=== PATIENT | male | born 1945 | race Caucasian/White ===

== ENCOUNTER → 2016-11-17 | Outpatient (CLI) | payer OTHER ==
[~2016-11-17] MED LIST: ADVIN25/60 INH; ALBU1AER9 INH; ALPH600C2 PO; CHOL20009 PO; CRFUDL PO; CYAN1TAB PO; IPRASOL4 INH; LORA-741 PO; MULT-513 PO; MULTTAB45 PO; NAPR500T3 PO; NRV/5 PO; ONDA4TAB65 PO; OXYC-57 PO; PRT40 PO; PYRI25TA3 PO; TIOTCAP INH; [UNRECOGNIZED DRUG - CODE] SL
[2016-11-17 16:35] LABS: CALCIUM 9.5 mg/dl (8.5-10.1)
[2016-11-17 16:50] LABS: THYROID STIMULATING HORMONE 0.38 uIu/ml (0.300-4.500)
== END | disposition home or self-care (01) ==
LOC: C.LABBFT 13:22
PROVIDERS: ATTEND Internal Medicine Endocrinology, Diabetes & Metabolism
DX: E34.9 Endocrine disorder, unspecified (principal); R94.6 Abnormal results of thyroid function studies

== ENCOUNTER → 2017-03-06 | Outpatient (CLI) | payer OTHER ==
--- NOTE | 2017-03-06 11:41 | DIAGNOSTIC IMAGING REPORT ---
CHEST 2 VIEWS ROUTINE CLINICAL HISTORY: CHRONIC COUGH; NEW ONSET OF HOARSENESS dyspnea COMPARISON STUDY: 06/29/2015 FINDINGS: Moderate stable cardia megaly. Unchanging interstitial and parenchymal prominence considered chronic. No acute or superimposed infiltrate. IMPRESSION: Chronic change. Mild stable cardia megaly. No acute or interval process. The above report was generated using voice recognition software. It may contain grammatical, syntax or spelling errors. Electronically signed by: Shad Magallon M.D. 03/06/2017 11:40 AM Dictated Date/Time: 03/06/2017 11:39 AM
== END | disposition home or self-care (01) ==
LOC: C.RAD 11:09
PROVIDERS: ATTEND Nurse Practitioner Family
DX: C34.11 Malignant neoplasm of upper lobe, right bronchus or lung (principal); R05 Cough; R49.0 Dysphonia

== ENCOUNTER → 2018-03-21 | Outpatient (CLI) | payer OTHER ==
[~2018-03-21] MED LIST changes: +IPRA-64 INH; -IPRASOL4 INH; +NAPR-1231 PO; -NAPR500T3 PO; +PANT1TAB4 PO; -PRT40 PO
[2018-03-21 13:59] LABS: ALBUMIN 3.9 gm/dl (3.4-5.0); CALCIUM 9.3 mg/dl (8.5-10.1)
[2018-03-21 14:04] LABS: T3 FREE 3.48 pg/ml (2.30-4.20)
== END | disposition home or self-care (01) ==
LOC: C.LAB1850 12:20
PROVIDERS: ATTEND Internal Medicine Endocrinology, Diabetes & Metabolism
DX: R53.83 Other fatigue (principal); R94.6 Abnormal results of thyroid function studies

== ENCOUNTER 2019-02-18 21:24 | Inpatient (IN) ==
--- OUTSIDE RECORDS SUMMARY | 2019-02-18 21:27 | External Medical Summary | Continuity of Care Document ---
:1945 Author Name Monie Zuniga, Provider Address Unavailable Unavailable , Care Team Providers Name Role Phone Fabricio Moon M.D. 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.90) Status: Resolved Anxiety (300.00) (F41.9) Depressive disorder (311) (F32.9) Chronic hoarseness (784.42) (R49.0) Arthritis (716.90) (M19.90) Mediastinal lymphadenopathy (785.6) (R59.0) Acid reflux disease (530.81) (K21.9) Dyslipidemia (272.4) (E78.5) Diastolic dysfunction (429.9) (I51.89) Diverticulosis (562.10) (K57.90) Idiopathic neuropathy (355.9) (G60.9) Increased frequency of urination (788.41) (R35.0) Port catheter in place (V45.89) (Z95.828) Allergies and Adverse Reactions citalopram (Allergy) Reaction: Nausea, D iarrhea Morphine Derivatives (Allergy) Status: D enied Statins (Allergy) Medications Multiple Vitamin TABS; TAKE 1 TABLET DAILY. Refills: 0 Spiriva HandiHaler 18 MCG Inhalation Cap narayan; INHALE CONTENTS OF 1 CAPSULE ONCE DAILY. Quantity: 30 Refills: 0 Pyridoxine HCl - 25 MG Oral Tablet; TAKE 1 TABLET DAILY D IRECTED. Refills: 0 Lovastatin 20 MG Oral Tablet; TAKE 1 TABLET DAILY. 60 Tablet Bottle Refills: 0 Omeprazole 40 MG Oral Capsule Delayed Release; TAKE 1 CAPSUL E DAILY. Refills: 3 Ipratropium-Albuterol 0.5-2.5 (3) MG/3ML Inhalation Solution; USE 1 UNIT DOSE IN NEBULIZER EVERY 4 HOURS NEEDED. FERDINAND Puri 3 ML Plas Cont Quantity: 180 Refills: 3 Calcitriol 0.5 MCG Oral Capsule; TAKE 1 CAPSULE Daily Efrain Salazar Start: 15-Feb-2016 Quantity: 90 Refills: 0 Lisinopril 5 MG Oral Tablet; TAKE 1 TABLET DAILY. Start: 23-Nov-2016 Quantity: 30 Refills: 5 Ferrous Sulfate 325 (65 Fe) MG Oral Tablet; TAKE 1 TABLET TW ICE DAILY. Start: 29-Jan-2019 Quantity: 60 Refills: 0 Symbicort 160-4.5 MCG/ACT Inhalation Aer osol; INHALE 2 PUFFS TWICE DAILY. RINSE MOUTH AFTER USE. 10.2 GM Inhaler Quantity: 1 Refills: 5 Vitamin B-6 50 MG Oral Tablet; TAKE 1 TABLET DAILY. Refills: 0 Alpha-Lipoic Acid 600 MG Oral Capsule; TAKE 1 CAPSULE Daily Refills: 0 Vitamin C 500 MG Oral Tablet; TAKE 1 TABLET DAILY. Start: 23-Jan-2019 Refills: 0 Iron 325 (65 Fe) MG Oral Tablet; Take 1 time daily Start: 23-Jan-2019 Refills: 0 Naproxen 500 MG Oral Tablet; TAKE 1 TABLET EVERY 12 HOURS NEEDED. Start: 23-Jan-2019 Refills: 0 Gabapentin 100 MG Oral Capsule; TAKE 2 CAPSULES DAILY Start: 23-Jan-2019 Refills: 0 ProAir HFA 108 (90 Base) MCG/ACT Inhalat ion Aerosol Solution; INHALE 2 PUFFS EVERY 4 HOURS NEEDED Start: 28-Nov-2017 Quantity: 1 8.5 GM Inhaler Refills: 5 Procedures Calcium Date: 23-Jan-2019 PTH, Intact Date: 23-Jan-2019 Free T4 Date: 23-Jan-2019 Ultra TSH Date: 23-Jan-2019 History of Back Surgery Status: Complete d History of Hernia Repair Status: Complet ed History of Shoulder Surgery Status: Comp leted History of Knee Arthroscopy (Therapeutic) Status: Completed History of Lung Lobectomy Status: Comple brayan Immunizations Td On: 08-Jan-1998 Tdap On: 01-Jul-2008 Pneumovax 23 25 MCG/0.5ML Injection Injectable On: 17-May-20 09 Fluzone INJ On: 25-Jun-2012 Influenza On: 20-May-2013 Zoster (Zostavax) On: 19-Mar-2014 Influenza On: 01-Jun-2014 Prevnar 13 Intramuscular Suspension On: 26-Oct-2014 Influenza On: 06-May-2015 Fluzone High-Dose Intramuscular Suspension On: 03-Jun-2018 1 6:16 Lot #: [id number], [employer]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 3) Status: Active Unknown Family Member Family history of diabetes mellitus (V18.0) Status: Active Comments: Family History (Z83.3) Family history of myocardial infarction Status: Active Comments: Family History (V17.3) (Z82.49) Family history of cataracts (V19.19) Status: Active Com ments: Family History (Z83.518) Social History - Smoking Status Former smoker Plan of Treatment Planned Encounters Appointment; Fabricio Moon M.D. Start: 28-Jan-2020 13:40 Re quest Planned Observations Planned Goals not documented Results No Known Results Results not documented Vital Signs 29-Jan-2019 14:16 Systolic 124 mm[Hg] Comments: Location: LUE; Position: Sitting Diastolic 86 mm[Hg] Comments: Location: LUE; Position: Sitting O2 Saturation 96 % Comments: Source: RA Weight 248.3125 lb Height 69.5 in BMI Calculated 36.14 kg/m2 Respiration 16 /min BSA Calculated 2.28 m2 Heart Rate 99 /min Temperature 98.1 f 23-Jan-2019 13:22 Systolic 118 mm[Hg] Diastolic 70 mm[Hg] Weight 250.7 lb Height 69.5 in BMI Calculated 36.49 kg/m2 BSA Calculated 2.29 m2 Heart Rate 108 /min Encounters Appointment; Natalie Puri PA-C 29-Jan-2019 14:30 Encounter Diagnosis: Problem not documented Appointment; Fabricio Moon M.D. 23-Jan-2019 13:20 Encounter Diagnosis: Problem not documented Appointment; Natalie Puri PA-C 07-Oct-2018 14:30 Encounter Diagnosis: Problem not documented Appointment; Natalie Puri PA-C 03-Jun-2018 14:30 Encounter Diagnosis: Problem not documented Appointment; Pulmonary, Funct Testing 03-Jun-2018 13:30 Encounter Diagnosis: Problem not documented Appointment; Fabricio Moon M.D. 21-Mar-2018 11:20 Encounter Diagnosis: Problem not documented Appointment; Vanessa Ervin PA-C 24-Dec-2017 10:15 Encounter Diagnosis: Problem not documented Appointment; Stress, Echocardiogram 1 24-Dec-2017 9:30 Encounter Diagnosis: Problem not documented Appointment; Hal Kennedy M.D. 07-Dec-2017 11:30 Encounter Diagnosis: Problem not documented Appointment; Natalie Puri PA-C 28-Nov-2017 13:30 Encounter Diagnosis: Problem not documented Appointment; Sumeet Trejo M.D. 15-Mar-2017 8:40 Encounter Diagnosis: Problem not documented Appointment; Fabricio Moon M.D. 28-Jan-2020 13:40 Encounter Diagnosis: Problem not documented
[2019-02-18 22:38] LABS: Basophils # (auto) 0.04 K/uL (0-0.2); Basophils % (auto) 0.3 %; Eosinophils # (auto) 0.51 K/uL (0-0.5); Eosinophils % (auto) 4.2 %; Hematocrit (blood only) 40.2 % (42-52); Hemoglobin 12.5 g/dL (14.0-18.0); Immature Granulocytes # (auto) 0.13 K/uL (0.00-0.02); Immature Granulocytes % (auto) 1.1 %; Lymphocytes # (auto) 2.07 K/uL (1.2-3.4); Lymphocytes % (auto) 17.1 %; Mean Corpuscular Hgb Conc 31.1 g/dL (32-36); Mean Corpuscular Volume 85.5 fL (80-100); Mean Platelet Volume 10.1 fL (7.4-10.4); Monocytes # (auto) 1.17 K/uL (0.11-0.59); Monocytes % (auto) 9.7 %; Neutrophils # (auto) 8.17 K/uL (1.4-6.5); Neutrophils % (auto) 67.6 %; Platelet Count 201 K/uL (130-400); RDW Coefficient of Variation 18.4 % (11.5-14.5); RDW Standard Deviation 58.2 fL (36.4-46.3); White Blood Count 12.09 K/uL (4.8-10.8)
[2019-02-18] MEDS ORDERED: ALBUT/IPRATROP 3MG/0.5MG NEB 3 ML VIAL INH STA (22:38)
--- NOTE | 2019-02-18 22:46 | XRay Report ---
XR chest 1V portable CLINICAL HISTORY: SOB/Chest pain dyspnea COMPARISON STUDY: 06/29/2015 FINDINGS: Moderate cardiomegaly. Lungs are clear. Mild chronic elevation right hemidiaphragm. Central catheter is in spur vena cava. IMPRESSION: Cardiomegaly. Otherwise negative study. The above report was generated using voice recognition software. It may contain grammatical, syntax or spelling errors. Electronically signed by: Shad Magallon M.D. 02/18/2019 10:44 PM
[2019-02-18 22:50] LABS: INR 1.2 (0.9-1.1); Partial Thromboplastin Ratio 1.1; Partial Thromboplastin Time 29.4 Seconds (21.0-31.0); Prothrombin Time 11.8 Seconds (9.0-12.0)
[2019-02-18 22:56] LABS: Albumin Level 3.3 gm/dl (3.4-5.0); BUN Creatinine Ratio 16.5 (10-20); Calcium 9.4 mg/dl (8.5-10.1); Creatinine Clr Calc Pharmacy 47.4 ml/min; Est GFR (African American) 44.7; Est GFR (Non-African American) 38.6; Potassium 4.1 mmol/L (3.5-5.1)
[2019-02-18 23:03] LABS: Albumin Globulin Ratio 0.9 (0.9-2); Bilirubin,Total 0.3 mg/dl (0.2-1); Globulin 3.7 gm/dl (2.5-4.0); Troponin I 0.136 ng/ml (0-0.045)
--- NOTE | 2019-02-19 01:07 | Emergency Department Note ---
Entered by Simin Wren acting as a scribe for Mirza Valencia MD History of Present Illness General Chief complaint: Shortness of Breath/Dyspnea Stated complaint: SOB, CHEST PAIN- HX COPD Source: patient History of Present Illness Onset (ago): hour(s) (today) Location: chest Severity: similar to prior episodes Pain Consistency: + other (worsening ) Maximum Pain Intensity: 7 Quality: + other (shortness of breath ) Exacerbated By: + other (exertion) Associated symptoms: + chest pain (left-sided tightness and ache with radiation to left shoulder), + cough and + diaphoresis; no fever/chills The patient is a 74 year old male who presents to the Emergency Room with complaints of worsening shortness of breath that began today. He states that this shortness of breath is exacerbated with exertion. The patient states that he had left-sided chest pain during this time that he describes as a tightness a nd ache. He states that this pain radiated to his left shoulder. The patient states that he was walking when he felt increasingly short of breath and checked his pulse ox and heart rate. The patient states that at this time his pulse ox was 70% and his heart rate was 159. He states that he was sweating at this time. The patient denies fever. The patient states that his shortness of breath has been persistent over the past 7 months with his history of COPD and lung cancer, but worsened over the past several days and worse today. He states that he has been coughing during this time. It is a nonproductive cough. The patient states that he is not on oxygen at home. He denies a history of clots or CAD. The patient states that he had a stress test last year. Home Medications Home Medications Medication Instructions Recorded Confirmed Type Albuterol (Proair Hfa) 2 puff INHALATION PRN #0 02/03/13 History CHOLECALCIFEROL (VITAMIN D) 600 mg PO DAILY #0 02/03/13 History LORAZEPAM (ATIVAN) 0.5 mg PO #0 tab 03/17/13 History OXYCODONE/ACETAMINOPHEN 5MG/325MG 0.5 - 1 tab PO DAILY PRN 30 Days 03/17/13 History (PERCOCET 5MG/325MG) #0 tab Tiotropium [place] (Spiriva 1 cap INHALATION DAILY #0 inhaler 04/01/13 History Handihaler) Amlodipine Besylate 5 mg PO HS #0 10/30/13 History MELATONIN-VITAMIN B12 (MELATONIN) 2,500 mcg SUBLINGUAL PRN #0 10/29/14 History ALPHA-LIPOIC ACID (THIOCTIC AC 600 mg PO DAILY #0 06/29/15 History (ALPHA LIPOIC ACID) CYANOCOBALAMIN (B-12 TR) 1,000 mcg PO DAILY #0 06/29/15 History FLUTICASONE PROP/SALMETEROL 1 puff INHALATION BID #0 inhaler 06/29/15 History (Advair Diskus 250/50 60 Dose) FLUTICASONE PROP/SALMETEROL 1 puff INHALATION TID PRN #0 06/29/15 History (Advair Diskus 250/50 60 Dose) inhaler IPRATROPIUM-ALBUTEROL (DUONEB) 1 treatment INHALATION Q6 PRN #0 06/29/15 History inh MULTIPLE VITAMIN 1 tab PO DAILY #0 06/29/15 History Multivitamins/Minerals (Mvi With 1 tab PO DAILY #0 tab 06/29/15 History Minerals) NAPROXEN 1 tab PO BID PRN 30 Days #60 tab 06/29/15 History ONDANSETRON HCL (ZOFRAN) 4 mg PO Q8 PRN #0 tab 06/29/15 History PYRIDOXINE HCL 25 mg PO DAILY #0 06/29/15 History Pantoprazole (Pantoprazole Sodium) 40 mg PO BID 30 Days #0 tab 07/01/15 Rx Sucralfate 1 g PO ACHS 14 Days #0 07/01/15 Rx Allergies Allergy/AdvReac Type Severity Reaction Status Date / Time citalopram AdvReac Mild GI SYMPTOMS Verified 10/29/14 14:22 pravastatin AdvReac Mild leg Verified 10/29/14 14:22 soreness rosuvastatin AdvReac Mild leg Verified 10/29/14 14:22 soreness Past Med/Surg History Medical History Renal insufficiency (Chronic) Anxiety and depression (Chronic) Lung cancer (Chronic ~12/2012) Hypertension (Chronic) GERD (gastroesophageal reflux disease) (Chronic) COPD (chronic obstructive pulmonary disease) (Chronic) Surgical History S/P partial lobectomy of lung (Acute) Social History Feels Safe at Home: Yes Smoking Status: Former smoker Review of Systems See HPI for pertinent positives & negatives. and A total of 10 systems reviewed and were otherwise negative Physical Exam Vital Signs Vital Signs - 24 hr 02/18/19 21:30 02/18/19 21:57 02/18/19 22:23 Temperature 37.0 C Temperature Source Oral Sepsis Recent Fever Within 48 Hours No Sepsis New/Unexplained Change in Mental Status No Sepsis Action Taken by Nursing No Action Required Pulse Rate 108 H Pulse Rate [Apical] 101 H Pulse Rhythm Regular Pulse Rhythm [Apical] Regular Pulse Strength Normal Pulse Strength [Apical] Normal Respiratory Rate 30 H 22 Respiratory Effort / Characteristics Grunting Short of Breath Non-Labored Spontaneous Accessory Muscle Use Non-Labored Spontaneous Respiratory Depth Normal Normal Normal Respiratory Pattern Regular Regular Blood Pressure 141/83 H Blood Pressure [Right Arm] 144/90 H Blood Pressure Mean 102 Blood Pressure Mean [Right Arm] 108 Blood Pressure Position Sitting Blood Pressure Position [Right Arm] Sitting Pulse Oximetry 91 95 Oxygen Delivery Method Room Air Nasal Cannula Oxygen Flow Rate 4 02/18/19 22:34 02/18/19 23:05 02/18/19 23:14 Temperature Temperature Source Sepsis Recent Fever Within 48 Hours Sepsis New/Unexplained Change in Mental Status Sepsis Action Taken by Nursing Pulse Rate Pulse Rate [Apical] 98 H Pulse Rhythm Pulse Rhythm [Apical] Pulse Strength Pulse Strength [Apical] Respiratory Rate 20 Respiratory Effort / Characteristics Non-Labored Spontaneous Accessory Muscle Use Non-Labored Spontaneous Respiratory Depth Normal Respiratory Pattern Regular Blood Pressure Blood Pressure [Right Arm] Blood Pressure Mean Blood Pressure Mean [Right Arm] Blood Pressure Position Blood Pressure Position [Right Arm] Pulse Oximetry 95 94 Oxygen Delivery Method Room Air Nasal Cannula Nasal Cannula Oxygen Flow Rate 4 4 02/18/19 23:54 Temperature Temperature Source Sepsis Recent Fever Within 48 Hours Sepsis New/Unexplained Change in Mental Status Sepsis Action Taken by Nursing Pulse Rate Pulse Rate [Apical] 105 H Pulse Rhythm Pulse Rhythm [Apical] Regular Pulse Strength Pulse Strength [Apical] Normal Respiratory Rate 24 Respiratory Effort / Characteristics Non-Labored Spontaneous Respiratory Depth Normal Respiratory Pattern Regular Blood Pressure Blood Pressure [Right Arm] 118/76 Blood Pressure Mean Blood Pressure Mean [Right Arm] 90 Blood Pressure Position Blood Pressure Position [Right Arm] Sitting Pulse Oximetry 93 Oxygen Delivery Method Nasal Cannula Oxygen Flow Rate 4 Constitutional: Vital signs reviewed. Eyes: Pupils are equal round reactive to light. Conjunctiva are noninjected. ENT: Pharynx is clear without erythema or exudate. Mucous membranes are moist. Neck supple without meningeal signs. Respiratory: Expiratory wheezing bilaterally. Breath sounds are equal bilaterally. Cardiovascular: Regular rate and rhythm. No rubs or gallops. GI: Soft, nondistended and nontender. Bowel sounds are present. Musculoskeletal: Left leg swelling with some tenderness anteriorly over the mao, no erythema. Integumentary: No cyanosis. Neurological: The patient is awake and alert. No focal deficits. Psychiatric: Normal affect. Course 2230: Past medical records reviewed. The patient was evaluated in room B10. A complete history and physical exam was performed. 2307: I talked to the patient about a CT with elevated creatinine. The patient states that he would like to hold off on the CT. The patient states that his swelling in his left leg has been there for several months and states that he is usually sedentary. I offered to do an ultrasound and he is agreeable to this. The patient refuses a nebulizer treatment because he states that he just had one at home. I discussed the case with Dr. Vivar[facility] Hospitalist who accepts the patient for further evaluation. Consultations Consultation #1: Dr. Vivar Time: 01:00 Administered Medications Discontinued Medications Albuterol (Duoneb) 3 ml INH NOW STA Stop: 02/18/19 22:39 Last Admin: 02/18/19 23:12 Dose: 3 ml Documented by: [id number] Medical Decision Making Differential Diagnosis Differential diagnoses include unstable angina, GA, COPD exacerbation, PE, DVT, anemia, and others were considerded. Medical Records Attestation: I reviewed the patient's medical records. (The patient has no recent pertinent visits. ) Home Medications Current Medication List: was personally reviewed by me Laboratory Data Attestation: I reviewed the patient's lab results. Result diagrams: 02/18/19 22:26 02/18/19 22:26 Lab Results 02/18/19 02/18/19 02/18/19 Range/Units 22:26 22:26 22:26 WBC 12.09 H (4.8-10.8) K/uL RBC 4.70 (4.7-6.1) M/uL Hgb 12.5 L (14.0-18.0) g/dL Hct 40.2 L (42-52) % MCV 85.5 (80-100) fL MCH 26.6 (25-34) pg MCHC 31.1 L (32-36) g/dL RDW Std Deviation 58.2 H (36.4-46.3) fL RDW Coeff of Effie 18.4 H (11.5-14.5) % Plt Count 201 (130-400) K/uL MPV 10.1 (7.4-10.4) fL Immature Gran % (Auto) 1.1 % Neut % (Auto) 67.6 % Lymph % (Auto) 17.1 % [place] % (Auto) 9.7 % Eos % (Auto) 4.2 % Baso % (Auto) 0.3 % Immature Gran # (Auto) 0.13 H (0.00-0.02) K/uL Neut # (Auto) 8.17 H (1.4-6.5) K/uL Lymph # (Auto) 2.07 (1.2-3.4) K/uL [place] # (Auto) 1.17 H (0.11-0.59) K/uL Eos # (Auto) 0.51 H (0-0.5) K/uL Baso # (Auto) 0.04 (0-0.2) K/uL PT 11.8 (9.0-12.0) Seconds INR 1.2 H (0.9-1.1) APTT 29.4 (21.0-31.0) Seconds PTT Ratio 1.1 Sodium 141 (136-145) mmol/L Potassium 4.1 (3.5-5.1) mmol/L Chloride 110 H (98-107) mmol/L Carbon Dioxide 23 (21-32) mmol/L Anion Gap 8.0 (3-11) BUN 28 H (7-18) mg/dl Creatinine 1.71 H (0.6-1.4) mg/dl Est Cr Clr Drug Dosing 47.4 ml/min Est GFR ( Amer) 44.7 Est GFR (Non-Af Amer) 38.6 BUN/Creatinine Ratio 16.5 (10-20) Glucose 88 (70-99) mg/dl Calcium 9.4 (8.5-10.1) mg/dl Total Bilirubin 0.3 (0.2-1) mg/dl AST 24 (15-37) U/L ALT 32 (12-78) U/L Alkaline Phosphatase 53 (45-117) U/L POC Troponin I (0-0.045) ng/ml Troponin I 0.136 H* (0-0.045) ng/ml Total Protein 7.0 (6.4-8.2) gm/dl Albumin 3.3 L (3.4-5.0) gm/dl Globulin 3.7 (2.5-4.0) gm/dl Albumin/Globulin Ratio 0.9 (0.9-2) 02/18/19 Range/Units 23:07 WBC (4.8-10.8) K/uL RBC (4.7-6.1) M/uL Hgb (14.0-18.0) g/dL Hct (42-52) % MCV (80-100) fL MCH (25-34) pg MCHC (32-36) g/dL RDW Std Deviation (36.4-46.3) fL RDW Coeff of Effie (11.5-14.5) % Plt Count (130-400) K/uL MPV (7.4-10.4) fL Immature Gran % (Auto) % Neut % (Auto) % Lymph % (Auto) % [place] % (Auto) % Eos % (Auto) % Baso % (Auto) % Immature Gran # (Auto) (0.00-0.02) K/uL Neut # (Auto) (1.4-6.5) K/uL Lymph # (Auto) (1.2-3.4) K/uL [place] # (Auto) (0.11-0.59) K/uL Eos # (Auto) (0-0.5) K/uL Baso # (Auto) (0-0.2) K/uL PT (9.0-12.0) Seconds INR (0.9-1.1) APTT (21.0-31.0) Seconds PTT Ratio Sodium (136-145) mmol/L Potassium (3.5-5.1) mmol/L Chloride (98-107) mmol/L Carbon Dioxide (21-32) mmol/L Anion Gap (3-11) BUN (7-18) mg/dl Creatinine (0.6-1.4) mg/dl Est Cr Clr Drug Dosing ml/min Est GFR ( Amer) Est GFR (Non-Af Amer) BUN/Creatinine Ratio (10-20) Glucose (70-99) mg/dl Calcium (8.5-10.1) mg/dl Total Bilirubin (0.2-1) mg/dl AST (15-37) U/L ALT (12-78) U/L Alkaline Phosphatase (45-117) U/L POC Troponin I 0.08 H (0-0.045) ng/ml Troponin I (0-0.045) ng/ml Total Protein (6.4-8.2) gm/dl Albumin (3.4-5.0) gm/dl Globulin (2.5-4.0) gm/dl Albumin/Globulin Ratio (0.9-2) Imaging Data Radiologist's Impression: Radiology results as stated below per my review and the radiologist's interpretation: XR chest 1V portable CLINICAL HISTORY: SOB/Chest pain dyspnea COMPARISON STUDY: 06/29/2015 FINDINGS: Moderate cardiomegaly. Lungs are clear. Mild chronic elevation right hemidiaphragm. Central catheter is in spur vena cava. IMPRESSION: Cardiomegaly. Otherwise negative study. Preliminary Findings Only See Final Report For Complete Findings US VENOUS BILATERAL LOWER EXTREMITIES: No evidence of deep venous thrombosis. Radiologist: Aidan Recio MD Study ready at 00:39 and initial results transmitted at 01:16 The above report was generated using voice recognition software. It may contain grammatical, syntax or spelling errors. Electronically signed by: Shad Magallon M.D. 02/18/2019 10:44 PM ECG Data Attestation: I personally reviewed and interpreted this ECG as follows: Indication: chest pain Rate (beats per minute): 106 Rhythm: sinus tachycardia Findings: + Q waves (inferiorly); no PVC and no ST elevation Comparison ECG Date: from (07/01/2015) Change: the following changes noted (Q waves new) Blood Pressure Blood Pressure Findings: Normal blood pressure MDM Narrative I did evaluate the patient as noted above. The patient is presenting with exertional chest pain with shortness of breath and hypoxemia. He does have a prior history of lung cancer. I was concerned about CAD or pulmonary embolism. He states he has a history of neither. IV access was established. 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 He declined a nebulizer as the patient states that he just had one at home. He does have some expiratory wheezing on exam. I did order and personally review the patient's 12-lead EKG as described above. He does have some Q waves inferiorly. No ST elevations. I did order and personally reviewed the images of the patient's chest x-ray as described above. He has cardiomegaly without acute process. I did order and review the patient's blood work as noted in the electronic medical record. Creatinine is elevated at 1.7. His white count is slightly elevated. Troponin is 0.08. I did recommend CT scanning of the chest to rule out pulmonary embolism. He was concerned about the repeated CAT scans he was having and also was concerned about the IV dye and how it if it would affect his kidneys. He did not wish to have a CT scan at this time. He and his understand the risk of pulmonary embolism going undiagnosed and potential consequences. I did order Doppler ultrasound of the bilateral lower extremities. I did review the images myself as well as the radiology report as described above. This did not show any evidence of DVT. I did discuss the test results with the patient and his . I did recommend hospitalization for further evaluation. He will revisit the issue of CT scanning with the inpatient service as well as anticoagulation. I did discuss the case with the hospitalist and case reviewer. Impression & Plan Exertional chest pain, COPD exacerbation, Hypoxemia, Elevated serum creatinine, Elevated troponin Discharge Plan Visit Data Chief Complaint: Shortness of Breath/Dyspnea Stated Complaint: SOB, CHEST PAIN- HX COPD Other Complaint: Chest Pain ED Provider: Mirza Valencia Discharge Problem: Exertional chest pain, COPD exacerbation, Hypoxemia, Elevated serum creatinine, Elevated troponin Patient Disposition: Being Evaluated by Hospitalist Forms Stand Alone Forms: Call Back Authorization, My [facility] Prescriptions Prescriptions: No Action Albuterol (Proair Hfa) AEROSOL,SOLN 2 puff Inhalation PRNQty: 0 RF: 0 CHOLECALCIFEROL (VITAMIN D) 2,000 UNIT tablet 600 mg PO DAILY Qty: 0 RF: 0 LORAZEPAM (ATIVAN) 0.5 MG tablet 0.5 mg PO Qty: 0 RF: 0 OXYCODONE/ACETAMINOPHEN 5MG/325MG (PERCOCET 5MG/325MG) tablet 0.5 - 1 tab PO DAILY PRN (Reason: Pain) 30 Days Qty: 0 RF: 0 Tiotropium [place] (Spiriva Handihaler) 18 MCG/ AEROSOL,POWDR 1 cap Inhalation DAILY Qty: 0 RF: 0 Amlodipine Besylate 5 MG tablet 5 mg PO HS Qty: 0 RF: 0 MELATONIN-VITAMIN B12 (MELATONIN) 1 SUB SUB 2,500 mcg Sublingual PRN (Reason: supplement) Qty: 0 RF: 0 CYANOCOBALAMIN (B-12 TR) 1,000 MCG tablet 1,000 mcg PO DAILY Qty: 0 RF: 0 FLUTICASONE PROP/SALMETEROL (Advair Diskus 250/50 60 Dose) 1 EA AEROSOL,POWDR 1 puff Inhalation TID PRN (Reason: unk) Qty: 0 RF: 0 IPRATROPIUM-ALBUTEROL (DUONEB) 3 ML NEBULIZR-SOLN 1 treatment Inhalation Q6 PRN (Reason: SOB/Wheezing) Qty: 0 RF: 0 Multivitamins/Minerals (Mvi With Minerals) tablet 1 tab PO DAILY Qty: 0 RF: 0 NAPROXEN 500 MG tablet 1 tab PO BID PRN (Reason: Pain) 30 Days Qty: 60 RF: 0 ONDANSETRON HCL (ZOFRAN) 4 MG tablet 4 mg PO Q8 PRN (Reason: Nausea or Vomiting) Qty: 0 RF: 0 PYRIDOXINE HCL 25 MG tablet 25 mg PO DAILY Qty: 0 RF: 0 ALPHA-LIPOIC ACID (THIOCTIC AC (ALPHA LIPOIC ACID) 600 MG capsule 600 mg PO DAILY Qty: 0 RF: 0 FLUTICASONE PROP/SALMETEROL (Advair Diskus 250/50 60 Dose) 1 EA AEROSOL,POWDR 1 puff Inhalation BID Qty: 0 RF: 0 MULTIPLE VITAMIN 1 TAB tablet 1 tab PO DAILY Qty: 0 RF: 0 Pantoprazole (Pantoprazole Sodium) 40 MG tablet 40 mg PO BID 30 Days Qty: 0 RF: 0 Sucralfate 1 GM/10 ML suspension 1 g PO ACHS 14 Days Qty: 0 RF: 0 Referrals Referrals: Maureen Mcdaniels [Primary Care Provider] - The scribe's documentation has been prepared under my direction and personally reviewed by me in its entirety. I confirm that the note above accurately reflects all work, treatment, procedures, and medical decision making performed by me.
--- NOTE | 2019-02-19 02:28 | History & Physical Report ---
Date of Service February 19, 2019 Assessment & Plan (1) Shortness of breath: Patient presents with progressive shortness of breath x year, acute worsening over the last 3-4 days. He had an episode today with severe HERNANDEZ, CP, palpitations and lightheadedness, saturations reported to be 70% at that time. Exam is most consistent with acute exacerbation of COPD. Patient with history of NSCL cancer s/p RLL lobectomy. Pulmonary emphysema - PFT from 03 June 2018 wit pattern of restriction - PFT 06/03/2018: FVC: 2.7/61, FEV1: 2.17/65, FEV1/FVC: 80/105, FEF 25-75%: 2.22/75, RV: 1.8/72, T.37/82, RV/T/111, DLCO: 35, dL/VA: 90 -Admit to PCU -DuoNeb q 4 hours -Albuterol q 2 hours PRN -Continue Symbicort 2 puffs BID -Solumedrol 40mg IV TID -Patient would most likely benefit greatly from Pulmonary rehab Present on Admission?: Yes (2) COPD (chronic obstructive pulmonary disease): As above. -DuoNeb, Albuterol, Solumedrol, supplemental O2 as needed Present on Admission?: Yes (3) Elevated troponin: Troponin elevated at 0.136. Patient with episode of chest pain earlier today in setting of hypoxia, sats reported to be 70%. Presently CP free. Patient with no known CAD, however, EKG suggests presence of inferior infarct. He had a dobutamine stress test performed 24 Dec 2017 which was negative for inducible ischemia/WMA. LV normal size and function. RV mildly dilated. Suspect supply-demand mismatch in setting of acute hypoxic respiratory failure as underlying cause for mildly elevated troponin -Admit to PCU as above -Cardiac monitoring -Trend troponin q 8 hours x 3 sets -Check 2D echocardiogram -Continue Lisinopril 5mg po daily -Continue Lovastatin 20mg po qPM -Will initiate ASA 81mg po daily Present on Admission?: Yes (4) Dyslipidemia: Chronic -Continue Lovastatin 20mg po daily Present on Admission?: Yes (5) GERD (gastroesophageal reflux disease): Patient reports symptoms have resolved. He no longer takes PPI -Continue to monitor Present on Admission?: Yes (6) Hypertension: Blood pressure presently stable -Continue Lisinopril daily -Continue to monitor Present on Admission?: Yes (7) Renal insufficiency: BUN=28, Cr=1.7, similar to prior -Avoid nephrotoxic agents -Renal dosing where appropriate -Monitor BUN, Cr, electrolytes and UOP Present on Admission?: Yes (8) Lung cancer: Remote history of squamous cell s/p RLL lobectomy and adjuvant chemotherapy, presently in remission. -Continue outpatient followup with Pulmonary F/E/N - Heplock. Monitor electrolytes and replete as needed, heart healthy diet as tolerated Ppx - Lovenox 40 Code - Full per discussion with patient Dispo - Admit to PCU History of Present Illness Chief Complaint: SOB Primary Care Provider: Maureen Mcdaniels Mr. Lynch is a 74yo C male with history of HTN, HLP, COPD, CKD, non-small cell lung cancer s/p RLL lobectomy and юлия biopsy, s/p chemotherapy, presently in remission. Patient presents with progressive HERNANDEZ and SOB. He states that his symptoms have been slowly progressing for years with more rapid progression since August 2018 and acute worsening over the last 3-4 days. Patient reports severe dyspnea with minimal exertion such as ambulating 50 feet in his home. This afternoon he was mowing the lawn using his riding mower. He finished mowing and walked into his home and up a flight of stairs after which he became acutely short of breath. He used his home pulse oximeter and had a saturation of 70%, heart rate of 159 bpm at that time. He also had dull left sided chest pressure and palpitations with lightheadedness. He rested for about an hour and repeated his pulse ox which was 81%. Patient has a cough productive for light/clear sputum. No purulence. No fevers/chills/sweats. No recent illness or allergy symptoms. He does report recent bilateral LE edema over the last 5 days. Denies weight gain, orthopnea. He is compliant with his medications and uses his inhalers faithfully. SOB briefly improves after a neb treatment. Presently with no CP. Still with SOB although improved from prior. ER Course: Albuterol Allergies Allergy/AdvReac Type Severity Reaction Status Date / Time citalopram AdvReac Mild GI SYMPTOMS Verified 02/19/19 01:50 pravastatin AdvReac Mild leg Verified 02/19/19 01:50 soreness rosuvastatin AdvReac Mild leg Verified 02/19/19 01:50 soreness Home Medications Home Medications Medication Instructions Recorded Confirmed Type budesonide-formoterol [Symbicort] 2 puff INHALATION AMPM 02/19/19 02/19/19 History calcitriol 0.5 mcg PO QAM 02/19/19 02/19/19 History gabapentin 200 mg PO HS 02/19/19 02/19/19 History ipratropium-albuterol 3 ml INHALATION AMPM 02/19/19 02/19/19 History lisinopril 5 mg PO QAM 02/19/19 02/19/19 History lovastatin 20 mg PO PM 02/19/19 02/19/19 History naproxen 500 mg PO BID PRN 02/19/19 02/19/19 History tiotropium bromide [Spiriva with 1 cap INHALATION QPM 02/19/19 02/19/19 History HandiHaler] Past Med/Surg History Medical History Renal insufficiency (Chronic) Anxiety and depression (Chronic) Lung cancer (Chronic ~12/2012) Hypertension (Chronic) GERD (gastroesophageal reflux disease) (Chronic) COPD (chronic obstructive pulmonary disease) (Chronic) Dyslipidemia Surgical History S/P partial lobectomy of lung (Acute) History of back surgery History of hernia repair History of knee joint replacement History of shoulder surgery Family History Other Breast cancer Diabetes Social History Feels Safe at Home: Yes Smoking Status: Former smoker Hx Alcohol Use: No Hx Substance Use: No Review of Systems Review of Systems: All systems reviewed & are unremarkable except as noted in HPI & below Physical Exam Physical Exam: General: patient resting comfortably, NAD, non-toxic in appearance, AA&O x 4, mild conversational dyspnea Skin: warm, dry, intact, no rashes or lesions HEENT: NC/AT, PERRL, EOMI, anicteric sclera, conjunctiva without injection, external ear normal to inspection and nontender, nares patent, moist mucus membranes, dentures in place, no oropharyngeal lesions, neck supple, trachea midline, no LAD, no thyromegaly, no JVD Heart: +S1/S2, regular, no m/r/g, port in place, nontender to palpation Lungs: diminished breath sounds, +diffuse wheezing in bilateral lung edmonds, no rales/rhonchi Abd: +BS, soft, NT/ND, no masses/organomegaly/ascites Ext: warm, 2+ pulses in UE/LE bilaterally, no clubbing/cyanosis, trace pitting edema of bilateral LEs Neuro: nonfocal, patient AA&O x 4, speech intact, no facial droop, moving all extremities on command with equal strength 5/5 Results & Data Vital Signs (Past 12 Hours) Vital Signs Temp Pulse Pulse Resp BP BP Pulse Ox 02/18/19 23:54 105 H 24 118/76 93 02/18/19 23:14 98 H 20 94 02/18/19 23:05 95 02/18/19 22:23 101 H 22 144/90 H 95 02/18/19 21:30 37.0 C 108 H 30 H 141/83 H 91 Laboratory Results Lab Results 02/18/19 02/18/19 02/18/19 Range/Units 22:26 22:26 22:26 WBC 12.09 H (4.8-10.8) K/uL RBC 4.70 (4.7-6.1) M/uL Hgb 12.5 L (14.0-18.0) g/dL Hct 40.2 L (42-52) % MCV 85.5 (80-100) fL MCH 26.6 (25-34) pg MCHC 31.1 L (32-36) g/dL RDW Std Deviation 58.2 H (36.4-46.3) fL RDW Coeff of Effie 18.4 H (11.5-14.5) % Plt Count 201 (130-400) K/uL MPV 10.1 (7.4-10.4) fL Immature Gran % (Auto) 1.1 % Neut % (Auto) 67.6 % Lymph % (Auto) 17.1 % [place] % (Auto) 9.7 % Eos % (Auto) 4.2 % Baso % (Auto) 0.3 % Immature Gran # (Auto) 0.13 H (0.00-0.02) K/uL Neut # (Auto) 8.17 H (1.4-6.5) K/uL Lymph # (Auto) 2.07 (1.2-3.4) K/uL [place] # (Auto) 1.17 H (0.11-0.59) K/uL Eos # (Auto) 0.51 H (0-0.5) K/uL Baso # (Auto) 0.04 (0-0.2) K/uL PT 11.8 (9.0-12.0) Seconds INR 1.2 H (0.9-1.1) APTT 29.4 (21.0-31.0) Seconds PTT Ratio 1.1 Sodium 141 (136-145) mmol/L Potassium 4.1 (3.5-5.1) mmol/L Chloride 110 H (98-107) mmol/L Carbon Dioxide 23 (21-32) mmol/L Anion Gap 8.0 (3-11) BUN 28 H (7-18) mg/dl Creatinine 1.71 H (0.6-1.4) mg/dl Est Cr Clr Drug Dosing 47.4 ml/min Est GFR ( Amer) 44.7 Est GFR (Non-Af Amer) 38.6 BUN/Creatinine Ratio 16.5 (10-20) Glucose 88 (70-99) mg/dl Calcium 9.4 (8.5-10.1) mg/dl Total Bilirubin 0.3 (0.2-1) mg/dl AST 24 (15-37) U/L ALT 32 (12-78) U/L Alkaline Phosphatase 53 (45-117) U/L POC Troponin I (0-0.045) ng/ml Troponin I 0.136 H* (0-0.045) ng/ml Total Protein 7.0 (6.4-8.2) gm/dl Albumin 3.3 L (3.4-5.0) gm/dl Globulin 3.7 (2.5-4.0) gm/dl Albumin/Globulin Ratio 0.9 (0.9-2) 02/18/19 Range/Units 23:07 WBC (4.8-10.8) K/uL RBC (4.7-6.1) M/uL Hgb (14.0-18.0) g/dL Hct (42-52) % MCV (80-100) fL MCH (25-34) pg MCHC (32-36) g/dL RDW Std Deviation (36.4-46.3) fL RDW Coeff of Effie (11.5-14.5) % Plt Count (130-400) K/uL MPV (7.4-10.4) fL Immature Gran % (Auto) % Neut % (Auto) % Lymph % (Auto) % [place] % (Auto) % Eos % (Auto) % Baso % (Auto) % Immature Gran # (Auto) (0.00-0.02) K/uL Neut # (Auto) (1.4-6.5) K/uL Lymph # (Auto) (1.2-3.4) K/uL [place] # (Auto) (0.11-0.59) K/uL Eos # (Auto) (0-0.5) K/uL Baso # (Auto) (0-0.2) K/uL PT (9.0-12.0) Seconds INR (0.9-1.1) APTT (21.0-31.0) Seconds PTT Ratio Sodium (136-145) mmol/L Potassium (3.5-5.1) mmol/L Chloride (98-107) mmol/L Carbon Dioxide (21-32) mmol/L Anion Gap (3-11) BUN (7-18) mg/dl Creatinine (0.6-1.4) mg/dl Est Cr Clr Drug Dosing ml/min Est GFR ( Amer) Est GFR (Non-Af Amer) BUN/Creatinine Ratio (10-20) Glucose (70-99) mg/dl Calcium (8.5-10.1) mg/dl Total Bilirubin (0.2-1) mg/dl AST (15-37) U/L ALT (12-78) U/L Alkaline Phosphatase (45-117) U/L POC Troponin I 0.08 H (0-0.045) ng/ml Troponin I (0-0.045) ng/ml Total Protein (6.4-8.2) gm/dl Albumin (3.4-5.0) gm/dl Globulin (2.5-4.0) gm/dl Albumin/Globulin Ratio (0.9-2) Diagnostic Findings XR chest 1V portable CLINICAL HISTORY: SOB/Chest pain dyspnea COMPARISON STUDY: 06/29/2015 FINDINGS: Moderate cardiomegaly. Lungs are clear. Mild chronic elevation right hemidiaphragm. Central catheter is in spur vena cava. IMPRESSION: Cardiomegaly. Otherwise negative study. The above report was generated using voice recognition software. It may contain grammatical, syntax or spelling errors. Electronically signed by: Shad Magallon M.D. 02/18/2019 10:44 PM Dictated: 02/18/192243 Transcribed: 02/18/192243 Bilateral LE doppler - negative for DVT ECG Additional Comments: The study shows sinus tachycardia at 106bpm, UF=777, QRS=72, KCg=428, suggestive of new inferior infarct when compared to prior study from June 2015 Code Status & VTE Plan Code Status Full VTE Prophylaxis Plan VTE Prophylaxis will be ordered: Yes PG Care Time/CCT Total # of Minutes Spent Total Time Spent with Patient: Total time spent is greater than 50% in coordination of care (as documented) at patient's floor/unit and/or counseling patient: (1) COPD (chronic obstructive pulmonary disease) COPD type: emphysema Emphysema type: unspecified Qualified Code(s): J43.9 - Emphysema, unspecified (2) GERD (gastroesophageal reflux disease) Esophagitis presence: esophagitis presence not specified Qualified Code(s): K21.9 - Gastro-esophageal reflux disease without esophagitis (3) Hypertension Hypertension type: essential hypertension Qualified Code(s): I10 - Essential (primary) hypertension
[2019-02-19] MEDS ORDERED: ACETAMINOPHEN 325 MG TAB PO PRN (03:02)
[2019-02-19] MEDS ORDERED: ALBUTEROL 0.5% NEB SOLN 2.5 MG/0.5 ML VIAL NEB PRN (03:02)
[2019-02-19] MEDS ORDERED: HEPARIN 100 UNIT/ML 5ML FLUSH FLUSH PRN (04:08)
[2019-02-19] MEDS: ALBUT/IPRATROP 3MG/0.5MG NEB 3 ML VIAL NEB SCH ×6 (04:43→23:14)
[2019-02-19] MEDS ORDERED: methylPREDNISolone 40 MG in SYRINGE 0 ML IV SCH (06:00)
--- NOTE | 2019-02-19 06:32 | Ultrasound Report ---
BILATERAL LOWER EXTREMITY VENOUS DOPPLER HISTORY: Acute bilateral lower extremity pain and swelling eval for dvt COMPARISON STUDY: None. FINDINGS: There is normal compressibility, flow, and augmentation within the bilateral lower extremit y deep venous systems. IMPRESSION: No DVT within the right or left lower extremity. Electronically signed by: Bernabe Dias M.D. 02/19/2019 6:30 AM
[2019-02-19 07:25] LABS: Basophils # (auto) 0.05 K/uL (0-0.2); Basophils % (auto) 0.5 %; Eosinophils # (auto) 0.58 K/uL (0-0.5); Eosinophils % (auto) 5.5 %; Hematocrit (blood only) 39.8 % (42-52); Hemoglobin 12.3 g/dL (14.0-18.0); Immature Granulocytes # (auto) 0.15 K/uL (0.00-0.02); Immature Granulocytes % (auto) 1.4 %; Lymphocytes % (auto) 15.1 %; Mean Corpuscular Hgb Conc 30.9 g/dL (32-36); Mean Corpuscular Volume 86.1 fL (80-100); Monocytes # (auto) 0.67 K/uL (0.11-0.59); Monocytes % (auto) 6.3 %; Neutrophils # (auto) 7.57 K/uL (1.4-6.5); Neutrophils % (auto) 71.2 %; Platelet Count 194 K/uL (130-400); RDW Coefficient of Variation 18.8 % (11.5-14.5); RDW Standard Deviation 59.1 fL (36.4-46.3); Red Blood Count 4.62 M/uL (4.7-6.1); White Blood Count 10.62 K/uL (4.8-10.8)
[2019-02-19 07:47] LABS: BUN Creatinine Ratio 16.1 (10-20); Calcium 8.9 mg/dl (8.5-10.1); Creatinine Clr Calc Pharmacy 48.1 ml/min; Est GFR (African American) 46.7; Est GFR (Non-African American) 40.3; Magnesium 1.9 mg/dl (1.8-2.4); Potassium 4.3 mmol/L (3.5-5.1)
[2019-02-19 07:54] LABS: Phosphorus 3.1 mg/dl (2.5-4.9); Troponin I 0.109 ng/ml (0-0.045)
[2019-02-19] MEDS: ASPIRIN 81 MG ECTAB PO SCH (08:29)
[2019-02-19] MEDS: LISINOPRIL 5 MG TAB PO SCH (08:29)
[2019-02-19] MEDS: CALCITRIOL 0.25 MCG CAPSULE PO SCH (08:29)
[2019-02-19] MEDS: BUDESONIDE/FORMOTEROL FUMARATE 160/4.5 60 PUFFS/INHALER INH SCH ×2 (08:30→20:05)
[2019-02-19] MEDS: ENOXAPARIN INJ 40 MG/0.4 ML SYR SQ SCH (08:30)
--- NOTE | 2019-02-19 10:55 | Hospitalist Progress Note ---
Date of Service February 19, 2019 Assessment & Plan (1) Acute respiratory failure with hypoxia: 2nd to mod-severe COPD exacerbation. No clinical evidence of pneumonia or decompensated CHF. See "COPD" below. Present on Admission?: Yes (2) COPD exacerbation: mod-severe. Increase steroids to q6h dosing. Just finished course of antibiotics and his cough is largely nonproductive; defer on additional abx for now. Add incentive chapis. Add flutter valve. Add mucinex 1200mg BID. Add kary 60mg BID. Cont symbivort and spiriva at home doses. Cont duonebs q4h. If any worsening or lack of improvement then CT chest. Present on Admission?: Yes (3) History of lung cancer: NSCLC, 2013, s/p RLL lobectomy. No fevers/chills/weight loss/etc to suggest recurrence. Low threshold for advanced imaging if any worsening or lack of improvement. Present on Admission?: No (4) Elevated troponin: Most likely myocardial demand ischemia in setting of acute hypoxic resp failure. With that said he did have chest pain with exertion and he has akinesis of RV wall. Negative stress test 2018. No prior h/o IA / ACS. Consider cardiology consult but poor candidate for additional testing since his lungs are so ill right now. Continue aspirin. Continue statin. (5) Neuropathy: severe, b/l Legs, due to prior chemo for lung ca? neuropathy present 8-9+ years. cannot tolerate higher doses of gabapentin. thus, add cymbalta 20mg once daily. to be complete check records to see if TSH and B12 have been checked recently. Present on Admission?: Yes (6) AOM (acute otitis media): b/l - resolved on exam today Present on Admission?: No (7) Hypertension: cont home meds Present on Admission?: Yes (8) Wall motion abnormality of right ventricle: could he have had a silent RV infarct in the past ? will discuss this with cardiology. continue asa/statin in meantime. Present on Admission?: No (9) Elevated serum creatinine: Uncertain what his baseline Cr is. Will check old records. May have CKD. BMP am. Present on Admission?: Yes (10) DVT prophylaxis: lovenox 40mg daily will ultimately need PT/OT - hold off today given the extreme dyspnea he has w/ minimal exertion Subjective Patient with numerous complaints including - 1. long-standing leg/foot neuropathy for 8-9 years or longer. Has seen pain management for it. Has been on/off gabapentin for years. Cannot take higher doses due to sedation. 2. progressive dyspnea for the last year, worse for the last 3-4 days. Cough present; no sputum; no hemoptysis. 3. chest pain- occurred in setting of severe dyspnea yesterday; pain was substernal radiating to left shoulder. Went away with rest. 4. b/l ear issues - [facility]. Dx with what sounds like AOM and otitis externa. Took abx x 10 days along with ear drops to both canals for same length. Finished abx 2 days ago. He is not on O2 at home. Smoked 1.5 ppd x 30 years; quit 20+ years ago. Review of Systems Constitutional: no fever, no chills, no anorexia and no weight loss Ear, Nose, Mouth, Throat: as per Subjective / HPI Respiratory: + cough, + chest congestion, + dyspnea, + dyspnea on exertion and + wheezing; no hemoptysis and no pain on inspiration Cardiovascular: as per Subjective / HPI and + chest pain; no orthopnea, no paroxysmal nocturnal dyspnea and no edema Gastrointestinal: no abdominal pain, no nausea and no vomiting Physical Exam Constitutional: + acute distress (dyspneic but able to talk in full sentences) and + obese; no altered mental status ENMT: Ears: + TM abnormality (serous fluid left ear and retracted; right TM with white pus/serous fluid); no external ear abnormality and no EAC abnormality Respiratory: + respiratory distress Auscultation: + diminished lung sounds and + wheezes (extensive); no crackles Cardiovascular: Rate/Rhythm: regular rhythm and + tachycardic Heart Sounds: normal S1 and normal S2; no murmur Vessels: posterior tibial pulses present and dorsalis pedis pulses present; no JVD Extremities: no edema Gastrointestinal (Abdomen): normal bowel sounds, soft, nontender, no hep atosplenomegaly Inspection/Auscultation: + abdomen distended Skin: no rashes, warm and dry Psychiatric: A+Ox3, euthymic affect Results & Data Vital Signs (Past 12 Hours) Vital Signs Temp Pulse Pulse Pulse Resp BP BP 02/19/19 07:15 36.3 C L 89 24 136/80 02/19/19 06:57 80 20 07/03/19 04:34 108/77 02/19/19 03:02 36 C L 87 24 02/19/19 02:09 71 20 100/81 02/19/19 01:00 69 20 02/18/19 23:54 105 H 24 02/18/19 23:14 98 H 20 02/18/19 23:05 BP Pulse Ox 02/19/19 07:15 96 02/19/19 06:57 96 02/19/19 04:34 02/19/19 03:02 151/103 H 96 02/19/19 02:09 97 02/19/19 01:00 102/83 97 02/18/19 23:54 118/76 93 02/18/19 23:14 94 02/18/19 23:05 95 Laboratory Results Laboratory Results - last 24 hr 02/18/19 02/18/19 02/18/19 22:26 22:26 22:26 WBC 12.09 H RBC 4.70 Hgb 12.5 L Hct 40.2 L MCV 85.5 MCH 26.6 MCHC 31.1 L RDW Std Deviation 58.2 H RDW Coeff of Effie 18.4 H Plt Count 201 MPV 10.1 Immature Gran % (Auto) 1.1 Neut % (Auto) 67.6 Lymph % (Auto) 17.1 [place] % (Auto) 9.7 Eos % (Auto) 4.2 Baso % (Auto) 0.3 Immature Gran # (Auto) 0.13 H Neut # (Auto) 8.17 H Lymph # (Auto) 2.07 [place] # (Auto) 1.17 H Eos # (Auto) 0.51 H Baso # (Auto) 0.04 PT 11.8 INR 1.2 H APTT 29.4 PTT Ratio 1.1 Sodium 141 Potassium 4.1 Chloride 110 H Carbon Dioxide 23 Anion Gap 8.0 BUN 28 H Creatinine 1.71 H Est Cr Clr Drug Dosing 47.4 Est GFR ( Amer) 44.7 Est GFR (Non-Af Amer) 38.6 BUN/Creatinine Ratio 16.5 Glucose 88 Calcium 9.4 Phosphorus Magnesium Total Bilirubin 0.3 AST 24 ALT 32 Alkaline Phosphatase 53 POC Troponin I Troponin I 0.136 H* NT-Pro-B Natriuret Pep Total Protein 7.0 Albumin 3.3 L Globulin 3.7 Albumin/Globulin Ratio 0.9 02/18/19 02/19/19 02/19/19 23:07 06:47 06:47 WBC 10.62 RBC 4.62 L Hgb 12.3 L Hct 39.8 L MCV 86.1 MCH 26.6 MCHC 30.9 L RDW Std Deviation 59.1 H RDW Coeff of Effie 18.8 H Plt Count 194 MPV 10.0 Immature Gran % (Auto) 1.4 Neut % (Auto) 71.2 Lymph % (Auto) 15.1 [place] % (Auto) 6.3 Eos % (Auto) 5.5 Baso % (Auto) 0.5 Immature Gran # (Auto) 0.15 H Neut # (Auto) 7.57 H Lymph # (Auto) 1.60 [place] # (Auto) 0.67 H Eos # (Auto) 0.58 H Baso # (Auto) 0.05 PT INR APTT PTT Ratio Sodium 143 Potassium 4.3 Chloride 112 H Carbon Dioxide 23 Anion Gap 8.0 BUN 27 H Creatinine 1.65 H Est Cr Clr Drug Dosing 48.1 Est GFR ( Amer) 46.7 Est GFR (Non-Af Amer) 40.3 BUN/Creatinine Ratio 16.1 Glucose 90 Calcium 8.9 Phosphorus 3.1 Magnesium 1.9 Total Bilirubin AST ALT Alkaline Phosphatase POC Troponin I 0.08 H Troponin I 0.109 H* NT-Pro-B Natriuret Pep 958 H Total Protein Albumin Globulin Albumin/Globulin Ratio PG Care Time/CCT Total # of Minutes Spent Total Time Spent with Patient: Total time spent is greater than 50% in coordination of care (as documented) at patient's floor/unit and/or counseling patient: (1) AOM (acute otitis media) Otitis media type: unspecified Qualified Code(s): H66.90 - Otitis media, unspecified, unspecified ear (2) Hypertension Hypertension type: essential hypertension Qualified Code(s): I10 - Essential (primary) hypertension
[2019-02-19] MEDS: DULOXETINE HCL 20 MG CAP PO SCH (12:00)
[2019-02-19] MEDS: TIOTROPIUM BROMIDE 5 PUFF/90 MCG INH INH SCH (12:00)
[2019-02-19] MEDS: guaiFENesin 600 MG TABCR PO SCH ×2 (12:00→20:06)
[2019-02-19] MEDS: methylPREDNISolone 40 MG in SYRINGE 0 ML IV SCH ×3 (12:00→23:34)
[2019-02-19] MEDS: LOVASTATIN 20 MG TAB PO SCH (20:06)
[2019-02-19] MEDS: FEXOFENADINE 60 MG TAB PO SCH (20:06)
[2019-02-19] MEDS: GABAPENTIN 100 MG CAP PO SCH (20:06)
[2019-02-20] MEDS: ALBUT/IPRATROP 3MG/0.5MG NEB 3 ML VIAL NEB SCH ×6 (03:40→22:34)
[2019-02-20] MEDS: methylPREDNISolone 40 MG in SYRINGE 0 ML IV SCH ×4 (05:36→20:41)
[2019-02-20 06:47] LABS: BUN Creatinine Ratio 18.8 (10-20); Calcium 8.9 mg/dl (8.5-10.1); Creatinine Clr Calc Pharmacy 45.8 ml/min; Est GFR (African American) 43.8; Est GFR (Non-African American) 37.8; Potassium 4.4 mmol/L (3.5-5.1)
[2019-02-20] MEDS: FEXOFENADINE 60 MG TAB PO SCH ×2 (08:35→20:39)
[2019-02-20] MEDS: DULOXETINE HCL 20 MG CAP PO SCH (08:35)
[2019-02-20] MEDS: ASPIRIN 81 MG ECTAB PO SCH (08:35)
[2019-02-20] MEDS: guaiFENesin 600 MG TABCR PO SCH ×2 (08:35→20:38)
[2019-02-20] MEDS: CALCITRIOL 0.25 MCG CAPSULE PO SCH (08:35)
[2019-02-20] MEDS: TIOTROPIUM BROMIDE 5 PUFF/90 MCG INH INH SCH ×2 (08:35→22:23)
[2019-02-20] MEDS: ENOXAPARIN INJ 40 MG/0.4 ML SYR SQ SCH (08:35)
[2019-02-20] MEDS: LISINOPRIL 5 MG TAB PO SCH (08:35)
[2019-02-20] MEDS: BUDESONIDE/FORMOTEROL FUMARATE 160/4.5 60 PUFFS/INHALER INH SCH ×2 (08:40→20:40)
--- NOTE | 2019-02-20 11:53 | Hospitalist Progress Note ---
Date of Service February 20, 2019 Assessment & Plan (1) Acute respiratory failure with hypoxia: 2nd to mod-severe COPD exacerbation. IMPROVING. No clinical evidence of pneumonia or decompensated CHF on exam or imaging. VTE should be ruled out given his chest discomfort he had prehospital. Cr high; CrCl is borderline; will obtain VQ scan in [place] of CTA chest. (2) COPD exacerbation: mod-severe. IMPROVING. Decrease steroids to q8h dosing. Just finished course of antibiotics and his cough is largely nonproductive; defer on additional abx for now. Cont incentive chapis, flutter valve, mucinex, kary, symbicort, spiriva and duonebs q4h. If any worsening or lack of improvement then CT chest. (3) History of lung cancer: NSCLC, 2013, s/p RLL lobectomy. No fevers/chills/weight loss/etc to suggest recurrence. Low threshold for advanced imaging if any worsening or lack of improvement. CT chest w/o contrast would suffice. (4) Elevated troponin: Most likely myocardial demand ischemia in setting of acute hypoxic resp failure. Continue aspirin. Continue statin. (5) Neuropathy: severe, b/l Legs, due to prior chemo for lung ca? neuropathy present 8-9+ years. cannot tolerate higher doses of gabapentin. added cymbalta 20mg once daily on 02/19. recent TSH a few months ago wnl. check vitamin B12 level in am. (6) AOM (acute otitis media): b/l - resolved on exam yesterday (7) Hypertension: cont home meds controlled (8) Wall motion abnormality of right ventricle: could he have had a silent RV infarct in the past ? he does have mild RV systolic function - this could be due to severe COPD. case d/w cardiology - outpatient follow-up recommended. of note - stress test was negative in 2018. continue asa/statin. (9) Chronic kidney disease, stage 3a: Cr appears to be at baseline. Patient states that Cr of 1.6/1.7 "is normal for me." Thus CKD stage 3. BMP in am. (10) DVT prophylaxis: lovenox 40mg daily needs PT/OT progressing Subjective patient feels better less cough, less dyspnea tele - NSR or sinus tach - latter is quite high (130s) with walking in room good appetite asks multiple questions about his heart and echo results feels that cymbalta made him tired but it helped his neuropathy pain already (?) Review of Systems Constitutional: no fever and no chills Respiratory: + cough, + dyspnea on exertion and + wheezing; no hemoptysis and no sputum production Cardiovascular: no chest pain, no orthopnea, no paroxysmal nocturnal dyspnea and no edema Gastrointestinal: no abdominal pain, no nausea and no vomiting Physical Exam Constitutional: + obese; no acute distress and no altered mental status ENMT: Ears: no external ear abnormality Respiratory: Auscultation: + diminished lung sounds (but airation improved today) and + wheezes (marked improvement today); no crackles Cardiovascular: Rate/Rhythm: regular rhythm and + tachycardic Heart Sounds: normal S1 and normal S2; no murmur Vessels: posterior tibial pulses present and dorsalis pedis pulses present; no JVD Extremities: no edema Gastrointestinal (Abdomen): normal bowel sounds, soft, nontender, no hepatosplenomegaly Skin: no rashes, warm and dry Psychiatric: A+Ox3, euthymic affect Results & Data Vital Signs (Past 12 Hours) Vital Signs Temp Pulse Pulse Resp BP Pulse Ox 02/20/19 11:24 109 H 20 96 02/20/19 11:18 36.4 C L 111 H 22 139/80 97 02/20/19 08:00 86 02/20/19 07:28 84 18 93 02/20/19 06:54 36.5 C 100 H 20 130/76 92 02/20/19 02:56 36.5 C 114 H 22 147/85 H 90 Laboratory Results Laboratory Results - last 24 hr 02/19/19 02/20/19 12:45 05:52 Sodium 139 Potassium 4.4 Chloride 108 H Carbon Dioxide 20 L Anion Gap 11.0 BUN 33 H Creatinine 1.74 H Est Cr Clr Drug Dosing 45.8 Est GFR ( Amer) 43.8 Est GFR (Non-Af Amer) 37.8 BUN/Creatinine Ratio 18.8 Glucose 164 H Calcium 8.9 Troponin I 0.044 PG Care Time/CCT Total # of Minutes Spent Total Time Spent with Patient: Total time spent is greater than 50% in coordination of care (as documented) at patient's floor/unit and/or counseling patient: (1) AOM (acute otitis media) Otitis media type: unspecified Qualified Code(s): H66.90 - Otitis media, unspecified, unspecified ear (2) Hypertension Hypertension type: essential hypertension Qualified Code(s): I10 - Essential (primary) hypertension
[2019-02-20] MEDS: LOVASTATIN 20 MG TAB PO SCH (20:39)
[2019-02-20] MEDS: GABAPENTIN 100 MG CAP PO SCH (20:39)
[2019-02-21] MEDS: ALBUT/IPRATROP 3MG/0.5MG NEB 3 ML VIAL NEB SCH ×6 (04:00→23:41)
[2019-02-21] MEDS: methylPREDNISolone 40 MG in SYRINGE 0 ML IV SCH ×2 (06:20→17:24)
[2019-02-21 07:05] LABS: BUN Creatinine Ratio 21.9 (10-20); Calcium 8.8 mg/dl (8.5-10.1); Creatinine Clr Calc Pharmacy 46.1 ml/min; Est GFR (African American) 44.1; Potassium 4.6 mmol/L (3.5-5.1)
[2019-02-21] MEDS: guaiFENesin 600 MG TABCR PO SCH ×2 (08:27→19:17)
[2019-02-21] MEDS: POLYETHYLENE (MIRALAX) 17 GM PACK PO SCH ×3 (08:27→15:29)
[2019-02-21] MEDS: BUDESONIDE/FORMOTEROL FUMARATE 160/4.5 60 PUFFS/INHALER INH SCH ×2 (08:27→19:17)
[2019-02-21] MEDS: ENOXAPARIN INJ 40 MG/0.4 ML SYR SQ SCH (08:28)
[2019-02-21] MEDS: CALCITRIOL 0.25 MCG CAPSULE PO SCH (08:28)
[2019-02-21] MEDS: DULOXETINE HCL 20 MG CAP PO SCH (08:28)
[2019-02-21] MEDS: FEXOFENADINE 60 MG TAB PO SCH ×2 (08:28→19:16)
[2019-02-21] MEDS: LISINOPRIL 5 MG TAB PO SCH (08:28)
[2019-02-21] MEDS: ASPIRIN 81 MG ECTAB PO SCH (08:28)
--- NOTE | 2019-02-21 10:56 | Nuclear Medicine Report ---
NUCLEAR MEDICINE VENTILATION/PERFUSION SCAN CLINICAL HISTORY: Chest pain. Dyspnea. COMPARISON: Chest radiograph February 18, 2019. Chest CT February 22, 2018. TECHNIQUE: For the ventilation portion of this exam, 32.9 mCi of DTPA was inhaled at 10:10 AM on Feb. Immediately following inhalation, imaging of the chest was carried out in the anterior, p osterior, left lateral, right lateral, LPO, RPO, THAI and STOLL projections. For the perfusion portion of exam, 6. mCi of technetium 99m MAA was injected IV at 10:30 AM on February 21, 2019. Immediately follow ing injection, imaging of the chest was carried out in the same projections. FINDINGS: Significant central radiotracer deposition is noted on the ventilation portion of this exa m. Ventilation to both lungs is heterogeneous. Multiple foci of diminished perfusion are noted within both lungs. The majority of these are matched. A few small to moderate foci appear to be mismatched, particularly within the right lung. This exam is technically contrast was given central radiotracer deposition but is considered intermediate probability for pulmonary embolus. IMPRESSION: Technically compromised exam. Intermediate probability for pulmonary embolus. Electronically signed by: Bryce Bentley M.D. 02/21/2019 10:54 AM
[2019-02-21] MEDS ORDERED: SODIUM CHLORIDE 0.9% 1000ML 1,000 ML IV SCH (12:30)
[2019-02-21] MEDS ORDERED: OPTIRAY 320 125ml IV PRN (13:58)
--- NOTE | 2019-02-21 14:21 | CT Scan Report ---
CT ANGIOGRAM OF THE CHEST CLINICAL HISTORY: Acute respiratory failure. Indeterminate VQ scan. COMPARISON STUDY: Chest CT dated 02/22/2018, VQ scan dated 02/21/2019 TECHNIQUE: Following the IV administration of 118 mL of Optiray-320, CT angiogram of the thorax was p erformed from the thoracic inlet to the lung bases utilizing the pulmonary embolus protocol. Images a re reviewed in the axial, sagittal, and coronal planes. IV contrast was administered without complica tion. MIP imaging was performed. A dose lowering technique was utilized adhering to the principles o f ALARA. CT DOSE: 818.66 mGy.cm FINDINGS: There are mildly enlarged mediastinal lymph nodes. The largest is a right paratracheal node measuring 14 mm. The nodes appear stable to slightly smaller than on the prior 2018 study There was no evidence of thoracic aortic dilatation. There are bilateral pulmonary artery filling defects consistent with acute/subacute pulmonary embolis m. No pleural effusions are visualized. There is mild subpleural reticulation with an upper lung zone predominance. There are subpleural bleb s present. There is no acute parenchymal consolidation. There are postsurgical changes of a right low er lobectomy There are coronary artery calcifications present. IMPRESSION: 1. Bilateral pulmonary emboli 2. Postsurgical changes of a right lower lobectomy Electronically signed by: Clayton Khanna M.D. 02/21/2019 2:18 PM
[2019-02-21] MEDS ORDERED: HEPARIN IV BOLUS 7,000 UNITS in SYRINGE 0 ML IV ONE (15:15)
[2019-02-21 15:54] LABS: Basophils # (auto) 0.01 K/uL (0-0.2); Basophils % (auto) 0.1 %; Hematocrit (blood only) 37.7 % (42-52); Hemoglobin 11.5 g/dL (14.0-18.0); Immature Granulocytes # (auto) 0.11 K/uL (0.00-0.02); Immature Granulocytes % (auto) 0.6 %; Lymphocytes # (auto) 1.03 K/uL (1.2-3.4); Lymphocytes % (auto) 5.6 %; Mean Corpuscular Volume 85.5 fL (80-100); Monocytes % (auto) 7.6 %; Neutrophils # (auto) 15.82 K/uL (1.4-6.5); Neutrophils % (auto) 86.1 %; Platelet Count 185 K/uL (130-400); RDW Coefficient of Variation 18.8 % (11.5-14.5); RDW Standard Deviation 57.9 fL (36.4-46.3); Red Blood Count 4.41 M/uL (4.7-6.1); White Blood Count 18.37 K/uL (4.8-10.8)
[2019-02-21 16:08] LABS: Partial Thromboplastin Ratio 0.9; Partial Thromboplastin Time 25.2 Seconds (21.0-31.0)
[2019-02-21] MEDS: Heparin Adult STANDARD Wt-Based Dextrose 5% 25,000 units/500 mL IV SCH (16:14)
[2019-02-21 16:20] LABS: Mean Corpuscular Hgb Conc 30.5 g/dL (32-36)
--- NOTE | 2019-02-21 19:12 | Hospitalist Progress Note ---
Date of Service February 21, 2019 Assessment & Plan (1) Pulmonary emboli: VQ scan was indeterminate today and thus CTA chest obtained. CTA confirmed presence of acute/subacute PEs. Dopplers negative for DVT. The chest pain he had prior to admission may have been PE-related. Retrospectively the right heart findings on echo may be due in part to his acute/subacute PEs. Start heparin drip with bolus now. No recent surgery, travel. No prior h/o VTE event. He admits to significant sedentary lifestyle in the last few months - mainly because of dyspnea. This is main risk factor. Cannot rule out occult cancerous process. May be able to use novel agent. For now - heparin infusion. Present on Admission?: Yes (2) Acute respiratory failure with hypoxia: 2nd to mod-severe COPD exacerbation and PEs. These PEs were likely present prior to admission. No clinical evidence of pneumonia or decompensated CHF on exam or imaging. Cont steroids. Heparin drip for PEs. Supportive care. wean o2 as tolerated. (3) COPD exacerbation: mod-severe. IMPROVING. Decrease steroids to q12h dosing. Just finished course of antibiotics and thus defer on additional antibiotics. Cont incentive chapis, flutter valve, mucinex, kary, symbicort, spiriva and duonebs q4h. (4) History of lung cancer: NSCLC, 2012, s/p RLL lobectomy. CT chest w/o obvious signs of recurrence. (5) Elevated troponin: Most likely myocardial demand ischemia in setting of acute hypoxic resp failure. Acute/subacute PEs may have contributed to elevated troponin. Continue aspirin. Continue statin. (6) Neuropathy: severe, b/l Legs, due to prior chemo for lung ca? neuropathy present 8-9+ years. cannot tolerate higher doses of gabapentin. added cymbalta 20mg once daily on 02/19. recent TSH a few months ago wnl. b12 level wnl. In 1-2 weeks titrate cymbalta to 40mg/day. (7) AOM (acute otitis media): b/l - resolved (8) Hypertension: cont home meds controlled (9) Wall motion abnormality of right ventricle: retrospectively this may have been due to acute/subacute PEs. alternatively could be 2nd to silent infarction, COPD, etc. consider formal cardiology consultation. (10) Chronic kidney disease, stage 3a: Cr still at baseline. Patient states that Cr of 1.6/1.7 "is normal for me." BMP in am. Hydrate with NS in light of CT contrast today. (11) DVT prophylaxis: stop lovenox 40mg daily start heparin drip for PEs needs PT/OT Subjective patient continues to have significant HERNANDEZ with any activity. no dyspnea at rest. wheezing improved. cough present but improved. tele -- sinus tach with minimal activity. no fevers. Review of Systems Constitutional: no anorexia Respiratory: no sputum production Cardiovascular: no chest pain Gastrointestinal: + constipation; no abdominal pain Physical Exam Constitutional: + obese; no acute distress and no altered mental status ENMT: external ear and nose normal, oropharynx normal Respiratory: Auscultation: + diminished lung sounds (bases) and + wheezes (mainly lower lobes; overall improved); no crackles Cardiovascular: Rate/Rhythm: regular rhythm and + tachycardic Heart Sounds: normal S1 and normal S2; no murmur Vessels: posterior tibial pulses present and dorsalis pedis pulses present; no JVD Extremities: no edema Gastrointestinal (Abdomen): normal bowel sounds, soft, nontender, no hepatosplenomegaly Inspection/Auscultation: + abdomen distended (mild) Skin: no rashes, warm and dry Psychiatric: A+Ox3, euthymic affect Results & Data Vital Signs (Past 12 Hours) Vital Signs Temp Pulse Pulse Pulse Resp BP Pulse Ox 02/21/19 15:22 36.5 C 97 H 18 143/70 H 97 02/21/19 14:52 80 109 H 24 94 02/21/19 14:46 95 H 02/21/19 11:45 36.9 C 112 H 24 162/84 H 94 02/21/19 08:00 36.5 C 93 H 118 H 22 120/84 95 Laboratory Results Laboratory Results - last 24 hr 02/21/19 02/21/19 02/21/19 06:19 06:19 15:44 WBC RBC Hgb Hct MCV MCH MCHC RDW Std Deviation RDW Coeff of Effie Plt Count MPV Immature Gran % (Auto) Neut % (Auto) Lymph % (Auto) [place] % (Auto) Eos % (Auto) Baso % (Auto) Immature Gran # (Auto) Neut # (Auto) Lymph # (Auto) [place] # (Auto) Eos # (Auto) Baso # (Auto) APTT 25.2 PTT Ratio 0.9 Sodium 138 Potassium 4.6 Chloride 108 H Carbon Dioxide 23 Anion Gap 7.0 BUN 38 H Creatinine 1.73 H Est Cr Clr Drug Dosing 46.1 Est GFR ( Amer) 44.1 Est GFR (Non-Af Amer) 38.0 BUN/Creatinine Ratio 21.9 H Glucose 124 H Calcium 8.8 Vitamin B12 681 02/21/19 15:44 WBC 18.37 H RBC 4.41 L Hgb 11.5 L Hct 37.7 L MCV 85.5 MCH 26.1 MCHC 30.5 L RDW Std Deviation 57.9 H RDW Coeff of Effie 18.8 H Plt Count 185 MPV 10.0 Immature Gran % (Auto) 0.6 Neut % (Auto) 86.1 Lymph % (Auto) 5.6 [place] % (Auto) 7.6 Eos % (Auto) 0.0 Baso % (Auto) 0.1 Immature Gran # (Auto) 0.11 H Neut # (Auto) 15.82 H Lymph # (Auto) 1.03 L [place] # (Auto) 1.40 H Eos # (Auto) 0.00 Baso # (Auto) 0.01 APTT PTT Ratio Sodium Potassium Chloride Carbon Dioxide Anion Gap BUN Creatinine Est Cr Clr Drug Dosing Est GFR ( Amer) Est GFR (Non-Af Amer) BUN/Creatinine Ratio Glucose Calcium Vitamin B12 Diagnostic Findings VQ scan - indeterminate for PE CTA chest -- positive for b/l PEs; no tumors/nodules; no pneumonia PG Care Time/CCT Total # of Minutes Spent Total Time Spent with Patient: Total time spent is greater than 50% in coordination of care (as documented) at patient's floor/unit and/or counseling patient: (1) AOM (acute otitis media) Otitis media type: unspecified Qualified Code(s): H66.90 - Otitis media, unspecified, unspecified ear (2) Hypertension Hypertension type: essential hypertension Qualified Code(s): I10 - Essential (primary) hypertension (3) Pulmonary emboli Pulmonary embolism type: other Chronicity: acute Acute cor pulmonale presence: with acute cor pulmonale Qualified Code(s): I26.09 - Other pulmonary embolism with acute cor pulmonale
[2019-02-21] MEDS: GABAPENTIN 100 MG CAP PO SCH (19:16)
[2019-02-21] MEDS: LOVASTATIN 20 MG TAB PO SCH (19:17)
[2019-02-21] MEDS: TIOTROPIUM BROMIDE 5 PUFF/90 MCG INH INH SCH (19:17)
[2019-02-21 23:03] LABS: Partial Thromboplastin Ratio > 5.1
[2019-02-21 23:14] LABS: Partial Thromboplastin Time > 139.0 Seconds (21.0-31.0)
[2019-02-21 23:41] LABS: Partial Thromboplastin Ratio 3.3
[2019-02-21 23:45] LABS: Partial Thromboplastin Time 88.5 Seconds (21.0-31.0)
[2019-02-22] MEDS: ALBUT/IPRATROP 3MG/0.5MG NEB 3 ML VIAL NEB SCH ×6 (03:18→23:09)
[2019-02-22] MEDS: methylPREDNISolone 40 MG in SYRINGE 0 ML IV SCH (06:01)
[2019-02-22 06:05] LABS: Hematocrit (blood only) 36.9 % (42-52); Hemoglobin 11.4 g/dL (14.0-18.0); Mean Corpuscular Hgb Conc 30.9 g/dL (32-36); Mean Corpuscular Volume 86.6 fL (80-100); Mean Platelet Volume 9.9 fL (7.4-10.4); Platelet Count 170 K/uL (130-400); RDW Coefficient of Variation 18.5 % (11.5-14.5); RDW Standard Deviation 58.9 fL (36.4-46.3); Red Blood Count 4.26 M/uL (4.7-6.1)
[2019-02-22 06:28] LABS: Partial Thromboplastin Ratio 3.1
[2019-02-22 06:34] LABS: Calcium 8.4 mg/dl (8.5-10.1); Creatinine Clr Calc Pharmacy 52.8 ml/min; Est GFR (Non-African American) 44.9; Potassium 5.1 mmol/L (3.5-5.1)
[2019-02-22] MEDS: BUDESONIDE/FORMOTEROL FUMARATE 160/4.5 60 PUFFS/INHALER INH SCH ×2 (08:24→20:03)
[2019-02-22] MEDS: LISINOPRIL 5 MG TAB PO SCH (08:26)
[2019-02-22] MEDS: guaiFENesin 600 MG TABCR PO SCH ×2 (08:26→20:05)
[2019-02-22] MEDS: ASPIRIN 81 MG ECTAB PO SCH (08:26)
[2019-02-22] MEDS: CALCITRIOL 0.25 MCG CAPSULE PO SCH (08:26)
[2019-02-22] MEDS: FEXOFENADINE 60 MG TAB PO SCH ×2 (08:26→20:05)
[2019-02-22] MEDS: DULOXETINE HCL 20 MG CAP PO SCH (08:26)
[2019-02-22] MEDS: Heparin Adult STANDARD Wt-Based Dextrose 5% 25,000 units/500 mL IV SCH (08:28)
[2019-02-22 13:26] LABS: Partial Thromboplastin Ratio 1.8
[2019-02-22 13:58] LABS: Partial Thromboplastin Time 47.6 Seconds (21.0-31.0)
--- NOTE | 2019-02-22 16:20 | Hospitalist Progress Note ---
Date of Service February 22, 2019 Assessment & Plan (1) Pulmonary emboli: CTA with b/l PEs. Dopplers negative for DVT. Echo with RV akinesis likely due to acute/subacute PEs. The chest pain he had prior to admission may have been PE-related. I believe he is a candidate for novel agent (xarelto, etc). [facility] and [facility] believed that more than likely a novel agent would be covered. No recent surgery, travel. No prior h/o VTE event. He admits to significant sedentary lifestyle in the last few months - mainly because of dyspnea. This is main risk factor for VTE. Cannot rule out occult cancerous process. Continue heparin drip until novel agent is selected. (2) Acute respiratory failure with hypoxia: 2nd to mod-severe COPD exacerbation and PEs. These PEs were likely present prior to admission. No clinical evidence of pneumonia or decompensated CHF on exam or imaging. Cont steroids but wean to 30mg BID. Heparin drip for PEs. Supportive care. wean o2 as tolerated. (3) COPD exacerbation: mod-severe. Again improved. Decrease steroids to 30mg q12h. Just finished course of antibiotics and thus defer on additional antibiotics. Cont incentive chapis, flutter valve, mucinex, kary, symbicort, spiriva and duonebs q4h. (4) History of lung cancer: NSCLC, 2012, s/p RLL lobectomy. CT chest w/o obvious signs of recurrence. (5) Elevated troponin: Most likely myocardial demand ischemia in setting of acute hypoxic resp failure. Acute/subacute PEs may have contributed to elevated troponin. Continue aspirin. Continue statin. (6) Neuropathy: severe, b/l Legs, due to prior chemo for lung ca? neuropathy present 8-9+ years. cannot tolerate higher doses of gabapentin. added cymbalta 20mg once daily on 02/19. recent TSH a few months ago wnl. b12 level wnl. In 1-2 weeks titrate cymbalta to 40mg/day. (7) AOM (acute otitis media): b/l - resolved (8) Hypertension: cont home meds controlled (9) Wall motion abnormality of right ventricle: retrospectively this was likely due to acute/subacute PEs. alternatively could be 2nd to silent infarction, COPD, etc. but suspect it was the PEs. (10) Chronic kidney disease, stage 3a: Cr now 1.5 s/p fluids yesterday for IV contrast clearance BMP in am (11) DVT prophylaxis: heparin drip needs PT/OT slowly progressing Subjective pt continues to improve. less dyspnea each day. still coughing but no sputum. no chest pain. tele overnight - NSR or sinus tach. Review of Systems Constitutional: no fever and no chills Respiratory: + wheezing; no hemoptysis Cardiovascular: no chest pain, no orthopnea, no paroxysmal nocturnal dyspnea and no edema Gastrointestinal: no abdominal pain, no nausea, no vomiting and no constipation Physical Exam Constitutional: + obese; no acute distress and no altered mental status ENMT: external ear and nose normal, oropharynx normal Respiratory: Auscultation: + diminished lung sounds (bases) and + wheezes (minimal wheezes today b/l); no crackles Cardiovascular: Rate/Rhythm: regular rate and regular rhythm Heart Sounds: normal S1 and normal S2; no murmur Vessels: posterior tibial pulses present and dorsalis pedis pulses present; no JVD Extremities: no edema Gastrointestinal (Abdomen): normal bowel sounds, soft, nontender, no hepatosplenomegaly Skin: no rashes, warm and dry Psychiatric: A+Ox3, euthymic affect Results & Data Vital Signs (Past 12 Hours) Vital Signs Temp Pulse Resp BP Pulse Ox 02/22/19 15:38 36.5 C 97 H 23 115/79 98 02/22/19 15:13 91 H 16 98 02/22/19 12:39 36.5 C 101 H 18 145/80 H 98 02/22/19 11:10 88 18 97 02/22/19 07:25 36.9 C 104 H 18 113/62 95 02/22/19 07:10 91 H 18 97 Laboratory Results Laboratory Results - last 24 hr 02/21/19 02/21/19 02/21/19 15:44 22:16 23:12 WBC RBC Hgb Hct MCV MCH MCHC 30.5 L RDW Std Deviation RDW Coeff of Effie Plt Count MPV APTT > 139.0 H* 88.5 H* PTT Ratio > 5.1 3.3 Sodium Potassium Chloride Carbon Dioxide Anion Gap BUN Creatinine Est Cr Clr Drug Dosing Est GFR ( Amer) Est GFR (Non-Af Amer) BUN/Creatinine Ratio Glucose Calcium 02/22/19 02/22/19 02/22/19 05:53 05:53 05:53 WBC 16.20 H RBC 4.26 L Hgb 11.4 L Hct 36.9 L MCV 86.6 MCH 26.8 MCHC 30.9 L RDW Std Deviation 58.9 H RDW Coeff of Effie 18.5 H Plt Count 170 MPV 9.9 APTT 85.0 H* PTT Ratio 3.1 Sodium 136 Potassium 5.1 Chloride 107 Carbon Dioxide 22 Anion Gap 7.0 BUN 38 H Creatinine 1.51 H Est Cr Clr Drug Dosing 52.8 Est GFR ( Amer) 52.0 Est GFR (Non-Af Amer) 44.9 BUN/Creatinine Ratio 25.0 H Glucose 109 H Calcium 8.4 L 02/22/19 12:47 WBC RBC Hgb Hct MCV MCH MCHC RDW Std Deviation RDW Coeff of Effie Plt Count MPV APTT 47.6 H* PTT Ratio 1.8 Sodium Potassium Chloride Carbon Dioxide Anion Gap BUN Creatinine Est Cr Clr Drug Dosing Est GFR ( Amer) Est GFR (Non-Af Amer) BUN/Creatinine Ratio Glucose Calcium PG Care Time/CCT Total # of Minutes Spent Total Time Spent with Patient: Total time spent is greater than 50% in coordination of care (as documented) at patient's floor/unit and/or counseling patient: (1) Pulmonary emboli Pulmonary embolism type: other Chronicity: acute Acute cor pulmonale presence: with acute cor pulmonale Qualified Code(s): I26.09 - Other pulmonary embolism with acute cor pulmonale (2) AOM (acute otitis media) Otitis media type: unspecified Qualified Code(s): H66.90 - Otitis media, unspecified, unspecified ear (3) Hypertension Hypertension type: essential hypertension Qualified Code(s): I10 - Essential (primary) hypertension
[2019-02-22] MEDS: methylPREDNISolone 30 MG in SYRINGE 0 ML IV SCH (18:29)
[2019-02-22] MEDS: TIOTROPIUM BROMIDE 5 PUFF/90 MCG INH INH SCH (20:04)
[2019-02-22] MEDS: LOVASTATIN 20 MG TAB PO SCH (20:05)
[2019-02-22] MEDS: GABAPENTIN 100 MG CAP PO SCH (20:06)
[2019-02-23] MEDS: ALBUT/IPRATROP 3MG/0.5MG NEB 3 ML VIAL NEB SCH ×5 (03:43→19:07)
[2019-02-23 06:08] LABS: Hematocrit (blood only) 37.3 % (42-52); Hemoglobin 11.5 g/dL (14.0-18.0); Mean Corpuscular Hgb Conc 30.8 g/dL (32-36); Mean Corpuscular Volume 86.7 fL (80-100); Platelet Count 169 K/uL (130-400); RDW Coefficient of Variation 18.3 % (11.5-14.5)
[2019-02-23 06:36] LABS: BUN Creatinine Ratio 23.8 (10-20); Calcium 8.9 mg/dl (8.5-10.1); Creatinine Clr Calc Pharmacy 58.4 ml/min; Est GFR (African American) 58.5; Est GFR (Non-African American) 50.4; Potassium 4.7 mmol/L (3.5-5.1)
[2019-02-23 06:40] LABS: Partial Thromboplastin Ratio 2.5
[2019-02-23 06:43] LABS: Partial Thromboplastin Time 67.6 Seconds (21.0-31.0)
[2019-02-23] MEDS: Heparin Adult STANDARD Wt-Based Dextrose 5% 25,000 units/500 mL IV SCH (06:59)
[2019-02-23] MEDS ORDERED: [UNRECOGNIZED DRUG - REMARK] ONE (08:00)
[2019-02-23] MEDS: LISINOPRIL 10 MG TAB PO SCH (08:39)
[2019-02-23] MEDS: BUDESONIDE/FORMOTEROL FUMARATE 160/4.5 60 PUFFS/INHALER INH SCH ×2 (08:39→20:36)
[2019-02-23] MEDS: methylPREDNISolone 30 MG in SYRINGE 0 ML IV SCH ×2 (08:39→17:11)
[2019-02-23] MEDS: RIVAROXABAN 15 MG TAB PO SCH ×2 (08:39→17:12)
[2019-02-23] MEDS: CALCITRIOL 0.25 MCG CAPSULE PO SCH (08:40)
[2019-02-23] MEDS: guaiFENesin 600 MG TABCR PO SCH ×2 (08:40→20:35)
[2019-02-23] MEDS: DULOXETINE HCL 20 MG CAP PO SCH (08:41)
[2019-02-23] MEDS: ASPIRIN 81 MG ECTAB PO SCH (08:41)
[2019-02-23] MEDS: FEXOFENADINE 60 MG TAB PO SCH ×2 (08:41→20:33)
--- NOTE | 2019-02-23 16:48 | Hospitalist Progress Note ---
Date of Service February 23, 2019 Assessment & Plan (1) Pulmonary emboli: CTA with b/l PEs. Dopplers negative for DVT. Echo with RV akinesis likely due to acute/subacute PEs. The chest pain he had prior to admission may have been PE-related. I believe he is a candidate for novel agent (xarelto, etc). [facility] and [facility] believe that more than likely a novel agent would be covered. We will not know definitively until after discharge. No recent surgery; no recent travel. No prior h/o VTE event. He admits to significant sedentary lifestyle in the last few months - mainly because of dyspnea. confirmed he sits in chair for hours at a time. This is main risk factor for VTE. Cannot rule out occult cancerous process. CTA chest did not show signs of recurrent lung cancer. Stop heparin drip today. Start xarelto 15mg BID x 3 weeks then 20mg once daily thereafter. Give free 30-day card to him at discharge. In light of right heart findings I did speak with cardiology several times this admission. Nothing acute to do. Will need cardiology f/u after discharge -- patient would like to see Dr White. (2) Acute respiratory failure with hypoxia: 2nd to mod-severe COPD exacerbation and PEs. These PEs were likely present prior to admission. No clinical evidence of pneumonia or decompensated CHF on exam or imaging. Cont solumedrol 30mg BID. STOP after tonight's dose. Then change to prednisone 40mg daily starting in AM and wean slowly over 10-14 days. Xarelto for PEs. Supportive care. O2 has been weaned off. May need formal 2-step O2 test to r/o need for ambulatory O2. (3) COPD exacerbation: mod-severe. Again improved. Just finished course of antibiotics and thus defer on additional antibiotics. Cont incentive chapis, flutter valve, mucinex, kary, symbicort, spiriva and duonebs q4h. STOP IV steroids after tonight's dose. Then start prednisone 40mg once daily starting tomorrow am and wean slowly over 10-14 days. Follows with Natalie Puri in pulmonary clinic. f/u with her in 5-7 days if possible post-discharge. (4) History of lung cancer: NSCLC, 2012, s/p RLL lobectomy. CT chest w/o obvious signs of recurrence. (5) Elevated troponin: Most likely myocardial demand ischemia in setting of acute hypoxic resp failure. Acute/subacute PEs may have contributed to elevated troponin as well. Troponin elevation was minimal. Continue aspirin. Continue statin. (6) Neuropathy: severe, b/l Legs, due to prior chemo for lung ca? neuropathy present 8-9+ years. cannot tolerate higher doses of gabapentin. added cymbalta 20mg once daily on 02/19. tolerating this well w/o side effects. recent TSH a few months ago wnl. b12 level wnl. In 1-2 weeks titrate cymbalta to 40mg/day. will need prescription for cymbalta at discharge. (7) AOM (acute otitis media): b/l - resolved recently treated by ENT thru [facility] (8) Hypertension: cont home meds uncontrolled - perhaps 2nd to IV steroids increase lisinopril to 10mg daily (9) Wall motion abnormality of right ventricle: retrospectively this was likely due to acute/subacute PEs. alternatively could be 2nd to silent infarction, COPD, etc. but suspect it was the PEs. will need cardiology follow-up after discharge - patient prefers to see Dr White from [facility] post-discharge. (10) Chronic kidney disease, stage 3a: Cr now 1.3 stable BMP today repeat BMP in am (11) DVT prophylaxis: xarelto cleared by PT/OT for home consider pulmonary rehab - I discussed this with him he is not motivated to ambulate encouraged him to mobilize today in preparation for d/c home tomorrow on Sunday updated extensively on 02/23/19 Subjective tele - NSR at rest; sinus tach with activity dyspnea, cough, wheezing all improved little to no sputum eating very well large BM yesterday no new complaints Review of Systems Constitutional: no fever, no chills, no fatigue and no anorexia Respiratory: no hemoptysis Cardiovascular: no chest pain, no orthopnea, no paroxysmal nocturnal dyspnea and no edema Gastrointestinal: no abdominal pain Physical Exam Constitutional: + obese; no acute distress and no altered mental status ENMT: external ear and nose normal, oropharynx normal Respiratory: Auscultation: + diminished lung sounds (bases) and + wheezes (minimal, scattered ); no crackles Cardiovascular: Rate/Rhythm: regular rate and regular rhythm Heart Sounds: normal S1 and normal S2; no murmur Vessels: posterior tibial pulses present and dorsalis pedis pulses present; no JVD Extremities: no edema Gastrointestinal (Abdomen): normal bowel sounds, soft, nontender, no hepatosplenomegaly Inspection/Auscultation: + abdomen distended (mild) Skin: no rashes, warm and dry Psychiatric: A+Ox3, euthymic affect Results & Data Vital Signs (Past 12 Hours) Vital Signs Temp Pulse Pulse Resp BP Pulse Ox 02/23/19 15:08 37.0 C 101 H 21 142/77 H 97 02/23/19 14:54 94 H 16 96 02/23/19 11:41 36.9 C 108 H 18 162/91 H 93 02/23/19 10:59 95 H 16 98 02/23/19 08:19 36.6 C 111 H 18 153/80 H 95 02/23/19 08:00 88 02/23/19 06:54 93 H 18 96 Laboratory Results Laboratory Results - last 24 hr 02/23/19 02/23/19 02/23/19 05:56 05:56 05:56 WBC 15.00 H RBC 4.30 L Hgb 11.5 L Hct 37.3 L MCV 86.7 MCH 26.7 MCHC 30.8 L RDW Std Deviation 58.0 H RDW Coeff of Effie 18.3 H Plt Count 169 MPV 10.0 APTT 67.6 H* PTT Ratio 2.5 Sodium 139 Potassium 4.7 Chloride 106 Carbon Dioxide 25 Anion Gap 7.0 BUN 33 H Creatinine 1.37 Est Cr Clr Drug Dosing 58.4 Est GFR ( Amer) 58.5 Est GFR (Non-Af Amer) 50.4 BUN/Creatinine Ratio 23.8 H Glucose 140 H Calcium 8.9 PG Care Time/CCT Total # of Minutes Spent Total Time Spent with Patient: Total time spent is greater than 50% in coordination of care (as documented) at patient's floor/unit and/or counseling patient: (1) Pulmonary emboli Pulmonary embolism type: other Chronicity: acute Acute cor pulmonale presen ce: with acute cor pulmonale Qualified Code(s): I26.09 - Other pulmonary embolism with acute cor pulmonale (2) AOM (acute otitis media) Otitis media type: unspecified Qualified Code(s): H66.90 - Otitis media, unspecified, unspecified ear (3) Hypertension Hypertension type: essential hypertension Qualified Code(s): I10 - Essential (primary) hypertension
[2019-02-23] MEDS: LOVASTATIN 20 MG TAB PO SCH (20:34)
[2019-02-23] MEDS: GABAPENTIN 100 MG CAP PO SCH (20:36)
[2019-02-23] MEDS: TIOTROPIUM BROMIDE 5 PUFF/90 MCG INH INH SCH (21:41)
[2019-02-24] MEDS: ALBUT/IPRATROP 3MG/0.5MG NEB 3 ML VIAL NEB SCH ×3 (01:05→14:14)
[2019-02-24] MEDS: methylPREDNISolone 30 MG in SYRINGE 0 ML IV SCH (06:01)
[2019-02-24 06:38] LABS: BUN Creatinine Ratio 20.9 (10-20); Calcium 9.5 mg/dl (8.5-10.1); Creatinine Clr Calc Pharmacy 55.7 ml/min; Est GFR (African American) 55.1; Est GFR (Non-African American) 47.5; Potassium 4.9 mmol/L (3.5-5.1)
[2019-02-24] MEDS: BUDESONIDE/FORMOTEROL FUMARATE 160/4.5 60 PUFFS/INHALER INH SCH (09:19)
[2019-02-24] MEDS: guaiFENesin 600 MG TABCR PO SCH (09:19)
[2019-02-24] MEDS: DULOXETINE HCL 20 MG CAP PO SCH (09:19)
[2019-02-24] MEDS: CALCITRIOL 0.25 MCG CAPSULE PO SCH (09:20)
[2019-02-24] MEDS: FEXOFENADINE 60 MG TAB PO SCH (09:20)
[2019-02-24] MEDS: LISINOPRIL 10 MG TAB PO SCH (09:20)
[2019-02-24] MEDS: ASPIRIN 81 MG ECTAB PO SCH (09:20)
[2019-02-24] MEDS: RIVAROXABAN 15 MG TAB PO SCH (09:20)
--- NOTE | 2019-02-24 17:44 | Discharge Summary ---
Date of Service February 24, 2019 Admission HPI Per Admitting Provider Mr. Lynch is a 74yo C male with history of HTN, HLP, COPD, CKD, non-small cell lung cancer s/p RLL lobectomy and юлия biopsy, s/p chemotherapy, presently in remission. Patient presents with progressive HERNANDEZ and SOB. He states that his symptoms have been slowly progressing for years with more rapid progression since August 2018 and acute worsening over the last 3-4 days. Patient reports severe dyspnea with minimal exertion such as ambulating 50 feet in his home. This afternoon he was mowing the lawn using his riding mower. He finished mowing and walked into his home and up a flight of stairs after which he became acutely short of breath. He used his home pulse oximeter and had a saturation of 70%, heart rate of 159 bpm at that time. He also had dull left sided chest pressure and palpitations with lightheadedness. He rested for about an hour and repeated his pulse ox which was 81%. Patient has a cough productive for light/clear sputum. No purulence. No fevers/chills/sweats. No recent illness or allergy symptoms. He does report recent bilateral LE edema over the last 5 days. Denies weight gain, orthopnea. He is compliant with his medications and uses his inhalers faithfully. SOB briefly improves after a neb treatment. Presently with no CP. Still with SOB although improved from prior. ER Course: Albuterol Principal Diagnosis Pulmonary embolisms, COPD exacerbation Discharge Exam Constitutional + obese; no acute distress and no altered mental status ENMT external ear and nose normal, oropharynx normal Ears: no external ear abnormality Respiratory + respiratory distress Auscultation: + diminished lung sounds (bases) and + wheezes (minimal, scattered ); no crackles Cardiovascular Rate/Rhythm: regular rate and regular rhythm Heart Sounds: normal S1 and normal S2; no murmur Vessels: posterior tibial pulses present and dorsalis pedis pulses present; no JVD Extremities: no edema Gastrointestinal (Abdomen) normal bowel sounds, soft, nontender, no hepatosplenomegaly Inspection/Auscultation: + abdomen distended (mild) Skin no rashes, warm and dry Psychiatric A+Ox3, euthymic affect Discharge Data Allergies Allergy/AdvReac Type Severity Reaction Status Date / Time citalopram AdvReac Mild GI SYMPTOMS Verified 07/03/19 01:50 pravastatin AdvReac Mild leg Verified 02/19/19 01:50 soreness rosuvastatin AdvReac Mild leg Verified 02/19/19 01:50 soreness Ordered Studies 02/18/19 22:38 CT angio chest PE protocol Stat 02/18/19 23:08 US venous doppler LE BI Urgent 02/21/19 17:00 CT angio chest PE protocol Routine Hospital Course (1) Pulmonary emboli: CTA with b/l PEs. Dopplers negative for DVT. Echo with RV akinesis likely due to acute/subacute PEs. He admits to significant sedentary lifestyle in the last few months - mainly because of dyspnea. confirmed he sits in chair for hours at a time. This is main risk factor for VTE. - Discharged on Xarelto - Cannot rule out occult cancerous process. CTA chest did not show signs of recurrent lung cancer. (2) Acute respiratory failure with hypoxia: 2nd to mod-severe COPD exacerbation and PEs. These PEs were likely present prior to admission. - No clinical evidence of pneumonia or decompensated CHF on exam or imaging. - Prednisone 40mg daily starting in AM and wean slowly over 10-14 days. (3) COPD exacerbation: Mod-severe. Again improved. Just finished course of antibiotics and thus defer on additional antibiotics. - Cont incentive chapis, flutter valve, mucinex, kary, symbicort, spiriva and duonebs q4h. - Pred taper as above (4) History of lung cancer: NSCLC, 2013, s/p RLL lobectomy. CT chest w/o obvious signs of recurrence. (5) Elevated troponin: Most likely myocardial demand ischemia in setting of acute hypoxic resp failure. Acute/subacute PEs may have contributed to elevated troponin as well. Troponin elevation was minimal. Continue aspirin. Continue statin. (6) Neuropathy: severe, b/l Legs, due to prior chemo for lung ca? Neuropathy present 8-9+ years. - Cannot tolerate higher doses of gabapentin. - Added cymbalta 20mg once daily on 02/19; tolerating this well w/o side effects. (7) AOM (acute otitis media): b/l - resolved [facility] (8) Hypertension: Cont home meds. - Uncontrolled - perhaps 2nd to IV steroids - Consider increase lisinopril to 10mg daily (9) Wall motion abnormality of right ventricle: Retrospectively this was likely due to acute/subacute PEs. Alternatively could be 2nd to silent infarction, COPD, etc. but suspect it was the PEs. - Will need cardiology follow-up after discharge - patient prefers to see Dr White from [facility] post-discharge. (10) Chronic kidney disease, stage 3a: Cr now 1.3 stable BMP today repeat BMP in am (11) DVT prophylaxis: xarelto cleared by PT/OT for home consider pulmonary rehab - I discussed this with him he is not motivated to ambulate encouraged him to mobilize today in preparation for d/c home tomorrow on Sunday updated extensively on 02/23/19 Total Time Total Time Spent Total Time Spent (In Minutes): 45 Discharge Plan Discharge Items Patient Disposition: Home - Self-Care Reason For Visit: HERNANDEZ, SOB Discharge Diagnosis: Pulmonary embolisms; mild COPD exacerbation Discharge Goals: Decrease discomfort and Diagnostic testing Activity: Resume your previous activity Non-emergency contact: Primary Care Provider Call non-emergency contact if: you have any medication questions and your symptoms worsen Follow-up/Referrals: Natalie Puri PA-C [Physician Tester Operator Helper] - 02/26/19 7:45 am (Please, follow up at [facility] Office with Natalie Puri PA-C on SundayFebruary 26 at 7:45 am. *This office is located in [address] of The [facility]. THIS IS THE BIG BUILDING NEXT TO THIS [facility]. If you need to change this appointment, call the office at [phone].) Brooks Kennedy MD [Physician] - 03/26/19 12:00 pm (follow up appointment with the heart doctor) Maureen Mcdaniels [Primary Care Provider] - 03/03/19 1:15 pm (Please, follow up at SEE Mcdaniels's office on SundayMarch 03 at 1:15 pm. *If you need to change this appointment, call the office [phone].) Diet: Heart Healthy Addtl Provider Instructions: Please follow up with your [place] primary doctor in 1 week. If you have medication issues with the transfer to the [place] Pharmacy, call [phone], ext. [phone] to reach the hospitalist office. Your [place] Primary doctor can also call this number if needed. Please take the Xarelto 15 mg 2 times per day for 3 weeks, then you can transition over to the 1 tablet per day after that. You will need to be on the Xarelto for at least 3 months, and likely longer, though your [place] Primary doctor will make the decision on when to stop the Xarelto. Please take the prednisone as follows: Prednisone 40 mg (4 tablets) x 3 days Prednisone 30 mg (3 tablets) x 3 days Prednisone 20 mg (2 tablets) x 3 days Prednisone 10 mg (1 tablet) x 3 days Then stop. Prescriptions: New Xarelto 15 mg (42)- 20 mg (9) tablets,dose pack See Rx Instructions .ROUTE .COMPLEX Qty: 51 RF: 0 prednisone 10 mg tablet 40 mg PO DAILY Qty: 30 RF: 0 duloxetine 20 mg capsule,delayed release(DR/EC) 20 mg PO DAILY Qty: 30 RF: 0 Continued calcitriol 0.5 mcg capsule 0.5 mcg PO QAM RF: 0 lisinopril 5 mg tablet 5 mg PO QAM RF: 0 naproxen 500 mg tablet 500 mg PO BID PRN (Reason: Pain) RF: 0 ipratropium-albuterol 0.5 mg-3 mg(2.5 mg base)/3 mL Solution For Nebulization 3 ml INHALATION AMPM RF: 0 gabapentin 100 mg capsule 200 mg PO HS RF: 0 lovastatin 20 mg Tablet 20 mg PO PM RF: 0 Spiriva with HandiHaler 18 mcg Capsule, W/Inhalation Device 1 cap INHALATION QPM RF: 0 Symbicort 160-4.5 mcg/actuation Hfa Aerosol Inhaler 2 puff INHALATION AMPM RF: 0 Stand-Alone Forms: My [facility] Discharge Orders: Discharge Order (Routine); Ordered 02/24/19 Ordered By: Alexi Kuhn Admission Data Admit Date/Time: 02/19/19 01:47 Attending Provider: Alexi Kuhn Admit Provider: Manda Vivar Primary Care Provider: Maureen Mcdaniels Service: Telemetry Other Interventions: Discharge Summary Assessment (RN) Last Done: 02/24/19 14:37 DC Date/Time DO NOT enter until pt leaves facility: 02/24/19 15:26
== END 2019-02-24 15:26 | disposition home or self-care (01) | DRG 190 ==
LOC: ED 21:24 → 2E 02-19 01:47 → SUATTDRO 02-19 01:47 → 2E 02-19 02:09

== ENCOUNTER 2019-03-31 14:45 | Inpatient (IN) ==
[2019-03-31] MEDS ORDERED: LEVALBUTEROL 1.25MG/0.5ML NEB INH STA (15:05)
[2019-03-31] MEDS ORDERED: IPRATROPIUM BROMIDE NEB SOLN 0.02% 2.5 ML VIAL INH STA (15:05)
[2019-03-31] MEDS ORDERED: methylPREDNISolone 125 MG/2 ML VIAL IV STA (15:05)
[2019-03-31] MEDS ORDERED: XOPENEX/ATROVENT 1.25mg/0.5MG NEB COMBO NEB STA (15:05)
[2019-03-31 15:12] LABS: Basophils # (auto) 0.06 K/uL (0-0.2); Basophils % (auto) 0.5 %; Eosinophils # (auto) 0.25 K/uL (0-0.5); Eosinophils % (auto) 2.2 %; Hematocrit (blood only) 43.4 % (42-52); Immature Granulocytes # (auto) 0.12 K/uL (0.00-0.02); Immature Granulocytes % (auto) 1.1 %; Lymphocytes # (auto) 1.66 K/uL (1.2-3.4); Lymphocytes % (auto) 14.7 %; Mean Corpuscular Hgb Conc 32.3 g/dL (32-36); Mean Corpuscular Volume 84.4 fL (80-100); Mean Platelet Volume 9.8 fL (7.4-10.4); Monocytes # (auto) 1.21 K/uL (0.11-0.59); Monocytes % (auto) 10.7 %; Neutrophils # (auto) 8.01 K/uL (1.4-6.5); Neutrophils % (auto) 70.8 %; Platelet Count 399 K/uL (130-400); RDW Coefficient of Variation 15.1 % (11.5-14.5); Red Blood Count 5.14 M/uL (4.7-6.1); White Blood Count 11.31 K/uL (4.8-10.8)
[2019-03-31] MEDS ORDERED: SODIUM CHLORIDE 0.9% 1000ML 1,000 ML IV SCH (15:15)
[2019-03-31 15:34] LABS: Alanine Aminotransferase 33 U/L (12-78); Albumin Level 3.5 gm/dl (3.4-5.0); Aspartate Aminotransferase 27 U/L (15-37); BUN Creatinine Ratio 13.7 (10-20); Blood Urea Nitrogen 23 mg/dl (7-18); Carbon Dioxide 26 mmol/L (21-32); Chloride 106 mmol/L (98-107); Creatinine Clr Calc Pharmacy 45.1 ml/min; Est GFR (Non-African American) 38.9; Glucose 86 mg/dl (70-99); INR 1.2 (0.9-1.1); Partial Thromboplastin Ratio 1.1; Partial Thromboplastin Time 29.1 Seconds (21.0-31.0); Potassium 4.2 mmol/L (3.5-5.1); Prothrombin Time 11.9 Seconds (9.0-12.0); Sodium 141 mmol/L (136-145)
[2019-03-31 15:38] LABS: Albumin Globulin Ratio 0.8 (0.9-2); Alkaline Phosphatase 55 U/L (45-117); Bilirubin,Total 0.4 mg/dl (0.2-1); Globulin 4.5 gm/dl (2.5-4.0); Troponin I < 0.015 ng/ml (0-0.045)
[2019-03-31 16:00] LABS: Base Excess VBG 2.7 mEq/L; HCO3 VBG 27 mmol/L; Oxygen Saturation VBG < 60.0 %; PCO2 VBG 39 mmHg (38-50); PO2 VBG 30 mmHg; pH VBG 7.46 (7.36-7.41)
--- NOTE | 2019-03-31 16:00 | XRay Report ---
SINGLE VIEW CHEST CLINICAL HISTORY: Dyspnea. FINDINGS: An AP, portable, upright chest radiograph is compared to study dated 02/18/2019 and correlate d with chest CT dated 02/21/2019. The examination is degraded by portable technique, apical lordotic po sitioning, and patient rotation. A right subclavian central venous infusion port is unchanged in po sition. The heart is enlarged and there is atherosclerotic calcification of the thoracic aorta. There is pulmonary vascular congestion. Scarring/atelectasis is present at the lung bases. No large pleura l effusion or pneumothorax is seen. The skeletal structures are osteopenic. The bony thorax is grossl y intact. IMPRESSION: Cardiomegaly with evidence of mild congestive failure. Electronically signed by: Abel Anderson M.D. 03/31/2019 3:59 PM
--- NOTE | 2019-03-31 17:25 | Emergency Department Note ---
Entered by Ani Braden acting as a scribe for Ramon Baker MD History of Present Illness General Chief complaint: Shortness of Breath/Dyspnea Stated complaint: breathing difficulty Time Seen by Provider: 03/31/19 14:48 Source: patient History of Present Illness Onset (ago): month(s) (several months) Quality: + other (SOB) Exacerbated By: + other (exertion) Associated symptoms: + denies other symptoms (negative abd pain. negative diarrhea. ); no nausea/vomiting Treatments prior to arrival: other (Nebulizer) The patient is a 74 year old male with a history of HTN, HLP, COPD, CKD, non- small cell lung cancer s/p RLL lobectomy and юлия biopsy, s/p chemotherapy, presently in remission who presents to the Emergency Room with complaints of shortness of breath that started several months ago. He notes that it worsens with exertion, and he complains of increased heart rate and decreased oxygen saturation. He also reported that he has a slight, dry cough. The patient does have a nebulizer at home, which he stated helps his symptoms and was used today. He denies abdominal pain, nausea, vomiting, and diarrhea. The patient was a clinic referral and had an oxygen saturation of 82% and a heart rate of 114. Home Medications Home Medications Medication Instructions Recorded Confirmed Type Spiriva with HandiHaler 1 cap INHALATION QPM 02/19/19 03/31/19 History Symbicort 2 puff INHALATION AMPM 02/19/19 03/31/19 History calcitriol 0.5 mcg PO QAM 02/19/19 03/31/19 History gabapentin 200 mg PO HS 02/19/19 03/31/19 History lisinopril 5 mg PO QAM 02/19/19 03/31/19 History lovastatin 20 mg PO PM 02/19/19 03/31/19 History duloxetine 20 mg PO DAILY #30 cap 02/24/19 03/31/19 Rx ipratropium bromide 0 % INH UD PRN 03/21/19 03/31/19 History acetaminophen [Tylenol Arthritis 650 - 1,300 mg PO DAILY PRN 03/31/19 03/31/19 History Pain] rivaroxaban [Xarelto] 1 ea PO DAILY 03/31/19 03/31/19 History Allergies Allergy/AdvReac Type Severity Reaction Status Date / Time citalopram AdvReac Mild GI SYMPTOMS Verified 03/31/19 17:11 pravastatin AdvReac Mild leg Verified 03/31/19 17:11 soreness rosuvastatin AdvReac Mild leg Verified 03/31/19 17:11 soreness Past Med/Surg History Medical History Renal insufficiency (Chronic) Anxiety and depression (Chronic) Lung cancer (Chronic ~12/2012) Hypertension (Chronic) GERD (gastroesophageal reflux disease) (Chronic) COPD (chronic obstructive pulmonary disease) (Chronic) Dyslipidemia Surgical History S/P partial lobectomy of lung (Acute) History of back surgery History of hernia repair History of knee joint replacement History of shoulder surgery Family History Other Breast cancer Diabetes Social History Preferred Language: Togolese Communication Ability: Effective Beliefs That Will Affect Care: None Current Living Situation: Spouse Feels Safe at Home: Yes Smoking Status: Former smoker Hx Alcohol Use: No Hx Substance Use: No Review of Systems See HPI for pertinent positives & negatives. and A total of 10 systems reviewed and were otherwise negative Physical Exam Vital Signs Vital Signs - 24 hr 03/31/19 14:50 03/31/19 15:13 03/31/19 15:20 Temperature 36.6 C Temperature Source Oral Sepsis Recent Fever Within 48 Hours No Sepsis New/Unexplained Change in Mental Status No Sepsis Action Taken by Nursing No Action Required Pulse Rate 116 H Respiratory Rate 20 18 Respiratory Effort / Characteristics Non-Labored Non-Labored Spontaneous Respiratory Depth Normal Respiratory Pattern Regular Blood Pressure 98/71 L Blood Pressure Mean 80 Pulse Oximetry 94 96 96 Oxygen Delivery Method Room Air Room Air Room Air GENERAL: Well appearing, well nourished, NAD, non-toxic. EYE EXAM: Normal conjunctiva. PERRL, no anisocoria and EOM's grossly intact w/o pain. OROPHARYNX: Moist mucous membranes. Grossly normal dentition. NECK: Supple, no nuchal rigidity, no adenopathy, non-tender. No signs of meningismus. LUNGS: Mild diffuse wheezes throughout. No rhonchi. Decreased right base. Normal chest wall mechanics. HEART: Tachycardic and regular, no MRG. ABDOMEN: Abdomen soft, non-tender, normo-active bowel sounds, no masses, no rebound or guarding. BACK: No CVA TTP. SKIN: No rashes and no bruising. UPPER EXTREMITIES: Upper extremities are grossly normal. LOWER EXTREMITIES: Negative mani's sign. No pitting edema. No calf pain. NEURO EXAM: A&O x3, cranial nerves II-XII grossly intact, normal speech, moves all 4 extremities on command w/o issue. Course 1454: Past medical records reviewed. The patient was evaluated in room A04B. A complete history and physical exam was performed. 1631: I reevaluated the patient, who was resting comfortably in his room. I discussed with him his lab and imaging results and the possibility of admission. 1635: I reviewed the patient's echo from March 14, and it showed improved function, with EF of 55-60%. 1640: Upon reevaluation, I discussed findings and results with the patient. He verbalized agreement of the treatment plan. I spoke with Dr. Rodriguez of the [facility]. The patient will be evaluated for further management and care. Administered Medications Discontinued Medications Sodium Chloride (Nss 1000ml) 1,000 mls @ 999 mls/hr IV .Q1H1M JINNY Stop: 03/31/19 16:15 Last Admin: 03/31/19 15:59 Dose: 999 mls/hr Documented by: [id number] Ipratropium [place] (Atrovent 0.02% 0.5mg/2.5ml) 0.5 mg INH NOW STA Stop: 03/31/19 15:06 Last Admin: 03/31/19 15:23 Dose: 0.5 mg Documented by: [id number] Levalbuterol HCl (Xopenex 1.25mg/0.5ml Neb) 1.25 mg INH NOW STA Stop: 03/31/19 15:06 Last Admin: 03/31/19 15:23 Dose: 1.25 mg Documented by: [id number] Methylprednisolone (Solumedrol) 60 mg IV NOW STA Stop: 03/31/19 15:06 Last Admin: 03/31/19 15:59 Dose: 60 mg Documented by: [id number] Methylprednisolone (Solumedrol) Confirm Administered Dose 80 mg .ROUTE .STK-MED ONE Stop: 03/31/19 15:55 Last Admin: 03/31/19 15:59 Dose: Not Given Documented by: [id number] Miscellaneous (Levalbuterol/Ipratropium 1.25mg) 1 ea NEB NOW STA Stop: 03/31/19 15:06 Last Admin: 03/31/19 15:41 Dose: Not Given Documented by: [id number] Medical Decision Making Differential Diagnosis Differential diagnosis includes: infections, reactive airway disease, pneumonia, pneumothorax, COPD, CHF, cardiac ischemia, pulmonary embolism, musculoskeletal, gastrointestinal, as well as others were entertained. Medical Records Attestation: I reviewed the patient's medical records. Home Medications Current Medication List: was personally reviewed by me Laboratory Data Attestation: I reviewed the patient's lab results. Result diagrams: 03/31/19 14:38 03/31/19 14:38 Lab Results 03/31/19 03/31/19 03/31/19 Range/Units 14:38 14:38 14:38 WBC 11.31 H (4.8-10.8) K/uL RBC 5.14 (4.7-6.1) M/uL Hgb 14.0 (14.0-18.0) g/dL Hct 43.4 (42-52) % MCV 84.4 (80-100) fL MCH 27.2 (25-34) pg MCHC 32.3 (32-36) g/dL RDW Std Deviation 47.0 H (36.4-46.3) fL RDW Coeff of Effie 15.1 H (11.5-14.5) % Plt Count 399 (130-400) K/uL MPV 9.8 (7.4-10.4) fL Immature Gran % (Auto) 1.1 % Neut % (Auto) 70.8 % Lymph % (Auto) 14.7 % Hart % (Auto) 10.7 % Eos % (Auto) 2.2 % Baso % (Auto) 0.5 % Immature Gran # (Auto) 0.12 H (0.00-0.02) K/uL Neut # (Auto) 8.01 H (1.4-6.5) K/uL Lymph # (Auto) 1.66 (1.2-3.4) K/uL Hart # (Auto) 1.21 H (0.11-0.59) K/uL Eos # (Auto) 0.25 (0-0.5) K/uL Baso # (Auto) 0.06 (0-0.2) K/uL PT 11.9 (9.0-12.0) Seconds INR 1.2 H (0.9-1.1) APTT 29.1 (21.0-31.0) Seconds PTT Ratio 1.1 VBG pH (7.36-7.41) VBG pCO2 (38-50) mmHg VBG pO2 mmHg VBG HCO3 mmol/L VBG O2 Saturation % VBG Base Excess mEq/L Barometric Pressure mm/Hg Sodium 141 (136-145) mmol/L Potassium 4.2 (3.5-5.1) mmol/L Chloride 106 (98-107) mmol/L Carbon Dioxide 26 (21-32) mmol/L Anion Gap 9.0 (3-11) BUN 23 H (7-18) mg/dl Creatinine 1.70 H (0.6-1.4) mg/dl Est Cr Clr Drug Dosing 45.1 ml/min Est GFR ( Amer) 45.0 Est GFR (Non-Af Amer) 38.9 BUN/Creatinine Ratio 13.7 (10-20) Glucose 86 (70-99) mg/dl Calcium 10.0 (8.5-10.1) mg/dl Total Bilirubin 0.4 (0.2-1) mg/dl AST 27 (15-37) U/L ALT 33 (12-78) U/L Alkaline Phosphatase 55 (45-117) U/L Troponin I < 0.015 (0-0.045) ng/ml Total Protein 8.0 (6.4-8.2) gm/dl Albumin 3.5 (3.4-5.0) gm/dl Globulin 4.5 H (2.5-4.0) gm/dl Albumin/Globulin Ratio 0.8 L (0.9-2) 03/31/19 Range/Units 15:50 WBC (4.8-10.8) K/uL RBC (4.7-6.1) M/uL Hgb (14.0-18.0) g/dL Hct (42-52) % MCV (80-100) fL MCH (25-34) pg MCHC (32-36) g/dL RDW Std Deviation (36.4-46.3) fL RDW Coeff of Effie (11.5-14.5) % Plt Count (130-400) K/uL MPV (7.4-10.4) fL Immature Gran % (Auto) % Neut % (Auto) % Lymph % (Auto) % Hart % (Auto) % Eos % (Auto) % Baso % (Auto) % Immature Gran # (Auto) (0.00-0.02) K/uL Neut # (Auto) (1.4-6.5) K/uL Lymph # (Auto) (1.2-3.4) K/uL Hart # (Auto) (0.11-0.59) K/uL Eos # (Auto) (0-0.5) K/uL Baso # (Auto) (0-0.2) K/uL PT (9.0-12.0) Seconds INR (0.9-1.1) APTT (21.0-31.0) Seconds PTT Ratio VBG pH 7.46 H (7.36-7.41) VBG pCO2 39 (38-50) mmHg VBG pO2 30 mmHg VBG HCO3 27 mmol/L VBG O2 Saturation < 60.0 % VBG Base Excess 2.7 mEq/L Barometric Pressure 730.0 mm/Hg Sodium (136-145) mmol/L Potassium (3.5-5.1) mmol/L Chloride (98-107) mmol/L Carbon Dioxide (21-32) mmol/L Anion Gap (3-11) BUN (7-18) mg/dl Creatinine (0.6-1.4) mg/dl Est Cr Clr Drug Dosing ml/min Est GFR ( Amer) Est GFR (Non-Af Amer) BUN/Creatinine Ratio (10-20) Glucose (70-99) mg/dl Calcium (8.5-10.1) mg/dl Total Bilirubin (0.2-1) mg/dl AST (15-37) U/L ALT (12-78) U/L Alkaline Phosphatase (45-117) U/L Troponin I (0-0.045) ng/ml Total Protein (6.4-8.2) gm/dl Albumin (3.4-5.0) gm/dl Globulin (2.5-4.0) gm/dl Albumin/Globulin Ratio (0.9-2) Imaging Data Radiologist's Impression: Radiology results as stated below per my review and the radiologist's interpretation: SINGLE VIEW CHEST CLINICAL HISTORY: Dyspnea. FINDINGS: An AP, portable, upright chest radiograph is compared to study dated 02/18/2019 and correlated with chest CT dated 02/21/2019. The examination is degraded by portable technique, apical lordotic positioning, and patient rotation. A right subclavian central venous infusion port is unchanged in position. The heart is enlarged and there is atherosclerotic calcification of the thoracic aorta. There is pulmonary vascular congestion. Scarring/atelectasis is present at the lung bases. No large pleural effusion or pneumothorax is seen. The skeletal structures are osteopenic. The bony thorax is grossly intact. IMPRESSION: Cardiomegaly with evidence of mild congestive failure. Electronically signed by: Abel Anderson M.D. 03/31/2019 3:59 PM ECG Data Attestation: I personally reviewed and interpreted this ECG as follows: Indication: SOB/dyspnea Rate (beats per minute): 105 Rhythm: sinus tachycardia Findings: + other (normal interval and axis. Q wave in 3. AVF TWI in lead 3. ) Comparison ECG Date: from (February 18, 2019) Change: no significant change (Q waves inferiorly are old. ) Blood Pressure Blood Pressure Findings: Low blood pressure Blood Pressure Disposition: further management by hospitalist [facility] Narrative The patient is a 74 year old male with a history of HTN, HLP, COPD, CKD, non- small cell lung cancer s/p RLL lobectomy and юлия biopsy, s/p chemotherapy, presently in remission who presents to the Emergency Room with complaints of shortness of breath that started several months ago. Patient was seen and evaluated the bedside. The patient was presenting with some shortness of breath. [facility] heart rate and associated hypoxia. The patient is a prior history of non-squamous cell lung carcinoma status post lobectomy as well as chemotherapy. The patient has been in remission since 2012. The patient does have some increasing exertional dyspnea. The patient does have some wheezes at the bedside. Patient does not have any noticeable lower extremity edema negative Homans sign. The patient has been taking Xarelto. Patient did have an unchanged EKG. The patient was given IV fluids as well as neb treatments and steroids. I did discuss with the patient his findings. The patient's gas is fairly unremarkable. pH is not acidotic and the patient is not retaining. The patient does not appear volume overloaded although the chest x-ray is called his showing some mild congestive change. Patient was given some additional IV fluids. I did discuss the findings with the patient believe that he would benefit from treatment. I do believe part of his hypoxia is from the prior blood clot as well as his prior COPD history and associated lobectomy. I did discuss that this constellation of issues with likely contribute to his hypoxia. The patient is not requiring supplemental oxygen here at the bedside but was reportedly hypoxic to the 70s and 80s in clinic. I did review the patient's most recent echocardiogram from late February which showed the patient's EF had improved and was currently 55 to 60%. I did have the patient's IV fluids held at this time. I did speak with the on-call hospitalist who agreed to further evaluate treat the patient. Patient was admitted to the medicine service. Impression & Plan Acute exacerbation of chronic obstructive pulmonary disease (COPD), Acute dyspnea, Hypoxia Discharge Plan Visit Data Chief Complaint: Shortness of Breath/Dyspnea Stated Complaint: breathing difficulty ED Provider: Ramon Baker Discharge Problem: Acute exacerbation of chronic obstructive pulmonary disease (COPD), Acute dyspnea, Hypoxia Forms Stand Alone Forms: My [facility] Prescriptions Prescriptions: No Action ipratropium bromide INH UD PRN (Reason: Shortness Of Breath Or Wheezing) RF: 0 calcitriol 0.5 mcg capsule 0.5 mcg PO QAM RF: 0 lisinopril 5 mg tablet 5 mg PO QAM RF: 0 gabapentin 100 mg capsule 200 mg PO HS RF: 0 lovastatin 20 mg Tablet 20 mg PO PM RF: 0 Spiriva with HandiHaler 18 mcg Capsule, W/Inhalation Device 1 cap INHALATION QPM RF: 0 Symbicort 160-4.5 mcg/actuation Hfa Aerosol Inhaler 2 puff INHALATION AMPM RF: 0 duloxetine 20 mg capsule,delayed release(DR/EC) 20 mg PO DAILY Qty: 30 RF: 0 acetaminophen [Tylenol Arthritis Pain] 650 mg Tablet Extended Release 650 - 1,300 mg PO DAILY PRN (Reason: Pain) RF: 0 Xarelto 15 mg (42)- 20 mg (9) tablets,dose pack 1 ea PO DAILY RF: 0 The scribe's documentation has been prepared under my direction and personally reviewed by me in its entirety. I confirm that the note above accurately reflec ts all work, treatment, procedures, and medical decision making performed by me.
--- NOTE | 2019-03-31 18:29 | History & Physical Report ---
Date of Service March 31, 2019 Assessment & Plan (1) Acute respiratory failure with hypoxia: (2) Acute exacerbation of chronic obstructive pulmonary disease (COPD): - Admit to med surg with tele - Pt recently hospitalized beginning of February for pulmonary embolism and being treated xarelto. Pt reports not missing doses. - Found hypoxic on RA with exertion with O2 sats dropping to 80% at [place] [facility] today. - CXR reviewed showing mild congestive failure - Pt received solumedrol 60 mg IV, levabuterol nebs, atrovent inh in the ER - WBC = 11.31, will check procalcitonin now, no abx so far, pt without fever, no sputum being produced, VSS at present. - Will order sputum culture - Continue levalbuterol nebs - Cont Symbicort and Spiriva inh - Pt follows with Natalie Puri as outpt with pulmonology, consult placed - Will need repeat oxygen testing and possible that the pt needs cpap/bipap HS - has not had PFTs done in over 1 year per his report - Will need Rx for spacers for symbicort upon discharge as he is about out of these for home (3) Pulmonary emboli: - Continue xarelto, order dose now as he missed his dose which was due at noon today. - Bilateral PE found on CTA during last admission. Pt admits to sedentary lifestyle but notes limitations are secondary to inability to breath and elevated HR. - Can not rule out malignancy. (4) History of lung cancer: - NSCLC in 2012, s/p RLL lobectomy (5) Chronic kidney disease, stage 3a: - Stable, Cr of 1.7, appears baseline is around 1.5 - Follow am prp (6) Hypertension: - Cont home meds, BP stable currently - Continue lisinopril 10 mg daily (7) GERD (gastroesophageal reflux disease): - Cont PPI (8) Vitamin D deficiency: - Noted, continue calcitriol 0.5 mcg QAM (9) Neuropathy: - Continue gabapentin 200 gm HS (10) DVT prophylaxis: - teds, scds, xarelto Disposition: From home, likely here for 2 days. History of Present Illness Primary Care Provider: Maureen Mcdaniels 74 yo male with PMHx of HTN, HLP, COPD, CKD, non-small cell lung cancer s/p RLL lobectomy and юлия biopsy, s/p chemotherapy, presently in remission with recent hospitalization here at [facility] from 02/18/19-02/24/19 for acute bilateral pulmonary emboli where he was discharged on xarelto. Pt presented to the ER from the [place] [facility] due to hypoxia. He reports not feeling much different today than he has in the past week. Pt notes he was in to see [place] physician this morning, for ambulatory oxygen testing for daytime O2, and upon walking 2 minutes his pulse ox dropped to 80% and HR went up into the 150s. He has a pulse ox that he uses at home and typically sees a spike in HR into the 150s to 160s upon doing anything exertional. He typically is able to go 5 minutes when walking or playing with his dogs, but then has to take a break for 15 minutes to feel better. Pt also notes he is not waking up feeling well rested, and that he occasionally feels lightheaded upon standing to get up in the morning. This may last for upwards of 2 hrs. He wears 2 L of O2 at night. He shakes his head and states that he has no interest in wearing a mask (such as cpap or bipap) during sleep. Pt notes his sleeps in a different room, and will place his oxygen back on him several times a night because he tosses and turns so much the prongs are not situated properly in his nose. Allergies Allergy/AdvReac Type Severity Reaction Status Date / Time citalopram AdvReac Mild GI SYMPTOMS Verified 03/31/19 17:11 pravastatin AdvReac Mild leg Verified 03/31/19 17:11 soreness rosuvastatin AdvReac Mild leg Verified 03/31/19 17:11 soreness Home Medications Home Medications Medication Instructions Recorded Confirmed Type Spiriva with HandiHaler 1 cap INHALATION QPM 02/19/19 03/31/19 History Symbicort 2 puff INHALATION AMPM 02/19/19 03/31/19 History calcitriol 0.5 mcg PO QAM 02/19/19 03/31/19 History gabapentin 200 mg PO HS 02/19/19 03/31/19 History lisinopril 5 mg PO QAM 02/19/19 03/31/19 History lovastatin 20 mg PO PM 02/19/19 03/31/19 History duloxetine 20 mg PO DAILY #30 cap 02/24/19 03/31/19 Rx ipratropium bromide 0 % INH UD PRN 03/21/19 03/31/19 History acetaminophen [Tylenol Arthritis 650 - 1,300 mg PO DAILY PRN 03/31/19 03/31/19 History Pain] rivaroxaban [Xarelto] 1 ea PO DAILY 03/31/19 03/31/19 History Past Med/Surg History Medical History Renal insufficiency (Chronic) Anxiety and depression (Chronic) Lung cancer (Chronic ~12/2012) Hypertension (Chronic) GERD (gastroesophageal reflux disease) (Chronic) COPD (chronic obstructive pulmonary disease) (Chronic) Dyslipidemia Surgical History S/P partial lobectomy of lung (Acute) History of back surgery History of hernia repair History of knee joint replacement History of shoulder surgery Family History Other Breast cancer Diabetes Social History Preferred Language: Georgian Communication Ability: Effective Release Specialist Required: No Beliefs That Will Affect Care: None Current Living Situation: Spouse Feels Safe at Home: Yes Safety Concerns: Feels Safe At This Time Smoking Status: Former smoker Hx Alcohol Use: Yes Alcohol type: beer Hx Substance Use: No Review of Systems Review of Systems: Constitutional: No fever, sweats or chills Eyes: No diplopia, no worsening or blurred vision ENT: normal hearing, no trouble swallowing Respiratory: + occasional cough, no sputum, no dyspnea at rest, + dyspnea on minimal exertion Cardiovascular: No chest pain, tightness or palpitations Abdomen: No pain, nausea, vomiting, diarrhea or constipation Musculoskeletal: No joint pain, calf pain, swelling Neurologic: No weakness, numbness/tingling, or balance problems Psychiatric: No anxiety or depression Skin: No rash or itch Physical Exam Physical Exam: General: awake, alert, no apparent distress, + obese Head: Normocephalic, atraumatic ENT: PERRL, EOMI, no pharyngeal exudate, mucous membranes moist Chest: +barrell chested, on room air with sats at 93%, good air movement, no wheezing or rales Cardiac: Regular rate and rhythm, no murmur, no JVD, normal peripheral pulses, good capillary refill Abdominal: NABS x 4 quadrants, soft, nontender to palpation, no rebound, guarding or tenderness Extremities: Normal inspection, no peripheral edema or erythema, calfs nontender to palpation Psych: Normal mood and affect Neuro: AAO x 3, no motor deficits, speech is clear, no peripheral sensory deficits Results & Data Vital Signs (Past 12 Hours) Vital Signs Temp Pulse Resp BP Pulse Ox 03/31/19 15:20 18 96 03/31/19 15:13 96 03/31/19 14:50 36.6 C 116 H 20 98/71 L 94 Diagnostic Findings SINGLE VIEW CHEST CLINICAL HISTORY: Dyspnea. FINDINGS: An AP, portable, upright chest radiograph is compared to study dated 02/18/2019 and correlated with chest CT dated 02/21/2019. The examination is degraded by portable technique, apical lordotic positioning, and patient rotation. A right subclavian central venous infusion port is unchanged in position. The heart is enlarged and there is atherosclerotic calcification of the thoracic aorta. There is pulmonary vascular congestion. Scarring/atelectasis is present at the lung bases. No large pleural effusion or pneumothorax is seen. The skeletal structures are osteopenic. The bony thorax is grossly intact. IMPRESSION: Cardiomegaly with evidence of mild congestive failure. ECG Additional Comments: 31-MAR-2019 14:54:06 [facility]-EDSTAT ROUTINE RETRIEVAL Poor data quality, interpretation may be adversely affected Sinus tachycardia Inferior infarct (cited on or before 18-FEB-2019) Abnormal ECG When compared with ECG of 18-FEB-2019 21:37, No significant change was found 25mm/s 10mm/mV 150Hz 9.0.8 12SL 241 PRECIOUS: 15 Referred by: REFERRED SELF Unconfirmed Vent. rate 105 BPM HI interval 138 ms QRS duration 70 ms QT/QTc 300/396 ms P-R-T axes 17 -13 25 Code Status & VTE Plan Code Status Full code - no heroic measures. Supervising Physician Co-Signing Physician Notes I have seen the patient with Sonali Gray and agree with exam , assessment and plan. PG Care Time/CCT Total # of Minutes Spent Total Time Spent with Patient: Total time spent is greater than 50% in coordin ation of care (as documented) at patient's floor/unit and/or counseling patient: (1) Pulmonary emboli Acute cor pulmonale presence: with acute cor pulmonale Chronicity: acute Pulmonary embolism type: other Qualified Code(s): I26.09 - Other pulmonary embolism with acute cor pulmonale (2) GERD (gastroesophageal reflux disease) Esophagitis presence: esophagitis presence not specified Qualified Code(s): K21.9 - Gastro-esophageal reflux disease without esophagitis (3) Hypertension Hypertension type: essential hypertension Qualified Code(s): I10 - Essential (primary) hypertension
[2019-03-31] MEDS ORDERED: ONDANSETRON INJ 2 MG/ML 2 ML VIAL IV PRN (21:09)
[2019-03-31] MEDS ORDERED: NON-FORMULARY MEDICATION (Acetaminophen [Tylenol Arthritis Pain] 650 MG) PO PRN (21:09)
[2019-03-31] MEDS ORDERED: IPRATROPIUM BROMIDE NEB SOLN 0.02% 2.5 ML VIAL INH PRN (21:09)
[2019-03-31] MEDS: LEVALBUTEROL 1.25MG/0.5ML NEB NEB SCH (21:49)
[2019-03-31] MEDS: GABAPENTIN 100 MG CAP PO SCH (21:53)
[2019-03-31] MEDS: RIVAROXABAN 20 MG TAB PO SCH (21:54)
[2019-03-31] MEDS: LOVASTATIN 20 MG TAB PO SCH (21:54)
[2019-03-31] MEDS: TIOTROPIUM BROMIDE 5 PUFF/90 MCG INH INH SCH (21:55)
[2019-03-31] MEDS: BUDESONIDE/FORMOTEROL FUMARATE 160/4.5 60 PUFFS/INHALER INH SCH (21:55)
[2019-04-01] MEDS: LEVALBUTEROL 1.25MG/0.5ML NEB NEB SCH ×5 (04:29→19:32)
[2019-04-01 07:44] LABS: Hematocrit (blood only) 38.6 % (42-52); Hemoglobin 12.2 g/dL (14.0-18.0); Mean Corpuscular Hgb Conc 31.6 g/dL (32-36); Mean Corpuscular Volume 84.1 fL (80-100); Mean Platelet Volume 9.3 fL (7.4-10.4); Platelet Count 321 K/uL (130-400); RDW Coefficient of Variation 15.1 % (11.5-14.5); RDW Standard Deviation 46.6 fL (36.4-46.3); Red Blood Count 4.59 M/uL (4.7-6.1); White Blood Count 9.06 K/uL (4.8-10.8)
[2019-04-01] MEDS: BUDESONIDE/FORMOTEROL FUMARATE 160/4.5 60 PUFFS/INHALER INH SCH ×2 (08:15→20:58)
[2019-04-01] MEDS: DULOXETINE HCL 20 MG CAP PO SCH (08:15)
[2019-04-01] MEDS: LISINOPRIL 5 MG TAB PO SCH (08:15)
[2019-04-01] MEDS: CALCITRIOL 0.25 MCG CAPSULE PO SCH (08:15)
[2019-04-01 08:23] LABS: BUN Creatinine Ratio 16.2 (10-20); Creatinine Clr Calc Pharmacy 49.1 ml/min; Est GFR (African American) 48.1; Est GFR (Non-African American) 41.5; Potassium 4.5 mmol/L (3.5-5.1)
[2019-04-01 08:26] LABS: Albumin Globulin Ratio 0.8 (0.9-2); Bilirubin,Total 0.3 mg/dl (0.2-1); Globulin 3.8 gm/dl (2.5-4.0); Total Protein 6.8 gm/dl (6.4-8.2)
[2019-04-01] MEDS: methylPREDNISolone 40 MG in SYRINGE 0 ML IV SCH ×2 (08:44→20:56)
--- NOTE | 2019-04-01 10:16 | Pulmonary Consultation ---
Date of Consultation April 01, 2019 Assessment & Plan (1) SOB (shortness of breath) on exertion: The cause of the patient's shortness of breath appears to be multifactorial. In addition to his known underlying lung disease, he has had the recent pulmonary embolism, and he has had marked inactivity for several months. Thus deconditioning may play a role. He does have sinus tachycardia. Although this may be on the basis of his pulmonary disease, the heart rate itself may be limiting his exertion capabilities. In addition the patient may have underlying sleep apnea. He is not interested at present in doing a sleep study of any kind. The patient is very bothered by the dizziness and lightheadedness that he seems to have on a daily basis. Perhaps this may need a more thorough evaluation. Consideration is given to her re-eval by cardiology to see if they felt medication for rate control might improve his symptoms. With his usual medications that he takes at home for breathing peer if the cardiac rate stated problem, the levalbuterol dose could be decreased from 1.25 down to 0.63. It should be noted that this medication is not listed on his home medications but he is taking this based upon my conversation with him and reviewing office records. Xarelto needs to be continued. It is suspected the patient will need portable oxygen upon discharge. This would need to be coordinated through the [place] and [facility]. The patient's chest x-ray was read as showing low-grade CHF. Clinically this does not seem all that obvious. Would suggest checking proBNP to see if there is any correlation. The patient would benefit from having an oxygen tubing extension in his room such that he could walk to the restroom while wearing his oxygen. (2) History of lung cancer: (3) History of pulmonary embolism: (4) COPD (chronic obstructive pulmonary disease): (5) Restrictive lung disease: History of Present Illness Attending Physician: Cira Rodriguez MD History of Present Illness Pulmonary consultation is requested regarding shortness of breath. The patient is a 74-year-old male with a long-standing history of lung problems. He carries a diagnosis of COPD. 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 He had a right lower lobectomy done with postoperative chemotherapy. His pulmonary function tests have shown restrictive lung disease. He was hospitalized in early February with shortness of breath and palpitations and some chest pain. He was found to have bilateral pulmonary embolic disease. He has been on Xarelto. Yesterday the patient was seen his physician at the [place]. They were doing a walk evaluation to see about his oxygen levels. He reportedly desaturated down after 2 minutes to 80%. He states they did not put oxygen on at that time but just by rest his saturations improved. Recently he was prescribed nocturnal oxygen therapy by the [place]. They ordered the oxygen through [facility]. He has been wearing 2 L at night. [facility] that showed the saturations down to 66%. [facility] because of the desaturation with exercise as well as low blood pressure with systolic of 90 and a low-grade temperature of 100. The initial blood pressure in the ER was 98/71. The patient has numerous complaints. He is short of breath at rest at times and certainly with relatively minimal exertion. He states he cannot walk through a large store such as [employer] without pushing a cart and stopping periodically. He does have a daily cough. In the morning he brings up clear phlegm which he feels is from postnasal drip rather than from his lungs. He has not coughed up any blood. The only chest pain he has currently is related to coughing. He is not had any chills or sweats. The patient complains a lot about dizziness and lightheadedness. He states this often occurs in the morning and is very bothersome to him. The patient seems frustrated with all of his problems. He states he is tired of seeing doctors. He states he does not follow-up regularly with his primary pro vider because he is afraid she will refer him to someone else. I asked him if the dizziness and lightheadedness had been evaluated by neurology and he said no. I then asked if he had had MRI of the brain or CAT scan and he said yes but it likely was 6 years ago when he had his lung cancer evaluated. The patient is on a number of respiratory medications at home. This would include Symbicort which she is takes 2 puffs twice a day and Spiriva that he takes once per day. He also has nebulizer treatments with levalbuterol and ipratropium that he usually does about 3 times per day. When he was hospitalized in February with the pulmonary emboli there was some akinesis of the right ventricle. A repeat echo was done as an outpatient and this was reported as improved. His ejection fraction is normal. He does have a history of tachycardia which is typically a sinus tachycardia. It has been presumed that it is secondary to his multiple pulmonary problems. The patient has a remote history of smoking. He did smoke between 1 and 1.5 packs/day for 30 years and quit cigarettes at age 47. He then smoked cigars for quite a few years. He does not smoke at all anymore. This morning he still feels short of breath with any exertion. He was coughing periodically during my exam. He has been a little breathless at rest. 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 There is no family history of significant lung disease. His father age 92 and he was not certain what the cause of was. Mother age 77 with a cerebral aneurysm. I questioned the patient about possible sleep apnea in light of his nocturnal desaturations. He made it clear he is not interested in a sleep study and feels he could never wear a mask. His sleep habits are going to bed about 11 PM. Sometimes he falls asleep quickly and sometimes it takes more than an hour. He typically has 2 nocturnal awakenings. This could either be spontaneous or to go to the bathroom. At times he has difficulties going back to sleep. He gets up in the morning about 8 AM. He states that he does not feel excessively tired but he does often have the dizziness and lightheadedness. He rarely naps. The patient states his appetite is good. His weight may be down just slightly. Sometimes he only eats 2 meals per day. He denies a loss of appetite. Energy level overall is low. He is quite sedentary. He states that until a little over a year ago he was going to the gym fairly regularly especially in the cold months. He states that he was able to walk 30 minutes on a treadmill at 3 mph. This past winter he could only walk 10 minutes at 2 mph but then he would do some bicycling for 10 minutes as well. Overall however there is been a gradual decline in his exercise capabilities. Allergies Allergy/AdvReac Type Severity Reaction Status Date / Time citalopram AdvReac Mild GI SYMPTOMS Verified 03/31/19 17:11 pravastatin AdvReac Mild leg Verified 03/31/19 17:11 soreness rosuvastatin AdvReac Mild leg Verified 03/31/19 17:11 soreness Home Medications Home Medications Medication Instructions Recorded Confirmed Type Spiriva with HandiHaler 1 cap INHALATION QPM 02/19/19 03/31/19 History Symbicort 2 puff INHALATION AMPM 02/19/19 03/31/19 History calcitriol 0.5 mcg PO QAM 02/19/19 03/31/19 History gabapentin 200 mg PO HS 02/19/19 03/31/19 History lisinopril 5 mg PO QAM 02/19/19 03/31/19 History lovastatin 20 mg PO PM 02/19/19 03/31/19 History duloxetine 20 mg PO DAILY #30 cap 02/24/19 03/31/19 Rx ipratropium bromide 0 % INH UD PRN 03/21/19 03/31/19 History acetaminophen [Tylenol Arthritis 650 - 1,300 mg PO DAILY PRN 03/31/19 03/31/19 History Pain] rivaroxaban [Xarelto] 1 ea PO DAILY 03/31/19 03/31/19 History Patient History Medical History Renal insufficiency (Chronic) Anxiety and depression (Chronic) Lung cancer (Chronic ~12/2012) Hypertension (Chronic) GERD (gastroesophageal reflux disease) (Chronic) COPD (chronic obstructive pulmonary disease) (Chronic) Dyslipidemia Surgical History S/P partial lobectomy of lung (Acute) History of back surgery History of hernia repair History of knee joint replacement History of shoulder surgery Family History Other Breast cancer Diabetes Social History Preferred Language: Zambian Communication Ability: Effective 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 10 systems reviewed. Physical Exam Physical Exam: The patient is a 74-year-old male who was cooperative alert and oriented. He seemed a bit breathless at rest. Temperature is 36.4 degrees. He has had no fever since admission. Weight is 109.7 kg. Pupils were reactive to light. Nares were clear. Mouth exam showed dentures on top and an absence of teeth on the bottom. No erythema or exudate noted. Pharynx was a Mallampati grade 2. He has a large neck. No lymph nodes palpable. Cardiac rate elevated at 105 at the time of my exam. Blood pressure this morning 109/64. Cardiac rhythm was regular. Examination of the chest reveals a large scar in the right posterior lateral chest from prior surgery. The patient has good breath sounds bilaterally. No wheezes, rales, or rhonchi heard. Respiratory rate was 24/min at the time of my exam. Saturation was 94% on room air at the time of my exam. The abdomen is obese. Bowel sounds were normal. There was no tenderness to palpation, masses, or organomegaly. Extremities showed no cyanosis clubbing or edema. Results & Data Vital Signs (Past 12 Hours) Vital Signs Temp Pulse Pulse Resp BP BP Pulse Ox 04/01/19 08:20 82 04/01/19 07:17 99 H 18 96 04/01/19 07:05 36.4 C L 85 18 109/64 97 04/01/19 04:43 36.5 C 80 18 103/64 95 04/01/19 00:19 104 H 03/31/19 23:24 37 C 102 H 20 114/71 96 03/31/19 21:49 111 H 18 95 Laboratory Results White count today 9.06. Hemoglobin 12.2. Platelets 321,000. INR was 1.2. PTT was normal at 29.1. Venous blood gas showed pH 7.46 with PCO2 39 and PO2 30. Electrolytes show sodium 140 potassium 4.5 chloride 107 bicarb 24. BUN 26 with a creatinine of 1.61. 110. AST, ALT, alk phos, and bilirubin were all unremarkable. Procalcitonin was normal at 0.05. Diagnostic Findings I did review the CT angios of the chest done 02/19/2019. This did show bilateral PE as notedBe done yesterday showed sinus tachycardia with rate 105. There was a left axis deviation. Cannot exclude prior inferior MO. No acute changes suggested. Chest x-ray done 03/31/2019 showed cardiomegaly with a suggestion of mild CHF. A port was noted in the right subclavian area. This was a portable x-ray and thus interpretation of the findings may be limited. I did review the CAT scan of the chest on 02/19/2019. This did show bilateral pulmonary emboli. There were also postsurgical changes of a right lower lobectomy. There was subpleural reticulation particularly in the upper lung edmonds bilaterally. This could reflect early interstitial lung disease. PG Care Time/CCT Total # of Minutes Spent Total Time Spent with Patient: Total time spent is greater than 50% in coordination of care (as documented) at patient's floor/unit and/or counseling patient:
--- NOTE | 2019-04-01 16:02 | Family Medicine Progress Note ---
Date of Service April 01, 2019 Assessment & Plan (1) Restrictive lung disease: 74-year-old man who presents from [place] [facility] after failing ambulation oxygenation testing Hypoxemic respiratory failure Appears to be multifactorial History of COPD, evidence of infiltrative lung disease on CT, history of non- small cell lung cancer with right lower lobectomy, history of bilateral PEs and chronic deconditioning from his medical conditions On rivaroxaban for his pulmonary emboli On home ipratropium bromide and Symbicort inhalers Does not feel like he has had any change in respiratory status recently, feels his heart rate racing is his primary conc Patient will likely need home oxygen will need to be cleared through [place] Patient seen by pulmonology who agreed that patient will likely need for oxygen move and believe he may benefit from cardiology consultation Chest x-ray showed mild pulmonary congestion, will check BNP today Tachycardia Sinus tachycardia with exertion as seen on monitor 1 therapy rates as high as 140s 150s Patient has been in sinus since admission we will consult cardiology potentially try rate lowering medicine We will avoid beta-blockers as patient has history of pulmonary disease and potentially start patient on diltiazem F/C/N: Heart healthy diet DVT prophylaxis: [facility]) COPD (chronic obstructive pulmonary disease): (3) History of pulmonary embolism: (4) Acute exacerbation of chronic obstructive pulmonary disease (COPD): (5) Acute dyspnea: (6) Hypoxia: Supervising Physician Co-Signing Physician Notes ATTENDING NOTE I saw the patient with the resident physician and confirmed allred portions of the history and physical exam. Agree with the impression and plan as noted above. Upon exam, temperature 36.4 C, heart rate 85, respiratory 18, blood pressure 109/64. Pulse oximetry 97% on room air. At rest, he has no shortness of breath or conversational dyspnea. Heart regular rate -auscultated rate 80; lungs are clear. Exertional dyspnea and hypoxia Exertional tachycardia Bilateral pulmonary emboli, on Xarelto Suspect his symptoms are multifactorial, the tachycardia could simply be subsequent to his hypoxia. In reviewing telemetry, he appears to be sinus tachycardia with activity. He uses supplemental oxygen at night, although discussed with him that this may need to be added with activity. We will discuss with cardiology regarding his tachycardia; could trial a calcium channel christopher if his blood pressure permits. Subjective John Lynch resting comfortably in bed this morning, he says he feels how he always feels. He denies any recent changes in respiratory status and says that whenever he exerts himself his oxygenation tanks and his heart rate skyrockets. Review of Systems Constitutional: + daytime sleepiness; no fever and no chills Eyes: no problem reported Respiratory: + dyspnea on exertion, + snoring and + wheezing; no cough and no chest congestion Cardiovascular: + dyspnea on exertion; no chest pain, no chest pain at rest, no palpitations, no lightheadedness and no syncope Gastrointestinal: no abdominal pain, no nausea, no vomiting and no con stipation Physical Exam Physical Exam: Constitutional: Patient appears stated age resting comfortably in bed this morning and breakfast. No acute distress Eyes: Anicteric sclerae, extraocular muscle motions intact bilaterally, pupils equal round reactive to light Respiratory: Chest expansion symmetric no wheezing appreciable at this time lung sounds vesicular globally Cardiovascular: Regular rate regular rhythm S1-S2 normal no murmurs rubs skips or gallops Gastrointestinal: Abdomen soft nontender no masses detected no organomegaly Skin: No new or obvious skin lesions Results & Data Vital Signs (Past 12 Hours) Vital Signs Temp Pulse Pulse Resp BP BP Pulse Ox 04/01/19 15:14 36.6 C 92 H 21 125/78 97 04/01/19 11:35 36.9 C 99 H 18 146/70 H 95 04/01/19 08:20 82 04/01/19 07:17 99 H 18 96 04/01/19 07:05 36.4 C L 85 18 109/64 97 04/01/19 04:43 36.5 C 80 18 103/64 95 PG Care Time/CCT Total # of Minutes Spent Total Time Spent with Patient: Total time spent is greater than 50% in coordination of care (as documented) at patient's floor/unit and/or counseling patient: Resident Activity Tracking Resident Involvement: Resident Care Provided Care Provided: Adult Hospital Medicine
[2019-04-01] MEDS: RIVAROXABAN 20 MG TAB PO SCH (20:56)
[2019-04-01] MEDS: GABAPENTIN 100 MG CAP PO SCH (20:57)
[2019-04-01] MEDS: TIOTROPIUM BROMIDE 5 PUFF/90 MCG INH INH SCH (20:57)
[2019-04-01] MEDS: LOVASTATIN 20 MG TAB PO SCH (20:57)
[2019-04-02] MEDS: LEVALBUTEROL 1.25MG/0.5ML NEB NEB SCH ×4 (01:26→20:03)
[2019-04-02 07:39] LABS: Basophils # (auto) 0.01 K/uL (0-0.2); Basophils % (auto) 0.1 %; Hematocrit (blood only) 37.2 % (42-52); Hemoglobin 11.7 g/dL (14.0-18.0); Immature Granulocytes # (auto) 0.07 K/uL (0.00-0.02); Immature Granulocytes % (auto) 0.6 %; Mean Corpuscular Hgb Conc 31.5 g/dL (32-36); Mean Corpuscular Volume 84.5 fL (80-100); Mean Platelet Volume 9.8 fL (7.4-10.4); Monocytes # (auto) 0.98 K/uL (0.11-0.59); Monocytes % (auto) 7.9 %; Neutrophils # (auto) 10.38 K/uL (1.4-6.5); Neutrophils % (auto) 83.4 %; Platelet Count 304 K/uL (130-400); RDW Coefficient of Variation 15.1 % (11.5-14.5); White Blood Count 12.44 K/uL (4.8-10.8)
[2019-04-02 08:10] LABS: BUN Creatinine Ratio 19.6 (10-20); Calcium 9.7 mg/dl (8.5-10.1); Creatinine Clr Calc Pharmacy 46.3 ml/min; Est GFR (African American) 45.4; Est GFR (Non-African American) 39.1; Potassium 4.6 mmol/L (3.5-5.1)
[2019-04-02 08:14] LABS: Albumin Globulin Ratio 0.8 (0.9-2); Bilirubin,Total 0.3 mg/dl (0.2-1); Globulin 3.7 gm/dl (2.5-4.0); Total Protein 6.7 gm/dl (6.4-8.2)
[2019-04-02] MEDS: CALCITRIOL 0.25 MCG CAPSULE PO SCH (08:20)
[2019-04-02] MEDS: BUDESONIDE/FORMOTEROL FUMARATE 160/4.5 60 PUFFS/INHALER INH SCH ×2 (08:20→21:24)
[2019-04-02] MEDS: DULOXETINE HCL 20 MG CAP PO SCH (08:20)
[2019-04-02] MEDS: LISINOPRIL 5 MG TAB PO SCH (08:20)
[2019-04-02] MEDS: methylPREDNISolone 40 MG in SYRINGE 0 ML IV SCH (08:20)
--- NOTE | 2019-04-02 09:35 | Pulmonology Progress Note ---
Date of Service April 02, 2019 Assessment & Plan (1) SOB (shortness of breath) on exertion: The cause of the patient's shortness of breath appears to be multifactorial. In addition to his known underlying lung disease, he has had the recent pulmonary embolism, and he has had marked inactivity for several months. Thus deconditioning may play a role. He does have sinus tachycardia. Although this may be on the basis of his pulmonary disease, the heart rate itself may be limiting his exertion capabilities. In addition the patient may have underlying sleep apnea. He is not interested at present in doing a sleep study of any kind. Consideration is given to her re-eval by cardiology to see if they felt medication for rate control might improve his symptoms. With his usual medications that he takes at home for breathing peer if the cardiac rate stated problem, the levalbuterol dose could be decreased from 1.25 down to 0.63. It should be noted that this medication is not listed on his home medications but he is taking this based upon my conversation with him and reviewing office records. Xarelto needs to be continued. It is suspected the patient will need portable oxygen upon discharge. The patient indicated that he received a call from [facility] indicating they were going to deliver portable oxygen for him. This was already ordered by the DC. The patient would benefit from having an oxygen tubing extension in his room such that he could walk to the restroom while wearing his oxygen. In light of his continued cough will initiate azithromycin from the perspective of anti-inflammatory effect as well as antibacterial. Hopefully physical therapy will ambulate the patient in the hallway today with oxygen in place while monitoring the saturation. (2) History of lung cancer: (3) History of pulmonary embolism: (4) COPD (chronic obstructive pulmonary disease): (5) Restrictive lung disease: Subjective The patient states that he feels no better. He is still coughing frequently especially in the morning. He is still short of breath with any exertion. He is still having episodes of increased heart rates with minimal exertion. His mucus remains clear. There has been no hemoptysis. He denies chills fevers or sweats. Physical Exam Physical Exam: The patient is a 74-year-old male who was cooperative alert and oriented he again appeared somewhat breathless at rest. He was coughing moderately throughout this exam. Weight today recorded as 107.4 kg. This reflects a more than 2 kg weight loss from yesterday. Pupils were reactive to light. Nares clear. Mouth exam shows dentures on top and an absence of teeth on the bottom. No erythema or exudate noted. Pharynx is a Mallampati grade 2. No lymph nodes palpable. Cardiac rate at the time of my exam was 118. Rhythm was regular. He had been coughing shortly before this. Blood pressure 143/80. Respiratory rate was 24 breaths/min at the time of my exam. Mild wheeze was heard on expiration posteriorly inferiorly. Saturation at the time of my exam was 94% on room air. The patient has a large scar on the right posterior lateral chest area from prior surgery. Extremities showed no cyanosis clubbing or edema. Results & Data Vital Signs (Past 12 Hours) Vital Signs Temp Pulse Pulse Resp BP BP Pulse Ox 04/02/19 07:37 67 73 18 94 04/02/19 07:12 36.6 C 81 18 143/80 H 97 04/02/19 03:21 36.4 C L 80 20 120/70 97 04/02/19 00:00 103 H 04/01/19 23:15 36.8 C 98 H 20 143/83 H 95 Laboratory Results White cell count today is 12.44. Hemoglobin is 11.7. Platelets 304,000. Electrolytes show sodium 139 potassium 4.6 chloride 108 bicarb 24. BUN is 33 with creatinine 1.69. Blood sugar is 125. proBNP level done yesterday was normal at 45. PG Care Time/CCT Total # of Minutes Spent Total Time Spent with Patient: Total time spent is greater than 50% in coordination of care (as documented) at patient's floor/unit and/or counseling patient:
[2019-04-02] MEDS ORDERED: AZITHROMYCIN 250 MG TAB PO ONE (09:36)
--- NOTE | 2019-04-02 13:04 | Cardiology Consultation ---
Date of Consultation April 02, 2019 Assessment & Plan (1) Sinus tachycardia: I would still assert that the patient's elevated heart rates are related to his underlying pulmonary disease and deconditioning. There has not been any evidence of cardiac failure. Echocardiography did not reveal any evidence of either right or left ventricular failure. He has not have evidence of failure on examination. An N terminal proBNP was also drawn today which was remarkably low. I believe this sinus tachycardia simply reactionary. I do not believe he requires any rate control medications. I would avoid using beta blockers or calcium channel blockers to suppress high heart rates in the setting. Maintaining a good level of oxygenation, adequate hemoglobin levels and gradual reconditioning will likely improve his tachycardia. Monitoring his volume status closely and reduce his use of beta agonists will also attenuate any higher heart rates. He is not appear to have other common etiologies of sinus tachycardia currently such as infection, pain or fever. History of Present Illness Reason for Consultation: Sinus tachycardia Requesting Physician: Ranjana Attending Physician: Chance Zepeda, History of Present Illness Patient is a 74-year-old gentleman with a history of significant lung disease to include lung cancer, lung resection, severe COPD and recent bilateral pulmonary emboli who was noted to have a sinus tachycardia with activity. The patient was referred for outpatient evaluation recently in this topic was addressed in the outpatient note dated March 21, 2019. At the time of his outpatient evaluation the patient was awaiting delivery of oxygen from the [place]. He appears to have been using supplemental oxygen at nighttime for over a week but upon evaluation earlier this week in the clinic he was significantly hypoxic with activity. B ased on his degree of hypoxia and associated symptoms he was referred to the emergency room and admitted. He continues to have significant breathing difficulty. At rest he appears fairly comfortable but does have an element of tachypnea. With any activity he states that he is severely short of breath and will notice rapid heart rates. He has an element of mild dizziness at times as well. He has not report associated chest discomfort. He thinks that with supplemental oxygen during activity his symptoms may be slightly better. Curiously, he did report 1 day last week where he felt remarkably good. On that day his breathing was much improved but deteriorated the following day. He denied recent fevers or chills. He does have a cough productive of scant sputum which is more noticeable in the morning. With deep inspiration and coughing he does have a sense of chest discomfort described as a aching. Allergies Allergy/AdvReac Type Severity Reaction Status Date / Time citalopram AdvReac Mild GI SYMPTOMS Verified 03/31/19 17:11 pravastatin AdvReac Mild leg Verified 03/31/19 17:11 soreness rosuvastatin AdvReac Mild leg Verified 03/31/19 17:11 soreness Home Medications Home Medications Medication Instructions Recorded Confirmed Type Spiriva with HandiHaler 1 cap INHALATION QPM 02/19/19 03/31/19 History Symbicort 2 puff INHALATION AMPM 02/19/19 03/31/19 History calcitriol 0.5 mcg PO QAM 02/19/19 03/31/19 History gabapentin 200 mg PO HS 02/19/19 03/31/19 History lisinopril 5 mg PO QAM 02/19/19 03/31/19 History lovastatin 20 mg PO PM 02/19/19 03/31/19 History duloxetine 20 mg PO DAILY #30 cap 02/24/19 03/31/19 Rx ipratropium bromide 0 % INH UD PRN 03/21/19 03/31/19 History acetaminophen [Tylenol Arthritis 650 - 1,300 mg PO DAILY PRN 03/31/19 03/31/19 History Pain] rivaroxaban [Xarelto] 1 ea PO DAILY 03/31/19 03/31/19 History Patient History Medical History Acute exacerbation of chronic obstructive pulmonary disease (COPD) (Acute) Acute dyspnea (Acute) Hypoxia (Acute) Chronic kidney disease, stage 3a History of lung cancer (Resolved) Renal insufficiency (Chronic) Anxiety and depression (Chronic) Lung cancer (Chronic ~12/2012) Hypertension (Chronic) GERD (gastroesophageal reflux disease) (Chronic) COPD (chronic obstructive pulmonary disease) (Chronic) Dyslipidemia Surgical History S/P partial lobectomy of lung (Acute) History of back surgery History of hernia repair History of knee joint replacement History of shoulder surgery Family History Other Breast cancer Diabetes Social History Preferred Language: Estonian Communication Ability: Effective Cardiology Nurse Practitioner Required: No Beliefs That Will Affect Care: None Current Living Situation: Spouse Feels Safe at Home: Yes Safety Concerns: Feels Safe At This Time Smoking Status: Former smoker Hx Alcohol Use: Yes Alcohol type: beer Hx Substance Use: No Review of Systems Review of Systems: All systems reviewed & are unremarkable except as noted in HPI & below One day last week he did have some indigestion. This was primarily abdominal in nature. He did not have any nausea and vomiting. No current abdominal pain. Physical Exam Physical Exam: The patient is alert and oriented. Mood and affect appeared normal. He answered all questions appropriately. Using supplemental oxygen. HEENT: Pupils are equal and reactive to light and accommodation. Extraocular movements are intact. The sclerae are anicteric. Neuro: Cranial nerves intact Neck: Somewhat redundant neck tissue but no evidence of jugular venous distention. Lungs: Reduce sounds more noticeable on the right base. Some expiratory wheezing. No rales. Poor air movement overall. Cardiac: Heart demonstrates a regular rate and rhythm. Pulses: The patient has palpable radial pulses bilaterally that are equal in intensity Extremities: There was no evidence of hypoperfusion. There is no cyanosis or clubbing. There is no edema. Skin: I did not appreciate any rashes on examination today. Results & Data Vital Signs (Past 12 Hours) Vital Signs Temp Pulse Pulse Resp BP BP Pulse Ox 04/02/19 11:30 36.6 C 99 H 18 125/75 97 04/02/19 07:37 67 73 18 94 04/02/19 07:12 36.6 C 81 18 143/80 H 97 04/02/19 03:21 36.4 C L 80 20 120/70 97 Laboratory Results Abnormal Lab Results 04/01/19 04/02/19 04/02/19 15:55 07:11 07:11 WBC 12.44 H RBC 4.40 L Hgb 11.7 L Hct 37.2 L MCV 84.5 MCH 26.6 MCHC 31.5 L RDW Std Deviation 47.0 H RDW Coeff of Effie 15.1 H Plt Count 304 MPV 9.8 Immature Gran % (Auto) 0.6 Neut % (Auto) 83.4 Lymph % (Auto) 8.0 Morris % (Auto) 7.9 Eos % (Auto) 0.0 Baso % (Auto) 0.1 Immature Gran # (Auto) 0.07 H Neut # (Auto) 10.38 H Lymph # (Auto) 1.00 L Morris # (Auto) 0.98 H Eos # (Auto) 0.00 Baso # (Auto) 0.01 Sodium 139 Potassium 4.6 Chloride 108 H Carbon Dioxide 24 Anion Gap 7.0 BUN 33 H Creatinine 1.69 H Est Cr Clr Drug Dosing 46.3 Est GFR ( Amer) 45.4 Est GFR (Non-Af Amer) 39.1 BUN/Creatinine Ratio 19.6 Glucose 125 H Calcium 9.7 Total Bilirubin 0.3 AST 15 ALT 25 Alkaline Phosphatase 41 L NT-Pro-B Natriuret Pep 45 Total Protein 6.7 Albumin 3.0 L Globulin 3.7 Albumin/Globulin Ratio 0.8 L Diagnostic Findings Echocardiogram performed 03/14/2019: Preserved LV systolic function. Preserved RV systolic function. No significant valvular heart disease. Electrocardiogram performed 03/31/2019: Sinus tachycardia. For impression precordial leads. Chest x-ray obtained at the time of admission revealed cardiomegaly and evidence of pulmonary vascular congestion. PG Care Time/CCT Total # of Minutes Spent Total Time Spent with Patient: Total time spent is greater than 50% in coordination of care (as documented) at patient's floor/unit and/or counseling patient:
[2019-04-02] MEDS: ACETAMINOPHEN 325 MG TAB PO PRN (16:19)
--- NOTE | 2019-04-02 17:09 | Family Medicine Progress Note ---
Date of Service April 02, 2019 Assessment & Plan (1) Restrictive lung disease: 74-year-old man who presents from [place] clinic after failing ambulation oxygenation testing. Hypoxemic respiratory failure Appears to be multifactorial History of COPD, evidence of infiltrative lung disease on CT, history of non- small cell lung cancer with right lower lobectomy, history of bilateral PEs and chronic deconditioning from his medical conditions On rivaroxaban for his pulmonary emboli On home ipratropium bromide and Symbicort inhalers. Switched to PO Pred, dc'd IV steroids Does not feel like he has had any change in respiratory status recently, feels his heart rate racing is his primary conc [facility] Patient seen by pulmonology who agreed that patient will likely need for oxygen move and believe he may benefit from cardiology consultation Chest x-ray showed mild pulmonary congestion, BNP normal. In light of his continued cough will initiate azithromycin Tachycardia Sinus tachycardia with exertion as seen on monitor 1 therapy rates as high as 140s 150s Elevated heart rates are likely related to his underlying pulmonary disease and deconditioning Cardiology: believe this sinus tachycardia simply reactionary. Do not believe pt requires any rate control medications We will avoid beta-blockers as patient has history of pulmonary disease and potentially start patient on diltiazem Chronic kidney disease, stage 3a Stable, appears baseline is around 1.5 Hypertension Cont home meds, BP stable currently. Continue lisinopril 10 mg daily GERD Cont PPI Vitamin D deficiency Continue calcitriol 0.5 mcg QAM Neuropathy Continue gabapentin 200 gm HS F/C/N: Heart healthy diet DVT prophylaxis: teds, scds, Rivaroxaban FULL CODE Disposition: MedSurg Supervising Physician Co-Signing Physician Notes ATTENDING NOTE I saw the patient with the resident physician and confirmed allred portions of the history and physical exam. Agree with the impression and plan as noted above. I also discussed the case with pulmonology. His lung exam is initially somewhat coarse, but after he coughs a few times, his lung exam actually sounds pretty good. There is some mild and expiratory wheeze but he has good air exchange. Exertional dyspnea and hypoxia Exertional tachycardia Bilateral pulmonary emboli, on Xarelto Suspect his symptoms are multifactorial, the tachycardia could simply be subsequent to his hypoxia. In reviewing telemetry, he appears to be sinus tachycardia with activity. Cardiology consultation input is appreciated. Home oxygen is already been arranged by the [facility] clinic; while the patient's previous he went oxygen at night he is still somewhat resistant to wearing with activity. I again discussed the possibility of obstructive sleep apnea with the patient though he seems resistant to undergoing a sleep study. PLAN 1) transition from IV to p.o. steroids 2) azithromycin added 3) for completeness we will check a TSH 4) his pulmonary status is not to the point where he would be okay at home at this point. Subjective 74 y/o M found in bed this AM in NAD. No reported overnight events. No resp sxs at rest, only when exerting himself feels tachy and O2 sats drop. No other acute concerns or complaints. Pt does not seem to understand what is happening with his breathing, unwilling to have O2 tank when he goes to [facility] for example. Extensive discussion again had today. Review of Systems Review of Systems: All systems reviewed & are unremarkable except as noted in HPI & below Physical Exam Constitutional: WD/WN, vitals as above Eyes: PERRL, conjunctivae normal, anicteric sclerae ENMT: external ear and nose normal, oropharynx normal Respiratory: normal respiratory effort, lungs clear to auscultation + cough Cardiovascular: RRR, no murmur, no edema Gastrointestinal (Abdomen): normal bowel sounds, soft, nontender, no hepatosplenomegaly Skin: no rashes, warm and dry Psychiatric: A+Ox3, euthymic affect Results & Data Vital Signs (Past 12 Hours) Vital Signs Temp Pulse Pulse Resp BP Pulse Ox 04/02/19 15:04 36.9 C 121 H 18 119/68 97 04/02/19 14:00 104 H 20 97 04/02/19 11:30 36.6 C 99 H 18 125/75 97 04/02/19 07:37 67 73 18 94 04/02/19 07:12 36.6 C 81 18 143/80 H 97 Laboratory Results Laboratory Results - last 24 hr 04/02/19 04/02/19 07:11 07:11 WBC 12.44 H RBC 4.40 L Hgb 11.7 L Hct 37.2 L MCV 84.5 MCH 26.6 MCHC 31.5 L RDW Std Deviation 47.0 H RDW Coeff of Effie 15.1 H Plt Count 304 MPV 9.8 Immature Gran % (Auto) 0.6 Neut % (Auto) 83.4 Lymph % (Auto) 8.0 Eagle % (Auto) 7.9 Eos % (Auto) 0.0 Baso % (Auto) 0.1 Immature Gran # (Auto) 0.07 H Neut # (Auto) 10.38 H Lymph # (Auto) 1.00 L Eagle # (Auto) 0.98 H Eos # (Auto) 0.00 Baso # (Auto) 0.01 Sodium 139 Potassium 4.6 Chloride 108 H Carbon Dioxide 24 Anion Gap 7.0 BUN 33 H Creatinine 1.69 H Est Cr Clr Drug Dosing 46.3 Est GFR ( Amer) 45.4 Est GFR (Non-Af Amer) 39.1 BUN/Creatinine Ratio 19.6 Glucose 125 H Calcium 9.7 Total Bilirubin 0.3 AST 15 ALT 25 Alkaline Phosphatase 41 L Total Protein 6.7 Albumin 3.0 L Globulin 3.7 Albumin/Globulin Ratio 0.8 L Medications Administered Current Inpatient Medications Acetaminophen (Tylenol) 650 mg PO Q4H PRN PRN Reason: Moderate Pain Stop: 04/30/19 21:08 Last Admin: 04/02/19 16:19 Dose: 650 mg Documented by: [facility]ax) [facility] Stop: 04/10/19 08:59 Budesonide/Formoterol Fumarate (Symbicort 160mcg/4.5mcg) 2 puffs INH BID [facility] Stop: 04/30/19 21:08 Last Admin: 04/02/19 08:20 Dose: 2 puffs Documented by: Calcitriol (Rocaltrol) 0.5 mcg [facility] Stop: 05/01/19 08:59 Last Admin: 04/02/19 08:20 Dose: 0.5 mcg Documented by: Duloxetine HCl (Cymbalta) 20 mg PO DAILY [facility] Stop: 05/01/19 08:59 Last Admin: 04/02/19 08:20 Dose: 20 mg Documented by: Gabapentin (Neurontin) 200 mg PO [facility] Stop: 04/30/19 21:08 Last Admin: 04/01/19 20:57 Dose: 200 mg Documented by: Ipratropium [place] (Atrovent 0.02% 0.5mg/2.5ml) 0.5 mg INH Q4H PRN PRN Reason: Shortness Of Breath Or Wheezin Stop: 04/30/19 21:08 Levalbuterol HCl (Xopenex 1.25mg/0.5ml Neb) 1.25 mg NEB Q6R [facility] Stop: 04/30/19 21:08 Last Admin: 04/02/19 14:00 Dose: Not Given Documented by: Lisinopril (Zestril) 5 mg PO QAM [facility] Stop: 05/01/19 08:59 Last Admin: 04/02/19 08:20 Dose: 5 mg Documented by: Lovastatin (Mevacor) 20 mg PO PM [facility] Stop: 04/30/19 21:08 Last Admin: 04/01/19 20:57 Dose: 20 mg Documented by: Ondansetron HCl (Zofran) 4 mg IV Q4H PRN PRN Reason: Nausea And Vomiting Stop: 04/30/19 21:08 Prednisone (Prednisone) 40 mg PO QPM [facility] Stop: 05/02/19 20:59 Rivaroxaban (Xarelto) 20 mg PO PM [facility] Stop: 04/30/19 21:08 Last Admin: 04/01/19 20:56 Dose: 20 mg Documented by: Tiotropium [place] (Spiriva) 1 puffs INH QPM [facility] Stop: 04/30/19 21:08 Last Admin: 04/01/19 20:57 Dose: 1 puffs Documented by: PG Care Time/CCT Total # of Minutes Spent Total Time Spent with Patient: Total time spent is greater than 50% in coordination of care (as documented) at patient's floor/unit and/or counseling patient: Resident Activity Tracking Resident Involvement: Resident Care Provided Care Provided: Adult Hospital Medicine
[2019-04-02] MEDS: RIVAROXABAN 20 MG TAB PO SCH (21:22)
[2019-04-02] MEDS: LOVASTATIN 20 MG TAB PO SCH (21:22)
[2019-04-02] MEDS: GABAPENTIN 100 MG CAP PO SCH (21:22)
[2019-04-02] MEDS: predniSONE 20 MG TAB PO SCH (21:23)
[2019-04-02] MEDS: TIOTROPIUM BROMIDE 5 PUFF/90 MCG INH INH SCH (21:25)
[2019-04-03] MEDS: LEVALBUTEROL HCL 1.25 MG/3 ML NEB NEB SCH ×4 (01:46→19:22)
[2019-04-03 07:48] LABS: Basophils # (auto) 0.01 K/uL (0-0.2); Basophils % (auto) 0.1 %; Hematocrit (blood only) 38.2 % (42-52); Hemoglobin 11.9 g/dL (14.0-18.0); Immature Granulocytes # (auto) 0.14 K/uL (0.00-0.02); Immature Granulocytes % (auto) 1.2 %; Lymphocytes # (auto) 0.94 K/uL (1.2-3.4); Lymphocytes % (auto) 7.8 %; Mean Corpuscular Hgb Conc 31.2 g/dL (32-36); Mean Corpuscular Volume 85.3 fL (80-100); Mean Platelet Volume 9.9 fL (7.4-10.4); Monocytes % (auto) 5.8 %; Neutrophils # (auto) 10.27 K/uL (1.4-6.5); Neutrophils % (auto) 85.1 %; Platelet Count 291 K/uL (130-400); RDW Coefficient of Variation 15.1 % (11.5-14.5); RDW Standard Deviation 47.5 fL (36.4-46.3); Red Blood Count 4.48 M/uL (4.7-6.1); White Blood Count 12.06 K/uL (4.8-10.8)
[2019-04-03] MEDS: BUDESONIDE/FORMOTEROL FUMARATE 160/4.5 60 PUFFS/INHALER INH SCH ×2 (08:16→21:21)
[2019-04-03] MEDS: LISINOPRIL 5 MG TAB PO SCH (08:17)
[2019-04-03] MEDS: DULOXETINE HCL 20 MG CAP PO SCH (08:17)
[2019-04-03] MEDS: AZITHROMYCIN 250 MG TAB PO SCH (08:17)
[2019-04-03] MEDS: CALCITRIOL 0.25 MCG CAPSULE PO SCH (08:17)
[2019-04-03 08:22] LABS: Calcium 9.6 mg/dl (8.5-10.1); Est GFR (Non-African American) 40.6; Potassium 4.8 mmol/L (3.5-5.1)
[2019-04-03 08:33] LABS: Albumin Globulin Ratio 0.8 (0.9-2); Bilirubin,Total 0.3 mg/dl (0.2-1); Globulin 3.8 gm/dl (2.5-4.0); Total Protein 6.8 gm/dl (6.4-8.2)
--- NOTE | 2019-04-03 09:25 | Pulmonology Progress Note ---
Date of Service April 03, 2019 Assessment & Plan (1) COPD exacerbation: It was not clear exactly what was the etiology of his shortness of breath upon admission. In light of the fact he has had significant improvement in his cough, sputum production, wheezing, and shortness of breath, I assume it was an exacerbation of COPD even though it was somewhat atypical. He has improved nicely. I believe he is acceptable for discharge in light of this improvement. Would taper his prednisone gradually over the next 2 weeks or so. He should follow-up with Natalie Puri PA-C in the pulmonary office in 1 to 2 weeks. It is difficult to say if the a azithromycin has resulted in his significant improvement but I would continue this for a full 5-day course. Case discussed with Dr. Zepeda. (2) History of pulmonary embolism: The patient should continue with the rivaroxaban. (3) History of lung cancer: (4) Restrictive lung disease: This will ultimately be followed by outpatient pulmonary function testing when it is indicated. Subjective The patient seems to be feeling much better today. His cough has diminished significantly per my evaluation. He says it is some better. He is not bringing up any phlegm currently. He is less short of breath. He still notices that his heart rate goes up fairly quickly with just going to the bathroom. Cardiology saw the patient and did not feel that an agent to slow his heart rate was indicated at present. He denies chest pains. The patient's mood seems much better. Physical Exam Physical Exam: The patient is a 74-year-old male who was comfortable at rest. He was not coughing. He was cooperative alert and oriented. He seems much more at ease. Weight today recorded at 108.7 kg. Pupils were reactive to light. Nasal passages remain clear. Mouth exam again shows dentures on top and in absence of teeth on the bottom. Palpation of the neck reveals no lymph nodes or masses. The cardiac rate at present was 85/min. Rhythm was regular. Blood pressure 130/77. Auscultation of the lung edmonds revealed them to be clear. No wheezes, rales, or rhonchi heard. Respiratory rate 18 breaths/min and not labored. Saturation earlier today recorded as 98% on room air. Extremities show no cyanosis clubbing or edema. Results & Data Vital Signs (Past 12 Hours) Vital Signs Temp Pulse Pulse Resp BP BP Pulse Ox 04/03/19 07:35 85 04/03/19 07:26 36.4 C L 75 18 130/77 98 04/03/19 06:55 77 18 98 04/03/19 03:02 36.8 C 79 20 127/70 96 04/03/19 01:59 81 04/02/19 22:59 36.8 C 102 H 18 123/71 97 Laboratory Results CBC shows a white count of 12.06. Hemoglobin 11.9. Platelets 291,000. Electrolytes show sodium 140 potassium 4.8 chloride 108 bicarb 27. BUN is 36 with a creatinine of 1.64. Blood sugar is 125. Liver functions are normal. PG Care Time/CCT Total # of Minutes Spent Total Time Spent with Patient: Total time spent is greater than 50% in coordination of care (as documented) at patient's floor/unit and/or counseling patient:
--- NOTE | 2019-04-03 16:48 | Family Medicine Progress Note ---
Date of Service April 03, 2019 Assessment & Plan (1) Restrictive lung disease: 74-year-old man who presents from [place] [facility] after failing ambulation oxygenation testing. Hypoxemic respiratory failure Appears to be multifactorial History of COPD, evidence of infiltrative lung disease on CT, history of non- small cell lung cancer with right lower lobectomy, history of bilateral PEs and chronic deconditioning from his medical conditions On rivaroxaban for his pulmonary emboli On home ipratropium bromide and Symbicort inhalers. Switched to PO Pred, dc'd IV steroids. Taper gradually over the next 2 weeks [facility] Patient seen by pulmonology who agreed that patient will likely need for oxygen move and believe he may benefit from cardiology consultation Chest x-ray showed mild pulmonary congestion, BNP normal. In light of his cough, since resolved, will cont azithromycin for full 5 day course. Day 2/5 Tachycardia Sinus tachycardia with exertion as seen on monitor 1 therapy rates as high as 140s 150s Elevated heart rates are likely related to his underlying pulmonary disease and deconditioning Cardiology: believe this sinus tachycardia simply reactionary. Do not believe pt requires any rate control medications TSH low .031. Free T4 normal 1.06. Opting to recheck thyroid studies in 4-6 wks on d/c. Will start low dose cardioselective beta christopher toprol 12.5 mg. Discussed with Pulmonology, agreed would not affect underlying pulm disease Chronic kidney disease, stage 3a Stable, appears baseline is around 1.5 Hypertension Cont home meds, BP stable currently. Continue lisinopril 10 mg daily GERD Cont PPI Vitamin D deficiency Continue calcitriol 0.5 mcg QAM Neuropathy Continue gabapentin 200 gm HS ?MAILE Pt agreeeable to get outpt sleep study on d/c F/C/N: Heart healthy diet DVT prophylaxis: teds, scds, Rivaroxaban FULL CODE Disposition: MedSurg, anticipate d/c tomorrow Supervising Physician Co-Signing Physician Notes ATTENDING NOTE I saw the patient with the resident physician and confirmed allred portions of the history and physical exam. Agree with the impression and plan as noted above. I also discussed the case with pulmonology. His lungs sound clear today. Good air exchange; no wheezing is appreciated. His heart is regular though mildly tachycardic with an auscultated rate of 90 at rest. TSH is low at 0.031 with a free T4 is only 1.06. I reviewed his outpatient endocrinology notes and he has been borderline hyperthyroid in the past. He was actually on methimazole for period of time in 2016; his lab values are borderline and he does not have any clinical improvement so it looks as if this was discontinued. Exertional dyspnea and hypoxia Exertional tachycardia Questionable hyperthyroidism Bilateral pulmonary emboli, on Xarelto Suspect his tachycardia is multifactorial, some of it could be explained on the basis of hypoxia but there could be an element of hyperthyroidism. His TSH could be suppressed secondary to his hospitalization, although is not critically ill that I would suspect it would be as suppressed as it is now. Surprisingly his free T4 is only 1.06, although it looks as if he has had conflicting values in the past. A primary TSH deficiency could also explain these results. PLAN 1) Taper steroids over 7 to 10 days 2) complete 5-day course of azithromycin 3) trial of a low-dose cardioselective beta-christopher; this may provide him some symptomatic relief from his tachycardia and as per discussion with pulmonary medicine will not likely affect his COPD. Will start tonight. 4) recommend rechecking TSH and free T4 in 4 to 6 weeks; follow-up with endocrinology if needed. 5) anticipate discharge tomorrow Subjective 74 yo M found in bed this AM in NAD. No reported overnight events. Reports breathing better. Still feeling tachy when moving. Finally convinced that he should have sleep study as outpt when d/c. Still has questions why he is not quite at his baseline. No other acute concerns or complaints. Review of Systems Review of Systems: All systems reviewed & are unremarkable except as noted in HPI & below Physical Exam Constitutional: WD/WN, vitals as above Eyes: PERRL, conjunctivae normal, anicteric sclerae ENMT: external ear and nose normal, oropharynx normal Respiratory: normal respiratory effort, lungs clear to auscultation Cardiovascular: RRR, no murmur, no edema Gastrointestinal (Abdomen): normal bowel sounds, soft, nontender, no hepatosplenomegaly Skin: no rashes, warm and dry Psychiatric: A+Ox3, euthymic affect Results & Data Vital Signs (Past 12 Hours) Vital Signs Temp Pulse Pulse Resp BP BP Pulse Ox 04/03/19 16:00 112 H 04/03/19 15:21 36.9 C 112 H 18 118/87 96 08/15/19 13:24 94 H 18 98 04/03/19 12:46 85 04/03/19 11:28 36.9 C 100 H 20 135/78 96 04/03/19 07:35 85 04/03/19 07:26 36.4 C L 75 18 130/77 98 04/03/19 06:55 77 18 98 Laboratory Results Laboratory Results - last 24 hr 04/03/19 04/03/19 04/03/19 07:24 07:24 07:24 WBC 12.06 H RBC 4.48 L Hgb 11.9 L Hct 38.2 L MCV 85.3 MCH 26.6 MCHC 31.2 L RDW Std Deviation 47.5 H RDW Coeff of Effie 15.1 H Plt Count 291 MPV 9.9 Immature Gran % (Auto) 1.2 Neut % (Auto) 85.1 Lymph % (Auto) 7.8 Stone % (Auto) 5.8 Eos % (Auto) 0.0 Baso % (Auto) 0.1 Immature Gran # (Auto) 0.14 H Neut # (Auto) 10.27 H Lymph # (Auto) 0.94 L Stone # (Auto) 0.70 H Eos # (Auto) 0.00 Baso # (Auto) 0.01 Sodium 140 Potassium 4.8 Chloride 108 H Carbon Dioxide 27 Anion Gap 5.0 BUN 36 H Creatinine 1.64 H Est Cr Clr Drug Dosing 48.0 Est GFR ( Amer) 47.0 Est GFR (Non-Af Amer) 40.6 BUN/Creatinine Ratio 22.0 H Glucose 125 H Calcium 9.6 Total Bilirubin 0.3 AST 19 ALT 32 Alkaline Phosphatase 41 L Total Protein 6.8 Albumin 3.0 L Globulin 3.8 Albumin/Globulin Ratio 0.8 L TSH 0.031 L Free T4 1.06 Medications Administered Current Inpatient Medications Acetaminophen (Tylenol) 650 mg PO Q4H PRN PRN Reason: Moderate Pain Stop: 04/30/19 21:08 Last Admin: 04/02/19 16:19 Dose: 650 mg Documented by: Azithromycin (Zithromax) [facility] [place] Stop: 04/10/19 08:59 Last Admin: 04/03/19 08:17 Dose: 250 mg Documented by: Budesonide/Formoterol Fumarate (Symbicort 160mcg/4.5mcg) 2 puffs INH BID JINNY Stop: 04/30/19 21:08 Last Admin: 04/03/19 08:16 Dose: 2 puffs Documented by: Calcitriol (Rocaltrol) 0.5 mcg PO QAM JINNY Stop: 05/01/19 08:59 Last Admin: 04/03/19 08:17 Dose: 0.5 mcg Documented by: Duloxetine HCl (Cymbalta) 20 mg PO DAILY JINNY Stop: 05/01/19 08:59 Last Admin: 04/03/19 08:17 Dose: 20 mg Documented by: Gabapentin (Neurontin) 200 mg PO HS JINNY Stop: 04/30/19 21:08 Last Admin: 04/02/19 21:22 Dose: 200 mg Documented by: Ipratropium [place] (Atrovent 0.02% 0.5mg/2.5ml) 0.5 mg INH Q4H PRN PRN Reason: Shortness Of Breath Or Wheezin Stop: 04/30/19 21:08 Levalbuterol HCl (Xopenex 1.25mg/3ml Neb) 1.25 mg NEB Q6R JINNY Stop: 05/03/19 01:59 Last Admin: 04/03/19 13:24 Dose: 1.25 mg Documented by: Lisinopril (Zestril) 5 mg PO QAM JINNY Stop: 05/01/19 08:59 Last Admin: 04/03/19 08:17 Dose: 5 mg Documented by: Lovastatin (Mevacor) 20 mg PO PM JINNY Stop: 04/30/19 21:08 Last Admin: 04/02/19 21:22 Dose: 20 mg Documented by: Ondansetron HCl (Zofran) 4 mg IV Q4H PRN PRN Reason: Nausea And Vomiting Stop: 04/30/19 21:08 Prednisone (Prednisone) 40 mg PO QPM JINNY Stop: 05/02/19 20:59 Last Admin: 04/02/19 21:23 Dose: 40 mg Documented by: Rivaroxaban (Xarelto) 20 mg PO PM JINNY Stop: 04/30/19 21:08 Last Admin: 04/02/19 21:22 Dose: 20 mg Documented by: Tiotropium [place] (Spiriva) 1 puffs INH QPM JINNY Stop: 04/30/19 21:08 Last Admin: 04/02/19 21:25 Dose: 1 puffs Documented by: PG Care Time/CCT Total # of Minutes Spent Total Time Spent with Patient: Total time spent is greater than 50% in coordination of care (as documented) at patient's floor/unit and/or counseling patient: Resident Activity Tracking Resident Involvement: Resident Care Provided Care Provided: Adult Hospital Medicine
[2019-04-03] MEDS ORDERED: METOPROLOL SUCC 25MG EXT REL TAB PO SCH (21:00)
[2019-04-03] MEDS: GABAPENTIN 100 MG CAP PO SCH (21:21)
[2019-04-03] MEDS: predniSONE 20 MG TAB PO SCH (21:22)
[2019-04-03] MEDS: RIVAROXABAN 20 MG TAB PO SCH (21:22)
[2019-04-03] MEDS: LOVASTATIN 20 MG TAB PO SCH (21:22)
[2019-04-03] MEDS: TIOTROPIUM BROMIDE 5 PUFF/90 MCG INH INH SCH (21:23)
[2019-04-03] MEDS: ACETAMINOPHEN 325 MG TAB PO PRN (22:38)
[2019-04-04] MEDS: LEVALBUTEROL HCL 1.25 MG/3 ML NEB NEB SCH ×3 (01:19→13:57)
[2019-04-04 08:00] LABS: Basophils # (auto) 0.02 K/uL (0-0.2); Basophils % (auto) 0.2 %; Hemoglobin 13.3 g/dL (14.0-18.0); Immature Granulocytes % (auto) 1.5 %; Lymphocytes # (auto) 1.18 K/uL (1.2-3.4); Lymphocytes % (auto) 8.9 %; Mean Corpuscular Hgb Conc 31.7 g/dL (32-36); Mean Corpuscular Volume 85.2 fL (80-100); Mean Platelet Volume 9.3 fL (7.4-10.4); Monocytes # (auto) 0.88 K/uL (0.11-0.59); Monocytes % (auto) 6.6 %; Neutrophils # (auto) 11.02 K/uL (1.4-6.5); Neutrophils % (auto) 82.8 %; Platelet Count 358 K/uL (130-400); RDW Coefficient of Variation 15.1 % (11.5-14.5); RDW Standard Deviation 47.5 fL (36.4-46.3); Red Blood Count 4.93 M/uL (4.7-6.1)
[2019-04-04] MEDS: LISINOPRIL 5 MG TAB PO SCH (08:20)
[2019-04-04] MEDS: BUDESONIDE/FORMOTEROL FUMARATE 160/4.5 60 PUFFS/INHALER INH SCH (08:20)
[2019-04-04] MEDS: CALCITRIOL 0.25 MCG CAPSULE PO SCH (08:21)
[2019-04-04] MEDS: DULOXETINE HCL 20 MG CAP PO SCH (08:21)
[2019-04-04] MEDS: AZITHROMYCIN 250 MG TAB PO SCH (08:21)
[2019-04-04 08:31] LABS: BUN Creatinine Ratio 22.3 (10-20); Calcium 9.9 mg/dl (8.5-10.1); Creatinine Clr Calc Pharmacy 49.6 ml/min; Est GFR (African American) 48.5; Est GFR (Non-African American) 41.8; Potassium 4.8 mmol/L (3.5-5.1)
--- NOTE | 2019-04-04 14:03 | Discharge Summary ---
Date of Service April 04, 2019 Admission HPI Per Admitting Provider 74 yo male with PMHx of HTN, HLP, COPD, CKD, non-small cell lung cancer s/p RLL lobectomy and юлия biopsy, s/p chemotherapy, presently in remission with recent hospitalization here at [facility] from 02/18/19-02/24/19 for acute bilateral pulmonary emboli where he was discharged on xarelto. Pt presented to the ER from the [place] clinic due to hypoxia. He reports not feeling much different today than he has in the past week. Pt notes he was in to see [place] physician this morning, for ambulatory oxygen testing for daytime O2, and upon walking 2 minutes his pulse ox dropped to 80% and HR went up into the 150s. He has a pulse ox that he uses at home and typically sees a spike in HR into the 150s to 160s upon doing anything exertional. He typically is able to go 5 minutes when walking or playing with his dogs, but then has to take a break for 15 minutes to feel better. Pt also notes he is not waking up feeling well rested, and that he occasionally feels lightheaded upon standing to get up in the morning. This may last for upwards of 2 hrs. He wears 2 L of O2 at night. He shakes his head and states that he has no interest in wearing a mask (such as cpap or bipap) during sleep. Pt notes his sleeps in a different room, and will place his oxygen back on him several times a night because he tosses and turns so much the prongs are not situated properly in his nose. Principal Diagnosis hypoxemic resp failure Discharge Exam Constitutional WD/WN, vitals as above Eyes PERRL, conjunctivae normal, anicteric sclerae ENMT external ear and nose normal, oropharynx normal Respiratory normal respiratory effort; no labored breathing mild crackles LLL Cardiovascular RRR, no murmur, no edema Gastrointestinal (Abdomen) normal bowel sounds, soft, nontender, no hepatosplenomegaly Skin no rashes, warm and dry Psychiatric A+Ox3, euthymic affect Discharge Data Allergies Allergy/AdvReac Type Severity Reaction Status Date / Time citalopram AdvReac Mild GI SYMPTOMS Verified 03/31/19 17:11 pravastatin AdvReac Mild leg Verified 03/31/19 17:11 soreness rosuvastatin AdvReac Mild leg Verified 03/31/19 17:11 soreness Consultations 03/31/19 16:36 ED Decision to Admit Stat 03/31/19 21:09 Consult Case Management - Discharge Planning Routine Consult Pulmonology Routine 04/01/19 16:17 Consult Cardiology Routine Hospital Course (1) Restrictive lung disease: 74-year-old man who presents from [place] clinic after failing ambulation oxygenation testing. The following is the medical management during stay here: Hypoxemic respiratory failure This appeared to be multifactorial Pt has history of COPD, evidence of infiltrative lung disease on CT, history of non-small cell lung cancer with right lower lobectomy, history of bilateral PEs and chronic deconditioning from his medical conditions On rivaroxaban for his pulmonary emboli, will cont on d/c On home ipratropium bromide and Symbicort inhalers. Switched to PO Pred, dc'd IV steroids. Will taper gradually over the next 10 days for presumed COPD exacerbation. [facility] and [facility]. Pt instructed to use at night and with exertion. Chest x-ray showed mild pulmonary congestion, BNP normal. Unlikely this was CHF related. In light of his cough, since resolved, will cont azithromycin for full 5 day course. Day 3/5 on d/c. Pt has f/u appt with Pulm on 04/11 Tachycardia Sinus tachycardia with exertion as seen on monitor rates as high as 140s 150s Elevated heart rates are likely related to his underlying pulmonary disease and deconditioning Cardiology: believe this sinus tachycardia simply reactionary. Did not believe pt requires any rate control medications TSH low .031. Free T4 normal 1.06. Opting to recheck thyroid studies in 4-6 wks on d/c. Started on low dose cardioselective beta christopher toprol 12.5 mg. Discussed with Pulmonology, agreed would not affect underlying pulm disease Chronic kidney disease, stage 3a Stable, appears baseline is around 1.5 Hypertension Cont home meds, BP stable currently. Continue lisinopril 10 mg daily GERD Cont PPI Vitamin D deficiency Continue calcitriol 0.5 mcg QAM Neuropathy Continue gabapentin 200 gm HS ?MAILE Pt agreeable to get outpt sleep study on d/c At time of d/c, pt had no other acute concerns or complaints. Total Time Total Time Spent Total Time Spent (In Minutes): 35 Discharge Plan Discharge Items Patient Disposition: Home - Self-Care Reason For Visit: COPD EXACERBATION Discharge Diagnosis: hypoxemic respiratory failure Discharge Goals: Improve disease control and Improve function Activity: Per 'Additional Instructions' section Non-emergency contact: Primary Care Provider Call non-emergency contact if: you have any medication questions and your symptoms worsen Follow-up/Referrals: Natalie Puri PA-C [Physician [employer]] - 04/11/19 1:00 pm (An appt. has been made with you on at 1:00pm.) Maureen Mcdaniels [Primary Care Provider] - Diet: Regular Addtl Provider Instructions: You were admitted with concerns of breathing difficulties and fast heart rate when exerting yourself. This was likely multifactorial: your history of COPD, history of PE's, lung cancer, deconditioning, and abnormal thyroid function. Please follow the below instructions on discharge: -follow up with your PCP within one week of discharge for normal follow up. They will recheck your thyroid studies in 4-6 weeks. -you will follow up with Natalie on 04/11 at 1 PM for follow up pulmonology appt -continue to wear your nighttime oxygen, as well as during daytime during exertion. This is your new baseline now. -you will start new medications: toprol 12.5 mg once a day, this helps with your heart rate -if your symptoms persist/worsen, then see your PCP first or come to ER if severe -please eventually get a sleep study to see if you have MAILE (obstructive sleep apnea) Prescriptions: New metoprolol succinate [Toprol XL] 25 mg tablet extended release 24 hr 12.5 mg PO DAILY Qty: 30 RF: 0 azithromycin 250 mg tablet 250 mg PO DAILY 2 Days Qty: 2 RF: 0 prednisone 10 mg tablet 10 mg PO DAILY Qty: 22 RF: 0 Continued ipratropium bromide INH UD PRN (Reason: Shortness Of Breath Or Wheezing) RF: 0 calcitriol 0.5 mcg capsule 0.5 mcg PO QAM RF: 0 lisinopril 5 mg tablet 5 mg PO QAM RF: 0 gabapentin 100 mg capsule 200 mg PO HS RF: 0 lovastatin 20 mg Tablet 20 mg PO PM RF: 0 Spiriva with HandiHaler 18 mcg Capsule, W/Inhalation Device 1 cap INHALATION QPM RF: 0 Symbicort 160-4.5 mcg/actuation Hfa Aerosol Inhaler 2 puff INHALATION AMPM RF: 0 duloxetine 20 mg capsule,delayed release(DR/EC) 20 mg PO DAILY Qty: 30 RF: 0 acetaminophen [Tylenol Arthritis Pain] 650 mg Tablet Extended Release 650 - 1,300 mg PO DAILY PRN (Reason: Pain) RF: 0 Xarelto 15 mg (42)- 20 mg (9) tablets,dose pack 1 ea PO DAILY RF: 0 Stand-Alone Forms: [facility] Discharge Orders: Discharge Order (Routine); Ordered 04/04/19 Ordered By: Boni Quinonez Admission Data Admit Date/Time: 03/31/19 18:54 Attending Provider: Brandyn Dial Admit Provider: Cira Rodriguez Primary Care Provider: Maureen Mcdaniels Other Providers: Clarence Tee ; Cira Rodriguez ; Mc Ibarra Service: Telemetry Medical Other Interventions: Discharge Summary Assessment (RN) Last Done: 04/04/19 14:11 DC Date/Time DO NOT enter until pt leaves facility: 04/04/19 15:13 Supervising Physician Co-Signing Physician Notes Patient seen and examined with PGY-2 Dr. Quinonez. Agree with history, exam findings, assessment and plan of care as outlined by Dr. uQinonez. In brief, Mr. Lynch is a 74 year old male with history significant for COPD and restrictive lung disease, VTE on anticoagulation, CKD, and chronic tachycardia admitted with presumed COPD exacerbation and new O2 requirement. He was started on steroids and azithromycin and has improved. Found to need supplemental oxygen at night and with any exertion. [facility] He is interested in doing pulmonary rehab and is trying to [facility] the [facility] as [facility]. Wondering if there is a quicker way to get himself into pulmonary rehab as he feels quite motivated at this time to do this. On the day of discharge, lung exam with good air exchange, no ronchi or wheezing. He will continue the prednisone taper and complete a 5 day course of azithromycin. He was started on low dose toprol XL for his chronic sinus tachycardia. His heart rates have improved and are now < 100/min. Asked care management to see patient to help facilitate [facility]. His PCP is Maureen Mcdaniels with [facility]. Patient plans to call the office himself to set up an appointment with his PCP for hospital discharge follow up. Dispo: discharge home today.
== END 2019-04-04 15:13 | disposition home or self-care (01) | DRG 190 ==
LOC: ED 14:45 → 2N 18:54 → SUATTDRO 18:54 → 2N 20:18

== ENCOUNTER 2019-06-17 12:20 | Observation (INO) ==
--- NOTE | 2019-06-12 10:55 | PAT Medication Instructions ---
Medication Instructions Date of Service June 12, 2019 Home Medications Medication Instructions Recorded docusate sodium [Colace] 100 mg PO BID #60 cap 06/05/19 ondansetron HCl 4 mg tablet 4 mg PO TID PRN 5 Days #30 tab 06/11/19 Spiriva with HandiHaler 1 cap INHALATION QPM Symbicort 2 puff INHALATION AMPM calcitriol 0.25 mcg PO QAM gabapentin 200 mg PO HS lisinopril 5 mg PO QAM lovastatin 20 mg PO QPM ipratropium bromide 1 puff INH Q4H PRN acetaminophen [Tylenol Arthritis Pain] 650 - 1,300 mg PO DIRECTED PRN docusate sodium [Colace] 100 mg PO BID duloxetine 20 mg PO QAM levalbuterol HCl 0.63 mg INH .COMPLEX PRN metoprolol succinate [Toprol XL] 12.5 mg PO QAM omeprazole 20 mg PO HS rivaroxaban [Xarelto] 20 mg PO QPM ondansetron HCl 4 mg tablet 4 mg PO TID PRN finasteride 5 mg PO HS levalbuterol tartrate [Xopenex HFA] 2 inh INHALATION Q6H PRN oxycodone 5 mg PO Q6H PRN sennosides [Senokot] 8.6 mg PO HS tamsulosin 0.4 mg PO HS ASK your prescriber and surgeon rivaroxaban [Xarelto] 20 mg PO QPM DO NOT take the morning of surgery calcitriol 0.25 mcg PO QAM lisinopril 5 mg PO QAM docusate sodium [Colace] 100 mg PO BID Take morning of surgery With a small sip of water, OTHERWISE NOTHING TO EAT OR DRINK AFTER MIDNIGHT: Symbicort 2 puff INHALATION AMPM ipratropium bromide 1 puff INH Q4H PRN (if needed) acetaminophen [Tylenol Arthritis Pain] 650 - 1,300 mg PO DIRECTED PRN (okay to take up to 4 hours prior to surgery if needed) duloxetine 20 mg PO QAM levalbuterol HCl 0.63 mg INH .COMPLEX PRN (if needed) metoprolol succinate [Toprol XL] 12.5 mg PO QAM ondansetron HCl 4 mg tablet 4 mg PO TID PRN (if needed) levalbuterol tartrate [Xopenex HFA] 2 inh INHALATION Q6H PRN (if needed) oxycodone 5 mg PO Q6H PRN (okay to take up to 4 hours prior to surgery if needed) Take evening before surgery Spiriva with HandiHaler 1 cap INHALATION QPM Symbicort 2 puff INHALATION AMPM gabapentin 200 mg PO HS lovastatin 20 mg PO QPM ipratropium bromide 1 puff INH Q4H PRN (if needed) acetaminophen [Tylenol Arthritis Pain] 650 - 1,300 mg PO DIRECTED PRN (if needed) docusate sodium [Colace] 100 mg PO BID levalbuterol HCl 0.63 mg INH .COMPLEX PRN (if needed) omeprazole 20 mg PO HS ondansetron HCl 4 mg tablet 4 mg PO TID PRN (if needed) finasteride 5 mg PO HS levalbuterol tartrate [Xopenex HFA] 2 inh INHALATION Q6H PRN (if needed) oxycodone 5 mg PO Q6H PRN (if needed) sennosides [Senokot] 8.6 mg PO HS tamsulosin 0.4 mg PO HS Other Notes If you have any questions please call us at [phone] or [phone] or [phone] or [phone]
--- NOTE | 2019-06-12 14:07 | Anesthesiology Consultation ---
Date of Service June 12, 2019 Assessment & Plan (1) Encounter for pre-operative examination: - Spenceris instructions: per patient, advised to stop 72 hours prior to surgery per surgeon/prescriber - Cardiology: 03/31/19: Sinus tachycardia- " I would still assert that the patient's elevated heart rates are related to his underlying pulmonary disease and deconditioning. There has not been any evidence of cardiac failure. Echocardiography did not reveal any evidence of either right or left ventricular failure. He has not have evidence of failure on examination. An N terminal proBNP was also drawn today which was remarkably low. I believe this sinus tachycardia simply reactionary. I do not believe he requires any rate control medications. I would avoid using beta blockers or calcium channel blockers to suppress high heart rates in the setting." [Subsequently HR 81 at PAT visit 06/12/19*] - Urology: 06/11/19: "Left ureteral calculus and bladder mass highly concerning for TCC. Lengthy discussion today about the findings of CT as well as review of his symptoms. I believe he needs a surgical intervention. He has comorbid conditions, however his risk from the disease is substantial and he needs to intervene. Plan to continue Xarelto until 3 days prior to surgery. We will keep him in the hospital overnight after surgery and transition him to Lovenox until he can go back on his Xarelto." Chart Review Chart Review: Pending: Refer to Additional Notes / Consult section (pending preop testing (CXR)) and Patient seen in Pre Admission Testing Teaching & Discussion Pre-Anesthesia Teaching/Discussion Notes: Instructed NPO after midnight before surgery,except medications with 15 cc of water. Medication instructions provided according to the [facility] guidelines. History Surgery Operation Date: 06/17/19 15:05 Proposed Procedures p Cystoscopy, Left Ureteronephroscopy, Retrograde Pyelogram, with Possible Ureteral Dilation, Laser Destruction or Extraction of the Stone, Insertion Stent Catheter - Brooks Harvey MD Height/Weight Height: 5 ft 9 in Weight: 110.5 kg Allergies Allergy/AdvReac Type Severity Reaction Status Date / Time levofloxacin [From Levaquin] Allergy Intermediate Swelling Verified 06/12/19 14:03 of extremities citalopram Allergy Mild GI symptoms Verified 06/12/19 14:03 pravastatin AdvReac Mild leg Verified 06/12/19 09:52 soreness rosuvastatin AdvReac Mild leg Verified 06/12/19 09:52 soreness Medications Home Medications Medication Instructions Recorded Confirmed Last Taken Spiriva with HandiHaler 1 cap INHALATION QPM 02/19/19 06/12/19 06/04/19 Symbicort 2 puff INHALATION AMPM 02/19/19 06/12/19 06/05/19 AM DOSE calcitriol 0.25 mcg PO QAM 02/19/19 06/12/19 06/05/19 gabapentin 200 mg PO HS 02/19/19 06/12/19 06/04/19 lisinopril 5 mg PO QAM 02/19/19 06/12/19 06/05/19 lovastatin 20 mg PO QPM 02/19/19 06/12/19 06/04/19 ipratropium bromide 1 puff INH Q4H PRN 03/21/19 06/12/19 Unknown acetaminophen [Tylenol Arthritis 650 - 1,300 mg PO DIRECTED PRN 03/31/19 06/12/19 Unknown Pain] docusate sodium [Colace] 100 mg PO BID #60 cap 06/05/19 06/12/19 Unknown duloxetine 20 mg PO QAM 06/05/19 06/12/19 06/05/19 levalbuterol HCl 0.63 mg INH .COMPLEX PRN 06/05/19 06/12/19 Unknown metoprolol succinate [Toprol XL] 12.5 mg PO QAM 06/05/19 06/12/19 06/05/19 omeprazole 20 mg PO HS 06/05/19 06/12/19 06/05/19 rivaroxaban [Xarelto] 20 mg PO QPM 06/05/19 06/12/19 06/04/19 ondansetron HCl 4 mg tablet 4 mg PO TID PRN 5 Days #30 tab 06/11/19 06/12/19 Unknown finasteride 5 mg PO HS 06/12/19 06/12/19 Unknown levalbuterol tartrate [Xopenex HFA] 2 inh INHALATION Q6H PRN 06/12/19 06/12/19 Unknown oxycodone 5 mg PO Q6H PRN 06/12/19 06/12/19 Unknown sennosides [Senokot] 8.6 mg PO HS 06/12/19 06/12/19 Unknown tamsulosin 0.4 mg PO HS 06/12/19 06/12/19 Unknown Past Medical History Medical History Diverticulitis (11/22/13) hx (noted per 2014 records) Sinus tachycardia hx Chronic kidney disease, stage 3a Anxiety and depression Lung cancer (~12/2012) s/p lung resection/chemo Hypertension GERD (gastroesophageal reflux disease) controlled BPH (benign prostatic hyperplasia) Bladder cancer recent diagnosis (mass noted on CTS) Degenerative disc disease Hearing deficit Kidney stones Obesity Osteoarthritis Peripheral neuropathy b/l feet Pulmonary embolism 02/2019- on Xarelto Skin cancer COPD (chronic obstructive pulmonary disease) + O2 HS Dyslipidemia Exercise / Class Metabolic Activity III < 4 Walking/Shop/Light housework Past Family History Family History Other No significant family history Past Surgical History Surgical History S/P partial lobectomy of lung RLL History of colonoscopy History of discectomy LUMBAR History of esophagogastroduodenoscopy (EGD) History of tooth extraction History of vascular access device POWER PORT RIGHT CHEST (INTACT CURRENLTY) History of hernia repair INGUINAL History of knee joint replacement RT/LEFT History of shoulder surgery RT Past Anesthesia History No Hx of Anesthesia Complications (except PONV x 1 episode) and No Family Hx of Anesthesia Complications History of PONV History of PONV (x1 episode) and Hx of Motion Sickness (remote hx ) Social History Smoking Status: Former smoker tobacco type: smokeless tobacco Do You Dip or Chew Tobacco: Yes (2 CANS/WEEK- ADVISED NPO) Smoking End Date: Quit 30 YEARS AGO Hx Alcohol Use: Yes Alcohol type: beer, wine and hard liquor alcohol intake frequency: a few times a month Hx Substance Use: No substance use type: does not use Review of Systems Chronic, intermittent wheezing improved with nebulizer use PRN. Patient denies chest pain, shortness of breath, reflux, cough, palpitations. Physical Exam Vital Signs VITALS BP 104/60 P 81 TEMP 98.0 SP02 98%RA RESP 18 PHYSICAL Full neck and c-spine range of motion. Full TMJ range of motion. TMD 4 finger breaths Mallampati Score 2 Dentition: two "roots" on lower with upper/lower dentures Lungs: clear throughout to auscultation Cardiac: regular rate and rhythm, no murmurs noted Spine: normal Carotid arteries: negative bruit Extremities: no edema Testing Laboratory Results 06/05/19 WBC 10.65 H/H 12.0/39.3 PLATELETS 310 SODIUM 141 POTASSIUM 3.7 CHLORIDE 107 CO2 25 BUN 19 CREATININE 1.40 GLUCOSE 79 03/31/19 PT 11.9 PTT 29.1 INR 1.2 Electrocardiogram Date: 03/31/19 ST at 105bpm. Inferior infarct (cited on or before 02/18/19 per cardiology- *Patient had ECHO 03/14/19*) Echocardiogram Date: 03/14/19 LVEF 55-60%. No RWMA. No significant valvular disease. Stress Test Date: 12/24/17 Type: DSE Normal DSE with no inducible wall motion abnormalities. Mild RVD. 97% MPHR. No significant valvular disease.
--- NOTE | 2019-06-12 14:51 | XRay Report ---
XR chest 2V PA/lateral CLINICAL HISTORY: PREOP COMPARISON STUDY: 06/05/2019 FINDINGS: Central catheter remains in the superior vena cava. Moderate cardiomegaly improved from the prior exam. Diminished pulmonary vascular congestion. Mild chronic elevation right hemidiaphragm. IMPRESSION: Improved exam. Mild stable cardiomegaly. No signs of congestive heart failure at the cur rent time. The above report was generated using voice recognition software. It may contain grammatical, syntax or spelling errors. Electronically signed by: Shad Magallon M.D. 06/12/2019 2:50 PM
[~2019-06-17 12:20] MED LIST changes: -ADVIN25/60 INH; -ALBU1AER9 INH; -ALPH600C2 PO; -CHOL20009 PO; +CIPROFLOXACIN 400 MG/200 ML BAG IV SCH; -CRFUDL PO; -CYAN1TAB PO; -IPRA-64 INH; -LORA-741 PO; +LR 15ML/HR IV SCH; -MULT-513 PO; -MULTTAB45 PO; -NAPR-1231 PO; -NRV/5 PO; -ONDA4TAB65 PO; -OXYC-57 PO; -PANT1TAB4 PO; -PYRI25TA3 PO; -TIOTCAP INH; -[UNRECOGNIZED DRUG - CODE] SL
[2019-06-17] MEDS ORDERED: fentaNYL citrate 100 MCG/2 ML VIAL ONE (14:38)
[2019-06-17] MEDS ORDERED: MIDAZOLAM HCL 1 MG/ML 2ML VIAL ONE (14:38)
[2019-06-17] MEDS ORDERED: PROPOFOL IV EMULSION 10 MG/ML 20 ML VIAL IV ONE (14:39)
[2019-06-17] MEDS ORDERED: LIDOCAINE HCL 2% 2 ML VIAL/AMP(20MG/ML) INFIL ONE (14:39)
[2019-06-17] MEDS ORDERED: ONDANSETRON INJ 2 MG/ML 2 ML VIAL ONE (14:39)
[2019-06-17] MEDS ORDERED: ATROPINE SULFATE 0.1 MG/ML 10ML SYR IV PRN (14:49)
[2019-06-17] MEDS ORDERED: ePHEDrine sulfate 50 MG/ML AMP IV PRN (14:49)
[2019-06-17] MEDS ORDERED: HYDROmorphone INJ 1 MG/ML SYRINGE IV PRN (14:49)
[2019-06-17] MEDS ORDERED: ONDANSETRON INJ 2 MG/ML 2 ML VIAL IV PRN ×2 (14:49→18:48)
--- NOTE | 2019-06-17 15:01 | History & Physical Bridge Note ---
Date of Service June 17, 2019 History & Physical Bridge Note I have examined the patient, reviewed the History & Physical and in the interval since the performance of the History & Physical I have noted the following changes of clinical significance: no changes noted
[2019-06-17] MEDS ORDERED: cefTRIAXone SODIUM 2,000 MG/70 ML BAG IV STA (15:23)
[2019-06-17] MEDS ORDERED: IOTHALAMATE MEGLUMINE II 17.2% 250 ML VIAL ONE (15:32)
[2019-06-17] MEDS ORDERED: DEXAMETHASONE SOD INJ 4 MG/ML VIAL ONE ×2 (16:07)
--- NOTE | 2019-06-17 16:52 | Fluoroscopy Report ---
FL retrograde includes kub CLINICAL HISTORY: CYSTO/LT RETROGRADE/LASER/STENT COMPARISON STUDY: None FLUOROSCOPY TIME: 10 seconds. NUMBER OF FLUOROSCOPIC IMAGES: 2 FINDINGS: 2 fluoroscopic spot images are provided for interpretation. The first demonstrates a cathet er projected over the left renal pelvis. The second demonstrates a catheter and guidewire projected o wil the left renal pelvis IMPRESSION: Intraoperative fluoroscopic spot images obtained during a retrograde study. Electronically signed by: Clayton Khanna M.D. 06/17/2019 4:51 PM
[2019-06-17] MEDS: fentaNYL citrate 100 MCG/2 ML VIAL IV PRN ×4 (16:55→17:10)
--- NOTE | 2019-06-17 17:01 | Operative Report ---
PG Post Operative Report Pre & Post Diagnosis Operation Date: 06/17/19 07:00 <No data on this case meets the specified criteria> Operation Date: 06/17/19 13:15 Pre-Op Diagnosis: Left Kidney Stone; Bladder Cancer Post-Op Diagnosis: Left Kidney Stone; Bladder Cancer I identified the patient and participated in the time-out.: Yes Procedure Operation Date: 06/17/19 07:00 <No data on this case meets the specified criteria> Operation Date: 06/17/19 13:15 Actual Procedures p Cystoscopy, Left Ureteronephroscopy, Left Retrograde Pyelogram, Laser Destruction; Insertion Stent Catheter(Left) - Brooks Harvey MD s Transurethral Resection Bladder Tumor, large(Not Applicable) - Brooks Harvey MD Surgeon Hal Harvey MD Obstetrician And Gynaecologist none Estimated Blood Loss 5 Findings Consistent with Post-Op Diagnosis Specimens 1. Bladder tumor Description of Procedure The patient was identified in the preopertive holding area, appropriate informed consents were reviewed and completed and the patient was transferred to the operative suite. Upon arrival, appropriate antibiotics and anesthesia were administered and the patient was placed in dorsal lithotomy position and prepped and draped in sterile fashion. To begin the case I passed a 27 Nigerien resectoscope with 30 degree lens and visual obturator. Inspection revealed no evidence of stricture disease. He has a moderately enlarged prostate without a significant intravesical lobe. Inspection of the bladder was conducted revealing ureteral orifices to be in orthotopic position. He has a large tumor from the dome of the bladder. This was papillary in nature with a numerous dystrophic calcifications on the surface. Covered an area of approximately 5 cm across the bladder wall. After inspecting and identifying the borders of this lesion, I exchanged the visual spray machine operator for resecting element using a thin loop electrode. I resected the tumor flush with the bladder wall with care to avoid perforation. I obtained meticulous hemostasis at the conclusion of the resection. All specimen was irr igated out of the bladder and passed off the table. I then reentered the bladder with a 22 Nigerien standard cystoscope and turned my attention to the left ureteral orifice which I cannulated with a 10 Nigerien double-lumen catheter and 2 sensor wires. I felt mild resistance as I advanced a 10 Nigerien double-lumen catheter maximally. I then withdrew the 10 Nigerien double-lumen catheter and passed a flexible ureteroscope to the level of the kidney. Full renoscopy was conducted revealing no stones in the upper or midpole but a solitary stone in the lower pole. I passed a 200 m laser fiber and I fragmented this into numerous small pieces deemed safe for spontaneous passage. I then performed a repeat renoscopy identifying no other large retained fragments. I performed a careful exit ureteroscopy identifying no stones within the ureter. I presume that the stone was previously identified ureteral stone and pushed retrograde into the kidney. I concluded the case by placing a 6 Nigerien by 26 cm double-J ureteral stent leaving a string attached to it. A 20 Nigerien Gillespie catheter was inserted and the stent was taped to this catheter. He was extubated taken to the PACU in stable condition. There were no complications. I attest to the content of the Intraoperative Record and any orders documented therein. Any exceptions are noted below.
[2019-06-17] MEDS ORDERED: ACETAMINOPHEN 1000 MG/100 ML IV IV ONE (17:22)
--- NOTE | 2019-06-17 17:30 | Anesthesiology Progress Note ---
Date of Service June 17, 2019 Anesthesia Post Procedure Vital Signs Vital Signs: Temp Pulse Pulse Resp BP Pulse Ox 06/17/19 17:20 93 H 15 156/96 H 93 06/17/19 17:10 85 20 175/97 H 99 06/17/19 17:00 92 H 15 173/107 H 98 06/17/19 16:52 36.2 C L 98 H 20 172/100 H 96 06/17/19 13:17 36.8 C 95 H 20 113/73 94 Pain Intensity Bilateral Foot: Pain Intensity: 6 Penis: Pain Intensity: 4 Transfer of Care Handoff Completed per policy Notes Mental Status: alert / awake / arousable and participated in evaluation Patient Amnestic to Procedure: Yes Nausea / Vomiting: adequately controlled Pain: adequately controlled Airway Patency, RR, SpO2: stable & adequate BP & HR: stable & adequate Hydration State: stable & adequate Anesthetic Complications: no major complications apparent and Pt Satisfied with anesthetic care
[2019-06-17] MEDS ORDERED: ACETAMINOPHEN PO PRN (18:48)
[2019-06-17] MEDS ORDERED: LACTATED RINGER'S 1,000 ML IV SCH (18:48)
[2019-06-17] MEDS ORDERED: ACETAMINOPHEN 325 MG TAB PO PRN (18:48)
[2019-06-17] MEDS ORDERED: ONDANSETRON 4 MG TAB PO PRN (18:48)
[2019-06-17] MEDS ORDERED: LEVALBUTEROL HCL 0.63 MG/3 ML NEB INH PRN (18:48)
[2019-06-17] MEDS ORDERED: SENNA 8.6 MG TAB PO PRN (18:48)
[2019-06-17] MEDS ORDERED: LEVALBUTEROL TARTRATE 15 GM HFA.AER.AD INH PRN (18:48)
[2019-06-17] MEDS ORDERED: IPRATROPIUM BROMIDE NEB SOLN 0.02% 2.5 ML VIAL INH PRN (19:27)
[2019-06-17] MEDS ORDERED: IPRATROPIUM BROMIDE HFA INHALER INH PRN (19:30)
[2019-06-17] MEDS: OXYCODONE HCL IR 5 MG TAB (IMMEDIATE RELEASE) PO PRN (19:58)
[2019-06-17] MEDS ORDERED: LOVASTATIN 20 MG TAB PO SCH (21:00)
[2019-06-17] MEDS ORDERED: TIOTROPIUM BROMIDE 5 PUFF/90 MCG INH INH SCH (21:00)
[2019-06-17] MEDS ORDERED: PANTOprazole 40 MG TAB PO SCH (21:00)
[2019-06-17] MEDS ORDERED: FINASTERIDE 5 MG TAB PO SCH (21:00)
[2019-06-17] MEDS ORDERED: GABAPENTIN 100 MG CAP PO SCH (21:00)
[2019-06-17] MEDS: HYDROCODONE/ACETAMOPHEN 5/325MG TAB PO PRN (21:04)
[2019-06-17] MEDS: BUDESONIDE/FORMOTEROL FUMARATE 160/4.5 60 PUFFS/INHALER INH SCH (21:05)
[2019-06-17] MEDS: DOCUSATE SODIUM 100 MG CAP PO SCH (21:07)
[2019-06-18] MEDS: HYDROCODONE/ACETAMOPHEN 5/325MG TAB PO PRN ×2 (01:22→13:25)
[2019-06-18] MEDS: OXYCODONE HCL IR 5 MG TAB (IMMEDIATE RELEASE) PO PRN (05:41)
[2019-06-18 06:17] LABS: Basophils # (auto) 0.01 K/uL (0-0.2); Basophils % (auto) 0.1 %; Hematocrit (blood only) 35.7 % (42-52); Immature Granulocytes # (auto) 0.05 K/uL (0.00-0.02); Immature Granulocytes % (auto) 0.4 %; Lymphocytes # (auto) 1.02 K/uL (1.2-3.4); Lymphocytes % (auto) 8.3 %; Mean Corpuscular Hemoglobin 25.9 pg (25-34); Mean Corpuscular Hgb Conc 30.8 g/dL (32-36); Mean Corpuscular Volume 84.2 fL (80-100); Mean Platelet Volume 9.9 fL (7.4-10.4); Monocytes # (auto) 1.06 K/uL (0.11-0.59); Monocytes % (auto) 8.6 %; Neutrophils % (auto) 82.6 %; Platelet Count 244 K/uL (130-400); RDW Coefficient of Variation 16.2 % (11.5-14.5); Red Blood Count 4.24 M/uL (4.7-6.1); White Blood Count 12.34 K/uL (4.8-10.8)
[2019-06-18 06:48] LABS: Albumin Level 2.9 gm/dl (3.4-5.0); BUN Creatinine Ratio 16.5 (10-20); Calcium 9.3 mg/dl (8.5-10.1); Creatinine Clr Calc Pharmacy 48.2 ml/min; Est GFR (Non-African American) 40.6; Potassium 4.6 mmol/L (3.5-5.1)
[2019-06-18 06:53] LABS: Albumin Globulin Ratio 0.8 (0.9-2); Bilirubin,Total 0.4 mg/dl (0.2-1); Globulin 3.5 gm/dl (2.5-4.0); Phosphorus 3.7 mg/dl (2.5-4.9); Total Protein 6.4 gm/dl (6.4-8.2)
--- NOTE | 2019-06-18 07:33 | Anesthesiology Progress Note ---
Date of Service June 18, 2019 Anesthesia Post Procedure Vital Signs Vital Signs: Temp Pulse Pulse Resp BP Pulse Ox 06/18/19 07:12 37 C 78 18 117/66 97 06/18/19 02:55 36.9 C 92 H 18 119/66 96 06/17/19 23:21 37.4 C 89 16 132/81 96 06/17/19 20:56 37.1 C 93 H 16 137/79 91 06/17/19 19:47 37 C 88 16 124/80 93 06/17/19 19:18 37.1 C 88 16 119/72 95 06/17/19 18:49 36.8 C 84 16 146/88 H 96 06/17/19 18:30 86 14 151/89 H 95 06/17/19 18:15 89 20 142/98 H 95 06/17/19 18:00 84 18 150/89 H 96 06/17/19 17:50 36.9 C 87 23 147/78 H 94 06/17/19 17:40 88 20 152/94 H 94 06/17/19 17:30 90 21 150/86 H 96 06/17/19 17:20 93 H 15 156/96 H 93 06/17/19 17:10 85 20 175/97 H 99 06/17/19 17:00 92 H 15 173/107 H 98 06/17/19 16:52 36.2 C L 98 H 20 172/100 H 96 06/17/19 13:17 36.8 C 95 H 20 113/73 94 Pain Intensity Bilateral Foot: Pain Intensity: 6 Penis: Pain Intensity: 10 Notes Mental Status: alert / awake / arousable and participated in evaluation Patient Amnestic to Procedure: Yes Nausea / Vomiting: adequately controlled Pain: adequately controlled Airway Patency, RR, SpO2: stable & adequate BP & HR: stable & adequate Hydration State: stable & adequate Anesthetic Complications: no major complications apparent and Pt Satisfied with anesthetic care
[2019-06-18] MEDS ORDERED: CALCITRIOL 0.25 MCG CAPSULE PO SCH (09:00)
[2019-06-18] MEDS ORDERED: LISINOPRIL 5 MG TAB PO SCH (09:00)
[2019-06-18] MEDS ORDERED: DULOXETINE HCL 20 MG CAP PO SCH (09:00)
[2019-06-18] MEDS ORDERED: METOPROLOL SUCC 25MG EXT REL TAB PO SCH (09:00)
[2019-06-18] MEDS: DOCUSATE SODIUM 100 MG CAP PO SCH (09:17)
[2019-06-18] MEDS: BUDESONIDE/FORMOTEROL FUMARATE 160/4.5 60 PUFFS/INHALER INH SCH (09:18)
--- NOTE | 2019-06-18 10:18 | Urology Progress Note ---
Date of Service June 18, 2019 Assessment & Plan (1) Bladder mass: DC Gillespie catheter and left ureteral stent today Presuming he feels well, DC home later today Resume anticoagulation tomorrowI have set the expectation that he will see blood in his urine for up to 1 month after the surgery Subjective No major issues overnight, he did have a bladder spasm but was able to tolerate this His urine is clear Feels well this morning Physical Exam Physical Exam: Clear urine, stent string taped to the catheter Results & Data Vital Signs (Past 12 Hours) Vital Signs Temp Pulse Resp BP Pulse Ox 06/18/19 07:12 37 C 78 18 117/66 97 06/18/19 02:55 36.9 C 92 H 18 119/66 96 06/17/19 23:21 37.4 C 89 16 132/81 96 PG Care Time/CCT Total # of Minutes Spent Total Time Spent with Patient: Total time spent is greater than 50% in coordination of care (as documented) at patient's floor/unit and/or counseling patient:
--- NOTE | 2019-06-18 13:47 | Communication Note ---
Date of Service: June 18, 2019 Patient seen for Gillespie and tethered ureteral stent removal. Both Gillespie and tethered stent removed without difficulty. Patient tolerated procedure well with minimal discomfort. Ready for DC home this afternoon after spontaneous void.
== END 2019-06-18 16:45 | disposition home or self-care (01) ==
LOC: ASU 12:20 → 3W 12:20

== ENCOUNTER 2019-10-28 11:28 | Inpatient (IN) ==
[2019-10-28] MEDS ORDERED: PIPERACILLIN/TAZOBACTAM 4.5 GM/120 ML BAG IV ONE (11:47)
[2019-10-28] MEDS ORDERED: SODIUM CHLORIDE 0.9% 1000ML 1,000 ML IV ONE (11:47)
[2019-10-28] MEDS ORDERED: PIPERACILL/TAZOBAC CONSULT ACTIVE PRN (11:47)
[2019-10-28 12:21] LABS: Basophils # (auto) 0.04 K/uL (0-0.2); Basophils % (auto) 0.2 %; Eosinophils # (auto) 0.34 K/uL (0-0.5); Eosinophils % (auto) 1.7 %; Hematocrit (blood only) 30.5 % (42-52); Hemoglobin 9.1 g/dL (14.0-18.0); Immature Granulocytes # (auto) 0.15 K/uL (0.00-0.02); Immature Granulocytes % (auto) 0.8 %; Lymphocytes # (auto) 0.91 K/uL (1.2-3.4); Lymphocytes % (auto) 4.7 %; Mean Corpuscular Hemoglobin 23.8 pg (25-34); Mean Corpuscular Hgb Conc 29.8 g/dL (32-36); Mean Corpuscular Volume 79.6 fL (80-100); Mean Platelet Volume 9.4 fL (7.4-10.4); Monocytes # (auto) 2.36 K/uL (0.11-0.59); Monocytes % (auto) 12.1 %; Neutrophils # (auto) 15.71 K/uL (1.4-6.5); Neutrophils % (auto) 80.5 %; Platelet Count 487 K/uL (130-400); RDW Coefficient of Variation 16.5 % (11.5-14.5); RDW Standard Deviation 47.8 fL (36.4-46.3); Red Blood Count 3.83 M/uL (4.7-6.1); White Blood Count 19.51 K/uL (4.8-10.8)
[2019-10-28 12:27] LABS: iSTAT Creatinine 2.3 mg/dl (0.6-1.3); iSTAT Hemoglobin 8.8 g/dl (14.0-18.0); iSTAT Ionized Calcium 1.29 mmol/l (1.12-1.32); iSTAT Potassium 3.6 mmol/L (3.3-5.0)
[2019-10-28 12:32] LABS: INR 1.2 (0.9-1.1); Partial Thromboplastin Time 28.6 Seconds (21.0-31.0); Prothrombin Time 12.9 Seconds (9.0-12.0)
[2019-10-28 12:33] LABS: Alanine Aminotransferase 14 U/L (12-78); Albumin Level 2.2 gm/dl (3.4-5.0); Aspartate Aminotransferase 25 U/L (15-37); BUN Creatinine Ratio 12.1 (10-20); Blood Urea Nitrogen 26 mg/dl (7-18); Calcium 9.6 mg/dl (8.5-10.1); Carbon Dioxide 20 mmol/L (21-32); Chloride 107 mmol/L (98-107); Creatinine Clr Calc Pharmacy 33.4 ml/min; Est GFR (African American) 33.2; Est GFR (Non-African American) 28.6; Glucose 98 mg/dl (70-99); Magnesium 1.3 mg/dl (1.8-2.4); Potassium 3.7 mmol/L (3.5-5.1); Sodium 134 mmol/L (136-145)
[2019-10-28 12:38] LABS: Albumin Globulin Ratio 0.4 (0.9-2); Alkaline Phosphatase 109 U/L (45-117); Bilirubin,Total 0.5 mg/dl (0.2-1); Globulin 5.1 gm/dl (2.5-4.0); Total Protein 7.3 gm/dl (6.4-8.2); Troponin I < 0.015 ng/ml (0-0.045)
[2019-10-28 12:47] LABS: Appearance Urine Turbid (Clear); Bacteria Urine Automated 2+ (Negative); Bilirubin Urine Negative (Negative); Blood Urine 2+ (Negative); Color Urine Yellow; Epithelial Cell Urine Auto 0-5 /lpf (0-5); Glucose Urine UA Negative (Negative); Ketones Urine Negative (Negative); Leukocyte Esterase Urine 3+ (Negative); Nitrite Urine Positive (Negative); Protein Urine 1+ (Negative); Urobilinogen Urine Negative (Negative); WBC Urine Automated >30 /hpf (0-5); pH Urine 5.5 (4.5-7.5)
[2019-10-28] MEDS ORDERED: VANCOMYCIN HCL 2,000 MG in SODIUM CHLORIDE 0.9% 500 ML IV ONE (12:58)
[2019-10-28] MEDS ORDERED: VANCOMYCIN CONSULT ACTIVE PRN (12:58)
[2019-10-28 13:11] LABS: Influenza A virus by PCR Neg for Influ A (Neg); Influenza B virus by PCR Neg for Influ B (Neg)
--- NOTE | 2019-10-28 13:11 | CT Scan Report ---
CT cervical spine wo con CT DOSE: HISTORY: Trauma. Pain. fall hit head TECHNIQUE: Multiaxial CT images of the cervical spine were performed and reformatted in the sagittal and coronal plane without the use of contrast. A dose lowering technique was utilized adhering to th e principles of ALARA. COMPARISON: None. FINDINGS: The body stature is unremarkable. There is considerable degenerative disc changes throughou t. C1-C2 complex is intact. Posterior elements show no evidence for acute posttraumatic disruption. IMPRESSION: Degenerative change. No acute process. ACT 112: Negative or not required by law. The above report was generated using voice recognition software. It may contain grammatical, syntax or spelling errors. Electronically signed by: Shad Magallon M.D. 10/28/2019 1:10 PM
--- NOTE | 2019-10-28 13:14 | CT Scan Report ---
CT head/brain wo con CLINICAL HISTORY: 74 years-old Male with fall. Acute head and neck injury status post fall TECHNIQUE: Multiple axial CT images of the head were obtained without contrast. A dose lowering tech nique was utilized adhering to the principles of ALARA. COMPARISON: CT cervical spine of same day FINDINGS: No acute intracranial hemorrhage, midline shift, intracranial mass, hydrocephalus, territorial ischem ia or abnormal extra-axial collection. Age-related involutional changes with mild ex vacuo ventriculo megaly. Cerebral vascular calcifications. The calvarium is intact. The paranasal sinuses, mastoid air cells, and middle ear cavities are clear . IMPRESSION: No acute intracranial abnormality or calvarial fracture without the. ACT 112: Negative or not required by law. The above report was generated using voice recognition software. It may contain grammatical, syntax o r spelling errors. Electronically signed by: Bernabe Dias M.D. 10/28/2019 1:12 PM
--- NOTE | 2019-10-28 13:17 | CT Scan Report ---
CT SCAN OF THE ABDOMEN AND PELVIS WITHOUT CONTRAST CLINICAL HISTORY: Abdominal pain. Trauma. COMPARISON STUDY: 08/11/2019 TECHNIQUE: CT scan of the abdomen and pelvis was performed from the lung bases to the proximal femurs . Images are reviewed in the axial, sagittal, and coronal planes. IV contrast was not administered fo r this examination. A dose lowering technique was utilized adhering to the principles of ALARA. CT DOSE: FINDINGS: Lower chest: There is mild subpleural reticulation. There is no pneumothorax. There are no significan t pleural effusions. There are coronary artery calcifications. Liver: The unenhanced liver is normal in size, contour, and attenuation. There is no intrahepatic nele iary ductal dilatation. Gallbladder: Suspected cholelithiasis/milk of calcium Spleen: Normal in size and attenuation. Pancreas: Unremarkable. Adrenal glands: Unremarkable. Kidneys: There are tiny bilateral nonobstructing renal calculi. There is a 53 mm upper pole right lauri al cyst. There is 18 mm mid pole right renal cyst. There is bilateral hydronephrosis and hydroureter. There is a right-sided ileal conduit. Bowel: There are no transition zones to indicate bowel obstruction. There is no evidence of acute div erticulitis. Peritoneum: There is no intraperitoneal free air or abdominal ascites. There is a fat-containing righ t inguinal hernia. Vasculature: The abdominal aorta is normal in course and caliber. Adenopathy: There is a 46 mm right pelvic sidewall mass/fluid collection, possibly representing organ izing hematoma. The previously identified 6.5 cm right pelvic sidewall seroma has essentially resolve d.. Pelvic viscera: The patient is status post a cystectomy with a diverting right lower quadrant loop co lostomy. Skeletal structures: There are old right-sided rib fractures. There are moderately advanced arthritic changes within both hips. Degenerative changes are present within the lumbar spine. IMPRESSION: 1. No evidence of acute intra-abdominal or pelvic injury, given the limitations of a noncontrast stud y 2. Postsurgical changes of a cystectomy and diverting ileal loop ostomy 3. No evidence of bowel obstruction. No evidence of free air 4. Persistent bilateral hydronephrosis and hydroureter 5. Tiny bilateral nonobstructing renal calculi. 6. Low density 46 mm right pelvic sidewall mass/fluid collection, slightly diminished in size when co mpared the preceding study. This may represent an organizing postsurgical hematoma. Continued follow- up is advocated 7. Near complete interval resolution of previously identified lower right pelvic sidewall fluid colle ction/seroma ACT 112: Negative or not required by law. Electronically signed by: Clayton Khanna M.D. 10/28/2019 1:15 PM
--- NOTE | 2019-10-28 13:22 | CT Scan Report ---
CT chest wo con CLINICAL HISTORY: sepsis TRAUMA COMPARISON STUDY: 02/21/2019 CT DOSE: 3249.74 mGy.cm TECHNIQUE: CT of the thorax was performed from the thoracic inlet to the lung bases. Images are revi ewed in the axial, sagittal, and coronal planes. IV contrast was not administered for this examinatio n. A dose lowering technique was utilized adhering to the principles of ALARA. FINDINGS: Thyroid: Imaged portions of the thyroid gland are normal in appearance. Thoracic aorta: The thoracic aorta is normal in course and caliber, noting standard 3 vessel arch mireille portillo. Heart: There are coronary artery calcifications. There is no significant pericardial effusion. There is a right-sided central venous catheter. Lungs and pleural spaces: There is mild subpleural reticulation. There are upper lung zone subpleural blebs. There is no lobar consolidation. There are no significant pleural effusions. There are postsu rgical changes of a right lower lobectomy Mediastinum: There is a persistent enlarged precarinal lymph node measuring 12 mm in short axis. Keira: There is no evidence of pathologic hilar adenopathy given the limitations of a noncontrast stud y Axilla: There is no evidence of pathologic axillary lymphadenopathy Upper abdomen: Partially visualized upper abdominal viscera is within normal limits. Skeletal structures: There are old right-sided rib fractures. No acute fractures are visualized. IMPRESSION: 1. No evidence of acute intra-abdominal or pelvic injury given the limitations of a noncontrast study 2. Chronic interstitial changes in the lungs. No acute parenchymal consolidation 3. Post surgical changes are prior right lower lobectomy 4. Stable mildly enlarged precarinal lymph node ACT 112: Negative or not required by law. Electronically signed by: Clayton Khanna M.D. 10/28/2019 1:21 PM
[2019-10-28] MEDS ORDERED: ACETAMINOPHEN 500 MG TAB PO STA (13:25)
[2019-10-28] MEDS ORDERED: METOPROLOL TARTRATE 1 MG/ML VIAL IV STA ×2 (14:30→20:41)
--- NOTE | 2019-10-28 15:32 | Electrocardiogram Report ---
Test Reason : Blood Pressure : / mmHG Vent. Rate : 122 BPM Atrial Rate : 122 BPM P-R Int : 130 ms QRS Dur : 072 ms QT Int : 312 ms P-R-T Axes : 007 -13 019 degrees QTc Int : 444 ms Sinus tachycardia with Premature atrial complexes Inferior infarct , age undetermined Abnormal ECG When compared with ECG of 11-AUG-2019 17:50, Premature atrial complexes are now Present Confirmed by Sinan Crump ([id number]) on 10/28/2019 3:32:28 PM Referred By: REFERRED SELF Confirmed By:Sinan Crump
--- NOTE | 2019-10-28 15:36 | Emergency Department Note ---
Entered by Chayo Cortez acting as a scribe for History of Present Illness General Chief complaint: Fall Stated complaint: R groin pain Source: patient and EMS Mode of arrival: EMS History of Present Illness Onset (ago): hour(s) (unknown time this morning) Location: head (Fall) Pain Consistency: + other (episode) Quality: + other (fall) Associated symptoms: + cough, + shortness of breath and + other (fall, right lo wer quadrant pain, right groin pain, diarrhea); no chest pain Treatments prior to arrival: none The patient is a 74 year old male presenting to the Emergency Department via EMS complaining of an episode of a fall occurring at an unknown time this morning. The patient reports that he fell this morning when he was walking to the bathroom. He states that he hit his head and that his head now hurts. He explains that he doesnt know how long he was on the ground for and doesnt know what day it is. He notes that since his fall his right lower quadrant and right groin are severely painful. He adds that he has been experiencing diarrhea. The patient reports that he has had a cough and is short of breath but that he is normally short of breath. He states that he didnt take any medications for his symptoms [employer] REPA[employer]. He notes that he has a urostomy. The patient denies chest pain. Home Medications Home Medications Medication Instructions Recorded Confirmed Type levalbuterol HCl 0.63 mg INH TID PRN 06/05/19 10/28/19 History metoprolol succinate [Toprol XL] 50 mg PO QAM 06/05/19 10/28/19 History levalbuterol tartrate [Xopenex HFA] 2 inh INHALATION Q6H PRN 06/12/19 10/28/19 History duloxetine [Cymbalta] 30 mg PO BIDM 08/11/19 10/28/19 History finasteride [Proscar] 5 mg PO HS 08/11/19 10/28/19 History fluticasone furoate-vilanterol 1 inh INHALATION DAILY 08/11/19 10/28/19 History [Breo Ellipta] furosemide [Lasix] 20 mg PO QAM 08/11/19 10/28/19 History tramadol [Ultram] 50 mg PO Q6H PRN 08/11/19 10/28/19 History apixaban 5 mg tablet 5 mg PO BID 10/08/19 10/28/19 History benzocaine 20 %-resorcinol 3 % 1 appln TOP UD 10/08/19 10/28/19 History topical cream budesonide-formoterol HFA 80 2 puffs INH BID 10/08/19 10/28/19 History mcg-4.5 mcg/actuation aerosol inhaler caspofungin 50 mg intravenous 50 mg IV Q24H 10/08/19 10/28/19 History solution heparin, porcine (PF) 10 unit/mL 10 units IV DAILY 10/08/19 10/28/19 History intravenous syringe hydrocortisone 2.5 % topical 1 appln TOP BID 10/08/19 10/28/19 History ointment lidocaine 3 % topical cream 1 appln TOP BID PRN 10/08/19 10/28/19 History ondansetron HCl 4 mg tablet 4 mg PO Q8H 10/08/19 10/28/19 History pantoprazole 40 mg tablet,delayed 40 mg PO QAM 10/08/19 10/28/19 History release piperacillin-tazobactam 2.25 gram 2.25 gm IV Q8H 10/08/19 10/28/19 History intravenous solution gabapentin 300 mg PO BID 10/28/19 10/28/19 History hydrocortisone acetate 25 mg [place] BID 10/28/19 10/28/19 History loratadine 10 mg PO QDB 10/28/19 10/28/19 History Allergies Allergy/AdvReac Type Severity Reaction Status Date / Time levofloxacin [From Levaquin] Allergy Intermediate Swelling Verified 10/28/19 13:09 of extremities citalopram Allergy Mild GI symptoms Verified 10/28/19 13:09 pravastatin AdvReac Mild leg Verified 10/28/19 13:09 soreness rosuvastatin AdvReac Mild leg Verified 10/28/19 13:09 soreness Past Med/Surg History Medical History Anxiety and depression Bladder cancer recent diagnosis (mass noted on CTS) BPH (benign prostatic hyperplasia) Chronic kidney disease, stage 3a COPD (chronic obstructive pulmonary disease) + O2 HS Degenerative disc disease Diverticulitis (11/22/13) hx (noted per 2014 records) Dyslipidemia GERD (gastroesophageal reflux disease) controlled Hearing deficit Hypertension Kidney stones Lung cancer (~12/2012) s/p lung resection/chemo Obesity Osteoarthritis Peripheral neuropathy b/l feet Pulmonary embolism 02/2019- on Xarelto Sinus tachycardia hx Skin cancer Surgical History History of colonoscopy History of discectomy LUMBAR History of esophagogastroduodenoscopy (EGD) History of hernia repair INGUINAL History of knee joint replacement RT/LEFT History of shoulder surgery RT History of tooth extraction History of vascular access device POWER PORT RIGHT CHEST (INTACT CURRENLTY) S/P partial lobectomy of lung RLL Family History Other No significant family history Social History Preferred Language: Bangladeshi Communication Ability: Effective Health Club Manager Required: No Beliefs That Will Affect Care: None Current Living Situation: Spouse Other Information That Helps Us Care for You: No Feels Safe at Home: Declines to Answer Safety Concerns: Feels Safe At This Time Smoking Status: Former smoker Tobacco Type: cigarettes ; Second Hand Exposure: No ; Hx Alcohol Use: Yes Alcohol type: beer, wine and hard liquor Hx Substance Use: No Review of Systems See HPI for pertinent positives & negatives. and A total of 10 systems reviewed and were otherwise negative Physical Exam Vital Signs Vital Signs - 24 hr 10/28/19 11:53 10/28/19 12:09 10/28/19 13:09 Temperature 38.5 C H Temperature Source Oral Pulse Rate 138 H Pulse Rate [Left] Pulse Rhythm Regular Pulse Rhythm [Left] Pulse Strength Normal Pulse Strength [Left] Respiratory Rate 18 18 Respiratory Effort / Characteristics Non-Labored Spontaneous Non-Labored Spontaneous Respiratory Depth Normal Normal Respiratory Pattern Regular Blood Pressure 153/88 H Blood Pressure [Left Arm] 127/69 Blood Pressure Mean 109 Blood Pressure Mean [Left Arm] 88 Blood Pressure Position Lying Blood Pressure Position [Left Arm] Lying Pulse Oximetry 82 L 97 Oxygen Delivery Method Room Air Nasal Cannula Nasal Cannula Oxygen Flow Rate 4 Sepsis Recent Fever Within 48 Hours Yes Sepsis Action Taken by Nursing No Action Required 10/28/19 14:39 Temperature 36.8 C Temperature Source Oral Pulse Rate Pulse Rate [Left] 114 H Pulse Rhythm Pulse Rhythm [Left] Regular Pulse Strength Pulse Strength [Left] Normal Respiratory Rate 20 Respiratory Effort / Characteristics Non-Labored Spontaneous Respiratory Depth Normal Respiratory Pattern Regular Blood Pressure Blood Pressure [Left Arm] 132/50 L Blood Pressure Mean Blood Pressure Mean [Left Arm] 77 Blood Pressure Position Blood Pressure Position [Left Arm] Lying Pulse Oximetry 98 Oxygen Delivery Method Nasal Cannula Oxygen Flow Rate 2 Sepsis Recent Fever Within 48 Hours Sepsis Action Taken by Nursing GENERAL: Patient is lying in bed, covered in stool, disheveled, moderate distress EYE EXAM: normal conjunctiva OROPHARYNX: no exudate, no erythema, lips, buccal mucosa, and tongue normal and mucous membranes are moist NECK: supple, no nuchal rigidity, no adenopathy, non-tender CHEST: port right upper chest wall LUNGS: Diminished at bilateral bases. Normal chest wall mechanics HEART: no murmurs, S1 normal and S2 normal ABDOMEN: Tender to palpation in left mid abdomen. Abdomen soft, normo-active bowel sounds, no masses, no rebound or guarding. BACK: Back is symmetrical on inspection and there is no deformity, no midline tenderness, no CVA tenderness. SKIN: no rashes and no bruising UPPER EXTREMITIES: upper extremities are grossly normal. LOWER EXTREMITIES: No pitting edema. NEURO EXAM: Normal sensorium, cranial nerves II-XII grossly intact, normal speech, no gross weakness of arms, no gross weakness of legs. Course Course ED COURSE: Vital signs were reviewed and showed hypertension, tachycardia, hypoxia and fever The patients medical record was reviewed The above diagnostic studies were performed and reviewed. ED treatments and interventions as stated above. 1140: The patient was evaluated in room B11B. A complete history and physical examination was performed. 1231: I reevaluated the patient at this time. 1255: EMR reviewed. The patient had his prostate and bladder removed on 07/23/2019. 1355: I discussed the patients case with Dr. Cazares [facility] physician. 1417: I discussed the patients case with Dr. Joaquin [facility] urologist. 1430: I discussed the patients case with Dr. Michael COLON hospitalist. She will evaluate the patient for further management. 1435: Upon reevaluation, I discussed my findings with the patient and he understands and agrees with the treatment plan. Based on the patients age, coexisting illnesses, exam and lab findings the decision to treat as an inpatient was made. The patient remained stable while under my care. The patient will be evaluated for further management. Administered Medications Vancomycin HCl 2,000 mg/ (Sodium Chloride) 540 mls @ 200 mls/hr IV NOW ONE Stop: 10/28/19 15:39 Last Admin: 10/28/19 13:35 Dose: 200 mls/hr Documented by: [id number] Discontinued Medications Acetaminophen (Tylenol) 1,000 mg PO NOW STA Stop: 10/28/19 13:26 Last Admin: 10/28/19 13:35 Dose: 1,000 mg Documented by: [id number] Sodium Chloride (Nss 1000ml) 1,000 mls @ 999 mls/hr IV .Q1H1M ONE Stop: 10/28/19 12:47 Last Infusion: 10/28/19 13:39 Dose: 0 mls/hr Documented by: [id number] Admin: 10/28/19 12:34 Dose: 999 mls/hr Documented by: [id number] Piperacillin Sod/Tazobactam Sod (Zosyn) 4.5 gm in 120 mls @ 240 mls/hr IV NOW ONE Stop: 10/28/19 12:16 Last Infusion: 10/28/19 13:31 Dose: 0 mls/hr Documented by: [id number] Admin: 10/28/19 13:00 Dose: 240 mls/hr Documented by: [id number] Critical Care Time Critical Care Time: Yes Total Critical Care Time: 60 I have personally spent 60 minutes of critical care time in the direct management of this patient. This includes bedside care, interpretation of diagnostic studies, and testing, discussion with consultants, patient, and family members, and other required patient management activities. This 60 minutes is in excess of all separately billable procedures. Medical Decision Making Differential Diagnosis Differential diagnosis includes etiologies such as sepsis, UTI, pneumonia, metabolic, electrolyte abnormalities, cardiac sources, intracerebral event, toxicologic, neurologic, as well as others were entertained. Medical Records Attestation: I reviewed the patient's medical records. Home Medications Current Medication List: was personally reviewed by me Laboratory Data Attestation: I reviewed the patient's lab results. Result diagrams: 10/28/19 11:55 10/28/19 11:55 Lab Results 10/28/19 10/28/19 10/28/19 Range/Units 11:55 11:55 11:55 WBC 19.51 H (4.8-10.8) K/uL RBC 3.83 L (4.7-6.1) M/uL Hgb 9.1 L (14.0-18.0) g/dL POC Hgb (14.0-18.0) g/dl Hct 30.5 L (42-52) % POC Hct (42-52) % MCV 79.6 L (80-100) fL MCH 23.8 L (25-34) pg MCHC 29.8 L (32-36) g/dL RDW Std Deviation 47.8 H (36.4-46.3) fL RDW Coeff of Effie 16.5 H (11.5-14.5) % Plt Count 487 H (130-400) K/uL MPV 9.4 (7.4-10.4) fL Immature Gran % (Auto) 0.8 % Neut % (Auto) 80.5 % Lymph % (Auto) 4.7 % Arthur % (Auto) 12.1 % Eos % (Auto) 1.7 % Baso % (Auto) 0.2 % Immature Gran # (Auto) 0.15 H (0.00-0.02) K/uL Neut # (Auto) 15.71 H (1.4-6.5) K/uL Lymph # (Auto) 0.91 L (1.2-3.4) K/uL Arthur # (Auto) 2.36 H (0.11-0.59) K/uL Eos # (Auto) 0.34 (0-0.5) K/uL Baso # (Auto) 0.04 (0-0.2) K/uL PT 12.9 H (9.0-12.0) Seconds INR 1.2 H (0.9-1.1) APTT 28.6 (21.0-31.0) Seconds PTT Ratio 1.0 POC Sodium (135-144) mmol/L Sodium 134 L (136-145) mmol/L POC Potassium (3.3-5.0) mmol/L Potassium 3.7 (3.5-5.1) mmol/L POC Chloride (101-112) mmol/L Chloride 107 (98-107) mmol/L Carbon Dioxide 20 L (21-32) mmol/L POC Total CO2 (24-31) mEq/l Anion Gap 8.0 (3-11) POC Anion Gap (16-25) mmol/L POC BUN (7-18) mg/dl BUN 26 H (7-18) mg/dl Creatinine 2.19 H (0.6-1.4) mg/dl POC Creatinine (0.6-1.3) mg/dl Est Cr Clr Drug Dosing 33.4 ml/min Est GFR ( Amer) 33.2 Est GFR (Non-Af Amer) 28.6 BUN/Creatinine Ratio 12.1 (10-20) Glucose 98 (70-99) mg/dl POC Glucose (other) (70-99) mg/dl Lactate (0.4-2.0) mmol/L Calcium 9.6 (8.5-10.1) mg/dl POC Ioniz Calcium Gregg (1.12-1.32) mmol/l Magnesium 1.3 L (1.8-2.4) mg/dl Total Bilirubin 0.5 (0.2-1) mg/dl AST 25 (15-37) U/L ALT 14 (12-78) U/L Alkaline Phosphatase 109 (45-117) U/L Troponin I < 0.015 (0-0.045) ng/ml Total Protein 7.3 (6.4-8.2) gm/dl Albumin 2.2 L (3.4-5.0) gm/dl Globulin 5.1 H (2.5-4.0) gm/dl Albumin/Globulin Ratio 0.4 L (0.9-2) Urine Color Urine Appearance (Clear) Urine pH (4.5-7.5) Ur Specific [place] (1.000-1.030) Urine Protein (Negative) Urine Glucose (UA) (Negative) Urine Ketones (Negative) Urine Blood (Negative) Urine Nitrite (Negative) Urine Bilirubin (Negative) Urine Urobilinogen (Negative) Ur Leukocyte Esterase (Negative) Urine WBC (Auto) (0-5) /hpf Urine RBC (Auto) (0-4) /hpf U Hyaline Cast (Auto) (0-5) /lpf U Epithel Cells (Auto) (0-5) /lpf Urine Bacteria (Auto) (Negative) Influenza Type A (PCR) (Neg) Influenza Type B (PCR) (Neg) 10/28/19 10/28/19 10/28/19 Range/Units 11:55 12:14 12:20 WBC (4.8-10.8) K/uL RBC (4.7-6.1) M/uL Hgb (14.0-18.0) g/dL POC Hgb 8.8 L (14.0-18.0) g/dl Hct (42-52) % POC Hct 26 L (42-52) % MCV (80-100) fL MCH (25-34) pg MCHC (32-36) g/dL RDW Std Deviation (36.4-46.3) fL RDW Coeff of Effie (11.5-14.5) % Plt Count (130-400) K/uL MPV (7.4-10.4) fL Immature Gran % (Auto) % Neut % (Auto) % Lymph % (Auto) % Arthur % (Auto) % Eos % (Auto) % Baso % (Auto) % Immature Gran # (Auto) (0.00-0.02) K/uL Neut # (Auto) (1.4-6.5) K/uL Lymph # (Auto) (1.2-3.4) K/uL Arthur # (Auto) (0.11-0.59) K/uL Eos # (Auto) (0-0.5) K/uL Baso # (Auto) (0-0.2) K/uL PT (9.0-12.0) Seconds INR (0.9-1.1) APTT (21.0-31.0) Seconds PTT Ratio POC Sodium 135 (135-144) mmol/L Sodium (136-145) mmol/L POC Potassium 3.6 (3.3-5.0) mmol/L Potassium (3.5-5.1) mmol/L POC Chloride 106 (101-112) mmol/L Chloride (98-107) mmol/L Carbon Dioxide (21-32) mmol/L POC Total CO2 19 L (24-31) mEq/l Anion Gap (3-11) POC Anion Gap 15.0 L (16-25) mmol/L POC BUN 24 H (7-18) mg/dl BUN (7-18) mg/dl Creatinine (0.6-1.4) mg/dl POC Creatinine 2.3 H (0.6-1.3) mg/dl Est Cr Clr Drug Dosing ml/min Est GFR ( Amer) Est GFR (Non-Af Amer) BUN/Creatinine Ratio (10-20) Glucose (70-99) mg/dl POC Glucose (other) 105 H (70-99) mg/dl Lactate 1.6 (0.4-2.0) mmol/L Calcium (8.5-10.1) mg/dl POC Ioniz Calcium Gregg 1.29 (1.12-1.32) mmol/l Magnesium (1.8-2.4) mg/dl Total Bilirubin (0.2-1) mg/dl AST (15-37) U/L ALT (12-78) U/L Alkaline Phosphatase (45-117) U/L Troponin I (0-0.045) ng/ml Total Protein (6.4-8.2) gm/dl Albumin (3.4-5.0) gm/dl Globulin (2.5-4.0) gm/dl Albumin/Globulin Ratio (0.9-2) Urine Color Urine Appearance (Clear) Urine pH (4.5-7.5) Ur Specific [place] (1.000-1.030) Urine Protein (Negative) Urine Glucose (UA) (Negative) Urine Ketones (Negative) Urine Blood (Negative) Urine Nitrite (Negative) Urine Bilirubin (Negative) Urine Urobilinogen (Negative) Ur Leukocyte Esterase (Negative) Urine WBC (Auto) (0-5) /hpf Urine RBC (Auto) (0-4) /hpf U Hyaline Cast (Auto) (0-5) /lpf U Epithel Cells (Auto) (0-5) /lpf Urine Bacteria (Auto) (Negative) Influenza Type A (PCR) Neg for Influ A (Neg) Influenza Type B (PCR) Neg for Influ B (Neg) 10/28/19 Range/Units 12:32 WBC (4.8-10.8) K/uL RBC (4.7-6.1) M/uL Hgb (14.0-18.0) g/dL POC Hgb (14.0-18.0) g/dl Hct (42-52) % POC Hct (42-52) % MCV (80-100) fL MCH (25-34) pg MCHC (32-36) g/dL RDW Std Deviation (36.4-46.3) fL RDW Coeff of Effie (11.5-14.5) % Plt Count (130-400) K/uL MPV (7.4-10.4) fL Immature Gran % (Auto) % Neut % (Auto) % Lymph % (Auto) % Arthur % (Auto) % Eos % (Auto) % Baso % (Auto) % Immature Gran # (Auto) (0.00-0.02) K/uL Neut # (Auto) (1.4-6.5) K/uL Lymph # (Auto) (1.2-3.4) K/uL Arthur # (Auto) (0.11-0.59) K/uL Eos # (Auto) (0-0.5) K/uL Baso # (Auto) (0-0.2) K/uL PT (9.0-12.0) Seconds INR (0.9-1.1) APTT (21.0-31.0) Seconds PTT Ratio POC Sodium (135-144) mmol/L Sodium (136-145) mmol/L POC Potassium (3.3-5.0) mmol/L Potassium (3.5-5.1) mmol/L POC Chloride (101-112) mmol/L Chloride (98-107) mmol/L Carbon Dioxide (21-32) mmol/L POC Total CO2 (24-31) mEq/l Anion Gap (3-11) POC Anion Gap (16-25) mmol/L POC BUN (7-18) mg/dl BUN (7-18) mg/dl Creatinine (0.6-1.4) mg/dl POC Creatinine (0.6-1.3) mg/dl Est Cr Clr Drug Dosing ml/min Est GFR ( Amer) Est GFR (Non-Af Amer) BUN/Creatinine Ratio (10-20) Glucose (70-99) mg/dl POC Glucose (other) (70-99) mg/dl Lactate (0.4-2.0) mmol/L Calcium (8.5-10.1) mg/dl POC Ioniz Calcium Gregg (1.12-1.32) mmol/l Magnesium (1.8-2.4) mg/dl Total Bilirubin (0.2-1) mg/dl AST (15-37) U/L ALT (12-78) U/L Alkaline Phosphatase (45-117) U/L Troponin I (0-0.045) ng/ml Total Protein (6.4-8.2) gm/dl Albumin (3.4-5.0) gm/dl Globulin (2.5-4.0) gm/dl Albumin/Globulin Ratio (0.9-2) Urine Color Yellow Urine Appearance Turbid A (Clear) Urine pH 5.5 (4.5-7.5) Ur Specific [place] 1.010 (1.000-1.030) Urine Protein 1+ H (Negative) Urine Glucose (UA) Negative (Negative) Urine Ketones Negative (Negative) Urine Blood 2+ H (Negative) Urine Nitrite Positive A (Negative) Urine Bilirubin Negative (Negative) Urine Urobilinogen Negative (Negative) Ur Leukocyte Esterase 3+ H (Negative) Urine WBC (Auto) >30 H (0-5) /hpf Urine RBC (Auto) 5-10 H (0-4) /hpf U Hyaline Cast (Auto) 1-5 (0-5) /lpf U Epithel Cells (Auto) 0-5 (0-5) /lpf Urine Bacteria (Auto) 2+ H (Negative) Influenza Type A (PCR) (Neg) Influenza Type B (PCR) (Neg) Imaging Data Radiologist's Impression: Radiology results as stated below per my review and the radiologist's interpretation: CT head/brain wo con CLINICAL HISTORY: 74 years-old Male with fall. Acute head and neck injury status post fall TECHNIQUE: Multiple axial CT images of the head were obtained without contrast. A dose lowering technique was utilized adhering to the principles of ALARA. COMPARISON: CT cervical spine of same day FINDINGS: No acute intracranial hemorrhage, midline shift, intracranial mass, hydrocephalus, territorial ischemia or abnormal extra-axial collection. Age- related involutional changes with mild ex vacuo ventriculomegaly. Cerebral vascular calcifications. The calvarium is intact. The paranasal sinuses, mastoid air cells, and middle ear cavities are clear. IMPRESSION: No acute intracranial abnormality or calvarial fracture without the. ACT 112: Negative or not required by law. The above report was generated using voice recognition software. It may contain grammatical, syntax or spelling errors. Electronically signed by: Bernabe Dias M.D. 10/28/2019 1:[address] cervical spine wo con CT DOSE: HISTORY: Trauma. Pain. fall hit head TECHNIQUE: Multiaxial CT images of the cervical spine were performed and reformatted in the sagittal and coronal plane without the use of contrast. A dose lowering technique was utilized adhering to the principles of ALARA. COMPARISON: None. FINDINGS: The body stature is unremarkable. There is considerable degenerative disc changes throughout. C1-C2 complex is intact. Posterior elements show no evidence for acute posttraumatic disruption. IMPRESSION: Degenerative change. No acute process. ACT 112: Negative or not required by law. The above report was generated using voice recognition software. It may contain grammatical, syntax or spelling errors. Electronically signed by: Shad Magallon M.D. 10/28/2019 1:[address] chest wo con CLINICAL HISTORY: sepsis TRAUMA COMPARISON STUDY: 02/21/2019 CT DOSE: 3249.74 mGy.cm TECHNIQUE: CT of the thorax was performed from the thoracic inlet to the lung bases. Images are reviewed in the axial, sagittal, and coronal planes. IV contrast was not administered for this examination. A dose lowering technique was utilized adhering to the principles of ALARA. FINDINGS: Thyroid: Imaged portions of the thyroid gland are normal in appearance. Thoracic aorta: The thoracic aorta is normal in course and caliber, noting standard 3 vessel arch anatomy. Heart: There are coronary artery calcifications. There is no significant pericardial effusion. There is a right-sided central venous catheter. Lungs and pleural spaces: There is mild subpleural reticulation. There are upper lung zone subpleural blebs. There is no lobar consolidation. There are no significant pleural effusions. There are postsurgical changes of a right lower lobectomy Mediastinum: There is a persistent enlarged precarinal lymph node measuring 12 mm in short axis. Keira: There is no evidence of pathologic hilar adenopathy given the limitations of a noncontrast study Axilla: There is no evidence of pathologic axillary lymphadenopathy Upper abdomen: Partially visualized upper abdominal viscera is within normal limits. Skeletal structures: There are old right-sided rib fractures. No acute fractures are visualized. IMPRESSION: 1. No evidence of acute intra-abdominal or pelvic injury given the limitations of a noncontrast study 2. Chronic interstitial changes in the lungs. No acute parenchymal consolidation 3. Post surgical changes are prior right lower lobectomy 4. Stable mildly enlarged precarinal lymph node ACT 112: Negative or not required by law. Electronically signed by: Clayton Khanna M.D. 10/28/2019 1:[address] SCAN OF THE ABDOMEN AND PELVIS WITHOUT CONTRAST CLINICAL HISTORY: Abdominal pain. Trauma. COMPARISON STUDY: 08/11/2019 TECHNIQUE: CT scan of the abdomen and pelvis was performed from the lung bases to the proximal femurs. Images are reviewed in the axial, sagittal, and coronal planes. IV contrast was not administered for this examination. A dose lowering technique was utilized adhering to the principles of ALARA. CT DOSE: FINDINGS: Lower chest: There is mild subpleural reticulation. There is no pneumothorax. There are no significant pleural effusions. There are coronary artery calcifications. Liver: The unenhanced liver is normal in size, contour, and attenuation. There is no intrahepatic biliary ductal dilatation. Gallbladder: Suspected cholelithiasis/milk of calcium Spleen: Normal in size and attenuation. Pancreas: Unremarkable. Adrenal glands: Unremarkable. Kidneys: There are tiny bilateral nonobstructing renal calculi. There is a 53 mm upper pole right renal cyst. There is 18 mm mid pole right renal cyst. There is bilateral hydronephrosis and hydroureter. There is a right-sided ileal conduit. Bowel: There are no transition zones to indicate bowel obstruction. There is no evidence of acute diverticulitis. Peritoneum: There is no intraperitoneal free air or abdominal ascites. There is a fat-containing right inguinal hernia. Vasculature: The abdominal aorta is normal in course and caliber. Adenopathy: There is a 46 mm right pelvic sidewall mass/fluid collection, possibly representing organizing hematoma. The previously identified 6.5 cm right pelvic sidewall seroma has essentially resolved.. Pelvic viscera: The patient is status post a cystectomy with a diverting right lower quadrant loop colostomy. Skeletal structures: There are old right-sided rib fractures. There are moderately advanced arthritic changes within both hips. Degenerative changes are present within the lumbar spine. IMPRESSION: 1. No evidence of acute intra-abdominal or pelvic injury, given the limitations of a noncontrast study 2. Postsurgical changes of a cystectomy and diverting ileal loop ostomy 3. No evidence of bowel obstruction. No evidence of free air 4. Persistent bilateral hydronephrosis and hydroureter 5. Tiny bilateral nonobstructing renal calculi. 6. Low density 46 mm right pelvic sidewall mass/fluid collection, slightly diminished in size when compared the preceding study. This may represent an organizing postsurgical hematoma. Continued follow-up is advocated 7. Near complete interval resolution of previously identified lower right pelvic sidewall fluid collection/seroma ACT 112: Negative or not required by law. Electronically signed by: Clayton Khanna M.D. 10/28/2019 1:15 PM ECG Data Attestation: I personally reviewed and interpreted this ECG as follows: Indication: + weakness Rate (beats per minute): 122 Rhythm: + atrial fibrillation (A-fib with RVR) ECG Intervals/blocks: + Normal QT-c ECG [place]: + Left axis deviation ECG Findings: + Q waves (Inferior Q waves); no PVCs Additional Comments: Repeat EKG per my interpretation: Multifocal arterial tachycardia. 120 bpm. Left axis deviation. Inferior Q waves. Blood Pressure Blood Pressure Findings: Elevated blood pressure Blood Pressure Disposition: further management by hospitalist ROCIO Narrative Cardiac Monitoring: An order was placed for continuous cardiac monitoring. The monitor shows a rate of 116 with A-fib. Patient is a 74-year-old male with a past medical history of radical prostatect kimberlyn as well as removal of the bladder and ileal conduit back in early July that presents the ER for fever, tachycardia, cough congestion and hypoxia. IV was established blood work was obtained and showed a leukocytosis of 20,000. Hemoglobin stable at 9. Patient denies missing any doses of his anticoagulation. BMP with a slightly low CO2 at 20. Creatinine was elevated at 2.2. Baseline appears to be 1.6. LFTs bilirubin and troponin was negative. UA with nitrates, blood and white cells in the setting of ileal conduit along with bacteria I am not sure if this is the true source at this time. Patient was covered with broad-spectrum antibiotics including IV Zosyn and vancomycin. Nasa l swab was sent. Influenza was negative. CT of the head secondary to the fall chest and abdomen pelvis were unremarkable with exception of the left sidewall 4.6 cm fluid collection. Did discuss with [facility] operating surgeon who does not believe this to be the cause of his infection and who has evaluated this previously. Patient's initial EKG I felt to be consistent with A. fib repeat showed multifocal atrial tachycardia. Patient was ordered Lopressor but heart rate has remained in the low 1 teens following IV fluids I do believe this is appropriate. Updated and discussed with the hospitalist for admission. Impression & Plan Sepsis, URI (upper respiratory infection), Leukocytosis, Atrial tachycardia Discharge Plan Visit Data Chief Complaint: Fall Stated Complaint: R groin pain ED Provider: Riley Terry Discharge Problem: Sepsis, URI (upper respiratory infection), Leukocytosis, Atrial tachycardia Patient Disposition: Being Evaluated by Hospitalist Forms Stand Alone Forms: My [facility] Prescriptions Prescriptions: No Action apixaban 5 mg tablet 5 mg PO BID RF: 0 benzocaine-resorcinol 20-3 % cream 1 appln TOP UD RF: 0 budesonide-formoterol [Symbicort] 80-4.5 mcg/actuation HFA aerosol inhaler 2 puffs INH BID RF: 0 caspofungin 50 mg recon soln 50 mg IV Q24H RF: 0 heparin, porcine (PF) [Heparin LockFlush(Porcine)(PF)] 10 unit/mL syringe 10 units IV DAILY RF: 0 hydrocortisone 2.5 % ointment 1 appln TOP BID RF: 0 lidocaine 3 % cream 1 appln TOP BID PRN (Reason: .) RF: 0 ondansetron HCl 4 mg tablet 4 mg PO Q8H RF: 0 pantoprazole 40 mg tablet,delayed release (DR/EC) 40 mg PO QAM RF: 0 piperacillin-tazobactam 2.25 gram recon soln 2.25 gm IV Q8H RF: 0 levalbuterol tartrate [Xopenex HFA] 45 mcg/actuation Hfa Aerosol Inhaler 2 inh INHALATION Q6H PRN (Reason: Shortness Of Breath) RF: 0 tramadol [Ultram] 50 mg Tablet 50 mg PO Q6H PRN (Reason: Pain) RF: 0 furosemide [Lasix] 20 mg Tablet 20 mg PO QAM RF: 0 duloxetine [Cymbalta] 30 mg Capsule,Delayed Release(Dr/Ec) 30 mg PO BIDM RF: 0 Breo Ellipta 100-25 mcg/dose Blister With Device 1 inh INHALATION DAILY RF: 0 finasteride [Proscar] 5 mg tablet 5 mg PO HS RF: 0 levalbuterol HCl 0.63 mg/3 mL solution for nebulization 0.63 mg INH TID PRN (Reason: SOB, Wheeing or Cough) RF: 0 metoprolol succinate [Toprol XL] 25 mg tablet extended release 24 hr 50 mg PO QAM RF: 0 hydrocortisone acetate 25 mg Suppository 25 mg NH BID RF: 0 gabapentin 300 mg capsule 300 mg PO BID RF: 0 loratadine 10 mg Tablet 10 mg PO QDB RF: 0 Referrals Referrals: Maureen Mcdaniels [Primary Care Provider] - Discharge Problem: Sepsis Qualifiers: Sepsis type: sepsis due to unspecified organism Sepsis acute organ dysfunction status: unspecified Qualified Code(s): A41.9 - Sepsis, unspecified organism URI (upper respiratory infection) Qualifiers: URI type: unspecified URI Qualified Code(s): J06.9 - Acute upper respiratory infection, unspecified Leukocytosis Qualifiers: Leukocytosis type: unspecified Qualified Code(s): D72.829 - Elevated white blood cell count, unspecified The scribe's documentation has been prepared under my direction and personally reviewed by me in its entirety. I confirm that the note above accurately reflects all work, treatment, procedures, and medical decision making performed by me.
--- NOTE | 2019-10-28 15:38 | Electrocardiogram Report ---
Test Reason : Blood Pressure : / mmHG Vent. Rate : 120 BPM Atrial Rate : 131 BPM P-R Int : 176 ms QRS Dur : 070 ms QT Int : 310 ms P-R-T Axes : 000 -20 009 degrees QTc Int : 438 ms Multifocal atrial tachycardia Inferior infarct (cited on or before 18-FEB-2019) Anterior infarct , age undetermined Abnormal ECG When compared with ECG of 28-OCT-2019 12:25, (unconfirmed) No significant change Confirmed by Sinan Crump ([id number]) on 10/28/2019 3:37:53 PM Referred By: REFERRED SELF Confirmed By:Sinan Crump
[2019-10-28] MEDS ORDERED: ALUMINUM/MAGNESIUM SUSP 30 ML UDC PO PRN (17:10)
[2019-10-28] MEDS ORDERED: ACETAMINOPHEN 325 MG TAB PO PRN (17:10)
[2019-10-28] MEDS ORDERED: BENZOCAINE TOP SCH (17:10)
[2019-10-28] MEDS ORDERED: CASPOFUNGIN 50 MG IV SCH (17:10)
[2019-10-28] MEDS ORDERED: MAGNESIUM HYDROXIDE SUSP 30 ML UDC PO PRN (17:10)
[2019-10-28] MEDS ORDERED: LEVALBUTEROL TARTRATE 15 GM HFA.AER.AD INH PRN (17:10)
[2019-10-28] MEDS ORDERED: ONDANSETRON INJ 2 MG/ML 2 ML VIAL IV PRN (17:10)
[2019-10-28] MEDS ORDERED: POLYETHYLENE (MIRALAX) 17 GM PACK PO PRN (17:10)
[2019-10-28] MEDS ORDERED: IMIPENEM/CILASTATIN CONSULT ACTIVE PRN (17:10)
[2019-10-28] MEDS ORDERED: RESORCINOL TOP SCH (17:10)
[2019-10-28] MEDS ORDERED: LEVALBUTEROL HCL 0.63 MG/3 ML NEB INH PRN ×2 (17:10→17:53)
[2019-10-28] MEDS ORDERED: LIDOCAINE HCL 5% OINT 30 GM TUBE EXT PRN (17:49)
[2019-10-28] MEDS ORDERED: IPRATROPIUM BROMIDE NEB SOLN 0.02% 2.5 ML VIAL INH PRN (17:53)
[2019-10-28] MEDS: NSS + 20MEQ KCL 20 MEQ/1,000 ML BAG IV SCH (18:21)
[2019-10-28 18:28] LABS: Thyroid Stimulating Hormone 0.102 uIu/ml (0.300-4.500)
[2019-10-28] MEDS: MoRPHine SULFATE 2 MG/ML CARP IV PRN ×2 (18:45→23:57)
[2019-10-28] MEDS: CASPOFUNGIN 50 MG in SODIUM CHLORIDE 0.9% 250 ML IV SCH (18:46)
[2019-10-28] MEDS: IMIPENEM/CILASTATIN SODIUM 300 MG in DEXTROSE 5% 100 ML IV SCH (18:46)
[2019-10-28] MEDS: DULOXETINE HCL 30 MG CAP PO SCH (18:47)
[2019-10-28] MEDS: DOXYCYCLINE HYCLATE 100 MG in DEXTROSE 5% 100 ML IV SCH (19:43)
[2019-10-28] MEDS: ONDANSETRON 4 MG OD TAB PO SCH ×2 (19:43→22:23)
[2019-10-28] MEDS: FINASTERIDE 5 MG TAB PO SCH (19:44)
[2019-10-28] MEDS: APIXABAN 5 MG TABLET PO SCH (19:44)
[2019-10-28] MEDS: GABAPENTIN 300 MG CAP PO SCH (19:45)
--- NOTE | 2019-10-28 20:54 | History & Physical Report ---
Date of Service October 28, 2019 Assessment & Plan (1) Sepsis: Admit to PCU on telemetry, Vital signs every 4 hours, Urine culture and blood culture pending, Started empirically vancomycin and keep Vaseline in the ER, continue vancomycin renally dose, imipenem/Cilastatin 300 mg IV every 6 hours to cover for possible UTI ESBL. Started doxycycline 100 mg IV twice daily to cover for possible pneumonia - atypical organism, Sputum culture pending, Elevated procalcitonin, Referred to speech for swallow study DVT prophylaxis patient is on apixaban 5 mg twice daily to cover for pulmonary embolism as well. Full code Present on Admission?: Yes (2) URI (upper respiratory infection): Patient has possibly pneumonia with elevated procalcitonin, Continue empirically antibiotics as discussed above, Ipratropium-inhaler 3 times daily, Xopenex 2 puffs inhalation every 6 hours as needed Xopenex inh 3 times daily as needed Present on Admission?: Yes (3) Leukocytosis: Continue monitoring, likely due to sepsis. Trend down daily Present on Admission?: Yes (4) Multifocal atrial tachycardia: Likely due to ongoing sepsis. Continue monitoring TTE pending Consult cardiology Present on Admission?: Yes (5) Diastolic dysfunction: Mildly volume overloaded, furosemide 20 mg p.o. every morning switched to 40 mg IV daily. Strict in and out, Daily weight, Low-sodium diet Present on Admission?: Yes (6) COPD (chronic obstructive pulmonary disease): Continue inhalers as the above Present on Admission?: Yes (7) Pulmonary emboli: Continue anticoagulation as discussed above Present on Admission?: Yes (8) Acute and chronic respiratory failure: As discussed above, patient now needs supplemental oxygen to keep oxy genation above 88% Present on Admission?: Yes (9) Hypertension: Stable at this time, continue monitoring. Present on Admission?: Yes (10) Acute urinary tract infection: Urine culture pending, Started empirically Primaxin, Continue monitoring Present on Admission?: Yes (11) Chronic kidney disease (CKD), stage III (moderate): Creatinine is fluctuating over time: 1.65, 1.62, 2.76, and today 2.19. continue monitoring creatinine. Present on Admission?: Yes (12) Hydronephrosis: Persistent bilateral hydronephrosis and hydroureter Consult urology Present on Admission?: Yes History of Present Illness Chief Complaint: Fall Primary Care Provider: Maureen Mcdaniels The patient is a 74 years old male with past medical history of lung cancer partial lobectomy of the lung, GERD, hypertension, CKD stage III, restrictive lung disease, COPD, history of pulmonary embolism, congestive heart failure with diastolic dysfunction, who presents to the emergency room via EMS complaining of an episode of a fall occurring at unknown time this morning. The patient reports that he fell this morning when he was walking to the bathroom. He states that he hit his head and his head is hurting since then. Patient explained that he does not know how long he was on the ground and he is disoriented in time. Patient is very poor historian. Patient reports that his right lower quadrant and right groin are severely painful. Patient reports having diarrhea but does not know how many days. Patient reports that he had a cough and is short of breath but this is his baseline. Patient reports having a urostomy. Patient was seen on October [address] Harvey office to follow-up for primary bladder malignant neoplasm which is invasive to the muscle s/p cystoprostatectomy with ileal conduit. Per Dr. Harvey note the postoperative course has been complicated. On October 19 nephrostomy tube was removed after recent anterograde nephrostogram showed no evidence of persistent leak nephro patient denies fever, chills, chest pain, abdominal pain. EKG shows multifocal atrial tachycardia, inferior infarct cited before February 18, 2019, anterior infarct age undetermined. When compared to October 28, 2019 there is no significant change. Reviewed which shows WBCs 19.51, hemoglobin 9.1, hematocrit 30.5, platelets 487, PT 12.9, INR 1.2, APTT 28.6, VBG pH 7.46, PCO2 39, PO2 30, HCO3 27, O2 saturation less than 60. Sodium 134, potassium 3.7, chloride 107, carbon dioxide 20, anion gap 8, BUN 26, creatinine 2.19, GFR 28.6, glucose 98, hemoglobin A1c pending, lactate 1.6, calcium 9.6, magnesium 1.3, total bilirubin 0.5, AST 25, ALT 14, alkaline phosphatase 109, troponin 0.015, BNP 338, Albumin 2.2, globulin 5.1, pro calcitonin 0.49, TSH 0.102. Urine turbid, protein 1+, urine blood 2+, urine nitrate positive, leukocyte Estrace 3+, WBCs over 30, RBCs 5-10, urine bacteria 2+, MRSA negative, influenza A negative, influenza B negative. CT of the head no acute intracranial abnormality or calvarial fracture. CT abdomen and pelvis: No evidence of acute intra-abdominal or pelvic injury, given the limitation of a noncontrast study. Postsurgical changes of a cystectomy and diverting ileal loop ostomy. No evidence of bowel obstruction. No evidence of free air. Persistent bilateral hydronephrosis and hydroureter. Tiny bilateral nonobstructing renal calculi. Low density 46 mm right pelvic sidewall mass/fluid collection, slightly diminished in size when compared to the preceding study. This may represent an organized postsurgical hematoma. Continue follow-up is advocated. Near complete interval resolution of previously identified lobular right pelvics sidewall fluid collectionseroma. CT of the chest: No evidence of acute intra-abdominal or pelvic injury given the limitation of a noncontrast study. Chronic interstitial changes in the lung. No acute parenchymal consolidation. Postsurgical changes are prior right lower lobectomy. Stable mildly enlarged precarinal lymph nodes. Urine culture pending, blood culture pending, x2. The decision was made to admit patient to PCU on telemetry for urinary tract infection, sepsis, fall and generalized weakness. Allergies Allergy/AdvReac Type Severity Reaction Status Date / Time levofloxacin [From Levaquin] Allergy Intermediate Swelling Verified 10/28/19 13:09 of extremities citalopram Allergy Mild GI symptoms Verified 10/28/19 13:09 pravastatin AdvReac Mild leg Verified 10/28/19 13:09 soreness rosuvastatin AdvReac Mild leg Verified 10/28/19 13:09 soreness Home Medications Home Medications Medication Instructions Recorded Confirmed Type levalbuterol HCl 0.63 mg INH TID PRN 06/05/19 10/28/19 History metoprolol succinate [Toprol XL] 50 mg PO QAM 06/05/19 10/28/19 History levalbuterol tartrate [Xopenex HFA] 2 inh INHALATION Q6H PRN 06/12/19 10/28/19 History duloxetine [Cymbalta] 30 mg PO BIDM 08/11/19 10/28/19 History finasteride [Proscar] 5 mg PO HS 08/11/19 10/28/19 History fluticasone furoate-vilanterol 1 inh INHALATION DAILY 08/11/19 10/28/19 History [Breo Ellipta] furosemide [Lasix] 20 mg PO QAM 08/11/19 10/28/19 History tramadol [Ultram] 50 mg PO Q6H PRN 08/11/19 10/28/19 History apixaban 5 mg tablet 5 mg PO BID 10/08/19 10/28/19 History benzocaine 20 %-resorcinol 3 % 1 appln TOP UD 10/08/19 10/28/19 History topical cream budesonide-formoterol HFA 80 2 puffs INH BID 10/08/19 10/28/19 History mcg-4.5 mcg/actuation aerosol inhaler caspofungin 50 mg intravenous 50 mg IV Q24H 10/08/19 10/28/19 History solution heparin, porcine (PF) 10 unit/mL 10 units IV DAILY 10/08/19 10/28/19 History intravenous syringe hydrocortisone 2.5 % topical 1 appln TOP BID 10/08/19 10/28/19 History ointment lidocaine 3 % topical cream 1 appln TOP BID PRN 10/08/19 10/28/19 History ondansetron HCl 4 mg tablet 4 mg PO Q8H 10/08/19 10/28/19 History pantoprazole 40 mg tablet,delayed 40 mg PO QAM 10/08/19 10/28/19 History release piperacillin-tazobactam 2.25 gram 2.25 gm IV Q8H 10/08/19 10/28/19 History intravenous solution gabapentin 300 mg PO BID 10/28/19 10/28/19 History hydrocortisone acetate 25 mg ND BID 10/28/19 10/28/19 History loratadine 10 mg PO QDB 10/28/19 10/28/19 History Past Med/Surg History Medical History Anxiety and depression Bladder cancer recent diagnosis (mass noted on CTS) BPH (benign prostatic hyperplasia) Chronic kidney disease, stage 3a COPD (chronic obstructive pulmonary disease) + O2 HS Degenerative disc disease Diverticulitis (11/22/13) hx (noted per 2014 records) Dyslipidemia GERD (gastroesophageal reflux disease) controlled Hearing deficit Hypertension Kidney stones Lung cancer (~12/2012) s/p lung resection/chemo Obesity Osteoarthritis Peripheral neuropathy b/l feet Pulmonary embolism 02/2019- on Xarelto Sinus tachycardia hx Skin cancer Surgical History History of colonoscopy History of discectomy LUMBAR History of esophagogastroduodenoscopy (EGD) History of hernia repair INGUINAL History of knee joint replacement RT/LEFT History of shoulder surgery RT History of tooth extraction History of vascular access device POWER PORT RIGHT CHEST (INTACT CURRENLTY) S/P partial lobectomy of lung RLL Family History Other No significant family history Social History Preferred Language: Tunisian Communication Ability: Effective Blueprint Tracer Required: No Beliefs That Will Affect Care: None Current Living Situation: Spouse Other Information That Helps Us Care for You: No Feels Safe at Home: Declines to Answer Safety Concerns: Feels Safe At This Time Smoking Status: Former smoker Tobacco Type: cigarettes ; Second Hand Exposure: No ; Hx Alcohol Use: Yes Alcohol type: beer, wine and hard liquor Hx Substance Use: No Review of Systems Review of Systems: All systems reviewed & are unremarkable except as noted in HPI & below Physical Exam Constitutional: WD/WN, vitals as above well developed, + ill appearing and + obese Eyes: PERRL, conjunctivae normal, anicteric sclerae ENMT: external ear and nose normal, oropharynx normal Neck: trachea midline, no thyromegaly Respiratory: + respiratory distress, + labored breathing and + uses accessory muscles Auscultation: + wheezes Cardiovascular: Rate/Rhythm: + irregularly irregular Heart Sounds: normal S1 and normal S2 Palpation: + palpable S3 Vessels: dorsalis pedis pulses present Gastrointestinal (Abdomen): normal bowel sounds, soft, nontender, no hepatosplenomegaly Inspection/Auscultation: + abdomen distended Percussion/Palpation: + abdomen tender and abdomen soft Skin: no rashes, warm and dry Neurologic: patellar DTR's 2+ bilat, sensation intact Psychiatric: Orientation: oriented to person Insight: + limited insight Lymphatic: no cervical or axillary lymphadenopathy Results & Data Vital Signs (Past 12 Hours) Vital Signs Temp Pulse Pulse Resp BP BP Pulse Ox 03/10/20 19:21 37.0 C 74 18 151/73 H 98 10/28/19 17:10 36.8 C 109 H 20 116/74 98 10/28/19 16:40 36.9 C 76 18 122/82 98 10/28/19 14:39 36.8 C 114 H 20 132/50 L 98 10/28/19 13:09 18 127/69 97 10/28/19 11:53 38.5 C H 138 H 18 153/88 H 82 L Code Status & VTE Plan Code Status Full code VTE Prophylaxis Plan VTE Prophylaxis will be ordered: Yes PG Care Time/CCT Total # of Minutes Spent Total Time Spent with Patient: Total time spent is greater than 50% in coordination of care (as documented) at patient's floor/unit and/or counseling patient: Coding Level of Care Code 04506 Initial Inpt Care Lvl 3 Diagnoses Sepsis A41.9 Sepsis acute organ dysfunction status: unspecified Sepsis type: sepsis due to unspecified organism URI (upper respiratory infection) J06.9 URI type: unspecified URI Leukocytosis D72.829 Leukocytosis type: unspecified Multifocal atrial tachycardia I47.1 Diastolic dysfunction I51.89 COPD (chronic obstructive pulmonary disease) J44.9 Pulmonary emboli I26.09 Pulmonary embolism type: other Chronicity: acute Acute cor pulmonale presence: with acute cor pulmonale Acute and chronic respiratory failure J96.20 Hypertension I10 Hypertension type: essential hypertension Acute urinary tract infection N39.0 Chronic kidney disease (CKD), stage III (moderate) N18.3 Hydronephrosis N13.30 (1) Sepsis Sepsis acute organ dysfunction status: unspecified Sepsis type: sepsis due to unspecified organism Qualified Code(s): A41.9 - Sepsis, unspecified organism (2) URI (upper respiratory infection) URI type: unspecified URI Qualified Code(s): J06.9 - Acute upper respiratory infection, unspecified (3) Leukocytosis Leukocytosis type: unspecified Qualified Code(s): D72.829 - Elevated white blood cell count, unspecified (4) Pulmonary emboli Pulmonary embolism type: other Chronicity: acute Acute cor pulmonale presence: with acute cor pulmonale Qualified Code(s): I26.09 - Other pulmonary embolism with acute cor pulmonale (5) Hypertension Hypertension type: essential hypertension Qualified Code(s): I10 - Essential (primary) hypertension
[2019-10-28] MEDS: HYDROCORTISONE ACETATE 25 MG SUPP PR SCH (20:56)
[2019-10-28] MEDS: HYDROCORTISONE HC 2.5% CRM 30GM TUBE EXT SCH (20:56)
[2019-10-28] MEDS ORDERED: BUDESONIDE/FORMOTEROL FUMARATE 80/4.5 60 PUFFS/INHALER INH SCH (21:00)
[2019-10-28] MEDS ORDERED: HEPARIN 100 UNIT/ML 5ML FLUSH FLUSH PRN (21:16)
[2019-10-29] MEDS: IMIPENEM/CILASTATIN SODIUM 300 MG in DEXTROSE 5% 100 ML IV SCH ×4 (00:17→17:04)
[2019-10-29] MEDS ORDERED: MAGNESIUM SULFATE / D5W 1 GM/100 ML BAG IV ONE (01:00)
[2019-10-29] MEDS: ONDANSETRON 4 MG OD TAB PO SCH ×3 (05:13→21:52)
[2019-10-29] MEDS: NSS + 20MEQ KCL 20 MEQ/1,000 ML BAG IV SCH ×2 (06:05→17:04)
[2019-10-29 06:16] LABS: Estimated Average Glucose 123 mg/dl; Hemoglobin A1C 5.9 % (4.5-5.6)
[2019-10-29] MEDS: DOXYCYCLINE HYCLATE 100 MG in DEXTROSE 5% 100 ML IV SCH ×2 (08:59→21:53)
[2019-10-29 09:00] LABS: Hematocrit (blood only) 26.4 % (42-52); Mean Corpuscular Hemoglobin 24.2 pg (25-34); Mean Corpuscular Hgb Conc 30.3 g/dL (32-36); Mean Corpuscular Volume 79.8 fL (80-100); Mean Platelet Volume 9.1 fL (7.4-10.4); Platelet Count 407 K/uL (130-400); RDW Coefficient of Variation 16.6 % (11.5-14.5); RDW Standard Deviation 48.2 fL (36.4-46.3); Red Blood Count 3.31 M/uL (4.7-6.1); White Blood Count 17.93 K/uL (4.8-10.8)
[2019-10-29] MEDS: FLUTICASONE/VILANTEROL 100/25MCG 14 PUFFS/INHALER INH SCH (09:00)
[2019-10-29] MEDS: METOPROLOL SUCC 50MG EXT REL TAB PO SCH (09:00)
[2019-10-29] MEDS ORDERED: FUROSEMIDE 40 MG in SYRINGE 0 ML IV SCH (09:00)
[2019-10-29] MEDS: PANTOprazole 40 MG TAB PO SCH (09:01)
[2019-10-29] MEDS: GABAPENTIN 300 MG CAP PO SCH ×2 (09:01→21:53)
[2019-10-29] MEDS: LORATADINE 10 MG TAB PO SCH (09:01)
[2019-10-29] MEDS: HYDROCORTISONE ACETATE 25 MG SUPP PR SCH ×2 (09:01→21:54)
[2019-10-29] MEDS: APIXABAN 5 MG TABLET PO SCH ×2 (09:01→21:52)
[2019-10-29] MEDS: HYDROCORTISONE HC 2.5% CRM 30GM TUBE EXT SCH ×2 (09:02→21:54)
[2019-10-29] MEDS: DULOXETINE HCL 30 MG CAP PO SCH ×2 (09:02→17:04)
[2019-10-29 09:18] LABS: Basophils # (auto) 0.03 K/uL (0-0.2); Basophils % (auto) 0.2 %; Eosinophils # (auto) 0.92 K/uL (0-0.5); Eosinophils % (auto) 5.1 %; Immature Granulocytes # (auto) 0.13 K/uL (0.00-0.02); Immature Granulocytes % (auto) 0.7 %; Lymphocytes # (auto) 1.04 K/uL (1.2-3.4); Lymphocytes % (auto) 5.8 %; Monocytes # (auto) 1.11 K/uL (0.11-0.59); Monocytes % (auto) 6.2 %
[2019-10-29 09:29] LABS: Albumin Level 1.9 gm/dl (3.4-5.0); BUN Creatinine Ratio 13.1 (10-20); Calcium 9.2 mg/dl (8.5-10.1); Creatinine Clr Calc Pharmacy 38.8 ml/min; Est GFR (African American) 39.4; Magnesium 1.5 mg/dl (1.8-2.4)
[2019-10-29 09:33] LABS: Albumin Globulin Ratio 0.4 (0.9-2); Bilirubin,Total 0.3 mg/dl (0.2-1); Globulin 4.3 gm/dl (2.5-4.0); T4 Free Thyroxine 1.32 ng/dl (0.8-1.6); Total Protein 6.2 gm/dl (6.4-8.2)
--- NOTE | 2019-10-29 11:00 | Urology Consultation ---
Date of Consultation October 29, 2019 Assessment & Plan (1) Hydronephrosis: (2) Acute urinary tract infection: (3) Sepsis: 74 year-old male with multiple complex comorbidities admitted with upper respiratory infection, possible pneumonia, sepsis, hydronephrosis, and acute UTI. -Case reviewed with Dr. Zamora. -CT abd/pelvis reviewed, showing persistent bilateral hydronephrosis. -Renal function remains above baseline although improved today. -Febrile on admission, now improved. -Preliminary urine culture positive for gram-negative bacilli, await sensitivities. -Preliminary blood cultures showing no growth after 24 hours. -Continue supportive care, IV antibiotics per primary team. -If acute changes or persistent fevers, recommend transfer to tertiary care for possible nephrostomy tubes. -Patient updated, all questions answered. -Will continue to follow while inpatient. History of Present Illness Reason for Consultation: hydronephrosis Attending Physician: Dread Finley History of Present Illness 74 year-old male patient with past medical history of muscle invasive bladder carcinoma status post radical cystoprostatectomy with ileal conduit on 07/23/[address] Joaquin with [facility], lung cancer s/p partial lobectomy of the lung, GERD, hypertension, CKD stage III, restrictive lung disease, COPD, history of pulmonary embolism, and congestive heart failure with diastolic dysfunction, admitted on October 27 by hospitalist service after a fall that occurred day of arrival. Patient notes he hit his head but does not know if he lost consciousness. Complained on admission of right lower abdominal pain and groin pain. Had also been increasingly becoming more short of breath from his baseline. Patient was noted to be disoriented on admission. Urology service consulted due to bilateral hydronephrosis. Patient does follow with [facility] urology, Dr. Harvey. Patient's last office visit was October 20, 2019. During that visit, patient's left-sided nephrostomy tube was removed after recent antegrade nephrostogram showed no evidence of persistent leak. Of note, patient had complicated post-operative course after his cystoprostatectomy including ileus, urinoma requiring left-sided nephrostomy tube placement and RLQ pigtail drain placement, resistant maria g infection, and bilateral pulmonary embolisms. Patient has had multiple hospital admissions since surgery July 23. Chart review: Febrile on admission, most recent temperature 36.4 Wbc 17.93 (previously 19.51) Hgb 8.0 (previously 9.1) Creatinine 1.90 (previously 2.19) - baseline appears to be 1.5-1.6. Lactate 1.6 on admission Urinalysis positive for nitrates, 3+ leukocytes, >30 wbc, 5-10 rbc, 2+ bacteria - currently on IV Imipenem/Cilastatin, IV Caspofungin, IV Vancomycin, and IV Doxycycline. Preliminary urine culture positive for gram negative bacilli >100,000 cfu. Preliminary blood cultures with no growth after [address] abd/pelvis: IMPRESSION: 1. No evidence of acute intra-abdominal or pelvic injury, given the limitations of a noncontrast study 2. Postsurgical changes of a cystectomy and diverting ileal loop ostomy 3. No evidence of bowel obstruction. No evidence of free air 4. Persistent bilateral hydronephrosis and hydroureter 5. Tiny bilateral nonobstructing renal calculi. 6. Low density 46 mm right pelvic sidewall mass/fluid collection, slightly diminished in size when compared the preceding study. This may represent an organizing postsurgical hematoma. Continued follow-up is advocated. 7. Near complete interval resolution of previously identified lower right pelvic sidewall fluid collection/seroma Patient examined, awake, appearing comfortable. Does appear fatigued. Reports he feels "terrible" overall but does not some improvement since yesterday. States he is having discomfort to his left lower abdomen. Reports generalized back pain. States he has been running intermittent fevers prior to hospital admission but has not checked his temperature. Does report chills. States his ostomy to right abdomen has been patent and draining. Has not noticed hematuria. Denies nausea or vomiting. Denies dizziness. Does still have his right subclavian A- port. Receiving IV antibiotics. Abd/pelvis CT from July 2019 reviewed and does note bilateral mild hydronephrosis. Patient denies additional urologic concerns today. Allergies Allergy/AdvReac Type Severity Reaction Status Date / Time levofloxacin [From Levaquin] Allergy Intermediate Swelling Verified 10/28/19 13:09 of extremities citalopram Allergy Mild GI symptoms Verified 10/28/19 13:09 pravastatin AdvReac Mild leg Verified 10/28/19 13:09 soreness rosuvastatin AdvReac Mild leg Verified 10/28/19 13:09 soreness Home Medications Home Medications Medication Instructions Recorded Confirmed Type levalbuterol HCl 0.63 mg INH TID PRN 06/05/19 10/28/19 History metoprolol succinate [Toprol XL] 50 mg PO QAM 06/05/19 10/28/19 History levalbuterol tartrate [Xopenex HFA] 2 inh INHALATION Q6H PRN 06/12/19 10/28/19 History duloxetine [Cymbalta] 30 mg PO BIDM 08/11/19 10/28/19 History finasteride [Proscar] 5 mg PO HS 08/11/19 10/28/19 History fluticasone furoate-vilanterol 1 inh INHALATION DAILY 08/11/19 10/28/19 History [Breo Ellipta] furosemide [Lasix] 20 mg PO QAM 08/11/19 10/28/19 History tramadol [Ultram] 50 mg PO Q6H PRN 08/11/19 10/28/19 History apixaban 5 mg tablet 5 mg PO BID 10/08/19 10/28/19 History benzocaine 20 %-resorcinol 3 % 1 appln TOP UD 10/08/19 10/28/19 History topical cream budesonide-formoterol HFA 80 2 puffs INH BID 10/08/19 10/28/19 History mcg-4.5 mcg/actuation aerosol inhaler caspofungin 50 mg intravenous 50 mg IV Q24H 10/08/19 10/28/19 History solution heparin, porcine (PF) 10 unit/mL 10 units IV DAILY 10/08/19 10/28/19 History intravenous syringe hydrocortisone 2.5 % topical 1 appln TOP BID 10/08/19 10/28/19 History ointment lidocaine 3 % topical cream 1 appln TOP BID PRN 10/08/19 10/28/19 History ondansetron HCl 4 mg tablet 4 mg PO Q8H 10/08/19 10/28/19 History pantoprazole 40 mg tablet,delayed 40 mg PO QAM 10/08/19 10/28/19 History release piperacillin-tazobactam 2.25 gram 2.25 gm IV Q8H 10/08/19 10/28/19 History intravenous solution gabapentin 300 mg PO BID 10/28/19 10/28/19 History hydrocortisone acetate 25 mg MS BID 10/28/19 10/28/19 History loratadine 10 mg PO QDB 10/28/19 10/28/19 History Patient History Medical History Anxiety and depression Bladder cancer recent diagnosis (mass noted on CTS) BPH (benign prostatic hyperplasia) Chronic kidney disease, stage 3a COPD (chronic obstructive pulmonary disease) + O2 HS Degenerative disc disease Diverticulitis (11/22/13) hx (noted per 2014 records) Dyslipidemia GERD (gastroesophageal reflux disease) controlled Hearing deficit Hypertension Kidney stones Lung cancer (~12/2012) s/p lung resection/chemo Obesity Osteoarthritis Peripheral neuropathy b/l feet Pulmonary embolism 02/2019- on Xarelto Sinus tachycardia hx Skin cancer Surgical History History of colonoscopy History of discectomy LUMBAR History of esophagogastroduodenoscopy (EGD) History of hernia repair INGUINAL History of knee joint replacement RT/LEFT History of shoulder surgery RT History of tooth extraction History of vascular access device POWER PORT RIGHT CHEST (INTACT CURRENLTY) S/P partial lobectomy of lung RLL Family History Other No significant family history Social History Preferred Language: Palauan Communication Ability: Impaired Director Banking Required: No Beliefs That Will Affect Care: None Current Living Situation: Spouse Other Information That Helps Us Care for You: No Feels Safe at Home: Declines to Answer Safety Concerns: Feels Safe At This Time Smoking Status: Former smoker Tobacco Type: cigarettes ; Second Hand Exposure: No ; Hx Alcohol Use: Yes Alcohol type: beer, wine and hard liquor Hx Substance Use: No Review of Systems Constitutional: as per Subjective / HPI, + fever, + chills and + body aches Respiratory: as per Subjective / HPI, + cough and + dyspnea Cardiovascular: no syncope and no edema Gastrointestinal: as per Subjective / HPI; no nausea and no vomiting Genitourinary: + as per Subjective / HPI Integumentary: no rash and no wounds Neurologic: no dizziness and no syncope Psychiatric: as per Subjective / HPI Physical Exam Constitutional: well developed, + ill appearing, cooperative and comfortable; no acute distress Eyes: + anicteric sclerae ENMT: Ears: no external ear abnormality Nose: no external nose abnormality Neck: normal visual inspection and trachea midline Respiratory: normal respiratory effort and able to speak in complete sentences; no respiratory distress and no audible wheezes Patient on 2L oxygen via nasal cannula. Cardiovascular: Extremities: no calf tenderness and no edema Gastrointestinal (Abdomen): Inspection/Auscultation: abdomen normal to inspection; abdomen not distended Percussion/Palpation: + abdomen tender (Tender to left lower quadrant. ) and abdomen soft; no guarding No rebound tenderness. Musculoskeletal: Moves all extremities without difficulty. Skin: No visible rashes, lesions, or wounds noted. Neurologic: moves all extremities and awake Psychiatric: Orientation: alert, oriented to person, oriented to place and cooperative; + not oriented to time Affect: + flat affect Genitourinary: Ostomy intact to right abdominal quadrant draining cloudy yellow urine with sediment. Stoma pink and patent. Results & Data Vital Signs (Past 12 Hours) Vital Signs Temp Pulse Pulse Resp BP BP Pulse Ox 10/29/19 08:11 36.5 C 107 H 20 137/76 99 10/29/19 07:30 110 H 10/29/19 04:54 36.9 C 104 H 19 151/69 H 99 10/28/19 23:42 37.1 C 118 H 20 117/69 98 PG Care Time/CCT Total # of Minutes Spent Total Time Spent with Patient: Total time spent is greater than 50% in coordination of care (as documented) at patient's floor/unit and/or counseling patient: Coding Level of Care Code 69997 Initial Inpt Care Lvl 3 Diagnoses Hydronephrosis N13.30 Acute urinary tract infection N39.0 Sepsis A41.9 Sepsis acute organ dysfunction status: unspecified Sepsis type: sepsis due to unspecified organism (1) Sepsis Sepsis acute organ dysfunction status: unspecified Sepsis type: sepsis due to unspecified organism Qualified Code(s): A41.9 - Sepsis, unspecified organism
[2019-10-29] MEDS: MAGNESIUM SULFATE / D5W 1 GM/100 ML BAG IV SCH ×2 (11:10→12:36)
--- NOTE | 2019-10-29 11:21 | XCELERA ---
[id number] \\[id number]
--- NOTE | 2019-10-29 13:01 | Cardiology Consultation ---
Date of Consultation October 29, 2019 Assessment & Plan (1) Atrial tachycardia: He has a long history of sinus tachycardia and atrial tachycardia, which is probably fundamentally related to his lung disease and his acute presentation. On this admission he seems to have a multifocal atrial tac hycardia when he arrived, in the past it has appeared predominantly sinus tachycardia. He is on a beta-christopher, I am not sure exactly why that was started or what dose he is on. The arrhythmia has resolved with clinical improvement this hospitalization and his heart rate is right around 100 now which is probably appropriate. These types of arrhythmias do not generally respond well to beta-blockade or calcium blockade and I would not alter his therapy based on this finding. History of Present Illness Reason for Consultation: Fall, tachycardia Attending Physician: Dread Finley History of Present Illness This is a 74-year-old gentleman who follows with Dr. Kennedy. He has a history of lung disease which includes lung cancer for which he had a lung resection, severe COPD as well as bilateral pulmonary emboli for which he is on anticoagulation. He has been evaluated in the past for sinus tachycardia which is felt to be secondary to acute presentation, not a primary arrhythmia. It has been recommended that he avoid calcium beta-blockers however he did end up being placed on metoprolol succinate 50 mg daily although there is some question as to the actual dose that he is taking. He presents now with a fall, he clearly describes to me that he remembers falling, lost his balance and did not have lightheadedness, dizziness, presyncope or syncope. Apparently he was walking to the bathroom when he fell. He did hit his head, he is not sure how long he was laying there before rescue arrived. He does seem to be a little bit confused and is not a very good historian. Here he was felt to have urosepsis and was started on antibiotics, he is also noted to be tachycardic but not hypotensive. His main complaint is the time of my evaluation was diarrhea, which he says started before he came into the hospital and I do not know that that is related to his presentation. He denies other cardiovascular symptoms such as chest discomfort, orthopnea or peripheral edema. Allergies Allergy/AdvReac Type Severity Reaction Status Date / Time levofloxacin [From Levaquin] Allergy Intermediate Swelling Verified 10/28/19 13:09 of extremities citalopram Allergy Mild GI symptoms Verified 10/28/19 13:09 pravastatin AdvReac Mild leg Verified 10/28/19 13:09 soreness rosuvastatin AdvReac Mild leg Verified 10/28/19 13:09 soreness Home Medications Home Medications Medication Instructions Recorded Confirmed Type levalbuterol HCl 0.63 mg INH TID PRN 06/05/19 10/28/19 History metoprolol succinate [Toprol XL] 50 mg PO QAM 06/05/19 10/28/19 History levalbuterol tartrate [Xopenex HFA] 2 inh INHALATION Q6H PRN 06/12/19 10/28/19 History duloxetine [Cymbalta] 30 mg PO BIDM 08/11/19 10/28/19 History finasteride [Proscar] 5 mg PO HS 08/11/19 10/28/19 History fluticasone furoate-vilanterol 1 inh INHALATION DAILY 08/11/19 10/28/19 History [Breo Ellipta] furosemide [Lasix] 20 mg PO QAM 08/11/19 10/28/19 History tramadol [Ultram] 50 mg PO Q6H PRN 08/11/19 10/28/19 History apixaban 5 mg tablet 5 mg PO BID 10/08/19 10/28/19 History benzocaine 20 %-resorcinol 3 % 1 appln TOP UD 10/08/19 10/28/19 History topical cream budesonide-formoterol HFA 80 2 puffs INH BID 10/08/19 10/28/19 History mcg-4.5 mcg/actuation aerosol inhaler caspofungin 50 mg intravenous 50 mg IV Q24H 10/08/19 10/28/19 History solution heparin, porcine (PF) 10 unit/mL 10 units IV DAILY 10/08/19 10/28/19 History intravenous syringe hydrocortisone 2.5 % topical 1 appln TOP BID 10/08/19 10/28/19 History ointment lidocaine 3 % topical cream 1 appln TOP BID PRN 10/08/19 10/28/19 History ondansetron HCl 4 mg tablet 4 mg PO Q8H 10/08/19 10/28/19 History pantoprazole 40 mg tablet,delayed 40 mg PO QAM 10/08/19 10/28/19 History release piperacillin-tazobactam 2.25 gram 2.25 gm IV Q8H 10/08/19 10/28/19 History intravenous solution gabapentin 300 mg PO BID 10/28/19 10/28/19 History hydrocortisone acetate 25 mg MS BID 10/28/19 10/28/19 History loratadine 10 mg PO QDB 10/28/19 10/28/19 History Patient History Medical History Anxiety and depression Bladder cancer recent diagnosis (mass noted on CTS) BPH (benign prostatic hyperplasia) Chronic kidney disease, stage 3a COPD (chronic obstructive pulmonary disease) + O2 HS Degenerative disc disease Diverticulitis (11/22/13) hx (noted per 2014 records) Dyslipidemia GERD (gastroesophageal reflux disease) controlled Hearing deficit Hypertension Kidney stones Lung cancer (~12/2012) s/p lung resection/chemo Obesity Osteoarthritis Peripheral neuropathy b/l feet Pulmonary embolism 02/2019- on Xarelto Sinus tachycardia hx Skin cancer Surgical History History of colonoscopy History of discectomy LUMBAR History of esophagogastroduodenoscopy (EGD) History of hernia repair INGUINAL History of knee joint replacement RT/LEFT History of shoulder surgery RT History of tooth extraction History of vascular access device POWER PORT RIGHT CHEST (INTACT CURRENLTY) S/P partial lobectomy of lung RLL Family History Other No significant family history Social History Preferred Language: Maltese Communication Ability: Impaired 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 HEENT: Unremarkable Neck: No jugular venous distention, carotid pulses are normal and equal bilaterally without bruits. Pulmonary: Clear to auscultation bilaterally. Cardiac: Regular rhythm with no murmur, gallop or rub. Abdomen: Soft, nontender with normal bowel sounds. Extremities: No edema. Distal pulses intact. Neurologic: No focal findings. Gait not tested. Skin: No rash, ecchymoses or petechiae. Results & Data ([facility]) Vital Signs (Past 12 Hours) Vital Signs Temp Pulse Pulse Resp BP BP Pulse Ox 10/29/19 11:41 37.7 C H 101 H 18 122/74 99 10/29/19 08:11 36.5 C 107 H 20 137/76 99 10/29/19 07:30 110 H 10/29/19 04:54 36.9 C 104 H 19 151/69 H 99 Laboratory Results Cardiac Enzymes 10/29/19 Range/Units 08:49 AST 22 (15-37) U/L Lipids 10/29/19 Range/Units 08:49 Triglycerides 247 H (0-150) mg/dl Cholesterol 212 H (0-200) mg/dl HDL Cholesterol 8 mg/dl Cholesterol/HDL Ratio 27 CBC 10/29/19 Range/Units 08:49 WBC 17.93 H (4.8-10.8) K/uL RBC 3.31 L (4.7-6.1) M/uL Hgb 8.0 L (14.0-18.0) g/dL Hct 26.4 L (42-52) % Plt Count 407 H (130-400) K/uL Neut # (Auto) 14.70 H (1.4-6.5) K/uL Lymph # (Auto) 1.04 L (1.2-3.4) K/uL [place] # (Auto) 1.11 H (0.11-0.59) K/uL Eos # (Auto) 0.92 H (0-0.5) K/uL Baso # (Auto) 0.03 (0-0.2) K/uL Comprehensive Metabolic Panel 10/29/19 Range/Units 08:49 Sodium 137 (136-145) mmol/L Potassium 4.0 (3.5-5.1) mmol/L Chloride 110 H (98-107) mmol/L Carbon Dioxide 20 L (21-32) mmol/L BUN 25 H (7-18) mg/dl Creatinine 1.90 H (0.6-1.4) mg/dl Glucose 100 H (70-99) mg/dl Calcium 9.2 (8.5-10.1) mg/dl AST 22 (15-37) U/L ALT 12 (12-78) U/L Alkaline Phosphatase 90 (45-117) U/L Total Protein 6.2 L (6.4-8.2) gm/dl Albumin 1.9 L (3.4-5.0) gm/dl Intake and Output 10/28/19 10/29/19 10/29/19 22:59 06:59 14:59 Intake Total 1371.333 / 3918.000 1426.667 / 3918.000 210 / 210 Output Total 650 / 1353 703 / 1353 Balance 721.333 / 2565.000 723.667 / 2565.000 210 / 210 Intake: IV 1021.333 / 3268.000 1126.667 / 3268.000 210 / 210 Cancidas 50 mg In Nss 250 ml @ 260 / 260 260 mls/hr IV Q24H [facility] Rx#: [id number] Vibramycin 100 mg In D5 100 ml 110.000 / 110.000 110 / 110 @ 55 mls/hr IV Q12 [facility] Rx#: [id number] Primaxin 300 mg In D5 100 ml @ 106 / 318 212 / 318 100 mls/hr IV Q6H [facility] Rx#: [id number] MAGNESIUM SULFATE / D5W 1 gm In 100 / 100 100 / 100 100 ml @ 100 mls/hr IV Q1H [facility] Rx#:[id number] NORMAL SALINE w/20 MEQ KCL 20 5.333 / 820.000 814.667 / 820.000 meq In 1,000 ml @ 80 mls/hr IV .[id number] [facility] Rx#:[id number] Vancomycin HCl 2,000 mg In Nss 540 / 540 500 ml @ 200 mls/hr IV NOW ONE Rx#:[id number] Oral 350 / 650 300 / 650 Output: Urine 650 / 650 Urine Amount (Catheter) 700 / 700 Right Ureteral 700 / 700 # Bowel Movements 3 / 3 Other: Weight 98.2 kg Diagnostic Findings Admission electrocardiogram: Sinus tachycardia, a subsequent electrocardiogram shows a multifocal atrial tachycardia. Telemetry: When he arrived his heart rate was around 110-120 and consistent with MAT, over the past 24 hours the rate has gradually dropped until it is now just over 100 and sinus tachycardia often with atrial bigeminy. Echocardiography: Technically limited study, overall reasonably normal left ventricular function. PG Care Time/CCT Total # of Minutes Spent Total Time Spent with Patient: Total time spent is greater than 50% in coordination of care (as documented) at patient's floor/unit and/or counseling patient: Coding Level of Care Code 36354 Initial Inpt Care Lvl 3 Diagnoses Atrial tachycardia I47.1
[2019-10-29] MEDS: VANCOMYCIN HCL 1,250 MG in SODIUM CHLORIDE 0.9% 250 ML IV SCH (13:51)
--- NOTE | 2019-10-29 15:34 | Pharmacy Report ---
Pharmacy Abx Initial Consult - Date of Service October 29, 2019 - Pharmacy Dosing Scope Date of Consult: 10/27 Consultation requested by: Dr. Rodriguez Pharmacy is consulted to initiate vancomycin/primaxin IV/PO dosing therapy, order appropriate labs and adjust drug dose/frequency. - Subjective The patient is a 74 year old M admitted on 10/28/19 15:56. - Objective Height: 5 ft 8 in Weight: 98.2 kg Vital Signs (Past 12hrs): Vital Signs Temp Pulse Pulse Resp BP BP Pulse Ox 10/29/19 15:17 36.4 C L 83 18 129/69 100 10/29/19 11:41 37.7 C H 101 H 18 122/74 99 10/29/19 08:11 36.5 C 107 H 20 137/76 99 10/29/19 07:30 110 H 10/29/19 04:54 36.9 C 104 H 19 151/69 H 99 Lab Results (24hrs): Laboratory Tests (24 Hours) 10/29/19 10/29/19 10/29/19 08:49 08:49 08:49 WBC 17.93 H Neut # (Auto) 14.70 H Creatinine 1.90 H Est Cr Clr Drug Dosing 38.8 Procalcitonin Random Vancomycin 13.2 10/28/19 11:55 WBC Neut # (Auto) Creatinine Est Cr Clr Drug Dosing Procalcitonin 0.49 Random Vancomycin - Risk Factors for Resistance * Immunocompromised * History of infection with a multidrug-resistant organism: ESBL? * Antimicrobial use within the last 90 days: caspofungin, zosyn - Assessment & Plan Assessment 74 year old M started empirically on vancomycin/primaxin for possible pulmonary infection/UTI. History of bladder, lung CA. Urine culture currently growing gram negative bacilli, blood cultures negative at 24 hours, leukocytosis (17.9), Tmax 38.5 C Plan Vancomycin IV * Estimated PK Parameters: Vd 0.7 L/kg, Cade 0.0366 hr-1, t1/2 19 hr * Loading dose: 2000 mg (20 mg/kg) * Maintenance dose: 1250 mg IV (13 mg/kg) every 18 hours * Goal trough level 15-20 mcg/mL * Trough currently not ordered, will reasses renal function in AM * A less than traditional dose and/or extended dosing interval has/have been selected due to likelihood of drug accumulation in obese patient/patient with h/o CKD. Primaxin currently dosed appropriately for renal function 300 mg IV q6H Pharmacy will continue to follow and will adjust dose/frequency as necessary. Thank you.
[2019-10-29] MEDS: CASPOFUNGIN 50 MG in SODIUM CHLORIDE 0.9% 250 ML IV SCH (17:04)
--- NOTE | 2019-10-29 20:52 | Hospitalist Progress Note ---
Date of Service October 29, 2019 Assessment & Plan (1) Complicated UTI (urinary tract infection): Growing GNR in urine. Has ileal conduit and had recent nephrostomy tube - was on left - now removed. Blood cx's pending. Current abx will cover for hospital-acquired GNR. Await final cx. (2) Acute kidney injury: 2nd to sepsis - improving Cr today. repeat BMP in am. stop fluids later tonight to avoid volume overload. (3) Sepsis: likely 2nd to UTI. currently on imipenem for such. also on vanco (to cover port) and doxy (for atypical respiratory pathogens) but I don't suspect respiratory source as cause of sepsis. follow all cx's. supportive care. (4) Multifocal atrial tachycardia: echo stable cards consult appreciated cont BB nothing else to do at this time (5) Diastolic dysfunction: I do not believe patient has decompensated diastolic CHF. stop IV lasix. (6) COPD (chronic obstructive pulmonary disease): Continue inhalers no exacerbation at this time remains on small amount of NC O2 (7) Pulmonary emboli: Continue eliquis BID (8) Acute and chronic respiratory failure: need to clarify if patient is on home O2 stable O2 sats on [address] chest results reviewed (9) Hypertension: Stable at this time (10) Chronic kidney disease (CKD), stage III (moderate): baseline Cr ~1.6 Burton improving bmp in am stop fluids later tonight (11) Hydronephrosis: Persistent bilateral hydronephrosis and hydroureter Consult urology, [facility] follows w/ Dr Harvey (12) Metabolic encephalopathy: 2nd to sepsis / UTI supportive care (13) Urinoma: following removal of bladder and creation of ileal conduit/urostomy for bladder cancer patient developed a pelvic urinoma which grew resistant maria g strain. saw ID at [facility]. caspofungin recommended. cont such. (14) Bladder cancer: invasive s/p bladder resection and ileal conduit creation by Dr Joaquin at [facility] - 07/2019 appreciate urology consultation this admission (15) DVT prophylaxis: margie will need PT, OT left message for on voicemail - 10/29/2019 Admission and Anticipated Discharge Date Admission Date: October 28, 2019 Subjective patient very sleepy during the visit but woke easily. he remembered me from a prior hospitalization (when PEs were discovered). he complains of "aching all over" - this started after his fall at home. states both hips hurt but worse on the right side. no abdominal pain. poor appetite. denies dyspnea. denies cough. thinks the urine in his ileal conduit has been cloudy "for weeks". tele overnight - tachycardia, likely MAT. Review of Systems Constitutional: + body aches, + fatigue, + weakness and + anorexia Respiratory: no dyspnea Cardiovascular: no chest pain Gastrointestinal: no abdominal pain, no nausea and no vomiting Physical Exam Constitutional: + ill appearing, + altered mental status (slightly confused ) and + frail appearing; + not well nourished and no acute distress ENMT: external ear and nose normal, oropharynx normal Respiratory: normal respiratory effort, lungs clear to auscultation Auscultation: + diminished lung sounds (bases - mild ) Cardiovascular: Rate/Rhythm: + tachycardic and + irregularly irregular Heart Sounds: normal S1 and normal S2; no murmur Vessels: posterior tibial pulses present and dorsalis pedis pulses present; no JVD Extremities: + vascular access device (right upper chest - clean, no erythema or swelling ) Gastrointestinal (Abdomen): normal bowel sounds, soft, nontender, no hepatosplenomegaly ileal conduit in place with urostomy bag in place, right side of abdomen - cloudy urine present Musculoskeletal: mild discomfort with passive ROM of right hip; no pain with passive ROM left hip; no pain with palpation of pelvis Skin: + pallor Psychiatric: Orientation: alert, oriented to person and oriented to place Results & Data ([facility]) Vital Signs (Past 12 Hours) Vital Signs Temp Pulse Pulse Resp BP Pulse Ox 10/29/19 20:05 36.7 C 88 23 127/71 100 10/29/19 16:06 103 H 10/29/19 15:17 36.4 C L 83 18 129/69 100 10/29/19 11:41 37.7 C H 101 H 18 122/74 99 Laboratory Results Laboratory Results - last 24 hr 10/28/19 10/28/19 10/28/19 11:55 11:55 11:55 WBC RBC Hgb Hct MCV MCH MCHC RDW Std Deviation RDW Coeff of Effie Plt Count MPV Immature Gran % (Auto) Neut % (Auto) Lymph % (Auto) Mccormick % (Auto) Eos % (Auto) Baso % (Auto) Immature Gran # (Auto) Neut # (Auto) Lymph # (Auto) Mccormick # (Auto) Eos # (Auto) Baso # (Auto) Sodium Potassium Chloride Carbon Dioxide Anion Gap BUN Creatinine Est Cr Clr Drug Dosing Est GFR ( Amer) Est GFR (Non-Af Amer) BUN/Creatinine Ratio Glucose Estimat Average Glucose 123 Hemoglobin A1c 5.9 H Calcium Magnesium Total Bilirubin AST ALT Alkaline Phosphatase NT-Pro-B Natriuret Pep 338 Total Protein Albumin Globulin Albumin/Globulin Ratio Triglycerides Cholesterol LDL Cholesterol, Calc VLDL Cholesterol, Calc HDL Cholesterol Cholesterol/HDL Ratio Procalcitonin 0.49 TSH 0.102 L Free T4 Random Vancomycin 10/29/19 10/29/19 10/29/19 08:49 08:49 08:49 WBC 17.93 H RBC 3.31 L Hgb 8.0 L Hct 26.4 L MCV 79.8 L MCH 24.2 L MCHC 30.3 L RDW Std Deviation 48.2 H RDW Coeff of Effie 16.6 H Plt Count 407 H MPV 9.1 Immature Gran % (Auto) 0.7 Neut % (Auto) 82.0 Lymph % (Auto) 5.8 Mccormick % (Auto) 6.2 Eos % (Auto) 5.1 Baso % (Auto) 0.2 Immature Gran # (Auto) 0.13 H Neut # (Auto) 14.70 H Lymph # (Auto) 1.04 L Mccormick # (Auto) 1.11 H Eos # (Auto) 0.92 H Baso # (Auto) 0.03 Sodium 137 Potassium 4.0 Chloride 110 H Carbon Dioxide 20 L Anion Gap 6.0 BUN 25 H Creatinine 1.90 H Est Cr Clr Drug Dosing 38.8 Est GFR ( Amer) 39.4 Est GFR (Non-Af Amer) 34.0 BUN/Creatinine Ratio 13.1 Glucose 100 H Estimat Average Glucose Hemoglobin A1c Calcium 9.2 Magnesium 1.5 L Total Bilirubin 0.3 AST 22 ALT 12 Alkaline Phosphatase 90 NT-Pro-B Natriuret Pep Total Protein 6.2 L Albumin 1.9 L Globulin 4.3 H Albumin/Globulin Ratio 0.4 L Triglycerides 247 H Cholesterol 212 H LDL Cholesterol, Calc 155 VLDL Cholesterol, Calc 49 HDL Cholesterol 8 Cholesterol/HDL Ratio 27 Procalcitonin TSH Free T4 1.32 Random Vancomycin 13.2 Diagnostic Findings urine cx - >100,000 GNR blood cx's negative PG Care Time/CCT Total # of Minutes Spent Total Time Spent with Patient: Total time spent is greater than 50% in coordination of care (as documented) at patient's floor/unit and/or counseling patient: Coding Level of Care Code 16972 Subseq Hosp Care Lvl 3 Diagnoses Complicated UTI (urinary tract infection) N39.0 Acute kidney injury N17.9 Sepsis A41.9 Sepsis acute organ dysfunction status: unspecified Sepsis type: sepsis due to unspecified organism Multifocal atrial tachycardia I47.1 Diastolic dysfunction I51.89 COPD (chronic obstructive pulmonary disease) J44.9 Pulmonary emboli I26.09 Pulmonary embolism type: other Chronicity: acute Acute cor pulmonale presence: with acute cor pulmonale Acute and chronic respiratory failure J96.20 Hypertension I10 Hypertension type: essential hypertension Chronic kidney disease (CKD), stage III (moderate) N18.3 Hydronephrosis N13.30 Metabolic encephalopathy G93.41 Urinoma Bladder cancer C67.9 DVT prophylaxis Z29.9 (1) Sepsis Sepsis acute organ dysfunction status: unspecified Sepsis type: sepsis due to unspecified organism Qualified Code(s): A41.9 - Sepsis, unspecified organism (2) Pulmonary emboli Pulmonary embolism type: other Chronicity: acute Acute cor pulmonale presence: with acute cor pulmonale Qualified Code(s): I26.09 - Other pulmonary embolism with acute cor pulmonale (3) Hypertension Hypertension type: essential hypertension Qualified Code(s): I10 - Essential (primary) hypertension
[2019-10-29] MEDS: FINASTERIDE 5 MG TAB PO SCH (21:52)
[2019-10-30] MEDS: IMIPENEM/CILASTATIN SODIUM 300 MG in DEXTROSE 5% 100 ML IV SCH ×2 (00:14→05:58)
[2019-10-30] MEDS: ONDANSETRON 4 MG OD TAB PO SCH ×3 (05:58→20:19)
[2019-10-30] MEDS: VANCOMYCIN HCL 1,250 MG in SODIUM CHLORIDE 0.9% 250 ML IV SCH (06:02)
[2019-10-30 06:48] LABS: Hematocrit (blood only) 25.7 % (42-52); Mean Corpuscular Hgb Conc 31.1 g/dL (32-36); Mean Corpuscular Volume 80.3 fL (80-100); Mean Platelet Volume 9.2 fL (7.4-10.4); Platelet Count 477 K/uL (130-400); RDW Coefficient of Variation 16.5 % (11.5-14.5); RDW Standard Deviation 48.2 fL (36.4-46.3); White Blood Count 20.78 K/uL (4.8-10.8)
[2019-10-30 07:16] LABS: BUN Creatinine Ratio 10.8 (10-20); Est GFR (African American) 38.2; Est GFR (Non-African American) 32.9; Magnesium 1.6 mg/dl (1.8-2.4); Potassium 3.8 mmol/L (3.5-5.1)
[2019-10-30] MEDS: GABAPENTIN 300 MG CAP PO SCH ×2 (07:40→20:18)
[2019-10-30] MEDS: PANTOprazole 40 MG TAB PO SCH (07:41)
[2019-10-30] MEDS: LORATADINE 10 MG TAB PO SCH (07:41)
[2019-10-30] MEDS: DULOXETINE HCL 30 MG CAP PO SCH ×2 (07:41→15:54)
[2019-10-30] MEDS: APIXABAN 5 MG TABLET PO SCH (07:41)
[2019-10-30] MEDS: METOPROLOL SUCC 50MG EXT REL TAB PO SCH (07:41)
[2019-10-30] MEDS: HYDROCORTISONE ACETATE 25 MG SUPP PR SCH ×2 (07:41→20:19)
[2019-10-30] MEDS: FLUTICASONE/VILANTEROL 100/25MCG 14 PUFFS/INHALER INH SCH (07:42)
[2019-10-30] MEDS: HYDROCORTISONE HC 2.5% CRM 30GM TUBE EXT SCH ×2 (07:43→20:19)
[2019-10-30] MEDS ORDERED: CEFAZOLIN 1000MG 1,000 MG/7.5 ML SYR IV SCH (08:00)
[2019-10-30] MEDS: MAGNESIUM SULFATE / D5W 1 GM/100 ML BAG IV SCH ×2 (08:11→09:38)
[2019-10-30] MEDS ORDERED: LIDOCAINE 5% 1 PATCH TD SCH (12:30)
--- NOTE | 2019-10-30 12:48 | Urology Progress Note ---
Date of Service October 30, 2019 Assessment & Plan (1) Complicated UTI (urinary tract infection): (2) Hydronephrosis: (3) Sepsis: 74 year-old male with multiple complex comorbidities admitted with upper respiratory infection, possible pneumonia, sepsis, hydronephrosis, and complicated acute UTI. -Case reviewed with Dr. Zamora. -CT abd/pelvis reviewed, showing persistent bilateral hydronephrosis. -Discussion with Dr. Finley this morning, plan to repeat CT today. -Renal function remains elevated above baseline. -Afebrile overnight. -Urine culture positive for E.Coli, currently on IV Ceftriaxone. -Preliminary blood cultures showing no growth after 48 hours. -Continue supportive care, IV antibiotics per primary team. -If acute changes, increasing hydronephrosis, or persistent fevers, recommend transfer to tertiary care for possible nephrostomy tubes. -Patient updated, all questions answered. -Will continue to follow while inpatient. Subjective Patient examined, awake, appears uncomfortable. Feels generalized achiness. Does report minor improvement since yesterday, however states "not much". Reports he is having continued discomfort to his right lower abdomen/flank area. Reports generalized back pain. Denies fevers or chills, afebrile overnight. Urostomy with stoma intact to right lower abdominal quadrant, draining clear yellow urine. Denies hematuria. Denies nausea or vomiting but does not have much of an appetite. Right subclavian A-port intact. Chart review: Wbc 20.78 (previously 17.93) Hgb 8.0 Creatinine 1.95 (previously 1.90) Urine culture 10/27 showing E.Coli >100,000 cfu resistant to Ampicillin and Amp/Sul. Prelim blood cultures no growth after 48 hours. Review of Systems Constitutional: as per Subjective / HPI Gastrointestinal: as per Subjective / HPI Genitourinary: + as per Subjective / HPI Neurologic: no dizziness and no syncope Physical Exam Constitutional: well developed, + ill appearing and cooperative; no acute distress Appears uncomfortable with movement. ENMT: Ears: no external ear abnormality Nose: no external nose abnormality Neck: normal visual inspection and trachea midline Respiratory: + cough and able to speak in complete sentences; no respiratory distress and no audible wheezes Patient on 2L oxygen via nasal cannula. Cardiovascular: Extremities: no calf tenderness and no edema Gastrointestinal (Abdomen): Inspection/Auscultation: abdomen normal to inspection; abdomen not distended Percussion/Palpation: + abdomen tender (Tenderness to right lower quadrant upon palpation. ) and abdomen soft; no guarding No rebound tenderness. Skin: No visible rashes, lesions, or wounds noted. Neurologic: moves all extremities and awake Psychiatric: Orientation: alert and oriented x 3 Affect: + flat affect Genitourinary: + CVA tenderness (Positive right CVA tenderness) Urostomy intact to right abdominal quadrant draining cloudy yellow urine with sediment. Stoma pink and patent. Results & Data Vital Signs (Past 12 Hours) Vital Signs Temp Pulse Resp BP Pulse Ox 10/30/19 11:18 36.8 C 98 H 20 134/84 94 10/30/19 07:19 37 C 97 H 20 117/69 99 10/30/19 03:22 37.1 C 90 16 119/77 98 PG Care Time/CCT Total # of Minutes Spent Total Time Spent with Patient: Total time spent is greater than 50% in coordination of care (as documented) at patient's floor/unit and/or counseling patient: Coding Level of Care Code 58420 Subseq Hosp Care Lvl 2 Diagnoses Complicated UTI (urinary tract infection) N39.0 Hydronephrosis N13.30 Sepsis A41.9 Sepsis acute organ dysfunction status: unspecified Sepsis type: sepsis due to unspecified organism (1) Sepsis Sepsis acute organ dysfunction status: unspecified Sepsis type: sepsis due to unspecified organism Qualified Code(s): A41.9 - Sepsis, unspecified organism
--- NOTE | 2019-10-30 14:01 | XRay Report ---
SINGLE VIEW CHEST CLINICAL HISTORY: COPD. FINDINGS: An AP, portable, upright chest radiograph is compared to study dated 08/11/2019 and correla brayan with chest CT dated 10/28/2019. The examination is degraded by portable technique and patient rota tion. A right sided clearly and central venous infusion port is unchanged in position. The heart is e nlarged noting atherosclerotic calcification of the thoracic aorta. There is pulmonary vascular conge stion. Postoperative change and volume loss is noted in the right lung. 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 Scarring/atelectasis is noted at the lung base s. There are low lung volumes with bibasilar atelectasis. Trace pleural effusions are suspected. No p neumothorax is seen. The skeletal structures are osteopenic. The bony thorax is grossly intact. Degen erative change is noted in the shoulders. IMPRESSION: 1. Cardiomegaly with mild pulmonary vascular congestion. 2. Low lung volumes with changes of emphysema and chronic interstitial lung disease as above. 3. Suspect trace pleural effusions. ACT 112: Negative or not required by law. Electronically signed by: Abel Anderson M.D. 10/30/2019 1:59 PM
--- NOTE | 2019-10-30 14:12 | CT Scan Report ---
CT abd pelvis wo con CLINICAL HISTORY: 74 years-old Male presenting with persistent WBC, hematoma, interval change. TECHNIQUE: Multidetector CT of the abdomen and pelvis was performed without the use of intravenous co ntrast. IV contrast: None. One or more dose lowering techniques were used consistent with the princip les of ALARA (as low as reasonably achievable), including automatic exposure control, mA or kV adjust ment to individual patient size, and/or use of iterative reconstruction. COMPARISON: 10/28/2019 CT DOSE (mGy.cm): The estimated cumulative dose is 1173.91 mGycm. FINDINGS: Tray Worker topogram: Surgical clips project over the pelvis relating to prior prostatectomy. Lung bases: Multichamber enlargement of the heart. Coronary artery and aortic valve calcification. No pericardial or pleural effusion. Minimal dependent changes likely atelectasis. Postsurgical changes at the right lung base. Liver: Normal morphology. Normal density. Biliary: No gross biliary ductal dilatation allowing for noncontrast technique. Normal gallbladder. Pancreas: Normal noncontrast appearance. Spleen: Normal noncontrast appearance. Splenule noted. Adrenal glands: Normal noncontrast appearance. Kidneys and ureters: Mild bilateral pelvicalyceal dilatation and distention of the bilateral ureters. The ureters appear to enter into or immediately adjacent to the right pelvic sidewall fluid collecti on in the region of the ileal conduit. The degree of distention of the urinary collecting systems is similar to prior exam. Urothelial thickening is evident to a mild degree. Nonobstructing calculi note d at the lower poles. Several underlying parenchymal cysts. Bladder: Postsurgical changes of cystectomy. Pelvic organs: Postsurgical changes of prostatectomy. Bowel: A few diverticula noted in the proximal sigmoid colon. Fluid in the colon suggests a diarrheal state. No colonic wall thickening. Fatty atrophy of the appendix. No bowel obstruction. Postsurgical changes of the small bowel for ileal conduit creation. Grossly patent enteroenteric anastomosis in t he right lower quadrant. Peritoneal cavity: Trace fluid in the presacral region. There is also redemonstration of the multilob ular collection along the right pelvic sidewall, which has increased in size, now measuring 5.6 cm, p reviously measuring 4.6 cm. This has an extension along the right psoas muscle, which is also increas ed in size. This approaches the blind end of the ileal conduit. Ureters are indistinguishable from th e collection as they coursed to the ileal conduit. No significant free intraperitoneal fluid. No free intraperitoneal gas. Lymph nodes: No gross lymphadenopathy allowing for noncontrast technique. Vasculature: Atherosclerosis of the normal caliber abdominal aorta. Abdominal wall: Extensive postsurgical changes of the lower abdominal wall. Small fat-containing righ t inguinal hernia may be present. Right ileal conduit in the right mid abdomen. An old tract is noted into the right pelvic sidewall collection. No drain is currently in place. Musculoskeletal: Degenerative changes of the spine. Degenerative changes of the hips. IMPRESSION: 1. Interval increase in size of the right pelvic sidewall collection, which is multilobular. An old tract is noted associated with this collection exiting the right anterior abdominal wall indicating p rior drainage. As the distal course of the ureters is intimately associated with this collection as w ell as the increased size, a urinoma is of concern versus lymphocele. A chronic postoperative hematom a/seroma would not be expected to increase in size. 2. Post surgical changes of cystoprostatectomy and ileal conduit creation as on prior exam. 3. Moderate bilateral pelvicalyceal dilatation and distention of the ureters. This is chronic. Obstr uction is not favored. ACT 112: Negative or not required by law. Electronically signed by: Rafael Aguilar M.D. 10/30/2019 2:10 PM
[2019-10-30] MEDS ORDERED: DAPTOMYCIN CONSULT ACTIVE PRN (14:46)
[2019-10-30] MEDS ORDERED: DAPTOmycin 500 MG VIAL IV SCH (15:00)
[2019-10-30] MEDS ORDERED: DAPTOmycin 425 MG in SYRINGE 0 ML IV SCH (15:00)
--- NOTE | 2019-10-30 15:55 | Cardiology Progress Note ---
Date of Service October 30, 2019 Assessment & Plan (1) Atrial tachycardia: He has a long history of sinus tachycardia and atrial tachycardia, which is probably fundamentally related to his lung disease and his acute presentation. On this admission he seems to have had a multifocal atrial tach ycardia when he arrived, in the past it has appeared predominantly sinus tachycardia. He is on a beta-christopher, I am not sure exactly why that was started or what dose he is on. The MAT has resolved with clinical improvement this hospitalization and his heart rate is right around 100 now which is probably appropriate. These types of arrhythmias do not generally respond well to beta-blockade or calcium blockade and I would not alter his therapy based on this finding. Admission and Anticipated Discharge Date Admission Date: October 28, 2019 Subjective He has no complaints but is not very communicative. Physical Exam Physical Exam: Constitutional: Alert, cooperative and in mild distress. HEENT: Unremarkable Neck: No jugular venous distention, carotid pulses are normal and equal bilaterally without bruits. Pulmonary: Clear to auscultation bilaterally. Cardiac: Regular rhythm with no murmur, gallop or rub. Abdomen: Soft, nontender with normal bowel sounds. Extremities: No edema. Distal pulses intact. Neurologic: No focal findings. Gait not tested. Skin: No rash, ecchymoses or petechiae. Results & Data ([facility]) Vital Signs (Past 12 Hours) Vital Signs Temp Pulse Resp BP BP Pulse Ox 10/30/19 15:42 37.1 C 100 H 20 128/75 96 10/30/19 11:18 36.8 C 98 H 20 134/84 94 10/30/19 07:19 37 C 97 H 20 117/69 99 Laboratory Results CBC 10/30/19 Range/Units 06:28 WBC 20.78 H (4.8-10.8) K/uL RBC 3.20 L (4.7-6.1) M/uL Hgb 8.0 L (14.0-18.0) g/dL Hct 25.7 L (42-52) % Plt Count 477 H (130-400) K/uL Comprehensive Metabolic Panel 10/30/19 Range/Units 06:28 Sodium 134 L (136-145) mmol/L Potassium 3.8 (3.5-5.1) mmol/L Chloride 107 (98-107) mmol/L Carbon Dioxide 19 L (21-32) mmol/L BUN 21 H (7-18) mg/dl Creatinine 1.95 H (0.6-1.4) mg/dl Glucose 108 H (70-99) mg/dl Calcium 9.0 (8.5-10.1) mg/dl Intake and Output 10/30/19 10/30/19 10/30/19 06:59 14:59 22:59 Intake Total 366 / 3088.333 718.5 / 718.5 Output Total 600 / 2049 650 / 650 Balance -234 / 1038.333 68.5 / 68.5 Intake: IV 216 / 2638.333 518.5 / 518.5 Vibramycin 100 mg In D5 100 ml 110 / 220 @ 55 mls/hr IV Q12 JINNY Rx#: [id number] Primaxin 300 mg In D5 100 ml @ 106 / 318 106 / 106 100 mls/hr IV Q6H JINNY Rx#: [id number] MAGNESIUM SULFATE / D5W 1 gm In 200 / 200 100 ml @ 100 mls/hr IV Q1H JINNY Rx#:[id number] Vancomycin HCl 1,250 mg In Nss 212.5 / 212.5 250 ml @ 125 mls/hr IV Q18H JINNY Rx#:[id number] Oral 150 / 450 Tube Feeding 200 / 200 Output: Urine 0 / 0 Urine Amount (Catheter) 600 / 0 650 / 650 Right Ureteral 600 / 0 650 / 650 Other: Weight 99.5 kg Diagnostic Findings Telemetry: Sinus rhythm with frequent premature beats, average rate around 100 bpm PG Care Time/CCT Total # of Minutes Spent Total Time Spent with Patient: Total time spent is greater than 50% in coord ination of care (as documented) at patient's floor/unit and/or counseling patient: Coding Level of Care Code 17107 Subseq Hosp Care Lvl 2 Diagnoses Atrial tachycardia I47.1
[2019-10-30] MEDS ORDERED: cefTRIAXone SODIUM 2,000 MG in DEXTROSE 5% 50 ML IV SCH (16:00)
[2019-10-30] MEDS ORDERED: SODIUM CHLORIDE 0.9% 1000ML 1,000 ML IV SCH (16:15)
[2019-10-30] MEDS: CASPOFUNGIN 50 MG in SODIUM CHLORIDE 0.9% 250 ML IV SCH (17:12)
[2019-10-30] MEDS: FINASTERIDE 5 MG TAB PO SCH (20:18)
--- NOTE | 2019-10-30 20:35 | Discharge Summary ---
Date of Service date of admission - October 28, 2019 date of discharge - October 30, 2019 Admission HPI Per Admitting Provider The patient is a 74 years old male with past medical history of lung cancer s/p right lower lobe lobectomy, GERD, hypertension, CKD stage III, restrictive lung disease, COPD, history of pulmonary embolism, chronic diastolic congestive heart failure, and invasive bladder cancer s/p cystectomy, prostatectomy, and ileal conduit creation on 07/23/2019 at [facility] who presents to the emergency room via EMS complaining of an episode of a fall occurring at home on the AM of admission. The patient reports that he fell this morning when he was walking to the bathroom. He states that he hit his head and his head has been hurting since then. Patient explained that he does not know how long he was on the ground and he has been disoriented. Patient is a very poor historian. Patient reports that his right lower quadrant and right groin are severely painful. Patient reports having diarrhea but does not know how many days. Patient reports that he had a cough and is short of breath but this is his baseline. Records show that on October 19 Dr. Harvey from the [facility] office removed the patient's left-sided nephrostomy tube after recent anterograde nephrostogram showed no evidence of persistent leak. During that visit it was noted that the patient had a ANTONIA drain in the RLQ of the abdomen. Details as to when this was removed are not known. EKG shows multifocal atrial tachycardia. Labs: WBC 19.51, hemoglobin 9.1, hematocrit 30.5, platelets 487, PT 12.9, INR 1.2, APTT 28.6, VBG pH 7.46, PCO2 39, PO2 30, HCO3 27, O2 saturation less than 60. Sodium 134, potassium 3.7, chloride 107, carbon dioxide 20, anion gap 8, BUN 26, creatinine 2.19, GFR 28.6, glucose 98, hemoglobin A1c pending, lactate 1.6, calcium 9.6, magnesium 1.3, total bilirubin 0.5, AST 25, ALT 14, alkaline phosphatase 109, troponin 0.015, BNP 338, Albumin 2.2, globulin 5.1, pro calcitonin 0.49, TSH 0.102. Urine turbid, protein 1+, urine blood 2+, urine nitrate positive, leukocyte Estrace 3+, WBCs over 30, RBCs 5-10, urine bacteria 2+, MRSA negative, influenza A negative, influenza B negative. CT of the head no acute intracranial abnormality or calvarial fracture. CT abdomen and pelvis: No evidence of acute intra-abdominal or pelvic injury, given the limitation of a noncontrast study. Postsurgical changes of a cystectomy and diverting ileal loop ostomy. No evidence of bowel obstruction. No evidence of free air. Persistent bilateral hydronephrosis and hydroureter. Tiny bilateral nonobstructing renal calculi. Low density 46 mm right pelvic sidewall mass/fluid collection, slightly diminished in size when compared to the preceding study. This may represent an organized postsurgical hematoma. Continue follow-up is advocated. Near complete interval resolution of previously identified lobular right pelvics sidewall fluid collectionseroma. CT of the chest: No evidence of acute intra- abdominal or pelvic injury given the limitation of a noncontrast study. Chronic interstitial changes in the lung. No acute parenchymal consolidation. Postsurgical changes are prior right lower lobectomy. Stable mildly enlarged precarinal lymph nodes. Urine culture pending, blood culture pending, x2. The decision was made to admit patient to PCU on telemetry for urinary tract infection, sepsis, fall and generalized weakness. Principal Diagnosis sepsis 2nd to UTI and concern for infected pelvic fluid collection/developing abscess Discharge Exam Constitutional + ill appearing, + altered mental status (mildly confused ) and + frail appearing; + not well nourished and no acute distress ENMT external ear and nose normal, oropharynx normal Respiratory no respiratory distress Auscultation: + diminished lung sounds (bases - mild ) and + wheezes (end-exp, mild, b/l); no crackles Cardiovascular Rate/Rhythm: + tachycardic (irregular) Heart Sounds: normal S1 and normal S2; no murmur Vessels: posterior tibial pulses present and dorsalis pedis pulses present; no JVD Extremities: + vascular access device (right upper chest - clean, no erythema or swelling ); no edema Gastrointestinal (Abdomen) Inspection/Auscultation: normal bowel sounds; abdomen not distended Percussion/Palpation: + abdomen tender (inferior portion of RLQ and right flank as well ) and abdomen soft; no hepatosplenomegaly Musculoskeletal Spine: + paraspinal tenderness (lower lumbar spine, right side - near the right flank ) with passive range of motion of right hip patient still has mild right hip discomfort/groin discomfort Skin no rashes, warm and dry + pallor Psychiatric Orientation: alert, oriented to person and oriented to place; + not oriented to time Genitourinary ileal conduit right side of abdomen; conduit bag attached to cason bag; beni urine present Discharge Data Allergies Allergy/AdvReac Type Severity Reaction Status Date / Time levofloxacin [From Levaquin] Allergy Intermediate Swelling Verified 10/28/19 13:09 of extremities citalopram Allergy Mild GI symptoms Verified 10/28/19 13:09 pravastatin AdvReac Mild leg Verified 10/28/19 13:09 soreness rosuvastatin AdvReac Mild leg Verified 10/28/19 13:09 soreness Consultations [facility] Cardiology PT, OT Ordered Studies 1. CT cervical spine wo con - degenerative changes; no fractures. 2. CT head/brain wo con - no ICH or acute process. 3. 10/28/19: CT abd pelvis wo con - IMPRESSION: 1. No evidence of acute intra-abdominal or pelvic injury, given the limitations of a noncontrast study 2. Postsurgical changes of a cystectomy and diverting ileal loop ostomy 3. No evidence of bowel obstruction. No evidence of free air 4. Persistent bilateral hydronephrosis and hydroureter 5. Tiny bilateral nonobstructing renal calculi. 6. Low density 46 mm right pelvic sidewall mass/fluid collection, slightly diminished in size when compared the preceding study. This may represent an organizing postsurgical hematoma. Continued follow-up is advocated 7. Near complete interval resolution of previously identified lower right pelvic sidewall fluid collection/seroma 4. 10/28/19: CT chest wo con - IMPRESSION: 1. No evidence of acute intra-abdominal or pelvic injury given the limitations of a noncontrast study 2. Chronic interstitial changes in the lungs. No acute parenchymal consolidation 3. Post surgical changes are prior right lower lobectomy 4. Stable mildly enlarged precarinal lymph node 5. 10/30/19: CT abd pelvis wo con - IMPRESSION: 1. Interval increase in size of the right pelvic sidewall collection (now measuring 5.6 cm, previously measuring 4.6 cm), which is multilobular. An old tract is noted associated with this collection exiting the right anterior abdominal wall indicating prior drainage. As the distal course of the ureters is intimately associated with this collection as well as the increased size, a urinoma is of concern versus lymphocele. A chronic postoperative hematoma/seroma would not be expected to increase in size. 2. Post surgical changes of cystoprostatectomy and ileal conduit creation as on prior exam. 3. Moderate bilateral pelvicalyceal dilatation and distention of the ureters. This is chronic. Obstruction is not favored. 6. echocardiogram - * EF 60-65% * flattened septum c/w RV pressure overload * borderline RV systolic dysfunction * normal RV size * normal valvular function Hospital Course (1) Pelvic fluid collection: Right pelvic sidewall, adjacent to ileal conduit. Noted on CT abd/pelvis on 10/28/19 (day of admission) - 4.6cm in size. 10/30/19 - repeat CT was obtained as patient was complaining of more right flank/RLQ abdominal pain, leukocytosis was persisting despite broad-spectrum IV antibiotics, patient had no appetite, and overall patient was not progressing. The repeat CT showed the fluid collection was now 5.6cm in size. Patient had been receiving IV imipenem and IV vancomycin. These were changed to IV rocephin and IV daptomycin on 10/30/2019 (latter was changed due to mild acute kidney injury in the face of CKD). [facility] was following this patient while hospitalized and there was heavy concern that the fluid collection was infected in light of his clinical picture. There was also concern that the patient would need repeat nephrostomy tubes. Multiple phone calls were placed to both [facility] and [facility]. Discussions were held by phone with Dr Master Joaquin in [place], the patient's primary urologist, as well as urology in [place] & the hospitalist service at [place]. Dr Stein of urology from [place] and Dr Joaquin both advised IR drainage of this fluid collection. Following these calls the patient was accepted at [facility] for consideration of IR drainage of the RLQ pelvic fluid collection/possible developing abscess. I would like to thank Dr Stein and the hospitalist service at [place] for accepting this patient in transfer for ongoing care. Of note - patient's original cystectomy, prostatectomy, and ileal conduit creation was on 07/23/2020 at [facility] by Dr Master Joaquin. This was for invasive bladder cancer. Following that surgery and post-op course he was discharged, but then readmitted on 08/12/2020 to [facility] with sepsis. CT on 08/12/2020 showed right pelvic urinoma. Pigtail catheter was placed into that urinoma and grew a resistant candidal species. Ultimately was placed on caspofungin. During that same admission he had a left-sided nephrostomy tube placed. He was ultimately discharged to rehab in [place] where he received IV caspofungin via PICC line. Patient was followed by Dr Hal Harvey, [facility], in [place] in October 2019 for his complex urological issues. On October 19, following antegrade nephrostogram showing no evidence of persistent leak, the left-sided nephrostomy tube was removed. Although I do not have a specific date the pigtail catheter in the RLQ was discontinued a few days after the nephrostomy tube was removed. (2) Complicated UTI (urinary tract infection): 2nd to e.coli, largely pansensitive. Initially received IV imipenem; changed to IV rocephin on 10/30/2019. Blood cultures were negative while hospitalized. (3) Acute kidney injury: 2nd to sepsis. Cannot rule out obstructive process. Baseline Cr is about 1.6. Cr on day of discharge - 1.95. (4) Sepsis: 2nd to complicated UTI. also heavy concern that the RLQ pelvic fluid collection is a developing abscess. received broad-spectrum IV antibiotics while hospitalized. blood cultures were negative while here. (5) Multifocal atrial tachycardia: echo stable this admission remains on beta christopher seen by cardiology; no changes were made in his medications he has had MAT in the past per records likely due to severe COPD (6) Diastolic dysfunction: I do not believe patient had decompensated diastolic CHF while here. Remains on gentle IV Fluids. (7) COPD (chronic obstructive pulmonary disease): continue inhalers no exacerbation at this time remains on small amount of NC O2 intermittently has severe COPD at baseline (8) Pulmonary emboli: typically receives eliquis BID evening dose on 10/30/19 was HELD in preparation for possible intervention of fluid collection at outside hospital on 10/30 had PEs in early 2018, and then again early August 2019 (9) Hypertension: Stable during this stay (10) Chronic kidney disease (CKD), stage III (moderate): baseline Cr ~1.6 superimposed MOUNIKA while hospitalized see above (11) Hydronephrosis: Persistent bilateral hydronephrosis and hydroureter as seen on CT May need repeat percutaneous nephrostomy tubes at [facility] (12) Metabolic encephalopathy: 2nd to sepsis / UTI supportive care (13) Urinoma: see discussion above in "pelvic fluid collection" (14) Bladder cancer: invasive s/p bladder resection and ileal conduit creation by Dr Master Joaquin at [facility] - 07/[address] Varinder Harvey locally, [facility] (15) Hypomagnesemia: replaced with IV mag multiple times while here (16) Fall: was likely 2nd to weakness from developing sepsis CT head/c-spine/chest/abd/pelvis without apparent fractures or internal injuries; no evidence of ICH Total Time Total Time Spent Total Time Spent (In Minutes): 90 Total Time Includes: Examination of the Patient, Discharge Planning, Medication Reconciliation and Communication With Other Providers Discharge Plan Discharge Items Patient Disposition: Transfer Acute Care Hospital Reason For Visit: UTI,SEPSIS Discharge Diagnosis: sepsis complicated UTI concern for infected pelvic fluid collection recent fall and/or syncope - 2nd to developing sepsis (suspected) Activity: As commented below Activity Comment: out of bed to chair w/ assistance Non-emergency contact: Primary Care Provider and Urologist Call non-emergency contact if: you have any medication questions Follow-up/Referrals: Maureen Mcdaniels [Primary Care Provider] - Diet: Heart Healthy Addtl Attending Provider Instructions: to be determined after hospital stay at [facility] Pending Studies at Discharge: No Stand-Alone Forms: My [facility] Skilled Items Patient informed of condition?: Yes DNR: No Discharge Level of Care: Other Communicable Disease: No Discharge Prognosis: Other Lines: Peripheral IV Urinary Catheter: Yes (ileal conduit ) Medications and DC Order Prescriptions: Continued benzocaine-resorcinol 20-3 % cream 1 appln TOP UD RF: 0 budesonide-formoterol [Symbicort] 80-4.5 mcg/actuation HFA aerosol inhaler 2 puffs INH BID RF: 0 caspofungin 50 mg recon soln 50 mg IV Q24H RF: 0 hydrocortisone 2.5 % ointment 1 appln TOP BID RF: 0 lidocaine 3 % cream 1 appln TOP BID PRN (Reason: .) RF: 0 ondansetron HCl 4 mg tablet 4 mg PO Q8H RF: 0 pantoprazole 40 mg tablet,delayed release (DR/EC) 40 mg PO QAM RF: 0 levalbuterol tartrate [Xopenex HFA] 45 mcg/actuation Hfa Aerosol Inhaler 2 inh INHALATION Q6H PRN (Reason: Shortness Of Breath) RF: 0 tramadol [Ultram] 50 mg Tablet 50 mg PO Q6H PRN (Reason: Pain) RF: 0 duloxetine [Cymbalta] 30 mg Capsule,Delayed Release(Dr/Ec) 30 mg PO BIDM RF: 0 Breo Ellipta 100-25 mcg/dose Blister With Device 1 inh INHALATION DAILY RF: 0 finasteride [Proscar] 5 mg tablet 5 mg PO HS RF: 0 levalbuterol HCl 0.63 mg/3 mL solution for nebulization 0.63 mg INH TID PRN (Reason: SOB, Wheeing or Cough) RF: 0 metoprolol succinate [Toprol XL] 25 mg tablet extended release 24 hr 50 mg PO QAM RF: 0 hydrocortisone acetate 25 mg Suppository 25 mg [place] BID RF: 0 gabapentin 300 mg capsule 300 mg PO BID RF: 0 loratadine 10 mg Tablet 10 mg PO QDB RF: 0 apixaban 5 mg tablet 5 mg PO BID Qty: 0 RF: 0 Discontinued heparin, porcine (PF) [Heparin LockFlush(Porcine)(PF)] 10 unit/mL syringe 10 units IV DAILY RF: 0 piperacillin-tazobactam 2.25 gram recon soln 2.25 gm IV Q8H RF: 0 furosemide [Lasix] 20 mg Tablet 20 mg PO QAM RF: 0 Discharge Orders: Discharge Order (Routine); Ordered 10/30/19 Ordered By: Dread Finley Admission Data Admit Date/Time: 10/28/19 15:56 Attending Provider: Siuta,Dread R Admit Provider: Cira Rodriguez Primary Care Provider: Maureen Mcdaniels Other Providers: Cira Rodriguez ; Ian Leonardo ; Brooks Harvey Coding Level of Care Code D/C Day Management >30 mins Diagnoses Pelvic fluid collection R18.8 Complicated UTI (urinary tract infection) N39.0 Acute kidney injury N17.9 Sepsis A41.9 Sepsis acute organ dysfunction status: unspecified Sepsis type: sepsis due to unspecified organism Multifocal atrial tachycardia I47.1 Diastolic dysfunction I51.89 COPD (chronic obstructive pulmonary disease) J44.9 Pulmonary emboli I26.09 Acute cor pulmonale presence: with acute cor pulmonale Chronicity: acute Pulmonary embolism type: other Hypertension I10 Hypertension type: essential hypertension Chronic kidney disease (CKD), stage III (moderate) N18.3 Hydronephrosis N13.30 Metabolic encephalopathy G93.41 Urinoma Bladder cancer C67.9 Hypomagnesemia E83.42 Fall W19.XXXA
== END 2019-10-30 23:22 | disposition short-term general hospital (02) | DRG 871 ==
LOC: ED 11:28 → 2S 15:56 → SUATTDRO 15:56 → 2S 16:40

== ENCOUNTER 2019-11-25 14:08 | Inpatient (IN) ==
[2019-11-25] MEDS ORDERED: SODIUM CHLORIDE 0.9% 500 ML IV ONE (14:49)
--- NOTE | 2019-11-25 15:04 | Emergency Department Note ---
History of Present Illness General Chief complaint: Illness Time Seen by Provider: 11/25/19 14:27 Source: patient Mode of arrival: EMS Limitations: no limitations History of Present Illness Provider complaint: Fever and abdominal pain Onset (ago): day(s) 4 Location: abdomen Radiation: non-radiation Severity: moderate Pain Consistency: + constant Quality: + constant Relieved By: + none Exacerbated By: + other (Palpation) Associated symptoms: + fever/chills, + loss of appetite and + malaise; no nausea/vomiting and no shortness of breath Treatments prior to arrival: none This is a 74-year-old male with a complicated past medical history presenting from a [facility] due to several days of fevers and abdominal pain. Patient states approximately 4 to 5 days ago he began noticing lower abdominal pain, and at that time also began developing fevers in the evening and overnight. Patient states he does not know how high his temperature has gotten. Patient states his last bowel movement was this morning and was "dry". Patient denies any change in the color. No recent diarrhea. No vomiting. Patient denies any recent change in any medications. Patient does have known cancer that is not currently being treated. Patient has a nephrostomy tube. Drainage in the bag is clear and yellow, no obvious blood. Patient states he has a poor memory and often gets easily confused. Patient denies any other symptoms including nasal congestion or rhinorrhea, shortness of breath, chest pain. Patient states he has had a cough however this is been ongoing for several weeks to months. States it is intermittently productive of a white sputum. No hemoptysis. Pt is a poor historian. I did inquire of the charge nurse if any cases of COVID 19 have been reported at the facility the patient is from. There are no cases there to our knowledge. Pt seen during a time of high acuity and national emergency pandemic while wearing PPE. Home Medications Home Medications Medication Instructions Recorded Confirmed Type metoprolol succinate [Toprol XL] 25 mg PO DAILY@0900 06/05/19 11/25/19 History Breo Ellipta 1 inh INHALATION DAILY@0900 08/11/19 11/25/19 History duloxetine [Cymbalta] 30 mg PO BID 08/11/19 11/25/19 History ondansetron HCl 4 mg tablet 4 mg PO Q4H PRN 10/08/19 11/25/19 History pantoprazole 40 mg tablet,delayed 40 mg PO DAILY@0500 10/08/19 11/25/19 History release apixaban 5 mg PO BID #0 tab 10/30/19 11/25/19 Rx acetaminophen [Tylenol] 650 mg PO Q6H PRN 11/25/19 11/25/19 History diclofenac sodium 2 g TOPICAL TID 11/25/19 11/25/19 History ferrous sulfate 325 mg PO DAILY@79911/25/19 11/25/19 History folic acid 1 mg PO DAILY@89911/25/19 11/25/19 History furosemide 20 mg PO DAILY@79911/25/19 11/25/19 History gabapentin 200 mg PO BID 11/25/19 11/25/19 History hydrocortisone 1 applic TOPICAL QS 11/25/19 11/25/19 History melatonin 6 mg PO DAILY@199911/25/19 11/25/19 History mirtazapine 15 mg PO DAILY@199911/25/19 11/25/19 History potassium chloride 20 meq PO DAILY@79911/25/19 11/25/19 History Allergies Allergy/AdvReac Type Severity Reaction Status Date / Time levofloxacin [From Levaquin] Allergy Intermediate Swelling Verified 11/25/19 15:52 of extremities citalopram Allergy Mild GI symptoms Verified 11/25/19 15:52 pravastatin AdvReac Mild leg Verified 11/25/19 15:52 soreness rosuvastatin AdvReac Mild leg Verified 11/25/19 15:52 soreness Past Med/Surg History Medical History (Updated 11/26/19 @ 16:53 by Ana Maria Mahajan MD) Anxiety and depression Bladder cancer recent diagnosis (mass noted on CTS) BPH (benign prostatic hyperplasia) Chronic kidney disease, stage 3a Chronic respiratory failure with hypoxia COPD (chronic obstructive pulmonary disease) + O2 HS Degenerative disc disease Diverticulitis (11/22/13) hx (noted per 2014 records) Dyslipidemia GERD (gastroesophageal reflux disease) controlled Hearing deficit Hypertension Kidney stones Lung cancer (~12/2012) s/p lung resection/chemo Obesity Osteoarthritis Peripheral neuropathy b/l feet Pulmonary embolism 02/2019- on Xarelto Sinus tachycardia hx Skin cancer Surgical History History of colonoscopy History of discectomy LUMBAR History of esophagogastroduodenoscopy (EGD) History of hernia repair INGUINAL History of knee joint replacement RT/LEFT History of shoulder surgery RT History of tooth extraction History of vascular access device POWER PORT RIGHT CHEST (INTACT CURRENLTY) S/P partial lobectomy of lung RLL Family History Aunt Breast cancer Brother Cerebral arterial aneurysm Mother Cerebral arterial aneurysm Family/Other Cataracts, both eyes Myocardial infarction Diabetes Other No significant family history Social History Preferred Language: Japanese Communication Ability: Effective Mounting Inspector Required: No Beliefs That Will Affect Care: None marital status: Current Living Situation: Spouse Feels Safe at Home: Yes Safety Concerns: Feels Safe At This Time Smoking Status: Never smoker Tobacco Type: cigarettes ; Second Hand Exposure: No ; Hx Alcohol Use: No Hx Substance Use: No Review of Systems See HPI for pertinent positives & negatives. and A total of 10 systems reviewed and were otherwise negative Physical Exam Vital Signs Vital Signs - 24 hr 11/25/19 13:59 11/25/19 14:11 11/25/19 14:21 Temperature 36.9 C Temperature Source Oral Pulse Rate 111 H 115 H 113 H Pulse Rate from SpO2 Sensor 111 H 113 H Pulse Rhythm Regular Pulse Strength Normal Respiratory Rate 22 21 23 Respiratory Effort / Characteristics Non-Labored Spontaneous Respiratory Depth Normal Respiratory Pattern Regular Blood Pressure 111/75 111/75 Blood Pressure Mean 87 99 Blood Pressure Position Sitting Pulse Oximetry 95 95 95 Oxygen Delivery Method Room Air Sepsis Recent Fever Within 48 Hours Yes Sepsis New/Unexplained Change in Mental Status No Sepsis Action Taken by Nursing No Action Required 11/25/19 14:30 11/25/19 15:00 11/25/19 15:30 Temperature Temperature Source Pulse Rate 113 H 108 H 110 H Pulse Rate from SpO2 Sensor 113 H 102 H 109 H Pulse Rhythm Pulse Strength Respiratory Rate 21 22 26 H Respiratory Effort / Characteristics Respiratory Depth Respiratory Pattern Blood Pressure Blood Pressure Mean Blood Pressure Position Pulse Oximetry 94 95 97 Oxygen Delivery Method Sepsis Recent Fever Within 48 Hours Sepsis New/Unexplained Change in Mental Status Sepsis Action Taken by Nursing 11/25/19 15:40 11/25/19 15:58 04/07/20 16:00 Temperature Temperature Source Pulse Rate 113 H Pulse Rate from SpO2 Sensor 103 H Pulse Rhythm Pulse Strength Respiratory Rate Respiratory Effort / Characteristics Respiratory Depth Respiratory Pattern Blood Pressure 95/65 L Blood Pressure Mean 74 Blood Pressure Position Pulse Oximetry 97 Oxygen Delivery Method Room Air Sepsis Recent Fever Within 48 Hours Sepsis New/Unexplained Change in Mental Status Sepsis Action Taken by Nursing 11/25/19 16:23 11/25/19 16:30 11/25/19 17:00 Temperature Temperature Source Pulse Rate 105 H 112 H 102 H Pulse Rate from SpO2 Sensor 98 H 103 H 102 H Pulse Rhythm Pulse Strength Respiratory Rate Respiratory Effort / Characteristics Respiratory Depth Respiratory Pattern Blood Pressure 105/68 111/57 L 96/63 L Blood Pressure Mean 83 79 81 Blood Pressure Position Pulse Oximetry 97 97 97 Oxygen Delivery Method Room Air Sepsis Recent Fever Within 48 Hours Sepsis New/Unexplained Change in Mental Status Sepsis Action Taken by Nursing 11/25/19 17:24 11/25/19 17:30 11/25/19 18:00 Temperature Temperature Source Pulse Rate 101 H 101 H 100 H Pulse Rate from SpO2 Sensor 99 H 100 H 100 H Pulse Rhythm Pulse Strength Respiratory Rate 17 21 26 H Respiratory Effort / Characteristics Respiratory Depth Respiratory Pattern Blood Pressure 106/68 111/76 131/74 Blood Pressure Mean 85 88 81 Blood Pressure Position Pulse Oximetry 98 98 98 Oxygen Delivery Method Room Air Room Air Sepsis Recent Fever Within 48 Hours Sepsis New/Unexplained Change in Mental Status Sepsis Action Taken by Nursing 11/25/19 18:30 11/25/19 19:00 Temperature Temperature Source Pulse Rate 101 H 107 H Pulse Rate from SpO2 Sensor 99 H Pulse Rhythm Pulse Strength Respiratory Rate 23 19 Respiratory Effort / Characteristics Respiratory Depth Respiratory Pattern Blood Pressure 94/59 L 118/79 Blood Pressure Mean 66 90 Blood Pressure Position Pulse Oximetry 97 Oxygen Delivery Method Sepsis Recent Fever Within 48 Hours Sepsis New/Unexplained Change in Mental Status Sepsis Action Taken by Nursing GENERAL: alert, ill appearing, well nourished, no distress, non-toxic EYE EXAM: normal conjunctiva, PERRL and EOM's grossly intact OROPHARYNX: no exudate, no erythema, lips, buccal mucosa, and tongue normal and mucous membranes are moist NECK: supple, no nuchal rigidity, no adenopathy, non-tender LUNGS: Clear to auscultation. Normal chest wall mechanics, no w/r/r HEART: no murmurs, S1 normal and S2 normal ABDOMEN: abdomen soft, lower abdominal tenderness, normo-active bowel sounds, no masses, no rebound or guarding. Nephrostomy bag noted with clear yellow urine, no sediment or hematuria. BACK: Back is symmetrical on inspection and there is no deformity, no midline te nderness, no CVA tenderness. SKIN: no rashes and no bruising UPPER EXTREMITIES: upper extremities are grossly normal. FROM, nml pulses b/l. LOWER EXTREMITIES: 1+ pitting edema. FROM, nml pulses b/l. NEURO EXAM: Normal sensorium, cranial nerves II-XII grossly intact, normal speech, no gross weakness of arms, no gross weakness of legs. Gross sensation intact. Course Course 1744: VS stable. No change in condition. 1839: Discussed with Dr. Mahajan. Administered Medications Apixaban (Eliquis) 5 mg PO BID JINNY Stop: 12/25/19 22:09 Last Admin: 11/26/19 20:29 Dose: 5 mg Documented by: [id number] Admin: 11/26/19 07:37 Dose: 5 mg Documented by: [id number] Admin: 11/25/19 22:49 Dose: 5 mg Documented by: [id number] Duloxetine HCl (Cymbalta) 30 mg PO BID JINNY Stop: 12/25/19 22:09 Last Admin: 11/26/19 20:29 Dose: 30 mg Documented by: [id number] Admin: 11/26/19 07:36 Dose: 30 mg Documented by: [id number] Admin: 11/25/19 22:49 Dose: 30 mg Documented by: [id number] Fluticasone/Vilanterol (Breo Ellipta 100/25 Mcg Inh) 1 puffs INH DAILY@0900 JINNY Stop: 12/26/19 08:59 Last Admin: 11/26/19 07:36 Dose: 1 puffs Documented by: [id number] Gabapentin (Neurontin) 200 mg PO BID JINNY Stop: 12/25/19 22:09 Last Admin: 11/26/19 20:29 Dose: 200 mg Documented by: [id number] Admin: 11/26/19 07:36 Dose: 200 mg Documented by: [id number] Admin: 11/25/19 22:49 Dose: 200 mg Documented by: [id number] Sodium Chloride (Nss 1000ml) 1,000 mls @ 70 mls/hr IV .[id number] JINNY Stop: 12/25/19 18:44 Last Admin: 11/26/19 10:05 Dose: 70 mls/hr Documented by: [id number] Infusion: 11/26/19 09:20 Dose: 0 mls/hr Documented by: [id number] Admin: 11/26/19 01:07 Dose: 125 mls/hr Documented by: [id number] Infusion: 11/26/19 01:07 Dose: 125 mls/hr Documented by: [id number] Admin: 11/25/19 22:48 Dose: 125 mls/hr Documented by: [id number] Infusion: 11/25/19 22:48 Dose: 125 mls/hr Documented by: [id number] Admin: 11/25/19 19:54 Dose: 125 mls/hr Documented by: [id number] Piperacillin Sod/Tazobactam (Sod 3.375 gm/ Dextrose) 115 mls @ 28.75 mls/hr IV Q8H [facility]; Protocol Stop: 12/06/19 17:59 Last Infusion: 11/26/19 22:03 Dose: 0 mls/hr Documented by: [id number] Admin: 11/26/19 18:02 Dose: 28.8 mls/hr Documented by: [id number] Metoprolol Succinate (Toprol Xl) 25 mg PO DAILY@0900 [facility] Stop: 12/26/19 08:59 Last Admin: 11/26/19 07:36 Dose: 25 mg Documented by: [id number] Mirtazapine (Remeron) 15 mg PO DAILY@2000 [facility] Stop: 12/26/19 19:59 Last Admin: 11/26/19 20:29 Dose: 15 mg Documented by: [id number] Pantoprazole Sodium (Protonix) 40 mg PO DAILY@0500 [facility] Stop: 12/26/19 04:59 Last Admin: 11/26/19 05:32 Dose: 40 mg Documented by: [id number] Discontinued Medications Docusate Sodium (Colace) 100 mg PO NOW ONE Stop: 11/26/19 18:46 Last Admin: 11/26/19 20:29 Dose: 100 mg Documented by: [id number] Furosemide (Lasix) 20 mg PO DAILY@0800 [facility] Stop: 12/26/19 07:59 Last Admin: 11/26/19 07:36 Dose: 20 mg Documented by: [id number] Sodium Chloride (Nss) 500 mls @ 999 mls/hr IV .Q31M ONE Stop: 11/25/19 15:19 Last Infusion: 11/25/19 17:34 Dose: 0 mls/hr Documented by: [id number] Admin: 11/25/19 16:02 Dose: 999 mls/hr Documented by: [id number] Ceftriaxone Sodium (Rocephin) 2,000 mg in 70 mls @ 140 mls/hr IV NOW STA Stop: 11/25/19 17:22 Last Infusion: 11/25/19 18:50 Dose: 0 mls/hr Documented by: [id number] Admin: 11/25/19 17:30 Dose: 140 mls/hr Documented by: [id number] Magnesium Sulfate/Dextrose (Magnesium Sulfate / D5w) 1 gm in 100 mls @ 100 mls/hr IV ONE ONE Stop: 11/25/19 19:29 Last Infusion: 11/25/19 19:54 Dose: 0 mls/hr Documented by: [id number] Admin: 11/25/19 18:58 Dose: 100 mls/hr Documented by: [id number] Piperacillin Sod/Tazobactam (Sod 3.375 gm/ Dextrose) 115 mls @ 230 mls/hr IV NOW ONE; Protocol Stop: 11/26/19 13:29 Last Infusion: 11/26/19 13:44 Dose: 0 mls/hr Documented by: [id number] Admin: 11/26/19 13:08 Dose: 230 mls/hr Documented by: [id number] Potassium Chloride (Klor-Con M20) 20 meq PO DAILY@0800 JINNY Stop: 12/26/19 07:59 Last Admin: 11/26/19 07:36 Dose: 20 meq Documented by: [id number] Medical Decision Making Differential Diagnosis Differential diagnoses includes but is not limited to gastritis, peptic ulcer disease, GERD, gallbladder disease, pancreatitis, small bowel obstruction, acute coronary syndrome, pericarditis, ischemic bowel, irritable bowel disease, irritable bowel syndrome, appendicitis, diverticulitis, malignancy, hernia, urinary tract infection, torsion, [/ectopic (if female)], perforation, trauma, infectious, viral syndrome, otitis, pharyngitis, pneumonia, influenza, meningitis, sepsis, bacteremia, as well as others were entertained. Medical Records Attestation: I reviewed the patient's medical records. Home Medications Current Medication List: was personally reviewed by me Laboratory Data Attestation: I reviewed the patient's lab results. Result diagrams: 11/26/19 05:39 11/26/19 05:39 Lab Results 11/25/19 11/25/19 11/25/19 Range/Units 15:23 15:23 15:23 WBC 23.11 H (4.8-10.8) K/uL RBC 3.87 L (4.7-6.1) M/uL Hgb 9.4 L (14.0-18.0) g/dL Hct 30.7 L (42-52) % MCV 79.3 L (80-100) fL MCH 24.3 L (25-34) pg MCHC 30.6 L (32-36) g/dL RDW Std Deviation 49.8 H (36.4-46.3) fL RDW Coeff of Effie 17.4 H (11.5-14.5) % Plt Count 489 H (130-400) K/uL MPV 9.5 (7.4-10.4) fL Immature Gran % (Auto) 2.1 % Neut % (Auto) 78.3 % Lymph % (Auto) 5.1 % [place] % (Auto) 10.6 % Eos % (Auto) 3.6 % Baso % (Auto) 0.3 % Immature Gran # (Auto) 0.49 H (0.00-0.02) K/uL Neut # (Auto) 18.09 H (1.4-6.5) K/uL Lymph # (Auto) 1.17 L (1.2-3.4) K/uL [place] # (Auto) 2.44 H (0.11-0.59) K/uL Eos # (Auto) 0.84 H (0-0.5) K/uL Baso # (Auto) 0.08 (0-0.2) K/uL PT 13.0 H (9.0-12.0) Seconds INR 1.2 H (0.9-1.1) APTT 37.7 H (21.0-31.0) Seconds PTT Ratio 1.4 Sodium (136-145) mmol/L Potassium (3.5-5.1) mmol/L Chloride (98-107) mmol/L Carbon Dioxide (21-32) mmol/L Anion Gap (3-11) BUN (7-18) mg/dl Creatinine (0.6-1.4) mg/dl Est Cr Clr Drug Dosing ml/min Est GFR ( Amer) Est GFR (Non-Af Amer) BUN/Creatinine Ratio (10-20) Glucose (70-99) mg/dl Lactate (0.4-2.0) mmol/L Calcium (8.5-10.1) mg/dl Magnesium (1.8-2.4) mg/dl Total Bilirubin (0.2-1) mg/dl AST (15-37) U/L ALT (12-78) U/L Alkaline Phosphatase (45-117) U/L Troponin I (0-0.045) ng/ml Total Protein (6.4-8.2) gm/dl Albumin (3.4-5.0) gm/dl Globulin (2.5-4.0) gm/dl Albumin/Globulin Ratio (0.9-2) Procalcitonin 0.78 H (0-0.5) ng/ml Urine Color Urine Appearance (Clear) Urine pH (4.5-7.5) Ur Specific [place] (1.000-1.030) Urine Protein (Negative) Urine Glucose (UA) (Negative) Urine Ketones (Negative) Urine Blood (Negative) Urine Nitrite (Negative) Urine Bilirubin (Negative) Urine Urobilinogen (Negative) Ur Leukocyte Esterase (Negative) Urine WBC (Auto) (0-5) /hpf Urine RBC (Auto) (0-4) /hpf U Hyaline Cast (Auto) (0-5) /lpf U Epithel Cells (Auto) (0-5) /lpf Urine Bacteria (Auto) (Negative) Urine Yeast (None Prsent) Influenza Type A (PCR) (Neg) Influenza Type B (PCR) (Neg) 11/25/19 11/25/19 11/25/19 Range/Units 15:23 15:23 15:46 WBC (4.8-10.8) K/uL RBC (4.7-6.1) M/uL Hgb (14.0-18.0) g/dL Hct (42-52) % MCV (80-100) fL MCH (25-34) pg MCHC (32-36) g/dL RDW Std Deviation (36.4-46.3) fL RDW Coeff of Effie (11.5-14.5) % Plt Count (130-400) K/uL MPV (7.4-10.4) fL Immature Gran % (Auto) % Neut % (Auto) % Lymph % (Auto) % [place] % (Auto) % Eos % (Auto) % Baso % (Auto) % Immature Gran # (Auto) (0.00-0.02) K/uL Neut # (Auto) (1.4-6.5) K/uL Lymph # (Auto) (1.2-3.4) K/uL [place] # (Auto) (0.11-0.59) K/uL Eos # (Auto) (0-0.5) K/uL Baso # (Auto) (0-0.2) K/uL PT (9.0-12.0) Seconds INR (0.9-1.1) APTT (21.0-31.0) Seconds PTT Ratio Sodium 131 L (136-145) mmol/L Potassium 5.0 (3.5-5.1) mmol/L Chloride 103 (98-107) mmol/L Carbon Dioxide 23 (21-32) mmol/L Anion Gap 5.0 (3-11) BUN 41 H (7-18) mg/dl Creatinine 2.05 H (0.6-1.4) mg/dl Est Cr Clr Drug Dosing 35.7 ml/min Est GFR ( Amer) 35.9 Est GFR (Non-Af Amer) 31.0 BUN/Creatinine Ratio 20.0 (10-20) Glucose 109 H (70-99) mg/dl Lactate 1.7 (0.4-2.0) mmol/L Calcium 9.6 (8.5-10.1) mg/dl Magnesium 1.7 L (1.8-2.4) mg/dl Total Bilirubin 0.3 (0.2-1) mg/dl AST 19 (15-37) U/L ALT 14 (12-78) U/L Alkaline Phosphatase 132 H (45-117) U/L Troponin I < 0.015 (0-0.045) ng/ml Total Protein 7.1 (6.4-8.2) gm/dl Albumin 2.1 L (3.4-5.0) gm/dl Globulin 5.0 H (2.5-4.0) gm/dl Albumin/Globulin Ratio 0.4 L (0.9-2) Procalcitonin (0-0.5) ng/ml Urine Color Yellow Urine Appearance Turbid A (Clear) Urine pH 5.0 (4.5-7.5) Ur Specific [place] 1.019 (1.000-1.030) Urine Protein 3+ H (Negative) Urine Glucose (UA) Negative (Negative) Urine Ketones Negative (Negative) Urine Blood 3+ H (Negative) Urine Nitrite Positive A (Negative) Urine Bilirubin Negative (Negative) Urine Urobilinogen Negative (Negative) Ur Leukocyte Esterase 3+ H (Negative) Urine WBC (Auto) >30 H (0-5) /hpf Urine RBC (Auto) >30 H (0-4) /hpf U Hyaline Cast (Auto) 0 (0-5) /lpf U Epithel Cells (Auto) 10-20 H (0-5) /lpf Urine Bacteria (Auto) 1+ H (Negative) Urine Yeast Present A (None Prsent) Influenza Type A (PCR) (Neg) Influenza Type B (PCR) (Neg) 11/25/19 Range/Units 15:49 WBC (4.8-10.8) K/uL RBC (4.7-6.1) M/uL Hgb (14.0-18.0) g/dL Hct (42-52) % MCV (80-100) fL MCH (25-34) pg MCHC (32-36) g/dL RDW Std Deviation (36.4-46.3) fL RDW Coeff of Effie (11.5-14.5) % Plt Count (130-400) K/uL MPV (7.4-10.4) fL Immature Gran % (Auto) % Neut % (Auto) % Lymph % (Auto) % [place] % (Auto) % Eos % (Auto) % Baso % (Auto) % Immature Gran # (Auto) (0.00-0.02) K/uL Neut # (Auto) (1.4-6.5) K/uL Lymph # (Auto) (1.2-3.4) K/uL [place] # (Auto) (0.11-0.59) K/uL Eos # (Auto) (0-0.5) K/uL Baso # (Auto) (0-0.2) K/uL PT (9.0-12.0) Seconds INR (0.9-1.1) APTT (21.0-31.0) Seconds PTT Ratio Sodium (136-145) mmol/L Potassium (3.5-5.1) mmol/L Chloride (98-107) mmol/L Carbon Dioxide (21-32) mmol/L Anion Gap (3-11) BUN (7-18) mg/dl Creatinine (0.6-1.4) mg/dl Est Cr Clr Drug Dosing ml/min Est GFR ( Amer) Est GFR (Non-Af Amer) BUN/Creatinine Ratio (10-20) Glucose (70-99) mg/dl Lactate (0.4-2.0) mmol/L Calcium (8.5-10.1) mg/dl Magnesium (1.8-2.4) mg/dl Total Bilirubin (0.2-1) mg/dl AST (15-37) U/L ALT (12-78) U/L Alkaline Phosphatase (45-117) U/L Troponin I (0-0.045) ng/ml Total Protein (6.4-8.2) gm/dl Albumin (3.4-5.0) gm/dl Globulin (2.5-4.0) gm/dl Albumin/Globulin Ratio (0.9-2) Procalcitonin (0-0.5) ng/ml Urine Color Urine Appearance (Clear) Urine pH (4.5-7.5) Ur Specific [place] (1.000-1.030) Urine Protein (Negative) Urine Glucose (UA) (Negative) Urine Ketones (Negative) Urine Blood (Negative) Urine Nitrite (Negative) Urine Bilirubin (Negative) Urine Urobilinogen (Negative) Ur Leukocyte Esterase (Negative) Urine WBC (Auto) (0-5) /hpf Urine RBC (Auto) (0-4) /hpf U Hyaline Cast (Auto) (0-5) /lpf U Epithel Cells (Auto) (0-5) /lpf Urine Bacteria (Auto) (Negative) Urine Yeast (None Prsent) Influenza Type A (PCR) Neg for Influ A (Neg) Influenza Type B (PCR) Neg for Influ B (Neg) Imaging Data Radiologist's Impression: XR chest 1V portable CLINICAL HISTORY: 74 years-old Male presenting with SEPSIS. TECHNIQUE: Portable upright AP view of the chest was obtained. COMPARISON: 10/30/2019. FINDINGS: Right subclavian Mediport terminates in the mid SVC. Atherosclerosis of the aor tic arch. Cardiac silhouette moderately enlarged. Decreased pulmonary vascular prominence. Heterogeneity of lung markings in the right mid upper lung. No new focal opacity. Surgical clips project over the right hilum. No large effusion or pneumothorax. Degenerative changes of the thoracic spine and right glenohumeral joint. A catheter projects over the left upper quadrant. IMPRESSION: 1. Cardiomegaly. No evidence of significant volume overload or congestive change. 2. No focal infiltrate to suggest pneumonia. 3. Heterogeneous lung markings in the right upper lung related to underlying ch ronic lung disease. ACT 112: Negative or not required by law. Electronically signed by: Rafael Aguilar M.D. 11/25/2019 3:[address] OF THE ABDOMEN AND PELVIS WITHOUT CONTRAST CLINICAL HISTORY: Lower abdominal pain. COMPARISON STUDY: CT of the abdomen and pelvis October 30, 2019. TECHNIQUE: Axial images of the abdomen and pelvis were obtained without IV contrast. Images were reviewed in the axial, sagittal, and coronal planes. Automated exposure control was utilized for the study. A dose lowering technique was utilized adhering to the principles of ALARA. FINDINGS: Evaluation of the abdomen and pelvis is suboptimal on this unenhanced examination. Water attenuation right renal lesions favor cysts. A 3 mm right renal calculus is noted. There are no ureteral calculi. Right hydronephrosis has resolved following placement of a right percutaneous nephrostomy since CT of October 30, 2019. There is persistent moderate left hydronephrosis. The left nephrostomy catheter is displaced and at level of the abdominal wall. This has been withdrawn. There are postoperative findings consistent with a cystectomy with ileal conduit formation. Pelvic infiltration has decreased since exam of October 30, 2019. Previously described right pelvic sidewall fluid collection has essentially resolved. A 3.7 x 3 cm low-attenuation right anterior pelvic focus likely reflects a portion of the ileal conduit/small bowel loop. There is an adjacent anastomosis. Unenhanced images of the liver, spleen, adrenal glands and pancreas are unremarkable. There is no evidence for a bowel obstruction. Colonic diverticulosis is noted without evidence for acute diverticulitis. There is no lymphadenopathy. There are no suspicious osseous lesions. IMPRESSION: 1. Interval resolution of right hydronephrosis following placement of a right nephrostomy catheter which is appropriately positioned. 2. Malpositioned left nephrostomy catheter at the level of the abdominal wall. This catheter has been partially withdrawn with persistent moderate left hydronephrosis. 3. Status post cystectomy with ileal conduit formation. Interval decrease in pelvic infiltration and near complete resolution of the previously described right pelvic sidewall fluid collection. 3.7 x 3 cm low-attenuation right anterior pelvic focus likely reflects a portion of the ileal conduit or a small bowel loop. A nonspecific fluid collection could appear similar but is considered less likely. 4. No bowel obstruction. ACT 112: Negative or not required by law. Electronically signed by: Bryce Bentley M.D. 11/25/2019 5:45 PM Blood Pressure Blood Pressure Findings: Normal blood pressure MDM Narrative Pt here ill appearing sent in for fever last night per [place] records and outpt labs with significant leukocytosis. Pt here was afebrile c/o abd pain for 4-5 days. Repeat labs did reveal significant leukocytosis. Pt with mildly elevated Cr but not significantly elevated compared to prior levels. Anemia noted but stable compared to prior. Mild hyponatremia noted. Lactate acid normal however procalcitonin elevated suggestive of evolving sepsis. Culture sent. Chest x- ray did not reveal any obvious pneumonia or new effusions. I spent significant time trying to review additional records in the EMR given patient was a poor historian. During patient's last admission he was found to have a fluid collection in his abdomen. In light of this patient sent for CT of the abdomen and pelvis. In the interim the UA collected from the patient's nephrostomy tube was abnormal and patient was started on an antibiotic based on prior culture results. CT of the patient's abdomen and pelvis was improved compared to prior. Patient remained hemodynamically stable in the emergency room. Mildly tachycardic. Patient was given careful IV fluid rehydration given tenuous lab abnormalities in complicated past medical history. Patient had initially 1 L bolus and then was slowed to maintenance as a precaution. Patient was taking some p.o. in addition. Case discussed with hospitalist for additional evaluation and management. Patient will need urology consult due to dislodgment of nephrostomy tube. Patient made aware of results and was in agreement with plan. Impression & Plan Abdominal pain, Leukocytosis, UTI (urinary tract infection), Anemia, Hyponatremia, CKD (chronic kidney disease) Discharge Plan Visit Data *Final* Discharge Date/Time: 11/25/19 21:26 Chief Complaint: Illness ED Provider: Angely Curtis Discharge Problem: Abdominal pain, Leukocytosis, UTI (urinary tract infection), Anemia, Hyponatremia, CKD (chronic kidney disease) Patient Disposition: Admitted As Inpatient Condition: Fair Discharge Instructions Interventions: ED Discharge Assessment Last Done: 11/25/19 21:26 Discharge Problem: Abdominal pain Qualifiers: Abdominal location: lower abdomen, unspecified Qualified Code(s): R10.30 - Lower abdominal pain, unspecified Leukocytosis Qualifiers: Leukocytosis type: unspecified Qualified Code(s): D72.829 - Elevated white blood cell count, unspecified UTI (urinary tract infection) Qualifiers: Urinary tract infection type: site unspecified Hematuria presence: without hematuria Qualified Code(s): N39.0 - Urinary tract infection, site not specified Anemia Qualifiers: Anemia type: unspecified type Qualified Code(s): D64.9 - Anemia, unspecified CKD (chronic kidney disease) Qualifiers: Chronic kidney disease stage: unspecified stage Qualified Code(s): N18.9 - Chronic kidney disease, unspecified
--- NOTE | 2019-11-25 15:12 | XRay Report ---
XR chest 1V portable CLINICAL HISTORY: 74 years-old Male presenting with SEPSIS. TECHNIQUE: Portable upright AP view of the chest was obtained. COMPARISON: 10/30/2019. FINDINGS: Right subclavian Mediport terminates in the mid SVC. Atherosclerosis of the aortic arch. Cardiac silh ouette moderately enlarged. Decreased pulmonary vascular prominence. Heterogeneity of lung markings i n the right mid upper lung. No new focal opacity. Surgical clips project over the right hilum. No lar ge effusion or pneumothorax. Degenerative changes of the thoracic spine and right glenohumeral joint. A catheter projects over the left upper quadrant. IMPRESSION: 1. Cardiomegaly. No evidence of significant volume overload or congestive change. 2. No focal infiltrate to suggest pneumonia. 3. Heterogeneous lung markings in the right upper lung related to underlying chronic lung disease. ACT 112: Negative or not required by law. Electronically signed by: Rafael Aguilar M.D. 11/25/2019 3:11 PM
[2019-11-25 15:37] LABS: Basophils # (auto) 0.08 K/uL (0-0.2); Basophils % (auto) 0.3 %; Eosinophils # (auto) 0.84 K/uL (0-0.5); Eosinophils % (auto) 3.6 %; Hematocrit (blood only) 30.7 % (42-52); Hemoglobin 9.4 g/dL (14.0-18.0); Immature Granulocytes # (auto) 0.49 K/uL (0.00-0.02); Immature Granulocytes % (auto) 2.1 %; Lymphocytes # (auto) 1.17 K/uL (1.2-3.4); Lymphocytes % (auto) 5.1 %; Mean Corpuscular Hemoglobin 24.3 pg (25-34); Mean Corpuscular Hgb Conc 30.6 g/dL (32-36); Mean Corpuscular Volume 79.3 fL (80-100); Mean Platelet Volume 9.5 fL (7.4-10.4); Monocytes # (auto) 2.44 K/uL (0.11-0.59); Monocytes % (auto) 10.6 %; Neutrophils # (auto) 18.09 K/uL (1.4-6.5); Neutrophils % (auto) 78.3 %; Platelet Count 489 K/uL (130-400); RDW Coefficient of Variation 17.4 % (11.5-14.5); RDW Standard Deviation 49.8 fL (36.4-46.3); Red Blood Count 3.87 M/uL (4.7-6.1); White Blood Count 23.11 K/uL (4.8-10.8)
[2019-11-25 15:55] LABS: Alanine Aminotransferase 14 U/L (12-78); Albumin Level 2.1 gm/dl (3.4-5.0); Aspartate Aminotransferase 19 U/L (15-37); Blood Urea Nitrogen 41 mg/dl (7-18); Calcium 9.6 mg/dl (8.5-10.1); Carbon Dioxide 23 mmol/L (21-32); Chloride 103 mmol/L (98-107); Creatinine Clr Calc Pharmacy 35.7 ml/min; Est GFR (African American) 35.9; Glucose 109 mg/dl (70-99); Magnesium 1.7 mg/dl (1.8-2.4); Sodium 131 mmol/L (136-145)
[2019-11-25 15:57] LABS: INR 1.2 (0.9-1.1); Partial Thromboplastin Ratio 1.4; Partial Thromboplastin Time 37.7 Seconds (21.0-31.0)
[2019-11-25 16:00] LABS: Albumin Globulin Ratio 0.4 (0.9-2); Alkaline Phosphatase 132 U/L (45-117); Bilirubin,Total 0.3 mg/dl (0.2-1); Total Protein 7.1 gm/dl (6.4-8.2); Troponin I < 0.015 ng/ml (0-0.045)
[2019-11-25 16:23] LABS: Appearance Urine Turbid (Clear); Bacteria Urine Automated 1+ (Negative); Bilirubin Urine Negative (Negative); Blood Urine 3+ (Negative); Color Urine Yellow; Glucose Urine UA Negative (Negative); Ketones Urine Negative (Negative); Leukocyte Esterase Urine 3+ (Negative); Nitrite Urine Positive (Negative); Protein Urine 3+ (Negative); Specific Gravity Urine 1.019 (1.000-1.030); Urobilinogen Urine Negative (Negative); WBC Urine Automated >30 /hpf (0-5)
[2019-11-25 16:37] LABS: Cast Urine Automated 0 /lpf (0-5); RBC Urine Automated >30 /hpf (0-4)
[2019-11-25 16:46] LABS: Influenza A virus by PCR Neg for Influ A (Neg); Influenza B virus by PCR Neg for Influ B (Neg)
[2019-11-25] MEDS ORDERED: cefTRIAXone SODIUM 2,000 MG/70 ML BAG IV STA (16:53)
--- NOTE | 2019-11-25 17:46 | CT Scan Report ---
CT OF THE ABDOMEN AND PELVIS WITHOUT CONTRAST CLINICAL HISTORY: Lower abdominal pain. COMPARISON STUDY: CT of the abdomen and pelvis October 30, 2019. TECHNIQUE: Axial images of the abdomen and pelvis were obtained without IV contrast. Images were revi ewed in the axial, sagittal, and coronal planes. Automated exposure control was utilized for the kira dy. A dose lowering technique was utilized adhering to the principles of ALARA. FINDINGS: Evaluation of the abdomen and pelvis is suboptimal on this unenhanced examination. Water at tenuation right renal lesions favor cysts. A 3 mm right renal calculus is noted. There are no uretera l calculi. Right hydronephrosis has resolved following placement of a right percutaneous nephrostomy since CT of October 30, 2019. There is persistent moderate left hydronephrosis. The left nephrostomy ca theter is displaced and at level of the abdominal wall. This has been withdrawn. There are postoperat felicia findings consistent with a cystectomy with ileal conduit formation. Pelvic infiltration has decre ased since exam of October 30, 2019. Previously described right pelvic sidewall fluid collection has es sentially resolved. A 3.7 x 3 cm low-attenuation right anterior pelvic focus likely reflects a portio n of the ileal conduit/small bowel loop. There is an adjacent anastomosis. Unenhanced images of the l iver, spleen, adrenal glands and pancreas are unremarkable. There is no evidence for a bowel obstruct ion. Colonic diverticulosis is noted without evidence for acute diverticulitis. There is no lymphaden opathy. There are no suspicious osseous lesions. IMPRESSION: 1. Interval resolution of right hydronephrosis following placement of a right nephrostomy catheter wh ich is appropriately positioned. 2. Malpositioned left nephrostomy catheter at the level of the abdominal wall. This catheter has been partially withdrawn with persistent moderate left hydronephrosis. 3. Status post cystectomy with ileal conduit formation. Interval decrease in pelvic infiltration and near complete resolution of the previously described right pelvic sidewall fluid collection. 3.7 x 3 cm low-attenuation right anterior pelvic focus likely reflects a portion of the ileal conduit or a sm all bowel loop. A nonspecific fluid collection could appear similar but is considered less likely. 4. No bowel obstruction. ACT 112: Negative or not required by law. Electronically signed by: Bryce Bentley M.D. 11/25/2019 5:45 PM
[2019-11-25] MEDS ORDERED: MAGNESIUM SULFATE / D5W 1 GM/100 ML BAG IV ONE (18:30)
[2019-11-25] MEDS: SODIUM CHLORIDE 0.9% 1000ML 1,000 ML IV SCH ×2 (19:54→22:48)
--- NOTE | 2019-11-25 21:45 | History & Physical Report ---
Date of Service November 25, 2019 Assessment & Plan (1) Abdominal pain: John Lynch is a 74y/o M with PMH significant for pulmonary emphysema, CKD, Multifocal atrial tachycardia; who presented from a detention due to several days of fevers and abdominal pain. Abdominal pain: - likely 2/2 complicated UTI, in the setting of malpositioned nephrostomy tube - CT abdomen/pelvis demonstrated malpositioned left nephrostomy catheter at the level of the abdominal wall, with persistent moderate left hydronephrosis - urinalysis demonstrated nitrites, leuk esterase, >30 WBC, >30 RBC, and bacteria - received 2gm Ceftriaxone in ED - previous urine culture reynoso-sensitive to cephalosporins; previously resistant to Amp and Amp/Sulbactam - do not suspect MDR organism in this setting - Urine culture pending - will continue Ceftriaxone 1gm daily - Urology consulted CKD stage III: - patients Cr 2.05 on admission, with baseline over last several months close to 1.9 Pulmonary emphysema: - continue home Breo Ellipta Depressive disorder: - continue home regimen Multifocal atrial tachycardia: - patient persistently tachy during admission - continue home metoprolol 25mg daily - continue patient's home Eliquis Hx of Pulmonary emboli: - uncertain of last episode, or number of embolic events - patient on 5mg Eliquis daily Diet: NPO at midnight for potential Urology intervention DVT ppx: on home Eliquis Code Status: Full code (2) Leukocytosis: (3) UTI (urinary tract infection): (4) Pulmonary emphysema: (5) Depressive disorder: (6) Diastolic dysfunction: (7) Multifocal atrial tachycardia: (8) Chronic kidney disease (CKD), stage III (moderate): Admission and Anticipated Discharge Date Admission Date: November 25, 2019 History of Present Illness Chief Complaint: Abdominal pain Primary Care Provider: Ramon Serrato John Lynch is a 74y/o M with PMH significant for pulmonary emphysema, CKD, Multifocal atrial tachycardia; who presented from a detention due to several days of fevers and abdominal pain. Approximately 4 to 5 days of lower abdominal pain, with persistent fevers in the evening and overnight; with unknown max temp. Patient denies changes to his bowel movement, or increase in diarrhea. Patient does have known cancer that is not currently being treated. Patient had nephrostomy tubes placed by [facility] approximately three weeks ago, and since that time has had consistent drainage in the bag that is clear and yellow, without obvious signs of blood. Patient denies any other symptoms including nasal congestion or rhinorrhea, shortness of breath, chest pain. Patient states he has had a cough however this is been ongoing for several months, does not have any recent travel outside of the [facility], or exposure to a person with known or pending COVID. ED called nursing facility for determination of potential exposures, and relayed that his facility does not have any suspected or known cases of COVID. Allergies Allergy/AdvReac Type Severity Reaction Status Date / Time levofloxacin [From Levaquin] Allergy Intermediate Swelling Verified 11/25/19 15:52 of extremities citalopram Allergy Mild GI symptoms Verified 11/25/19 15:52 pravastatin AdvReac Mild leg Verified 11/25/19 15:52 soreness rosuvastatin AdvReac Mild leg Verified 11/25/19 15:52 soreness Home Medications Home Medications Medication Instructions Recorded Confirmed Type metoprolol succinate [Toprol XL] 25 mg PO DAILY@89906/05/19 11/25/19 History Breo Ellipta 1 inh INHALATION DAILY@89908/11/19 11/25/19 History duloxetine [Cymbalta] 30 mg PO BID 08/11/19 11/25/19 History ondansetron HCl 4 mg tablet 4 mg PO Q4H PRN 10/08/19 11/25/19 History pantoprazole 40 mg tablet,delayed 40 mg PO DAILY@0500 10/08/19 11/25/19 History release apixaban 5 mg PO BID #0 tab 10/30/19 11/25/19 Rx acetaminophen [Tylenol] 650 mg PO Q6H PRN 11/25/19 11/25/19 History diclofenac sodium 2 g TOPICAL TID 11/25/19 11/25/19 History ferrous sulfate 325 mg PO DAILY@79911/25/19 11/25/19 History folic acid 1 mg PO DAILY@89911/25/19 11/25/19 History furosemide 20 mg PO DAILY@79911/25/19 11/25/19 History gabapentin 200 mg PO BID 11/25/19 11/25/19 History hydrocortisone 1 applic TOPICAL QS 11/25/19 11/25/19 History melatonin 6 mg PO DAILY@199911/25/19 11/25/19 History mirtazapine 15 mg PO DAILY@199911/25/19 11/25/19 History potassium chloride 20 meq PO DAILY@79911/25/19 11/25/19 History Past Med/Surg History Medical History (Updated 11/26/19 @ 16:53 by Ana Maria Mahajan MD) Anxiety and depression Bladder cancer recent diagnosis (mass noted on CTS) BPH (benign prostatic hyperplasia) Chronic kidney disease, stage 3a Chronic respiratory failure with hypoxia COPD (chronic obstructive pulmonary disease) + O2 HS Degenerative disc disease Diverticulitis (11/22/13) hx (noted per 2014 records) Dyslipidemia GERD (gastroesophageal reflux disease) controlled Hearing deficit Hypertension Kidney stones Lung cancer (~12/2012) s/p lung resection/chemo Obesity Osteoarthritis Peripheral neuropathy b/l feet Pulmonary embolism 02/2019- on Xarelto Sinus tachycardia hx Skin cancer Surgical History History of colonoscopy History of discectomy LUMBAR History of esophagogastroduodenoscopy (EGD) History of hernia repair INGUINAL History of knee joint replacement RT/LEFT History of shoulder surgery RT History of tooth extraction History of vascular access device POWER PORT RIGHT CHEST (INTACT CURRENLTY) S/P partial lobectomy of lung RLL Family History Aunt Breast cancer Brother Cerebral arterial aneurysm Mother Cerebral arterial aneurysm Family/Other Cataracts, both eyes Myocardial infarction Diabetes Other No significant family history Social History Preferred Language: Spanish Communication Ability: Effective 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 Beliefs That Will Affect Care: None marital status: Current Living Situation: Spouse Feels Safe at Home: Yes Safety Concerns: Feels Safe At This Time Smoking Status: Never smoker Tobacco Type: cigarettes ; Second Hand Exposure: No ; Hx Alcohol Use: No Hx Substance Use: No Review of Systems Review of Systems: All systems reviewed & are unremarkable except as noted in HPI & below Physical Exam Constitutional: WD/WN, vitals as above Eyes: PERRL, conjunctivae normal, anicteric sclerae ENMT: external ear and nose normal, oropharynx normal Neck: normal visual inspection Respiratory: normal respiratory effort, lungs clear to auscultation no labored breathing Auscultation: no crackles, no rales and no wheezes Cardiovascular: Rate/Rhythm: regular rate and regular rhythm Heart Sounds: normal S1 and normal S2; no gallop, no murmur and no cardiac rub Vessels: normal peripheral pulses; no JVD Extremities: no pedal edema Gastrointestinal (Abdomen): Inspection/Auscultation: normal bowel sounds Percussion/Palpation: + abdomen tender (diffuse) and abdomen soft; no guarding, no hepatosplenomegaly and no abdominal mass Musculoskeletal: no cyanosis or clubbing, extremities motor strength 5/5 Skin: no rashes, warm and dry Neurologic: patellar DTR's 2+ bilat, sensation intact and PERRL, EOMI, accommodation nl, no face palsy, no dysarthria normal touch/pain/proprioception Psychiatric: A+Ox3, euthymic affect Genitourinary: no CVA tenderness Lymphatic: no cervical or axillary lymphadenopathy Results & Data Results & Data ([facility]) Vital Signs (Past 12 Hours) Vital Signs Temp Pulse Resp BP Pulse Ox 11/25/19 21:17 107 H 16 132/70 95 11/25/19 20:31 104 H 17 94/59 L 95 11/25/19 20:01 103 H 24 123/72 95 11/25/19 19:30 102 H 22 131/72 96 11/25/19 19:00 107 H 19 118/79 97 11/25/19 18:30 101 H 23 94/59 L 11/25/19 18:00 100 H 26 H 131/74 98 11/25/19 17:30 101 H 21 111/76 98 11/25/19 17:24 101 H 17 106/68 98 11/25/19 17:00 102 H 96/63 L 97 11/25/19 16:30 112 H 111/57 L 97 11/25/19 16:23 105 H 105/68 97 11/25/19 16:00 97 11/25/19 15:40 113 H 95/65 L 11/25/19 15:30 110 H 26 H 97 11/25/19 15:00 108 H 22 95 11/25/19 14:30 113 H 21 94 11/25/19 14:21 113 H 23 95 11/25/19 14:11 115 H 21 111/75 95 11/25/19 13:59 36.9 C 111 H 22 111/75 95 Laboratory Results 11/25/19 11/25/19 11/25/19 Range/Units 15:49 15:46 15:23 WBC (4.8-10.8) K/uL RBC (4.7-6.1) M/uL Hgb (14.0-18.0) g/dL Hct (42-52) % MCV (80-100) fL MCH (25-34) pg MCHC (32-36) g/dL RDW Std Deviation (36.4-46.3) fL RDW Coeff of Effie (11.5-14.5) % Plt Count (130-400) K/uL MPV (7.4-10.4) fL Immature Gran % (Auto) % Neut % (Auto) % Lymph % (Auto) % [place] % (Auto) % Eos % (Auto) % Baso % (Auto) % Immature Gran # (Auto) (0.00-0.02) K/uL Neut # (Auto) (1.4-6.5) K/uL Lymph # (Auto) (1.2-3.4) K/uL [place] # (Auto) (0.11-0.59) K/uL Eos # (Auto) (0-0.5) K/uL Baso # (Auto) (0-0.2) K/uL PT (9.0-12.0) Seconds INR (0.9-1.1) APTT (21.0-31.0) Seconds PTT Ratio Sodium (136-145) mmol/L Potassium (3.5-5.1) mmol/L Chloride (98-107) mmol/L Carbon Dioxide (21-32) mmol/L Anion Gap (3-11) BUN (7-18) mg/dl Creatinine (0.6-1.4) mg/dl Est Cr Clr Drug Dosing ml/min Est GFR ( Amer) Est GFR (Non-Af Amer) BUN/Creatinine Ratio (10-20) Glucose (70-99) mg/dl Lactate 1.7 (0.4-2.0) mmol/L Calcium (8.5-10.1) mg/dl Magnesium (1.8-2.4) mg/dl Total Bilirubin (0.2-1) mg/dl AST (15-37) U/L ALT (12-78) U/L Alkaline Phosphatase (45-117) U/L Troponin I (0-0.045) ng/ml Total Protein (6.4-8.2) gm/dl Albumin (3.4-5.0) gm/dl Globulin (2.5-4.0) gm/dl Albumin/Globulin Ratio (0.9-2) Procalcitonin (0-0.5) ng/ml Urine Color Yellow Urine Appearance Turbid A (Clear) Urine pH 5.0 (4.5-7.5) Ur Specific Vest 1.019 (1.000-1.030) Urine Protein 3+ H (Negative) Urine Glucose (UA) Negative (Negative) Urine Ketones Negative (Negative) Urine Blood 3+ H (Negative) Urine Nitrite Positive A (Negative) Urine Bilirubin Negative (Negative) Urine Urobilinogen Negative (Negative) Ur Leukocyte Esterase 3+ H (Negative) Urine WBC (Auto) >30 H (0-5) /hpf Urine RBC (Auto) >30 H (0-4) /hpf U Hyaline Cast (Auto) 0 (0-5) /lpf U Epithel Cells (Auto) 10-20 H (0-5) /lpf Urine Bacteria (Auto) 1+ H (Negative) Urine Yeast Present A (None Prsent) Influenza Type A (PCR) Neg for Influ A (Neg) Influenza Type B (PCR) Neg for Influ B (Neg) 11/25/19 11/25/19 11/25/19 Range/Units 15:23 15:23 15:23 WBC 23.11 H (4.8-10.8) K/uL RBC 3.87 L (4.7-6.1) M/uL Hgb 9.4 L (14.0-18.0) g/dL Hct 30.7 L (42-52) % MCV 79.3 L (80-100) fL MCH 24.3 L (25-34) pg MCHC 30.6 L (32-36) g/dL RDW Std Deviation 49.8 H (36.4-46.3) fL RDW Coeff of Effie 17.4 H (11.5-14.5) % Plt Count 489 H (130-400) K/uL MPV 9.5 (7.4-10.4) fL Immature Gran % (Auto) 2.1 % Neut % (Auto) 78.3 % Lymph % (Auto) 5.1 % [place] % (Auto) 10.6 % Eos % (Auto) 3.6 % Baso % (Auto) 0.3 % Immature Gran # (Auto) 0.49 H (0.00-0.02) K/uL Neut # (Auto) 18.09 H (1.4-6.5) K/uL Lymph # (Auto) 1.17 L (1.2-3.4) K/uL [place] # (Auto) 2.44 H (0.11-0.59) K/uL Eos # (Auto) 0.84 H (0-0.5) K/uL Baso # (Auto) 0.08 (0-0.2) K/uL PT 13.0 H (9.0-12.0) Seconds INR 1.2 H (0.9-1.1) APTT 37.7 H (21.0-31.0) Seconds PTT Ratio 1.4 Sodium 131 L (136-145) mmol/L Potassium 5.0 (3.5-5.1) mmol/L Chloride 103 (98-107) mmol/L Carbon Dioxide 23 (21-32) mmol/L Anion Gap 5.0 (3-11) BUN 41 H (7-18) mg/dl Creatinine 2.05 H (0.6-1.4) mg/dl Est Cr Clr Drug Dosing 35.7 ml/min Est GFR ( Amer) 35.9 Est GFR (Non-Af Amer) 31.0 BUN/Creatinine Ratio 20.0 (10-20) Glucose 109 H (70-99) mg/dl Lactate (0.4-2.0) mmol/L Calcium 9.6 (8.5-10.1) mg/dl Magnesium 1.7 L (1.8-2.4) mg/dl Total Bilirubin 0.3 (0.2-1) mg/dl AST 19 (15-37) U/L ALT 14 (12-78) U/L Alkaline Phosphatase 132 H (45-117) U/L Troponin I < 0.015 (0-0.045) ng/ml Total Protein 7.1 (6.4-8.2) gm/dl Albumin 2.1 L (3.4-5.0) gm/dl Globulin 5.0 H (2.5-4.0) gm/dl Albumin/Globulin Ratio 0.4 L (0.9-2) Procalcitonin (0-0.5) ng/ml Urine Color Urine Appearance (Clear) Urine pH (4.5-7.5) Ur Specific Vest (1.000-1.030) Urine Protein (Negative) Urine Glucose (UA) (Negative) Urine Ketones (Negative) Urine Blood (Negative) Urine Nitrite (Negative) Urine Bilirubin (Negative) Urine Urobilinogen (Negative) Ur Leukocyte Esterase (Negative) Urine WBC (Auto) (0-5) /hpf Urine RBC (Auto) (0-4) /hpf U Hyaline Cast (Auto) (0-5) /lpf U Epithel Cells (Auto) (0-5) /lpf Urine Bacteria (Auto) (Negative) Urine Yeast (None Prsent) Influenza Type A (PCR) (Neg) Influenza Type B (PCR) (Neg) 11/25/19 Range/Units 15:23 WBC (4.8-10.8) K/uL RBC (4.7-6.1) M/uL Hgb (14.0-18.0) g/dL Hct (42-52) % MCV (80-100) fL MCH (25-34) pg MCHC (32-36) g/dL RDW Std Deviation (36.4-46.3) fL RDW Coeff of Effie (11.5-14.5) % Plt Count (130-400) K/uL MPV (7.4-10.4) fL Immature Gran % (Auto) % Neut % (Auto) % Lymph % (Auto) % [place] % (Auto) % Eos % (Auto) % Baso % (Auto) % Immature Gran # (Auto) (0.00-0.02) K/uL Neut # (Auto) (1.4-6.5) K/uL Lymph # (Auto) (1.2-3.4) K/uL [place] # (Auto) (0.11-0.59) K/uL Eos # (Auto) (0-0.5) K/uL Baso # (Auto) (0-0.2) K/uL PT (9.0-12.0) Seconds INR (0.9-1.1) APTT (21.0-31.0) Seconds PTT Ratio Sodium (136-145) mmol/L Potassium (3.5-5.1) mmol/L Chloride (98-107) mmol/L Carbon Dioxide (21-32) mmol/L Anion Gap (3-11) BUN (7-18) mg/dl Creatinine (0.6-1.4) mg/dl Est Cr Clr Drug Dosing ml/min Est GFR ( Amer) Est GFR (Non-Af Amer) BUN/Creatinine Ratio (10-20) Glucose (70-99) mg/dl Lactate (0.4-2.0) mmol/L Calcium (8.5-10.1) mg/dl Magnesium (1.8-2.4) mg/dl Total Bilirubin (0.2-1) mg/dl AST (15-37) U/L ALT (12-78) U/L Alkaline Phosphatase (45-117) U/L Troponin I (0-0.045) ng/ml Total Protein (6.4-8.2) gm/dl Albumin (3.4-5.0) gm/dl Globulin (2.5-4.0) gm/dl Albumin/Globulin Ratio (0.9-2) Procalcitonin 0.78 H (0-0.5) ng/ml Urine Color Urine Appearance (Clear) Urine pH (4.5-7.5) Ur Specific Vest (1.000-1.030) Urine Protein (Negative) Urine Glucose (UA) (Negative) Urine Ketones (Negative) Urine Blood (Negative) Urine Nitrite (Negative) Urine Bilirubin (Negative) Urine Urobilinogen (Negative) Ur Leukocyte Esterase (Negative) Urine WBC (Auto) (0-5) /hpf Urine RBC (Auto) (0-4) /hpf U Hyaline Cast (Auto) (0-5) /lpf U Epithel Cells (Auto) (0-5) /lpf Urine Bacteria (Auto) (Negative) Urine Yeast (None Prsent) Influenza Type A (PCR) (Neg) Influenza Type B (PCR) (Neg) Medications Administered Current Inpatient Medications Sodium Chloride (Nss 1000ml) 1,000 mls @ 125 mls/hr IV .Q8H JINNY Stop: 12/25/19 18:44 Last Admin: 11/25/19 19:54 Dose: 125 mls/hr Documented by: Code Status & VTE Plan Code Status Full code Supervising Physician Co-Signing Physician Notes Attending addendum: I have physically seen this patient, have supervised the medical residents activities, and agree with the H&P unless as otherwise noted. Assessment and Plan: Left nephrostomy tube partially displaced/moderate left hydroureteronephrosis/status post cystectomy with ileal conduit/complicated UTI- Follow urine culture and sensitivity. Ceftriaxone 2 g IV daily. Zofran 4 mg IV every 6 hours as needed. IV fluids. Famotidine 20 mg IV every 12 hours Consult urology. NPO after midnight. CKD stage III- Creatinine today 2.05, with baseline approximately 1.9. Follow serially. Remainder of orders and notations as noted. Resident Activity Tracking Resident Involvement: Resident Care Provided Care Provided: Adult Hospital Medicine (1) UTI (urinary tract infection) Hematuria presence: without hematuria Urinary tract infection type: site unspecified Qualified Code(s): N39.0 - Urinary tract infection, site not specified (2) Leukocytosis Leukocytosis type: unspecified Qualified Code(s): D72.829 - Elevated white blood cell count, unspecified (3) Abdominal pain Abdominal location: lower abdomen, unspecified Qualified Code(s): R10.30 - Lower abdominal pain, unspecified
[2019-11-25] MEDS ORDERED: POLYETHYLENE (MIRALAX) 17 GM PACK PO PRN (22:10)
[2019-11-25] MEDS ORDERED: ALUMINUM/MAGNESIUM SUSP 30 ML UDC PO PRN (22:10)
[2019-11-25] MEDS ORDERED: MAGNESIUM HYDROXIDE SUSP 30 ML UDC PO PRN (22:10)
[2019-11-25] MEDS ORDERED: ONDANSETRON INJ 2 MG/ML 2 ML VIAL IV PRN (22:10)
[2019-11-25] MEDS ORDERED: ACETAMINOPHEN 325 MG TAB PO PRN (22:10)
[2019-11-25] MEDS: APIXABAN 5 MG TABLET PO SCH (22:49)
[2019-11-25] MEDS: DULOXETINE HCL 30 MG CAP PO SCH (22:49)
[2019-11-25] MEDS: GABAPENTIN 100 MG CAP PO SCH (22:49)
[2019-11-26] MEDS: SODIUM CHLORIDE 0.9% 1000ML 1,000 ML IV SCH ×3 (01:07→23:46)
[2019-11-26] MEDS: PANTOprazole 40 MG TAB PO SCH (05:32)
[2019-11-26 05:53] LABS: Basophils # (auto) 0.06 K/uL (0-0.2); Basophils % (auto) 0.4 %; Eosinophils # (auto) 0.99 K/uL (0-0.5); Hematocrit (blood only) 27.4 % (42-52); Hemoglobin 8.4 g/dL (14.0-18.0); Immature Granulocytes # (auto) 0.57 K/uL (0.00-0.02); Immature Granulocytes % (auto) 4.1 %; Lymphocytes % (auto) 6.4 %; Mean Corpuscular Hemoglobin 24.4 pg (25-34); Mean Corpuscular Hgb Conc 30.7 g/dL (32-36); Mean Corpuscular Volume 79.7 fL (80-100); Mean Platelet Volume 9.2 fL (7.4-10.4); Monocytes % (auto) 12.1 %; Neutrophils # (auto) 9.84 K/uL (1.4-6.5); Platelet Count 424 K/uL (130-400); RDW Coefficient of Variation 17.5 % (11.5-14.5); RDW Standard Deviation 51.1 fL (36.4-46.3); Red Blood Count 3.44 M/uL (4.7-6.1); White Blood Count 14.06 K/uL (4.8-10.8)
[2019-11-26 06:32] LABS: BUN Creatinine Ratio 23.5 (10-20); Calcium 9.4 mg/dl (8.5-10.1); Creatinine Clr Calc Pharmacy 43.9 ml/min; Est GFR (African American) 46.7; Est GFR (Non-African American) 40.3; Magnesium 1.9 mg/dl (1.8-2.4); Phosphorus 4.3 mg/dl (2.5-4.9); Potassium 4.2 mmol/L (3.5-5.1)
--- NOTE | 2019-11-26 06:38 | Communication Note ---
Date of Service: November 26, 2019 Notified that left nephrostomy tube tip appeared to be outside pt's body. Urology already consulted.
[2019-11-26] MEDS: METOPROLOL SUCC 25MG EXT REL TAB PO SCH (07:36)
[2019-11-26] MEDS: DULOXETINE HCL 30 MG CAP PO SCH ×2 (07:36→20:29)
[2019-11-26] MEDS: GABAPENTIN 100 MG CAP PO SCH ×2 (07:36→20:29)
[2019-11-26] MEDS: FLUTICASONE/VILANTEROL 100/25MCG 14 PUFFS/INHALER INH SCH (07:36)
[2019-11-26] MEDS: APIXABAN 5 MG TABLET PO SCH ×2 (07:37→20:29)
[2019-11-26] MEDS ORDERED: POTASSIUM CHLORIDE 20 MEQ TABCR PO SCH (08:00)
[2019-11-26] MEDS ORDERED: FUROSEMIDE 20 MG TAB PO SCH (08:00)
--- NOTE | 2019-11-26 08:22 | Urology Consultation ---
Date of Consultation November 26, 2019 Assessment & Plan (1) Hydronephrosis: left nephrostomy dislodged - completed removal at bedside this AM - he has actually had good improvement in objective measures overnight leukocytosis is better creatinine is better (at baseline) afebrile still slightly confused on exam today he does have some hydronephrosis - but to some degree hydro would be expected for all people following a cystectomy/ileal conduit I believe we have two options and a few concerns related to each option 1. observation - if his cr, wbc, and drain outputs remain stable - avoid replacement of the tube 2. transfer back to [place] or [facility] for replacement of the nephr ostomy - I favor observation now, however, if he develops further signs of sepsis or substantial increase in his abdominal drain out put(implying persistent anastamotic leak) - he will need to be sent for nephrostomy. Given the current Covid crisis - I think the risks of transfer right now out weigh the benefits. I would plan to observe him over the next 24-48hours max - and if he is continuing to improve/remain stable - plan for d/c - he is still in a nursing facility at baseline and could certainly benefit from more PT (2) Primary bladder malignant neoplasm: History of Present Illness Attending Physician: Ana Maria Mahajan MD History of Present Illness 74y/o male s/p radical cystectomy and ileal conduit at [facility] very complicated post operative course urine leak, hydronephrosis clots now admitted with fevers, acute kidney failure still with b/l nephrostomy tubes and a perc drain adjacent to the ileal conduit CT upon arrival shows that his left nephrostomy tube was dislodged and is in a subcutaneous position - not in the kidney moderate hydro persists Allergies Allergy/AdvReac Type Severity Reaction Status Date / Time levofloxacin [From Levaquin] Allergy Intermediate Swelling Verified 11/25/19 15:52 of extremities citalopram Allergy Mild GI symptoms Verified 11/25/19 15:52 pravastatin AdvReac Mild leg Verified 11/25/19 15:52 soreness rosuvastatin AdvReac Mild leg Verified 11/25/19 15:52 soreness Home Medications Home Medications Medication Instructions Recorded Confirmed Type metoprolol succinate [Toprol XL] 25 mg PO DAILY@0900 06/05/19 11/25/19 History Breo Ellipta 1 inh INHALATION DAILY@0900 08/11/19 11/25/19 History duloxetine [Cymbalta] 30 mg PO BID 08/11/19 11/25/19 History ondansetron HCl 4 mg tablet 4 mg PO Q4H PRN 10/08/19 11/25/19 History pantoprazole 40 mg tablet,delayed 40 mg PO DAILY@0500 10/08/19 11/25/19 History release apixaban 5 mg PO BID #0 tab 10/30/19 11/25/19 Rx acetaminophen [Tylenol] 650 mg PO Q6H PRN 11/25/19 11/25/19 History diclofenac sodium 2 g TOPICAL TID 11/25/19 11/25/19 History ferrous sulfate 325 mg PO DAILY@0811/25/19 11/25/19 History folic acid 1 mg PO DAILY@0911/25/19 11/25/19 History furosemide 20 mg PO DAILY@0811/25/19 11/25/19 History gabapentin 200 mg PO BID 11/25/19 11/25/19 History hydrocortisone 1 applic TOPICAL QS 11/25/19 11/25/19 History melatonin 6 mg PO DAILY@199911/25/19 11/25/19 History mirtazapine 15 mg PO DAILY@199911/25/19 11/25/19 History potassium chloride 20 meq PO DAILY@0811/25/19 11/25/19 History Patient History Medical History Anxiety and depression Bladder cancer recent diagnosis (mass noted on CTS) BPH (benign prostatic hyperplasia) Chronic kidney disease, stage 3a COPD (chronic obstructive pulmonary disease) + O2 HS Degenerative disc disease Diverticulitis (11/22/13) hx (noted per 2014 records) Dyslipidemia GERD (gastroesophageal reflux disease) controlled Hearing deficit Hypertension Kidney stones Lung cancer (~12/2012) s/p lung resection/chemo Obesity Osteoarthritis Peripheral neuropathy b/l feet Pulmonary embolism 02/2019- on Xarelto Sinus tachycardia hx Skin cancer Surgical History History of colonoscopy History of discectomy LUMBAR History of esophagogastroduodenoscopy (EGD) History of hernia repair INGUINAL History of knee joint replacement RT/LEFT History of shoulder surgery RT History of tooth extraction History of vascular access device POWER PORT RIGHT CHEST (INTACT CURRENLTY) S/P partial lobectomy of lung RLL Family History Aunt Breast cancer Brother Cerebral arterial aneurysm Mother Cerebral arterial aneurysm Family/Other Cataracts, both eyes Myocardial infarction Diabetes Other No significant family history Social History Preferred Language: Argentine Communication Ability: Impaired Shaper Set Up Operator Required: No Beliefs That Will Affect Care: None Current Living Situation: Spouse Feels Safe at Home: Yes Safety Concerns: Feels Safe At This Time Smoking Status: Never smoker Tobacco Type: cigarettes ; Second Hand Exposure: No ; Hx Alcohol Use: No Hx Substance Use: No Review of Systems Review of Systems: All systems reviewed & are unremarkable except as noted in HPI & below Gastrointestinal: + abdominal pain and + nausea Genitourinary: + flank pain Physical Exam Constitutional: well developed and well nourished Neck: neck nontender Respiratory: normal respiratory effort; no respiratory distress and does not use accessory muscles Cardiovascular: Rate/Rhythm: regular rate Vessels: radial pulses present Extremities: no edema Gastrointestinal (Abdomen): Percussion/Palpation: abdomen soft; abdomen nontender and no guarding urostomy producing clear urine perc drain site healthy - no purulent discharge or significant erythema right nephrostomy draining clear urine site healthy left nephrostomy with minimal fluid in the bag inspection now reveals that the tube is entirely dislodged tip visible outside of the skin - suture still intact Musculoskeletal: Head/Neck/Chest: normocephalic and head atraumatic Extremities: extremities normal to inspection Skin: no rashes and no lesions Trauma: no evidence of skin trauma Neurologic: awake; not obtunded Speech / Cognition: normal speech Motor/Sensory: no tremor Psychiatric: Orientation: alert and oriented x 3 Genitourinary: no CVA tenderness Lymphatic: no lymphadenopathy Results & Data Vital Signs (Past 12 Hours) Vital Signs Temp Pulse Pulse Resp BP BP Pulse Ox 11/26/19 08:00 88 11/26/19 07:17 36.6 C 89 16 113/68 98 11/26/19 03:25 36.4 C L 94 H 20 116/70 97 11/25/19 23:59 104 H 04/07/20 23:24 36.7 C 105 H 20 105/56 L 99 11/25/19 22:26 36.8 C 105 H 20 125/88 94 11/25/19 21:17 107 H 16 132/70 95 11/25/19 20:31 104 H 17 94/59 L 95 PG Care Time/CCT Total # of Minutes Spent Total Time Spent with Patient: Total time spent is greater than 50% in coordination of care (as documented) at patient's floor/unit and/or counseling patient: Coding Level of Care Code 91376 Inpt Consult Level 4 Diagnoses Hydronephrosis N13.30 Primary bladder malignant neoplasm C67.9
--- NOTE | 2019-11-26 11:46 | Hospitalist Progress Note ---
Date of Service November 26, 2019 Assessment & Plan (1) Abdominal pain: John Lynch is a 74y/o M with PMH significant for pulmonary emphysema, CKD stage 3, bladder CA s/p cystectomy with ileal conduit, Multifocal atrial tachycardia; who presented from a senior living due to several days of fevers and LLQ abdominal pain. CT abd/pel actually improved from previous with resolution of previous right sided pelvic fluid collection. With left moderate hydronephrosis and L nephrostomy tube dislodged. It is possible LLQ pain from hydro, UTI. Nothing else on imaging to explain pain. No diarrhea, no N/V. -continue to treat UTI -if pain not improving, consider repeat imaging vs transfer to [facility] again for repeat Left nephrostomy tube as per my d/w Urology today - urinalysis demonstrated nitrites, leuk esterase, >30 WBC, >30 RBC, and bacteria--> in setting of ileal conduit, however had fever and leukocytosis along with pain and tachycardia--> treating for UTI --treating for UTI as below - Urology consulted-appreciate consult (2) UTI (urinary tract infection): -UA positive in setting of ileal conduit, but with sepsis (fever, tachycardia, leukocytosis, UTI) -continue treatment with IV abx but change to IV Zosyn toay as Ur cx prelim Pseudomonas species as well as E. coli -follow Ur cx final result and BCxs (3) Sepsis: As above -dc IVFs -continue IV abx follow cxs (4) Pulmonary emphysema: no acute issues - continue home Breo Ellipta (5) Depressive disorder: stable - continue home duloxetine, Remeron (6) Anemia: Hgb chronically low since 2019, baseline 8-9 Microcytic -check Fe studies, hemoccult stool, B12, folate in the AM (7) Multifocal atrial tachycardia: Seen by Cardiology in past, not overly concerning Tele with NSR now - continue home metoprolol 25mg daily (8) Chronic kidney disease (CKD), stage III (moderate): - patients Cr 2.05 on admission, with baseline over last several months close to 1.9 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 now lower than baseline with IVFs, at 1.6 -hold home lasix -dc IVFs now -Avoid nephrotoxins -renally dose meds when appropriate -follow BMP (9) Primary bladder malignant neoplasm: now s/p cystectomy with complications afterwards to include uroma requiring drains, nephrostomy tubes -with urostomy, ileal conduit Follows with Urology (10) Pelvic fluid collection: Now resolved, with drain still in place in right pelvis -continue f/u with Urology at [facility] Thought to be secondary to previous anastomosis leak from ileal conduit (11) Hyponatremia: Na+ 131 on admission and now improved to 135 with IVFs Likely from dehydration dc IVFs -follow BMP (12) Chronic respiratory failure with hypoxia: wears 2LNC qhs (13) Pulmonary embolism: HISTORY of Pulmonary emboli: -occurred 02/2019 -continue ELiquis (14) GERD (gastroesophageal reflux disease): continue PPI (15) Severe protein-calorie malnutrition: -meets criteria for severe malnutrition in the setting of chronic disease with 45# wt loss in 4 mos (18.3%) and mild-moderate loss of muscle mass seen in the temples, clavicles & shoulders -consult Nutrition (16) DVT prophylaxis: Eliquis Code Status: Full code Dispo-continued stay here but if worsens, consider transfer to [facility] or [facility] for IR Admission and Anticipated Discharge Date Admission Date: November 25, 2019 Subjective Pt reports he is feeling better now that he got lunch as he was NPO this AM. He is still having LLQ pain, no fevers.Last BM yesterday he thinks. No chest pain or SOB, not lightheaded. Feeling hungry. I discussed his case with Urology. Urology removed the suture and left nephrostomy tube today that was hanging out of his skin/dislodged. Tele with NSR, PACs, rates 80s-100s. Review of Systems Review of Systems: All systems reviewed & are unremarkable except as noted in HPI & below Physical Exam Constitutional: WD/WN, vitals as above Eyes: + anicteric sclerae Neck: trachea midline, no thyromegaly Respiratory: normal respiratory effort, lungs clear to auscultation Cardiovascular: RRR, no murmur, no edema Chest (Breasts): Chest: normal inspection of chest Gastrointestinal (Abdomen): Inspection/Auscultation: normal bowel sounds; + abdomen abnormal to inspection (RLQ urostomy bag with clear yellow urine, surgical drain with no erythema) and abdomen not distended Percussion/Palp ation: + abdomen tender (in LLQ without guarding or rebound) and abdomen soft Musculoskeletal: Extremities: extremities normal to inspection; no cyanosis and no clubbing Skin: no rashes, warm and dry Neurologic: moves all extremities and awake; no focal motor deficits Psychiatric: Orientation: alert, oriented to person, oriented to place and cooperative Lymphatic: no lymphedema Results & Data Results & Data ([facility]) Vital Signs (Past 12 Hours) Vital Signs Temp Pulse Pulse Resp BP Pulse Ox 11/26/19 11:14 36.3 C L 84 16 114/73 100 11/26/19 08:00 88 11/26/19 07:17 36.6 C 89 16 113/68 98 11/26/19 03:25 36.4 C L 94 H 20 116/70 97 11/25/19 23:59 104 H Laboratory Results 11/26/19 11/26/19 11/25/19 Range/Units 05:39 05:39 15:49 WBC 14.06 H (4.8-10.8) K/uL RBC 3.44 L (4.7-6.1) M/uL Hgb 8.4 L (14.0-18.0) g/dL Hct 27.4 L (42-52) % MCV 79.7 L (80-100) fL MCH 24.4 L (25-34) pg MCHC 30.7 L (32-36) g/dL RDW Std Deviation 51.1 H (36.4-46.3) fL RDW Coeff of Effie 17.5 H (11.5-14.5) % Plt Count 424 H (130-400) K/uL MPV 9.2 (7.4-10.4) fL Immature Gran % (Auto) 4.1 % Neut % (Auto) 70.0 % Lymph % (Auto) 6.4 % Jay % (Auto) 12.1 % Eos % (Auto) 7.0 % Baso % (Auto) 0.4 % Immature Gran # (Auto) 0.57 H (0.00-0.02) K/uL Neut # (Auto) 9.84 H (1.4-6.5) K/uL Lymph # (Auto) 0.90 L (1.2-3.4) K/uL Jay # (Auto) 1.70 H (0.11-0.59) K/uL Eos # (Auto) 0.99 H (0-0.5) K/uL Baso # (Auto) 0.06 (0-0.2) K/uL Sodium 135 L (136-145) mmol/L Potassium 4.2 D (3.5-5.1) mmol/L Chloride 108 H (98-107) mmol/L Carbon Dioxide 21 (21-32) mmol/L Anion Gap 6.0 (3-11) BUN 39 H (7-18) mg/dl Creatinine 1.65 H D (0.6-1.4) mg/dl Est Cr Clr Drug Dosing 43.9 ml/min Est GFR ( Amer) 46.7 Est GFR (Non-Af Amer) 40.3 BUN/Creatinine Ratio 23.5 H (10-20) Glucose 97 (70-99) mg/dl Calcium 9.4 (8.5-10.1) mg/dl Phosphorus 4.3 (2.5-4.9) mg/dl Magnesium 1.9 (1.8-2.4) mg/dl Urine WBC (Auto) (0-5) /hpf Urine RBC (Auto) (0-4) /hpf U Hyaline Cast (Auto) (0-5) /lpf U Epithel Cells (Auto) (0-5) /lpf Urine Bacteria (Auto) (Negative) Urine Yeast (None Prsent) Influenza Type A (PCR) Neg for Influ A (Neg) Influenza Type B (PCR) Neg for Influ B (Neg) 11/25/19 Range/Units 15:46 WBC (4.8-10.8) K/uL RBC (4.7-6.1) M/uL Hgb (14.0-18.0) g/dL Hct (42-52) % MCV (80-100) fL MCH (25-34) pg MCHC (32-36) g/dL RDW Std Deviation (36.4-46.3) fL RDW Coeff of Effie (11.5-14.5) % Plt Count (130-400) K/uL MPV (7.4-10.4) fL Immature Gran % (Auto) % Neut % (Auto) % Lymph % (Auto) % Jay % (Auto) % Eos % (Auto) % Baso % (Auto) % Immature Gran # (Auto) (0.00-0.02) K/uL Neut # (Auto) (1.4-6.5) K/uL Lymph # (Auto) (1.2-3.4) K/uL Jay # (Auto) (0.11-0.59) K/uL Eos # (Auto) (0-0.5) K/uL Baso # (Auto) (0-0.2) K/uL Sodium (136-145) mmol/L Potassium (3.5-5.1) mmol/L Chloride (98-107) mmol/L Carbon Dioxide (21-32) mmol/L Anion Gap (3-11) BUN (7-18) mg/dl Creatinine (0.6-1.4) mg/dl Est Cr Clr Drug Dosing ml/min Est GFR ( Amer) Est GFR (Non-Af Amer) BUN/Creatinine Ratio (10-20) Glucose (70-99) mg/dl Calcium (8.5-10.1) mg/dl Phosphorus (2.5-4.9) mg/dl Magnesium (1.8-2.4) mg/dl Urine WBC (Auto) >30 H (0-5) /hpf Urine RBC (Auto) >30 H (0-4) /hpf U Hyaline Cast (Auto) 0 (0-5) /lpf U Epithel Cells (Auto) 10-20 H (0-5) /lpf Urine Bacteria (Auto) 1+ H (Negative) Urine Yeast Present A (None Prsent) Influenza Type A (PCR) (Neg) Influenza Type B (PCR) (Neg) PG Care Time/CCT Total # of Minutes Spent Total Time Spent with Patient: Total time spent is greater than 50% in coordination of care (as documented) at patient's floor/unit and/or counseling patient: Coding Level of Care Code 02662 Subseq Hosp Care Lvl 3 Diagnoses Abdominal pain R10.30 Abdominal location: lower abdomen, unspecified UTI (urinary tract infection) N39.0 Hematuria presence: without hematuria Urinary tract infection type: site unspecified Sepsis A41.9 Sepsis acute organ dysfunction status: unspecified Sepsis type: sepsis due to unspecified organism Pulmonary emphysema J43.9 Depressive disorder F32.9 Anemia D64.9 Anemia type: unspecified type Multifocal atrial tachycardia I47.1 Chronic kidney disease (CKD), stage III (moderate) N18.3 Primary bladder malignant neoplasm C67.9 Pelvic fluid collection R18.8 Hyponatremia E87.1 Chronic respiratory failure with hypoxia J96.11 Pulmonary embolism I26.99 GERD (gastroesophageal reflux disease) K21.9 Esophagitis presence: esophagitis presence not specified Severe protein-calorie malnutrition E43 DVT prophylaxis Z29.9 (1) Abdominal pain Abdominal location: lower abdomen, unspecified Qualified Code(s): R10.30 - Lower abdominal pain, unspecified (2) UTI (urinary tract infection) Hematuria presence: without hematuria Urinary tract infection type: site unspecified Qualified Code(s): N39.0 - Urinary tract infection, site not specified (3) Anemia Anemia type: unspecified type Qualified Code(s): D64.9 - Anemia, unspecified (4) Sepsis Sepsis acute organ dysfunction status: unspecified Sepsis type: sepsis due to unspecified organism Qualified Code(s): A41.9 - Sepsis, unspecified organism (5) GERD (gastroesophageal reflux disease) Esophagitis presence: esophagitis presence not specified Qualified Code(s): K21.9 - Gastro-esophageal reflux disease without esophagitis
[2019-11-26] MEDS ORDERED: PIPERACILL/TAZOBAC CONSULT ACTIVE PRN (12:52)
[2019-11-26] MEDS ORDERED: PIPERACILLIN/TAZOBACTAM 3.375 GM in DEXTROSE 5% 100 ML IV ONE (13:00)
[2019-11-26] MEDS ORDERED: cefTRIAXone SODIUM 2,000 MG in DEXTROSE 5% 50 ML IV SCH (18:00)
[2019-11-26] MEDS: PIPERACILLIN/TAZOBACTAM 3.375 GM in DEXTROSE 5% 100 ML IV SCH (18:02)
[2019-11-26] MEDS ORDERED: DOCUSATE SODIUM 100 MG CAP PO ONE (18:45)
[2019-11-26] MEDS: MIRTAZAPINE TAB 15 MG TAB PO SCH (20:29)
--- NOTE | 2019-11-26 22:35 | Billing Data ---
Date of Service November 26, 2019 Coding Level of Care Code 25449 Initial Inpt Care Lvl 3
[2019-11-27] MEDS: PIPERACILLIN/TAZOBACTAM 3.375 GM in DEXTROSE 5% 100 ML IV SCH ×2 (02:16→10:13)
[2019-11-27] MEDS: PANTOprazole 40 MG TAB PO SCH (05:00)
[2019-11-27 06:45] LABS: BUN Creatinine Ratio 20.1 (10-20); Calcium 8.5 mg/dl (8.5-10.1); Creatinine Clr Calc Pharmacy 41.9 ml/min; Est GFR (African American) 43.8; Est GFR (Non-African American) 37.8; Potassium 3.9 mmol/L (3.5-5.1)
[2019-11-27 06:50] LABS: Ferritin 85.5 ng/ml (8-388)
[2019-11-27 06:52] LABS: Basophils # (auto) 0.05 K/uL (0-0.2); Basophils % (auto) 0.4 %; Eosinophils # (auto) 0.79 K/uL (0-0.5); Eosinophils % (auto) 5.9 %; Hematocrit (blood only) 25.7 % (42-52); Hemoglobin 7.8 g/dL (14.0-18.0); Immature Granulocytes # (auto) 0.27 K/uL (0.00-0.02); Lymphocytes # (auto) 0.63 K/uL (1.2-3.4); Lymphocytes % (auto) 4.7 %; Mean Corpuscular Hemoglobin 24.3 pg (25-34); Mean Corpuscular Hgb Conc 30.4 g/dL (32-36); Mean Corpuscular Volume 80.1 fL (80-100); Mean Platelet Volume 9.6 fL (7.4-10.4); Monocytes # (auto) 1.61 K/uL (0.11-0.59); Neutrophils # (auto) 10.03 K/uL (1.4-6.5); Platelet Count 414 K/uL (130-400); RDW Coefficient of Variation 17.6 % (11.5-14.5); RDW Standard Deviation 51.8 fL (36.4-46.3); Red Blood Count 3.21 M/uL (4.7-6.1); White Blood Count 13.38 K/uL (4.8-10.8)
[2019-11-27 07:10] LABS: RBC Morphology Unremarkable
[2019-11-27 08:10] LABS: Folate (Folic Acid) 7.96 ng/ml (>5.38)
[2019-11-27] MEDS: METOPROLOL SUCC 25MG EXT REL TAB PO SCH (08:14)
[2019-11-27] MEDS: APIXABAN 5 MG TABLET PO SCH ×2 (08:14→20:13)
[2019-11-27] MEDS: FLUTICASONE/VILANTEROL 100/25MCG 14 PUFFS/INHALER INH SCH (08:14)
[2019-11-27] MEDS: DULOXETINE HCL 30 MG CAP PO SCH ×2 (08:14→20:13)
[2019-11-27] MEDS: GABAPENTIN 100 MG CAP PO SCH ×2 (08:14→20:13)
[2019-11-27] MEDS: DOCUSATE SODIUM 100 MG CAP PO SCH ×2 (08:19→20:13)
[2019-11-27] MEDS: IRON SUCROSE 300 MG in SODIUM CHLORIDE 0.9% 250 ML IV SCH (08:54)
--- NOTE | 2019-11-27 10:17 | Electrocardiogram Report ---
Test Reason : Blood Pressure : / mmHG Vent. Rate : 113 BPM Atrial Rate : 113 BPM P-R Int : 130 ms QRS Dur : 080 ms QT Int : 302 ms P-R-T Axes : 082 -17 034 degrees QTc Int : 414 ms Poor data quality, interpretation may be adversely affected Sinus tachycardia Inferior infarct (cited on or before 18-FEB-2019) Cannot rule out Anterior infarct (cited on or before 28-OCT-2019) Abnormal ECG When compared with ECG of 28-OCT-2019 14:45, Sinus rhythm is now Present Confirmed by Sinan Crump ([id number]) on 11/27/2019 10:17:11 AM Referred By: Rakel Hearthside Confirmed By:Sinan Crump
--- NOTE | 2019-11-27 10:30 | Urology Progress Note ---
Date of Service November 27, 2019 Assessment & Plan (1) UTI (urinary tract infection): (2) Abdominal pain: (3) Primary bladder malignant neoplasm: (4) Hydronephrosis: A/P 74-year-old comorbid male status post complex cystectomy, ileal conduit, history of anastomotic leak and infection. Continue to monitor the patient's serum creatinine and renal function. However, his lack of increased drain output is encouraging. As noted by Dr. Harvey some degree of hydronephrosis after an ileal conduit is expected. Would hold on transfer in the context of coronavirus pandemic if conservative management remains appropriate. Will monitor drain outputs and clinical progress. Thank you for allowing us to participate in this patient's acute care. Please contact our service with any questions or concerns. Present on Admission?: Yes Subjective Comorbid 74-year-old male, well-known to our service with a history of bladder cancer status post complicated cystectomy with ileal conduit. His history of anastomotic leak, postoperative infection, requirement for percutaneous nephrostomies with subsequent dislodgment of his left percutaneous nephrostomy is noted. Consultation from yesterday and prior notes reviewed. Patient reports that he feels ill with sweats and malaise. Left nephrostomy has been out since yesterday. Creatinine this morning noted to be relatively stable at 1.7, within the patient's baseline range. He has a right nephrostomy in place as well as a urostomy both of which are producing good amounts of clear urine and has an intra-abdominal drain which per nursing discussion has not been putting out significant amounts. This is encouraging and suggests improvement of his previous intra-abdominal leak. Otherwise the patient remains on broad- spectrum antibiotics and decompensated from his ordeal. Review of Systems Constitutional: + sweats and + malaise Eyes: no diplopia Ear, Nose, Mouth, Throat: no ear trauma Respiratory: no hemoptysis Cardiovascular: no chest pain Gastrointestinal: + abdominal pain and + bloating Integumentary: no acne and no boil Neurologic: no paralysis Hematologic / Lymphatic: no lymphadenopathy Allergy / Immunological: no tongue swelling Physical Exam Constitutional: + ill appearing; no acute distress Neck: trachea midline; no anterior neck swelling Respiratory: normal respiratory effort; no respiratory distress and does not use accessory muscles Cardiovascular: Rate/Rhythm: regular rate Vessels: radial pulses present Gastrointestinal (Abdomen): Percussion/Palpation: abdomen soft; abdomen nontender and no guarding Musculoskeletal: Head/Neck/Chest: normocephalic and head atraumatic Extremities: extremities normal to inspection Skin: no rashes and no lesions Neurologic: awake; not obtunded Speech / Cognition: normal speech Psychiatric: Orientation: alert and oriented x 3 Genitourinary: no CVA tenderness Lymphatic: no lymphadenopathy Results & Data Vital Signs (Past 12 Hours) Vital Signs Temp Pulse Pulse Resp BP Pulse Ox 11/27/19 08:36 109 H 11/27/19 07:45 36.7 C 99 H 19 128/77 95 11/27/19 03:01 36.9 C 102 H 19 117/62 95 11/27/19 00:00 100 H Laboratory Results Laboratory Results - last 48 hr 11/25/19 11/25/19 11/25/19 15:23 15:23 15:23 WBC 23.11 H RBC 3.87 L Hgb 9.4 L Hct 30.7 L MCV 79.3 L MCH 24.3 L MCHC 30.6 L RDW Std Deviation 49.8 H RDW Coeff of Effie 17.4 H Plt Count 489 H MPV 9.5 Immature Gran % (Auto) 2.1 Neut % (Auto) 78.3 Lymph % (Auto) 5.1 [place] % (Auto) 10.6 Eos % (Auto) 3.6 Baso % (Auto) 0.3 Immature Gran # (Auto) 0.49 H Neut # (Auto) 18.09 H Lymph # (Auto) 1.17 L [place] # (Auto) 2.44 H Eos # (Auto) 0.84 H Baso # (Auto) 0.08 RBC Morphology PT 13.0 H INR 1.2 H APTT 37.7 H PTT Ratio 1.4 Sodium Potassium Chloride Carbon Dioxide Anion Gap BUN Creatinine Est Cr Clr Drug Dosing Est GFR ( Amer) Est GFR (Non-Af Amer) BUN/Creatinine Ratio Glucose Lactate Calcium Phosphorus Magnesium Iron TIBC Transferrin Transferrin % Sat Ferritin Total Bilirubin AST ALT Alkaline Phosphatase Troponin I Total Protein Albumin Globulin Albumin/Globulin Ratio Vitamin B12 Folate Procalcitonin 0.78 H Urine Color Urine Appearance Urine pH Ur Specific [place] Urine Protein Urine Glucose (UA) Urine Ketones Urine Blood Urine Nitrite Urine Bilirubin Urine Urobilinogen Ur Leukocyte Esterase Urine WBC (Auto) Urine RBC (Auto) U Hyaline Cast (Auto) U Epithel Cells (Auto) Urine Bacteria (Auto) Urine Yeast Stool Occult Bld Scrn Influenza Type A (PCR) Influenza Type B (PCR) 11/25/19 11/25/19 11/25/19 15:23 15:23 15:46 WBC RBC Hgb Hct MCV MCH MCHC RDW Std Deviation RDW Coeff of Effie Plt Count MPV Immature Gran % (Auto) Neut % (Auto) Lymph % (Auto) [place] % (Auto) Eos % (Auto) Baso % (Auto) Immature Gran # (Auto) Neut # (Auto) Lymph # (Auto) [place] # (Auto) Eos # (Auto) Baso # (Auto) RBC Morphology PT INR APTT PTT Ratio Sodium 131 L Potassium 5.0 Chloride 103 Carbon Dioxide 23 Anion Gap 5.0 BUN 41 H Creatinine 2.05 H Est Cr Clr Drug Dosing 35.7 Est GFR ( Amer) 35.9 Est GFR (Non-Af Amer) 31.0 BUN/Creatinine Ratio 20.0 Glucose 109 H Lactate 1.7 Calcium 9.6 Phosphorus Magnesium 1.7 L Iron TIBC Transferrin Transferrin % Sat Ferritin Total Bilirubin 0.3 AST 19 ALT 14 Alkaline Phosphatase 132 H Troponin I < 0.015 Total Protein 7.1 Albumin 2.1 L Globulin 5.0 H Albumin/Globulin Ratio 0.4 L Vitamin B12 Folate Procalcitonin Urine Color Yellow Urine Appearance Turbid A Urine pH 5.0 Ur Specific [place] 1.019 Urine Protein 3+ H Urine Glucose (UA) Negative Urine Ketones Negative Urine Blood 3+ H Urine Nitrite Positive A Urine Bilirubin Negative Urine Urobilinogen Negative Ur Leukocyte Esterase 3+ H Urine WBC (Auto) >30 H Urine RBC (Auto) >30 H U Hyaline Cast (Auto) 0 U Epithel Cells (Auto) 10-20 H Urine Bacteria (Auto) 1+ H Urine Yeast Present A Stool Occult Bld Scrn Influenza Type A (PCR) Influenza Type B (PCR) 11/25/19 11/26/19 11/26/19 15:49 05:39 05:39 WBC 14.06 H RBC 3.44 L Hgb 8.4 L Hct 27.4 L MCV 79.7 L MCH 24.4 L MCHC 30.7 L RDW Std Deviation 51.1 H RDW Coeff of Effie 17.5 H Plt Count 424 H MPV 9.2 Immature Gran % (Auto) 4.1 Neut % (Auto) 70.0 Lymph % (Auto) 6.4 [place] % (Auto) 12.1 Eos % (Auto) 7.0 Baso % (Auto) 0.4 Immature Gran # (Auto) 0.57 H Neut # (Auto) 9.84 H Lymph # (Auto) 0.90 L [place] # (Auto) 1.70 H Eos # (Auto) 0.99 H Baso # (Auto) 0.06 RBC Morphology PT INR APTT PTT Ratio Sodium 135 L Potassium 4.2 D Chloride 108 H Carbon Dioxide 21 Anion Gap 6.0 BUN 39 H Creatinine 1.65 H D Est Cr Clr Drug Dosing 43.9 Est GFR ( Amer) 46.7 Est GFR (Non-Af Amer) 40.3 BUN/Creatinine Ratio 23.5 H Glucose 97 Lactate Calcium 9.4 Phosphorus 4.3 Magnesium 1.9 Iron TIBC Transferrin Transferrin % Sat Ferritin Total Bilirubin AST ALT Alkaline Phosphatase Troponin I Total Protein Albumin Globulin Albumin/Globulin Ratio Vitamin B12 Folate Procalcitonin Urine Color Urine Appearance Urine pH Ur Specific [place] Urine Protein Urine Glucose (UA) Urine Ketones Urine Blood Urine Nitrite Urine Bilirubin Urine Urobilinogen Ur Leukocyte Esterase Urine WBC (Auto) Urine RBC (Auto) U Hyaline Cast (Auto) U Epithel Cells (Auto) Urine Bacteria (Auto) Urine Yeast Stool Occult Bld Scrn Influenza Type A (PCR) Neg for Influ A Influenza Type B (PCR) Neg for Influ B 11/26/19 11/27/19 11/27/19 15:20 05:47 05:47 WBC RBC Hgb Hct MCV MCH MCHC RDW Std Deviation RDW Coeff of Effie Plt Count MPV Immature Gran % (Auto) Neut % (Auto) Lymph % (Auto) [place] % (Auto) Eos % (Auto) Baso % (Auto) Immature Gran # (Auto) Neut # (Auto) Lymph # (Auto) [place] # (Auto) Eos # (Auto) Baso # (Auto) RBC Morphology PT INR APTT PTT Ratio Sodium 135 L Potassium 3.9 Chloride 108 H Carbon Dioxide 21 Anion Gap 6.0 BUN 35 H Creatinine 1.74 H Est Cr Clr Drug Dosing 41.9 Est GFR ( Amer) 43.8 Est GFR (Non-Af Amer) 37.8 BUN/Creatinine Ratio 20.1 H Glucose 87 Lactate Calcium 8.5 Phosphorus Magnesium Iron 15 L TIBC 205 L Transferrin 168 L Transferrin % Sat 6 L Ferritin 85.5 Total Bilirubin AST ALT Alkaline Phosphatase Troponin I Total Protein Albumin Globulin Albumin/Globulin Ratio Vitamin B12 576 Folate 7.96 Procalcitonin Urine Color Urine Appearance Urine pH Ur Specific [place] Urine Protein Urine Glucose (UA) Urine Ketones Urine Blood Urine Nitrite Urine Bilirubin Urine Urobilinogen Ur Leukocyte Esterase Urine WBC (Auto) Urine RBC (Auto) U Hyaline Cast (Auto) U Epithel Cells (Auto) Urine Bacteria (Auto) Urine Yeast Stool Occult Bld Scrn Negative Influenza Type A (PCR) Influenza Type B (PCR) 11/27/19 05:47 WBC 13.38 H RBC 3.21 L Hgb 7.8 L Hct 25.7 L MCV 80.1 MCH 24.3 L MCHC 30.4 L RDW Std Deviation 51.8 H RDW Coeff of [place] 17.6 H Plt Count 414 H MPV 9.6 Immature Gran % (Auto) 2.0 Neut % (Auto) 75.0 Lymph % (Auto) 4.7 [place] % (Auto) 12.0 Eos % (Auto) 5.9 Baso % (Auto) 0.4 Immature Gran # (Auto) 0.27 H Neut # (Auto) 10.03 H Lymph # (Auto) 0.63 L [place] # (Auto) 1.61 H Eos # (Auto) 0.79 H Baso # (Auto) 0.05 RBC Morphology Unremarkable PT INR APTT PTT Ratio Sodium Potassium Chloride Carbon Dioxide Anion Gap BUN Creatinine Est Cr Clr Drug Dosing Est GFR ( Amer) Est GFR (Non-Af Amer) BUN/Creatinine Ratio Glucose Lactate Calcium Phosphorus Magnesium Iron TIBC Transferrin Transferrin % Sat Ferritin Total Bilirubin AST ALT Alkaline Phosphatase Troponin I Total Protein Albumin Globulin Albumin/Globulin Ratio Vitamin B12 Folate Procalcitonin Urine Color Urine Appearance Urine pH Ur Specific [place] Urine Protein Urine Glucose (UA) Urine Ketones Urine Blood Urine Nitrite Urine Bilirubin Urine Urobilinogen Ur Leukocyte Esterase Urine WBC (Auto) Urine RBC (Auto) U Hyaline Cast (Auto) U Epithel Cells (Auto) Urine Bacteria (Auto) Urine Yeast Stool Occult Bld Scrn Influenza Type A (PCR) Influenza Type B (PCR) PG Care Time/CCT Total # of Minutes Spent Total Time Spent with Patient: Total time spent is greater than 50% in coordination of care (as documented) at patient's floor/unit and/or counseling patient: Coding Level of Care Code 02129 Subseq Hosp Care Lvl 2 Diagnoses UTI (urinary tract infection) N39.0 Hematuria presence: without hematuria Urinary tract infection type: site unspecified Abdominal pain R10.30 Abdominal location: lower abdomen, unspecified Primary bladder malignant neoplasm C67.9 Hydronephrosis N13.30 (1) UTI (urinary tract infection) Hematuria presence: without hematuria Urinary tract infection type: site un specified Qualified Code(s): N39.0 - Urinary tract infection, site not specified (2) Abdominal pain Abdominal location: lower abdomen, unspecified Qualified Code(s): R10.30 - Lower abdominal pain, unspecified
--- NOTE | 2019-11-27 11:35 | Hospitalist Progress Note ---
Date of Service November 27, 2019 Assessment & Plan (1) Abdominal pain: John Lynch is a 74y/o M with PMH significant for pulmonary emphysema, CKD stage 3, bladder CA s/p cystectomy with ileal conduit, Multifocal atrial tachycardia; who presented from a [facility] due to several days of fevers and LLQ abdominal pain. CT abd/pel actually improved from previous with resolution of previous right sided pelvic fluid collection. With left moderate hydronephrosis and L nephrostomy tube dislodged. It is possible LLQ pain from hydro, UTI. Nothing else on imaging to explain pain. No diarrhea, no N/V. Pain now improved with treatment of UTI so was likely from that. -continue to treat UTI -if pain worsens, consider repeat imaging vs transfer to [facility] again for repeat Left nephrostomy tube as per my d/w Urology - urinalysis demonstrated nitrites, leuk esterase, >30 WBC, >30 RBC, and bacteria--> in setting of ileal conduit, however had fever and leukocytosis along with pain and tachycardia--> treating for UTI - Urology consulted-appreciate consult (2) Sepsis: from UTI as above, resolved -dc IVFs (3) Leukocytosis: Improved significantly since admission from 23k--> 13k today with tx of UTI Follow CBC (4) UTI (urinary tract infection): -UA positive in setting of ileal conduit, however seems like a true infection given sepsis (fever, tachycardia, leukocytosis, UTI) Ur cx now growing Pseudomonas (pansensitive) and E. coli (resitant to Amp and Unasyn) Pt with FQ allergy -continue treatment with IV abx but change from IV Zosyn to Cefepime to narrow down coverage--> plan to treat for 7-10 days with IV abx -follow Ur cx final result and BCxs (5) Pulmonary emphysema: no acute issues - continue home Breo Ellipta (6) Depressive disorder: stable - continue home duloxetine, Remeron (7) Multifocal atrial tachycardia: Seen by Cardiology in past, not overly concerning Tele with NSR and ST now - continue home metoprolol 25mg daily (8) Chronic kidney disease (CKD), stage III (moderate): - patients Cr 2.05 on admission, with baseline over last several months close to 1.9 Graphic Manager now lower than baseline with IVFs, at 1.7 -holding home lasix -Avoid nephrotoxins -renally dose meds when appropriate -follow BMP -as long as renal function stable, no need to transfer for replacement of LEFT nephrostomy tube -dc IVFs (9) Chronic diastolic CHF (congestive heart failure): no volume overload, in fact was hypovolemic on admission -holding home lasix -BP control I/Os, daily weights (10) Severe protein-calorie malnutrition: -meets criteria for severe malnutrition in the setting of chronic disease with 45# wt loss in 4 mos (18.3%) and mild-moderate loss of muscle mass seen in the temples, clavicles & shoulders -consult Nutrition (11) Pulmonary embolism: HISTORY of Pulmonary emboli: -occurred 02/2019 -continue ELiquis (12) Chronic respiratory failure with hypoxia: wears 2LNC qhs (13) Primary bladder malignant neoplasm: now s/p cystectomy with complications afterwards to include uroma requiring drains, nephrostomy tubes -with urostomy, ileal conduit Follows with Urology (14) Anemia: Hgb chronically low since 2019, baseline 8-9, now dropped to 7.8 after IVF hydration No gross bleeding Hemoccult stool negative Microcytic--> Fe deficiency and anemia of chronic disease -Fe studies with low transferrin sat 6%--> replace with IV Venofer 300mg daily x 3 days - B12, folate normal -follow CBC (15) Hyponatremia: Na+ 131 on admission and now improved to 135 with IVFs Likely from dehydration -follow BMP -dc IVFs (16) Pelvic fluid collection: Now resolved, with drain still in place in right pelvis with minimal drainage -continue f/u with Urology at [facility] Thought to be secondary to previous anastomosis leak from ileal conduit (17) Neuropathy: continue gabapentin (18) GERD (gastroesophageal reflux disease): continue PPI (19) Hypertension: BPs controlled -continue Toprol XL -holding home lasix (20) DVT prophylaxis: Eliquis Code Status: Full code Dispo-continued stay here but if worsens, consider transfer to [facility] or [facility] for IR Will need IV abx at rehab Plans for referral to [facility] Possible dc in 1-2 days if continues to improve Admission and Anticipated Discharge Date Admission Date: November 25, 2019 Anticipated date of discharge: 11/29/19 Subjective Pt still reports feeling lousy, but does say the LLQ abd pain is slightly improved today. Had a BM last evening. No nausea or vomiting, is eating. No blood in stool or urine. No chest pain or SOB. Tele with sinus arrhythmia, PACs, rates 90-100s Review of Systems Review of Systems: All systems reviewed & are unremarkable except as noted in HPI & below Physical Exam Constitutional: WD/WN, vitals as above Eyes: + anicteric sclerae ENMT: Mouth: + tongue abnormality (beefy red tongue) Neck: trachea midline, no thyromegaly Respiratory: normal respiratory effort, lungs clear to auscultation Cardiovascular: RRR, no murmur, no edema Chest (Breasts): Chest: normal inspection of chest Gastrointestinal (Abdomen): Inspection/Auscultation: normal bowel sounds; + abdomen abnormal to inspection (RLQ urostomy bag with clear yellow urine, surgical drain with no erythema) and abdomen not distended Percus daniella/Palpation: abdomen soft; abdomen nontender Musculoskeletal: Extremities: extremities normal to inspection; no cyanosis and no clubbing Skin: no rashes, warm and dry Neurologic: moves all extremities and awake; no focal motor deficits Psychiatric: A+Ox3, euthymic affect Orientation: cooperative Genitourinary: no testicular masses, no penis abnormality Lymphatic: no lymphedema Results & Data Results & Data ([facility]) Vital Signs (Past 12 Hours) Vital Signs Temp Pulse Pulse Resp BP Pulse Ox 11/27/19 11:20 36.5 C 96 H 18 113/67 96 11/27/19 08:36 109 H 11/27/19 07:45 36.7 C 99 H 19 128/77 95 11/27/19 03:01 36.9 C 102 H 19 117/62 95 11/27/19 00:00 100 H Laboratory Results 11/27/19 11/27/19 11/27/19 Range/Units 05:47 05:47 05:47 WBC 13.38 H (4.8-10.8) K/uL RBC 3.21 L (4.7-6.1) M/uL Hgb 7.8 L (14.0-18.0) g/dL Hct 25.7 L (42-52) % MCV 80.1 (80-100) fL MCH 24.3 L (25-34) pg MCHC 30.4 L (32-36) g/dL RDW Std Deviation 51.8 H (36.4-46.3) fL RDW Coeff of Effie 17.6 H (11.5-14.5) % Plt Count 414 H (130-400) K/uL MPV 9.6 (7.4-10.4) fL Immature Gran % (Auto) 2.0 % Neut % (Auto) 75.0 % Lymph % (Auto) 4.7 % [place] % (Auto) 12.0 % Eos % (Auto) 5.9 % Baso % (Auto) 0.4 % Immature Gran # (Auto) 0.27 H (0.00-0.02) K/uL Neut # (Auto) 10.03 H (1.4-6.5) K/uL Lymph # (Auto) 0.63 L (1.2-3.4) K/uL [place] # (Auto) 1.61 H (0.11-0.59) K/uL Eos # (Auto) 0.79 H (0-0.5) K/uL Baso # (Auto) 0.05 (0-0.2) K/uL RBC Morphology Unremarkable Sodium 135 L (136-145) mmol/L Potassium 3.9 (3.5-5.1) mmol/L Chloride 108 H (98-107) mmol/L Carbon Dioxide 21 (21-32) mmol/L Anion Gap 6.0 (3-11) BUN 35 H (7-18) mg/dl Creatinine 1.74 H (0.6-1.4) mg/dl Est Cr Clr Drug Dosing 41.9 ml/min Est GFR ( Amer) 43.8 Est GFR (Non-Af Amer) 37.8 BUN/Creatinine Ratio 20.1 H (10-20) Glucose 87 (70-99) mg/dl Calcium 8.5 (8.5-10.1) mg/dl Iron 15 L (35-175) mcg/dl TIBC 205 L (250-450) mcg/dl Transferrin 168 L (200-360) mg/dl Transferrin % Sat 6 L (20-50) % Ferritin 85.5 (8-388) ng/ml Vitamin B12 576 (211-911) pg/ml Folate 7.96 (>5.38) ng/ml Stool Occult Bld Scrn (Negative) 11/26/19 Range/Units 15:20 WBC (4.8-10.8) K/uL RBC (4.7-6.1) M/uL Hgb (14.0-18.0) g/dL Hct (42-52) % MCV (80-100) fL MCH (25-34) pg MCHC (32-36) g/dL RDW Std Deviation (36.4-46.3) fL RDW Coeff of Effie (11.5-14.5) % Plt Count (130-400) K/uL MPV (7.4-10.4) fL Immature Gran % (Auto) % Neut % (Auto) % Lymph % (Auto) % [place] % (Auto) % Eos % (Auto) % Baso % (Auto) % Immature Gran # (Auto) (0.00-0.02) K/uL Neut # (Auto) (1.4-6.5) K/uL Lymph # (Auto) (1.2-3.4) K/uL [place] # (Auto) (0.11-0.59) K/uL Eos # (Auto) (0-0.5) K/uL Baso # (Auto) (0-0.2) K/uL RBC Morphology Sodium (136-145) mmol/L Potassium (3.5-5.1) mmol/L Chloride (98-107) mmol/L Carbon Dioxide (21-32) mmol/L Anion Gap (3-11) BUN (7-18) mg/dl Creatinine (0.6-1.4) mg/dl Est Cr Clr Drug Dosing ml/min Est GFR ( Amer) Est GFR (Non-Af Amer) BUN/Creatinine Ratio (10-20) Glucose (70-99) mg/dl Calcium (8.5-10.1) mg/dl Iron (35-175) mcg/dl TIBC (250-450) mcg/dl Transferrin (200-360) mg/dl Transferrin % Sat (20-50) % Ferritin (8-388) ng/ml Vitamin B12 (211-911) pg/ml Folate (>5.38) ng/ml Stool Occult Bld Scrn Negative (Negative) PG Care Time/CCT Total # of Minutes Spent Total Time Spent with Patient: Total time spent is greater than 50% in coordination of care (as documented) at patient's floor/unit and/or counseling patient: Coding Level of Care Code 53649 Subseq Hosp Care Lvl 3 Diagnoses Abdominal pain R10.30 Abdominal location: lower abdomen, unspecified Sepsis A41.9 Sepsis acute organ dysfunction status: unspecified Sepsis type: sepsis due to unspecified organism Leukocytosis D72.829 Leukocytosis type: unspecified UTI (urinary tract infection) N39.0 Hematuria presence: without hematuria Urinary tract infection type: site unspecified Pulmonary emphysema J43.9 Depressive disorder F32.9 Multifocal atrial tachycardia I47.1 Chronic kidney disease (CKD), stage III (moderate) N18.3 Chronic diastolic CHF (congestive heart failure) I50.32 Severe protein-calorie malnutrition E43 Pulmonary embolism I26.99 Chronic respiratory failure with hypoxia J96.11 Primary bladder malignant neoplasm C67.9 Anemia D64.9 Anemia type: unspecified type Hyponatremia E87.1 Pelvic fluid collection R18.8 Neuropathy G62.9 GERD (gastroesophageal reflux disease) K21.9 Esophagitis presence: esophagitis presence not specified Hypertension I10 Hypertension type: essential hypertension DVT prophylaxis Z29.9 (1) UTI (urinary tract infection) Hematuria presence: without hematuria Urinary tract infection type: site unspecified Qualified Code(s): N39.0 - Urinary tract infection, site not specified (2) Anemia Anemia type: unspecified type Qualified Code(s): D64.9 - Anemia, unspecified (3) Leukocytosis Leukocytosis type: unspecified Qualified Code(s): D72.829 - Elevated white blood cell count, unspecified (4) Sepsis Sepsis acute organ dysfunction status: unspecified Sepsis type: sepsis due to unspecified organism Qualified Code(s): A41.9 - Sepsis, unspecified organism (5) GERD (gastroesophageal reflux disease) Esophagitis presence: esophagitis presence not specified Qualified Code(s): K21.9 - Gastro-esophageal reflux disease without esophagitis (6) Abdominal pain Abdominal location: lower abdomen, unspecified Qualified Code(s): R10.30 - Lower abdominal pain, unspecified (7) Hypertension Hypertension type: essential hypertension Qualified Code(s): I10 - Essential (primary) hypertension
[2019-11-27] MEDS: CEFEPIME 2,000 MG in SYRINGE 7.5 ML IV SCH (12:00)
[2019-11-27] MEDS: SODIUM CHLORIDE 0.9% 1000ML 1,000 ML IV SCH (14:10)
[2019-11-27] MEDS: HEPARIN 100 UNIT/ML 5ML FLUSH FLUSH PRN (15:45)
[2019-11-27] MEDS: MIRTAZAPINE TAB 15 MG TAB PO SCH (20:13)
[2019-11-28] MEDS: HEPARIN 100 UNIT/ML 5ML FLUSH FLUSH PRN ×2 (05:42→13:50)
[2019-11-28] MEDS: PANTOprazole 40 MG TAB PO SCH (05:46)
[2019-11-28 06:11] LABS: Basophils # (auto) 0.07 K/uL (0-0.2); Basophils % (auto) 0.5 %; Eosinophils # (auto) 0.93 K/uL (0-0.5); Eosinophils % (auto) 7.2 %; Hematocrit (blood only) 26.2 % (42-52); Hemoglobin 7.8 g/dL (14.0-18.0); Immature Granulocytes # (auto) 0.56 K/uL (0.00-0.02); Immature Granulocytes % (auto) 4.3 %; Lymphocytes # (auto) 0.76 K/uL (1.2-3.4); Lymphocytes % (auto) 5.9 %; Mean Corpuscular Hemoglobin 24.4 pg (25-34); Mean Corpuscular Hgb Conc 29.8 g/dL (32-36); Mean Corpuscular Volume 81.9 fL (80-100); Mean Platelet Volume 9.2 fL (7.4-10.4); Monocytes # (auto) 1.54 K/uL (0.11-0.59); Monocytes % (auto) 11.9 %; Neutrophils # (auto) 9.04 K/uL (1.4-6.5); Neutrophils % (auto) 70.2 %; Platelet Count 417 K/uL (130-400); RDW Coefficient of Variation 17.7 % (11.5-14.5); RDW Standard Deviation 53.4 fL (36.4-46.3)
[2019-11-28 06:47] LABS: BUN Creatinine Ratio 17.2 (10-20); Calcium 9.1 mg/dl (8.5-10.1); Creatinine Clr Calc Pharmacy 42.8 ml/min; Est GFR (African American) 44.7; Est GFR (Non-African American) 38.6; Magnesium 1.6 mg/dl (1.8-2.4); Potassium 3.8 mmol/L (3.5-5.1)
[2019-11-28 06:55] LABS: Microcytosis Present
--- NOTE | 2019-11-28 08:12 | Urology Progress Note ---
Date of Service November 28, 2019 Assessment & Plan (1) Primary bladder malignant neoplasm: Labs improving, subjectively improving He remains a complex case, I would like to avoid replacement of his left nephrostomy tube however we need to continue to monitor output from his abdominal drain I will likely give him a solitary dose of Pyridium tonight and check his drain output tomorrow morning when I round, if he has discolored urine that implies there is persistent leak from his anastomosis and he would likely need to be set up for replacement of the left nephrostomy tube at some point If he does not have discoloration of that drain output there is an implication that his leak has sealed and he may be able to live without replacement of the drain Continue to monitor give his fragile state Subjective Reports that he is feeling much better today No abdominal pain overnight No flank pain this morning Energy levels are still poor and mobility remains poor Review of Systems Review of Systems: All systems reviewed & are unremarkable except as noted in HPI & below Physical Exam Physical Exam: Clear/yellow fluid in his right ANTONIA drain Limited output from his right nephrostomy although this was draining well overnight (bag recently drain) Stoma healthy Good urine quality and quantity within the stomal bag Incisions okay, abdomen soft, no rebound, no guarding Results & Data Vital Signs (Past 12 Hours) Vital Signs Temp Pulse Pulse Resp BP Pulse Ox 11/28/19 07:32 36.9 C 93 H 18 128/78 98 11/28/19 07:27 107 H 11/28/19 03:25 36.7 C 94 H 18 123/77 97 11/27/19 23:05 36.5 C 90 18 113/67 98 11/27/19 23:00 94 H PG Care Time/CCT Total # of Minutes Spent Total Time Spent with Patient: Total time spent is greater than 50% in coordination of care (as documented) at patient's floor/unit and/or counseling patient: Coding Level of Care Code 07893 Subseq Hosp Care Lvl 2 Diagnoses Primary bladder malignant neoplasm C67.9
[2019-11-28] MEDS: FLUTICASONE/VILANTEROL 100/25MCG 14 PUFFS/INHALER INH SCH (08:50)
[2019-11-28] MEDS: APIXABAN 5 MG TABLET PO SCH ×2 (08:51→20:22)
[2019-11-28] MEDS: METOPROLOL SUCC 25MG EXT REL TAB PO SCH (08:51)
[2019-11-28] MEDS: GABAPENTIN 100 MG CAP PO SCH ×2 (08:51→20:22)
[2019-11-28] MEDS: DOCUSATE SODIUM 100 MG CAP PO SCH (08:51)
[2019-11-28] MEDS: DULOXETINE HCL 30 MG CAP PO SCH ×2 (08:51→20:22)
[2019-11-28] MEDS: MAGNESIUM SULFATE / D5W 1 GM/100 ML BAG IV SCH ×2 (09:57→11:01)
[2019-11-28] MEDS: CEFEPIME 2,000 MG in SYRINGE 7.5 ML IV SCH (09:57)
--- NOTE | 2019-11-28 11:28 | Hospitalist Progress Note ---
Date of Service November 28, 2019 Assessment & Plan (1) Abdominal pain: John Lynch is a 74y/o M with PMH significant for pulmonary emphysema, CKD stage 3, bladder CA s/p cystectomy with ileal conduit and bilateral nephrostomy tubes, Multifocal atrial tachycardia; who presented from a detention due to several days of fevers and LLQ abdominal pain, found to have complicated UTI. CT abd/pel actually improved from previous with resolution of previous right sided pelvic fluid collection. With left moderate hydronephrosis and L nephrostomy tube dislodged. It is possible LLQ pain from hydro, UTI. Nothing else on imaging to explain pain. No diarrhea, no N/V. Pain now improved with treatment of UTI so was likely from that. -continue to treat UTI as below -if pain worsens or renal failure worsens, consider repeat imaging vs transfer to [facility] again for repeat Left nephrostomy tube as per my d/w Urology - urinalysis demonstrated nitrites, leuk esterase, >30 WBC, >30 RBC, and bacteria--> in setting of ileal conduit, however had fever and leukocytosis along with pain and tachycardia--> treating for UTI - Urology consulted-appreciate consult (2) Sepsis: from UTI as above, resolved (3) Leukocytosis: Secondary to infection Improved significantly since admission from 23k--> further down today to 12k today with tx of UTI Follow CBC in the AM (4) UTI (urinary tract infection): -UA positive in setting of ileal conduit, however seems like a true infection given sepsis (fever, tachycardia, leukocytosis, UTI) Ur cx now growing Pseudomonas (pansensitive) and E. coli (resitant to Amp and Unasyn) Pt with FQ allergy -continue treatment with IV Cefepime--> plan to treat for 10 days with IV abx- end date 12/05/19 -follow BCxs-NGTD (5) Pulmonary emphysema: no acute issues - continue home Breo Ellipta (6) Depressive disorder: stable - continue home duloxetine, Remeron (7) Multifocal atrial tachycardia: Seen by Cardiology in past, not overly concerning Tele with NSR and ST now - continue home metoprolol 25mg daily (8) Chronic kidney disease (CKD), stage III (moderate): -Cr 2.05 on admission, with baseline over last several months close to 1.9 Surgeon Assistant now lower than baseline with IVFs, remains stable at 1.7 -continue holding home lasix -Avoid nephrotoxins -renally dose meds when appropriate -follow BMP -as long as renal function stable, no need to transfer for replacement of LEFT nephrostomy tube (9) Chronic diastolic CHF (congestive heart failure): no volume overload, in fact was hypovolemic on admission -holding home lasix -BP control I/Os, daily weights (10) Severe protein-calorie malnutrition: -meets criteria for severe malnutrition in the setting of chronic disease with 45# wt loss in 4 mos (18.3%) and mild-moderate loss of muscle mass seen in the temples, clavicles & shoulders -consult Nutrition (11) Pulmonary embolism: HISTORY of Pulmonary emboli: -occurred 02/2019 -continue ELiquis (12) Chronic respiratory failure with hypoxia: wears 2LNC qhs (13) Primary bladder malignant neoplasm: now s/p cystectomy with complications afterwards to include uroma requiring drains, nephrostomy tubes -with urostomy, ileal conduit Follows with Urology (14) Anemia: Hgb chronically low since 2019, baseline 8-9, then dropped to 7.8 after IVF hydration and remains at 7.8 today No gross bleeding Hemoccult stool negative Microcytic--> combo of Fe deficiency and anemia of chronic disease -Fe studies with low transferrin sat 6%--> replace with IV Venofer 300mg daily x 3 days-today day 2 - B12, folate normal -follow CBC (15) Hyponatremia: Na+ 131 on admission and now improved to 139 with IVFs Likely from dehydration -follow BMP no further IVFs needed (16) Pelvic fluid collection: Now resolved, with drain still in place in right pelvis with minimal drainage -continue f/u with Urology at [facility] Thought to be secondary to previous anastomosis leak from ileal conduit -Needs follow up with his Urologist at [facility] to see if drain can be removed? (17) Neuropathy: continue gabapentin (18) GERD (gastroesophageal reflux disease): continue PPI (19) Hypertension: BPs controlled -continue Toprol XL -holding home lasix (20) Generalized weakness: Debilitated due to prolonged hospitalizations and rehab stays for complications following cystectomy -needs aggressive rehab (21) Hypomagnesemia: Mag 1.6, may be from loose stools -replace with IV mag -follow level in AM (22) Metabolic acidosis: HCO3 down to 19 tday, may be from GI losses? Non anion gap -follow BMP in AM Encouraged po intake (23) DVT prophylaxis: Eliquis Code Status: Full code Dispo-continued stay here but if worsens, consider transfer to [facility] or [place] for IR Will need IV abx at rehab Plans for referral to [facility] Possible dc tomorrow if continues to improve Admission and Anticipated Discharge Date Admission Date: November 25, 2019 Anticipated date of discharge: 11/29/19 Subjective Pt reports he still does not feel well but wants to eat more. When asked about abd pain says he has none. He is having some loose stools as per RN. Making urine. Denies chest pain or SOB. No fevers. When advised to get more active and get out of bed more today, he says "they worked me too much yesterday" and reports he was in a chair for [address], PACs, PVCs, rates 90-100s Review of Systems Review of Systems: All systems reviewed & are unremarkable except as noted in HPI & below Physical Exam Constitutional: WD/WN, vitals as above Eyes: + anicteric sclerae ENMT: Mouth: + tongue abnormality (beefy red tongue) Neck: trachea midline, no thyromegaly Respiratory: normal respiratory effort, lungs clear to auscultation Cardiovascular: RRR, no murmur, no edema Chest (Breasts): Chest: normal inspection of chest Gastrointestinal (Abdomen): Inspection/Auscultation: normal bowel sounds; + abdomen abnormal to inspection (RLQ urostomy bag with clear yellow urine, surgical drain with no erythema) and abdomen not distended Percussion/Palpation: abdomen soft; abdomen nontender Musculoskeletal: Extremities: extremities normal to inspection; no cyanosis and no clubbing Skin: no rashes, warm and dry Neurologic: moves all extremities and awake; no focal motor deficits Psychiatric: A+Ox3, euthymic affect Orientation: cooperative Lymphatic: no lymphedema Results & Data Results & Data ([facility]) Vital Signs (Past 12 Hours) Vital Signs Temp Pulse Pulse Resp BP Pulse Ox 11/28/19 07:32 36.9 C 93 H 18 128/78 98 11/28/19 07:27 107 H 11/28/19 03:25 36.7 C 94 H 18 123/77 97 Laboratory Results 11/28/19 11/28/19 Range/Units 05:43 05:43 WBC 12.90 H (4.8-10.8) K/uL RBC 3.20 L (4.7-6.1) M/uL Hgb 7.8 L (14.0-18.0) g/dL Hct 26.2 L (42-52) % MCV 81.9 (80-100) fL MCH 24.4 L (25-34) pg MCHC 29.8 L (32-36) g/dL RDW Std Deviation 53.4 H (36.4-46.3) fL RDW Coeff of Effie 17.7 H (11.5-14.5) % Plt Count 417 H (130-400) K/uL MPV 9.2 (7.4-10.4) fL Immature Gran % (Auto) 4.3 % Neut % (Auto) 70.2 % Lymph % (Auto) 5.9 % [place] % (Auto) 11.9 % Eos % (Auto) 7.2 % Baso % (Auto) 0.5 % Immature Gran # (Auto) 0.56 H (0.00-0.02) K/uL Neut # (Auto) 9.04 H (1.4-6.5) K/uL Lymph # (Auto) 0.76 L (1.2-3.4) K/uL [place] # (Auto) 1.54 H (0.11-0.59) K/uL Eos # (Auto) 0.93 H (0-0.5) K/uL Baso # (Auto) 0.07 (0-0.2) K/uL Microcytosis Present Sodium 139 (136-145) mmol/L Potassium 3.8 (3.5-5.1) mmol/L Chloride 113 H (98-107) mmol/L Carbon Dioxide 19 L (21-32) mmol/L Anion Gap 7.0 (3-11) BUN 29 H (7-18) mg/dl Creatinine 1.71 H (0.6-1.4) mg/dl Est Cr Clr Drug Dosing 42.8 ml/min Est GFR ( Amer) 44.7 Est GFR (Non-Af Amer) 38.6 BUN/Creatinine Ratio 17.2 (10-20) Glucose 90 (70-99) mg/dl Calcium 9.1 (8.5-10.1) mg/dl Magnesium 1.6 L (1.8-2.4) mg/dl PG Care Time/CCT Total # of Minutes Spent Total Time Spent with Patient: Total time spent is greater than 50% in coordination of care (as documented) at patient's floor/unit and/or counseling patient: Coding Level of Care Code 23851 Subseq Hosp Care Lvl 3 Diagnoses Abdominal pain R10.30 Abdominal location: lower abdomen, unspecified Sepsis A41.9 Sepsis acute organ dysfunction status: unspecified Sepsis type: sepsis due to unspecified organism Leukocytosis D72.829 Leukocytosis type: unspecified UTI (urinary tract infection) N39.0 Hematuria presence: without hematuria Urinary tract infection type: site unspecified Pulmonary emphysema J43.9 Depressive disorder F32.9 Multifocal atrial tachycardia I47.1 Chronic kidney disease (CKD), stage III (moderate) N18.3 Chronic diastolic CHF (congestive heart failure) I50.32 Severe protein-calorie malnutrition E43 Pulmonary embolism I26.99 Chronic respiratory failure with hypoxia J96.11 Primary bladder malignant neoplasm C67.9 Anemia D64.9 Anemia type: unspecified type Hyponatremia E87.1 Pelvic fluid collection R18.8 Neuropathy G62.9 GERD (gastroesophageal reflux disease) K21.9 Esophagitis presence: esophagitis presence not specified Hypertension I10 Hypertension type: essential hypertension Generalized weakness R53.1 Hypomagnesemia E83.42 Metabolic acidosis E87.2 DVT prophylaxis Z29.9 (1) UTI (urinary tract infection) Hematuria presence: without hematuria Urinary tract infection type: site unspecified Qualified Code(s): N39.0 - Urinary tract infection, site not specified (2) Anemia Anemia type: unspecified type Qualified Code(s): D64.9 - Anemia, unspecified (3) Leukocytosis Leukocytosis type: unspecified Qualified Code(s): D72.829 - Elevated white blood cell count, unspecified (4) Sepsis Sepsis acute organ dysfunction status: unspecified Sepsis type: sepsis due to unspecified organism Qualified Code(s): A41.9 - Sepsis, unspecified organism (5) GERD (gastroesophageal reflux disease) Esophagitis presence: esophagitis presence not specified Qualified Code(s): K21.9 - Gastro-esophageal reflux disease without esophagitis (6) Abdominal pain Abdominal location: lower abdomen, unspecified Qualified Code(s): R10.30 - Lower abdominal pain, unspecified (7) Hypertension Hypertension type: essential hypertension Qualified Code(s): I10 - Essential (primary) hypertension
[2019-11-28] MEDS: IRON SUCROSE 300 MG in SODIUM CHLORIDE 0.9% 250 ML IV SCH (11:59)
[2019-11-28] MEDS: MIRTAZAPINE TAB 15 MG TAB PO SCH (20:22)
[2019-11-28] MEDS ORDERED: DOCUSATE SODIUM 100 MG CAP PO PRN (21:00)
[2019-11-28] MEDS ORDERED: PHENAZOPYRIDINE HCL 200 MG TAB PO SCH ×2 (23:15)
[2019-11-29] MEDS: PANTOprazole 40 MG TAB PO SCH (04:43)
[2019-11-29 07:10] LABS: BUN Creatinine Ratio 17.1 (10-20); Calcium 9.3 mg/dl (8.5-10.1); Creatinine Clr Calc Pharmacy 49.8 ml/min; Est GFR (African American) 53.7; Est GFR (Non-African American) 46.3; Magnesium 1.8 mg/dl (1.8-2.4); Potassium 3.7 mmol/L (3.5-5.1)
[2019-11-29] MEDS ORDERED: POTASSIUM CHLORIDE 20 MEQ TABCR PO STA (08:26)
[2019-11-29] MEDS ORDERED: MAGNESIUM SULFATE / D5W 1 GM/100 ML BAG IV ONE (08:30)
[2019-11-29 08:52] LABS: Hematocrit (blood only) 27.2 % (42-52); Hemoglobin 8.1 g/dL (14.0-18.0); Mean Corpuscular Hemoglobin 24.3 pg (25-34); Mean Corpuscular Hgb Conc 29.8 g/dL (32-36); Mean Corpuscular Volume 81.4 fL (80-100); Mean Platelet Volume 9.6 fL (7.4-10.4); Platelet Count 404 K/uL (130-400); RDW Coefficient of Variation 17.8 % (11.5-14.5); RDW Standard Deviation 52.8 fL (36.4-46.3); Red Blood Count 3.34 M/uL (4.7-6.1); White Blood Count 12.33 K/uL (4.8-10.8)
[2019-11-29] MEDS: DULOXETINE HCL 30 MG CAP PO SCH ×2 (09:02→20:20)
[2019-11-29] MEDS: METOPROLOL SUCC 25MG EXT REL TAB PO SCH (09:02)
[2019-11-29] MEDS: GABAPENTIN 100 MG CAP PO SCH ×2 (09:02→20:18)
[2019-11-29] MEDS: APIXABAN 5 MG TABLET PO SCH ×2 (09:03→20:21)
[2019-11-29] MEDS: FLUTICASONE/VILANTEROL 100/25MCG 14 PUFFS/INHALER INH SCH (09:04)
[2019-11-29 09:13] LABS: Basophils # (auto) 0.11 K/uL (0-0.2); Basophils % (auto) 0.9 %; Eosinophils # (auto) 0.98 K/uL (0-0.5); Eosinophils % (auto) 7.9 %; Immature Granulocytes # (auto) 1.05 K/uL (0.00-0.02); Immature Granulocytes % (auto) 8.5 %; Lymphocytes % (auto) 8.1 %; Monocytes # (auto) 1.25 K/uL (0.11-0.59); Monocytes % (auto) 10.1 %; Neutrophils # (auto) 7.94 K/uL (1.4-6.5); Neutrophils % (auto) 64.5 %; RBC Morphology Unremarkable
[2019-11-29] MEDS: IRON SUCROSE 300 MG in SODIUM CHLORIDE 0.9% 250 ML IV SCH (10:05)
--- NOTE | 2019-11-29 10:17 | Urology Progress Note ---
Date of Service November 29, 2019 Assessment & Plan (1) Primary bladder malignant neoplasm: improving in many ways, but still with concerning findings 1. continue PT - mobility will be vital to keeping him out of the hospital in the future 2. drain outputs - concerning - can flush R nephrostomy PRN for low output (uncertain this is necessary as I suspect he is draining most of his urine antegrade into the stoma - pyridium test overnight to determine if urine and drain outputs both developed an orange color (implying persistent urine leak) - unfortunately, the drain has had significant output and it matches the color of the urine perfectly - given his current stability/improvement, I do not think we need to do any thing emergently, but he will definitely need to have his left nephrostomy replaced in the near future to prevent continued urine leak into his abdomen - we will attempt to arrange for this as an outpt Dispo - overall, seems quite improved and appears stable. He is benefiting from the PT, but from a standpoint, we have no pressing need to keep him as an inpt Subjective subjectively feels that he is improving PT has been beneficial minimal pain tolerating a diet labs have continued to improve - Cr currently the best it has been in 9 mos Review of Systems Review of Systems: All systems reviewed & are unremarkable except as noted in HPI & below Physical Exam Physical Exam: minimal output from the right nephrostomy good uop into stoma bag left nephrostomy site healthy (no tube) Abdominal drain with orange urine (matches stoma output - pyridium test overnight) Results & Data Vital Signs (Past 12 Hours) Vital Signs Temp Pulse Resp BP BP Pulse Ox 11/29/19 07:55 36.7 C 97 H 18 140/86 96 11/29/19 04:40 36.4 C L 99 H 20 162/82 H 94 11/29/19 04:00 36.6 C 92 H 20 124/84 92 11/28/19 23:21 36.3 C L 86 18 119/71 99 PG Care Time/CCT Total # of Minutes Spent Total Time Spent with Patient: Total time spent is greater than 50% in coordination of care (as documented) at patient's floor/unit and/or counseling patient: Coding Level of Care Code 75069 Subseq Hosp Care Lvl 2 Diagnoses Primary bladder malignant neoplasm C67.9
[2019-11-29] MEDS: CEFEPIME 2,000 MG in SYRINGE 7.5 ML IV SCH (11:52)
--- NOTE | 2019-11-29 13:35 | Hospitalist Progress Note ---
Date of Service November 29, 2019 Assessment & Plan (1) Abdominal pain: John Lynch is a 74y/o M with PMH significant for pulmonary emphysema, CKD stage 3, bladder CA s/p cystectomy with ileal conduit and bilateral nephrostomy tubes, Multifocal atrial tachycardia; who presented from a fdc due to several days of fevers and LLQ abdominal pain, found to have complicated UTI. CT abd/pel actually improved from previous with resolution of previous right sided pelvic fluid collection. With left moderate hydronephrosis and L nephrostomy tube dislodged. It is possible LLQ pain from hydro, UTI. Nothing else on imaging to explain pain. No diarrhea, no N/V. Pyridium was given by Urology here and then ANTONIA drain put out orange liquid so therefore his anastomotic leak persists at ureter connection to ileal conduit Pain now improved with treatment of UTI so was likely from that. -continue to treat UTI as below -if pain worsens or renal failure worsens, consider transfer to [facility] again for repeat Left nephrostomy tube as per my d/w Urology - urinalysis demonstrated nitrites, leuk esterase, >30 WBC, >30 RBC, and bacteria--> in setting of ileal conduit, however had fever and leukocytosis along with pain and tachycardia--> treating for UTI - Urology consulted-appreciate consult - Will need Left nephrostomy tube replaced in the near future but not urgent--> will plan for this as an outpt once at [facility] (2) Sepsis: from UTI as above, resolved (3) Leukocytosis: Secondary to infection Improved significantly since admission from 23k--> further down today to 12k today with tx of UTI Follow CBC in the AM (4) UTI (urinary tract infection): -UA positive in setting of ileal conduit, however seems like a true infection given sepsis (fever, tachycardia, leukocytosis, UTI) Ur cx now growing Pseudomonas (pansensitive) and E. 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 now 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 than baseline with IVFs, rn field lowest it has been in months now at 1.47 -continue holding home lasix -Avoid nephrotoxins -renally dose meds when appropriate -follow BMP (9) Chronic diastolic CHF (congestive heart failure): no volume overload, in fact was hypovolemic on admission -continue holding home lasix -BP control I/Os, daily weights (10) Severe protein-calorie malnutrition: -meets criteria for severe malnutrition in the setting of chronic disease with 45# wt loss in 4 mos (18.3%) and mild-moderate loss of muscle mass seen in the temples, clavicles & shoulders -consult Nutrition (11) Pulmonary embolism: HISTORY of Pulmonary emboli: -occurred 02/2019 -continue ELiquis (12) Chronic respiratory failure with hypoxia: wears 2LNC qhs (13) Primary bladder malignant neoplasm: now s/p cystectomy with complications afterwards to include uroma requiring drain and anastomosis leak, nephrostomy tubes -with urostomy, ileal conduit -needs LEFT nephrostomy tube placed again in near future as anastomosis leak still present here as evidence by orange urine from pyridium draining through ANTONIA Follows with Urology (14) Anemia: Hgb chronically low since 2019, baseline 8-9, then dropped to 7.8 after IVF hydration -up today to 8.1 No gross bleeding Hemoccult stool negative Microcytic--> combo of Fe deficiency and anemia of chronic disease -Fe studies with low transferrin sat 6%--> replace with IV Venofer 300mg daily x 3 days-today day 3 - B12, folate normal -follow CBC (15) Hyponatremia: Na+ 131 on admission and now improved to 138 with IVFs Likely from dehydration -follow BMP no further IVFs needed (16) Pelvic fluid collection: Now resolved, with drain still in place in right pelvis with orange urine drainage after pyridium given consistent with persistent leak -continue f/u with Urology at [facility] Thought to be secondary to anastomosis leak from ileal conduit -Needs follow up with his Urologist at [facility] eventually for repair of leak (17) Neuropathy: continue gabapentin (18) GERD (gastroesophageal reflux disease): continue PPI (19) Hypertension: BPs controlled -continue Toprol XL -holding home lasix (20) Generalized weakness: Debilitated due to prolonged hospitalizations and rehab stays for complications following cystectomy -needs aggressive rehab (21) Hypomagnesemia: Improved with replacement, may be from loose stools -follow level in AM (22) Metabolic acidosis: HCO3 down to 19 and now improved up to 20, may be from GI losses? Non anion gap -follow BMP in AM Encouraged po intake (23) DVT prophylaxis: Eliquis Code Status: Full code Dispo-continued stay here but if worsens, consider transfer to [facility] or [place] for IR Will need IV abx at rehab Plans for referral to [facility] for discharge today but rehab has not yet accepted Admission and Anticipated Discharge Date Admission Date: November 25, 2019 Anticipated date of discharge: 11/30/19 Subjective Feeling better. Abd pain is gone. Afebrile.Eating well, moving bowels 4 times yesterday. Denies chest pain or SOB. Is feeling weak but is motivated to go to rehab Tele with NSR, rates 80-90s, PVCs Discussed his care at length with his on phone and Superintendent [employer] Social [employer] Professor of Systems Review of Systems: All systems reviewed & are unremarkable except as noted in HPI & below Physical Exam Constitutional: WD/WN, vitals as above Eyes: + anicteric sclerae ENMT: Mouth: + tongue abnormality (beefy red tongue) Neck: trachea midline, no thyromegaly Respiratory: normal respiratory effort, lungs clear to auscultation Cardiovascular: RRR, no murmur, no edema Chest (Breasts): Chest: normal inspection of chest Gastrointestinal (Abdomen): Inspection/Auscultation: normal bowel sounds; + abdomen abnormal to inspection (RLQ urostomy bag with clear orange urine, surgical drain with no erythema) and abdomen not distended Percussion/Palpation: abdomen soft; abdomen nontender Musculoskeletal: Extremities: extremities normal to inspection; no cyanosis and no clubbing Skin: no rashes, warm and dry Neurologic: moves all extremities and awake; no focal motor deficits Psychiatric: A+Ox3, euthymic affect Orientation: cooperative Lymphatic: no lymphedema Results & Data Results & Data ([facility]) Vital Signs (Past 12 Hours) Vital Signs Temp Pulse Pulse Resp BP BP Pulse Ox 11/29/19 10:15 36.7 C 100 H 16 123/64 97 11/29/19 08:00 97 H 11/29/19 07:55 36.7 C 97 H 18 140/86 96 11/29/19 04:40 36.4 C L 99 H 20 162/82 H 94 11/29/19 04:00 36.6 C 92 H 20 124/84 92 Laboratory Results labs PG Care Time/CCT Total # of Minutes Spent Total Time Spent with Patient: Total time spent is greater than 50% in coordination of care (as documented) at patient's floor/unit and/or counseling patient: Coding Level of Care Code 43813 Subseq Hosp Care Lvl 3 Diagnoses Abdominal pain R10.30 Abdominal location: lower abdomen, unspecified Sepsis A41.9 Sepsis acute organ dysfunction status: unspecified Sepsis type: sepsis due to unspecified organism Leukocytosis D72.829 Leukocytosis type: unspecified UTI (urinary tract infection) N39.0 Hematuria presence: without hematuria Urinary tract infection type: site unspecified Pulmonary emphysema J43.9 Depressive disorder F32.9 Multifocal atrial tachycardia I47.1 Chronic kidney disease (CKD), stage III (moderate) N18.3 Chronic diastolic CHF (congestive heart failure) I50.32 Severe protein-calorie malnutrition E43 Pulmonary embolism I26.99 Chronic respiratory failure with hypoxia J96.11 Primary bladder malignant neoplasm C67.9 Anemia D64.9 Anemia type: unspecified type Hyponatremia E87.1 Pelvic fluid collection R18.8 Neuropathy G62.9 GERD (gastroesophageal reflux disease) K21.9 Esophagitis presence: esophagitis presence not specified Hypertension I10 Hypertension type: essential hypertension Generalized weakness R53.1 Hypomagnesemia E83.42 Metabolic acidosis E87.2 DVT prophylaxis Z29.9 (1) UTI (urinary tract infection) Hematuria presence: without hematuria Urinary tract infection type: site unspecified Qualified Code(s): N39.0 - Urinary tract infection, site not specified (2) Anemia Anemia type: unspecified type Qualified Code(s): D64.9 - Anemia, unspecified (3) Leukocytosis Leukocytosis type: unspecified Qualified Code(s): D72.829 - Elevated white blood cell count, unspecified (4) Sepsis Sepsis acute organ dysfunction status: unspecified Sepsis type: sepsis due to unspecified organism Qualified Code(s): A41.9 - Sepsis, unspecified organism (5) GERD (gastroesophageal reflux disease) Esophagitis presence: esophagitis presence not specified Qualified Code(s): K21.9 - Gastro-esophageal reflux disease without esophagitis (6) Abdominal pain Abdominal location: lower abdomen, unspecified Qualified Code(s): R10.30 - Lower abdominal pain, unspecified (7) Hypertension Hypertension type: essential hypertension Qualified Code(s): I10 - Essential (primary) hypertension
[2019-11-29] MEDS: MIRTAZAPINE TAB 15 MG TAB PO SCH (20:19)
[2019-11-30] MEDS: PANTOprazole 40 MG TAB PO SCH (05:52)
[2019-11-30] MEDS: HEPARIN 100 UNIT/ML 5ML FLUSH FLUSH PRN ×2 (06:10→10:43)
[2019-11-30 06:42] LABS: Creatinine Clr Calc Pharmacy 56.7 ml/min; Est GFR (African American) 62.9; Est GFR (Non-African American) 54.3
[2019-11-30] MEDS: GABAPENTIN 100 MG CAP PO SCH ×2 (07:58→20:44)
[2019-11-30] MEDS: DULOXETINE HCL 30 MG CAP PO SCH ×2 (07:58→20:44)
[2019-11-30] MEDS: APIXABAN 5 MG TABLET PO SCH ×2 (07:58→20:44)
[2019-11-30] MEDS: FLUTICASONE/VILANTEROL 100/25MCG 14 PUFFS/INHALER INH SCH (07:58)
[2019-11-30] MEDS: METOPROLOL SUCC 25MG EXT REL TAB PO SCH (07:58)
[2019-11-30 08:24] LABS: Hematocrit (blood only) 28.6 % (42-52); Hemoglobin 8.6 g/dL (14.0-18.0); Mean Corpuscular Hemoglobin 24.7 pg (25-34); Mean Corpuscular Hgb Conc 30.1 g/dL (32-36); Mean Corpuscular Volume 82.2 fL (80-100); Mean Platelet Volume 9.4 fL (7.4-10.4); Platelet Count 454 K/uL (130-400); RDW Coefficient of Variation 17.9 % (11.5-14.5); RDW Standard Deviation 53.2 fL (36.4-46.3); Red Blood Count 3.48 M/uL (4.7-6.1); White Blood Count 16.02 K/uL (4.8-10.8)
[2019-11-30 08:32] LABS: BUN Creatinine Ratio 20.9 (10-20); Calcium 9.8 mg/dl (8.5-10.1); Creatinine Clr Calc Pharmacy 56.7 ml/min; Est GFR (African American) 62.9; Est GFR (Non-African American) 54.3; Potassium 4.3 mmol/L (3.5-5.1)
[2019-11-30 08:46] LABS: ALC (manual) 1.78 K/uL (1.2-3.4); ANC (manual) 10.94 K/uL (1.4-6.5); Eosinophils # (manual) 0.54 K/uL (0-0.5); Eosinophils % (manual) 3.4 %; Lymphocytes # (manual) 1.78 K/uL (1.2-3.4); Lymphocytes % (manual) 11.1 %; Metamyelocytes # (manual) 0.14 K/uL (0-0); Metamyelocytes % (manual) 0.9 %; Monocytes # (manual) 0.96 K/uL (0.11-0.59); Myelocytes # (manual) 1.65 K/uL (0-0); Myelocytes % (manual) 10.3 %; Neutrophils # (manual) 10.94 K/uL (1.4-6.5); Neutrophils % (manual) 68.3 %; RBC Morphology Unremarkable
--- NOTE | 2019-11-30 09:23 | Urology Progress Note ---
Date of Service November 30, 2019 Assessment & Plan (1) Primary bladder malignant neoplasm: Persistent leak from left ureteral anastomosis - will work on outpt nephrostomy placement for the upcoming week - cont abx for now Subjective Chart review - pt not seen Cr improved further overnight - best values he has had in some time Leukocytosis has actually worsened VSS - but low temp Results & Data Vital Signs (Past 12 Hours) Vital Signs Temp Pulse Pulse Resp BP BP Pulse Ox 11/30/19 07:16 35.6 C L 86 18 115/72 100 11/30/19 04:15 36.6 C 81 16 123/72 99 11/29/19 23:15 36.4 C L 94 H 20 127/70 99 11/29/19 22:44 95 H PG Care Time/CCT Total # of Minutes Spent Total Time Spent with Patient: Total time spent is greater than 50% in coordination of care (as documented) at patient's floor/unit and/or counseling patient: Coding Level of Care Code None Diagnoses Primary bladder malignant neoplasm C67.9
[2019-11-30] MEDS: CEFEPIME 2,000 MG in SYRINGE 7.5 ML IV SCH (10:43)
--- NOTE | 2019-11-30 11:24 | Hospitalist Progress Note ---
Date of Service November 30, 2019 Assessment & Plan (1) Abdominal pain: John Lynch is a 74y/o M with PMH significant for pulmonary emphysema, CKD stage 3, bladder CA s/p cystectomy with ileal conduit with leak and bilateral nephrostomy tubes, Multifocal atrial tachycardia; who presented from a retirement due to several days of fevers and LLQ abdominal pain, found to have complicated UTI. CT abd/pel actually improved from previous with resolution of previous right sided pelvic fluid collection. With left moderate hydronephrosis and L nephrostomy tube dislodged. It is possible LLQ pain from hydro, UTI. Nothing else on imaging to explain pain. No diarrhea, no N/V at the time of admission. UA with positive nitrites, leuk esterase, >30 WBC, >30 RBC, and bacteria--> in setting of ileal conduit, however had fever and leukocytosis along with pain and tachycardia--> treating for UTI Pyridium was given by Urology here and then ANTONIA drain put out orange liquid so therefore his anastomotic leak persists at ureter connection to ileal conduit Pain now improved with treatment of UTI so was likely from that. With right flank and right-sided abdominal pain on 11/29 secondary to excessive manipulation of right nephrostomy tube causing pain-it is in place as per KUB and continues to drain urine, however his WBC count increased on 11/29 with concerns for untreated infection versus developing C. difficile colitis -continue to treat UTI as below -if pain worsens or renal failure worsens, consider transfer to [facility] again for repeat Left nephrostomy tube as per my d/w Urology - Urology consulted-appreciate consult -Will need Left nephrostomy tube replaced in the near future but not urgent--> will plan for this as an outpt at Critical access hospital once he is discharged to [facility] (2) Sepsis: from UTI as above, resolved (3) Leukocytosis: Secondary to infection Improved significantly since admission from 23k-->down to 12k with tx of UTI, however de back up again to 16 K on 11/29 as above Remains afebrile and actually looks much improved from upon admission With development of loose stools-question of developing C. difficile colitis given multiple broad-spectrum antibiotics over the last few months -Check C. difficile stool antigen if has another loose bowel movement today -Continuing IV cefepime -Follow CBC in the morning (4) UTI (urinary tract infection): -UA positive in setting of ileal conduit, however seems like a true infection given sepsis (fever, tachycardia, leukocytosis, UTI) Ur cx now growing Pseudomonas (pansensitive) and E. coli (resitant to Amp and Unasyn) Pt with FQ allergy -continue treatment with IV Cefepime--> plan to treat for at least 10 days with IV abx-end date 12/05/19 -follow BCxs-NGTD (5) Pulmonary emphysema: no acute issues - continue home Breo Ellipta (6) Depressive disorder: stable - continue home duloxetine, Remeron (7) Multifocal atrial tachycardia: Seen by Cardiology in past, not overly concerning Tele with NSR now, ST has resolved - continue home metoprolol 25mg daily (8) Chronic kidney disease (CKD), stage III (moderate): -Cr 2.05 on admission, with baseline over last several months close to 1.9 [employer] Reviewer now lower than baseline with IVFs, log driver lowest it has been in months now at 1.29 -continue holding home lasix -Avoid nephrotoxins -renally dose meds when appropriate -follow BMP (9) Chronic diastolic CHF (congestive heart failure): no volume overload, in fact was hypovolemic on admission -continue holding home lasix -BP control I/Os, daily weights (10) Severe protein-calorie malnutrition: -meets criteria for severe malnutrition in the setting of chronic disease with 45# wt loss in 4 mos (18.3%) and mild-moderate loss of muscle mass seen in the temples, clavicles & shoulders -consult Nutrition appreciated (11) Pulmonary embolism: HISTORY of Pulmonary emboli: -occurred 02/2019 -continue ELiquis (12) Chronic respiratory failure with hypoxia: wears 2LNC qhs (13) Primary bladder malignant neoplasm: now s/p cystectomy with complications afterwards to include uroma requiring drain and anastomosis leak, nephrostomy tubes -with urostomy, ileal conduit with leak where ureter on the right inserts -needs LEFT nephrostomy tube placed again in near future as anastomosis leak still present here as evidence by orange urine from pyridium draining through ANTONIA Follows with Urology (14) Anemia: Hgb chronically low since 2018, baseline 8-9, then dropped to 7.8 after IVF hydration -up today again to 8.6 status post IV Venofer No gross bleeding Hemoccult stool negative Microcytic--> combo of Fe deficiency and anemia of chronic disease -Fe studies with low transferrin sat 6%--> replaced with IV Venofer 300mg daily x 3 days - B12, folate normal -follow CBC (15) Hyponatremia: Na+ 131 on admission and now improved to 139 after receiving IV fluids Likely from dehydration -follow BMP no further IVFs needed (16) Pelvic fluid collection: Now resolved, with drain still in place in right pelvis with orange urine drainage after pyridium given consistent with persistent leak -continue f/u with Urology at [facility] Thought to be secondary to anastomosis leak from ileal conduit -Needs follow up with his Urologist at [facility] eventually for repair of leak (17) Neuropathy: continue gabapentin (18) GERD (gastroesophageal reflux disease): continue PPI (19) Hypertension: BPs controlled -continue Toprol XL -holding home lasix (20) Generalized weakness: Debilitated due to prolonged hospitalizations and rehab stays for complications following cystectomy -needs aggressive rehab (21) Hypomagnesemia: Improved with replacement, may be from loose stools -follow level in AM (22) Metabolic acidosis: HCO3 down to 19 and now improved up to 21, may be from GI losses? Non anion gap -follow BMP in AM Encouraged po intake (23) DVT prophylaxis: Eliquis Code Status: Full code Dispo-continued stay here for worsening leukocytosis again-if condition declines, consider transfer to Critical access hospital or [place] for IR placement of nephrostomy tubes Will need IV abx at rehab Plans for discharge to [facility] when improved-hopefully on Sunday Admission and Anticipated Discharge Date Admission Date: November 25, 2019 Anticipated date of discharge: 12/01/19 Subjective Patient had some leaking from the right nephrostomy tube noted in the nursing notes overnight-unclear if coming from the bag or from the nephrostomy tube site on his right lower back. Patient currently was reporting to me pain at the right nephrostomy tube site that was causing spasms sometimes radiating into his right groin. I noted the nephrostomy tube was pulling very taut and was anchored to the right thigh strap. This was adjusted and he had relief of the pain. KUB was obtained as per my discussion with urology and the right nephrostomy tube appears to be in place He so far today has had 2 large soft-loose brown bowel movements as per nurses aide. He had 1 loose large bowel movement yesterday and for the day before that. His white blood cell count has increased today. He denies any left-sided abdominal pain. Denies chest pain or shortness of breath, no cough. Telemetry with normal sinus rhythm and PACs and PVCs, rates in the 80s to 100s. Review of Systems Review of Systems: All systems reviewed & are unremarkable except as noted in HPI & below Physical Exam Constitutional: WD/WN, vitals as above (Pleasant, appears much improved from previous) Eyes: + anicteric sclerae Neck: trachea midline, no thyromegaly Respiratory: normal respiratory effort, lungs clear to auscultation Cardiovascular: RRR, no murmur, no edema Chest (Breasts): Chest: normal inspection of chest Gastrointestinal (Abdomen): Inspection/Auscultation: normal bowel sounds; + abdomen abnormal to inspection (RLQ urostomy bag with clear dark yellow urine, surgical drain and right nephrostomy tube with no surrounding erythema in both with dark yellow clear urine) and abdomen not distended Percussion/Palpation: abdomen soft; abdomen nontender (Pain at the site of the right nephrostomy tube and minimal tenderness to palpation in the right lower quadrant of abdomen without guarding or rebound) Musculoskeletal: Extremities: extremities normal to inspection; no cyanosis and no clubbing Skin: no rashes, warm and dry Neurologic: moves all extremities and awake; no focal motor deficits Psychiatric: A+Ox3, euthymic affect Orientation: cooperative Lymphatic: no lymphedema Results & Data Results & Data ([facility]) Vital Signs (Past 12 Hours) Vital Signs Temp Pulse Resp BP BP Pulse Ox 11/30/19 07:16 35.6 C L 86 18 115/72 100 11/30/19 04:15 36.6 C 81 16 123/72 99 Laboratory Results 11/30/19 11/30/19 11/30/19 Range/Units 06:10 06:09 06:09 WBC 16.02 H (4.8-10.8) K/uL RBC 3.48 L (4.7-6.1) M/uL Hgb 8.6 L (14.0-18.0) g/dL Hct 28.6 L (42-52) % MCV 82.2 (80-100) fL MCH 24.7 L (25-34) pg MCHC 30.1 L (32-36) g/dL RDW Std Deviation 53.2 H (36.4-46.3) fL RDW Coeff of Effie 17.9 H (11.5-14.5) % Plt Count 454 H (130-400) K/uL MPV 9.4 (7.4-10.4) fL Neutrophils % (Manual) 68.3 % Lymphocytes % (Manual) 11.1 % Monocytes % (Manual) 6.0 % Eosinophils % (Manual) 3.4 % Metamyelocytes % (Man) 0.9 % Myelocytes % (Man) 10.3 % Neutrophils # (Manual) 10.94 H (1.4-6.5) K/uL Total Absolute Neuts 10.94 H (1.4-6.5) K/uL Lymphocytes # (Manual) 1.78 (1.2-3.4) K/uL Total Abs Lymphocytes 1.78 (1.2-3.4) K/uL Monocytes # (Manual) 0.96 H (0.11-0.59) K/uL Eosinophils # (Manual) 0.54 H (0-0.5) K/uL Metamyelocytes # (Man) 0.14 H (0-0) K/uL Myelocytes # (Manual) 1.65 H (0-0) K/uL RBC Morphology Unremarkable Sodium 138 (136-145) mmol/L Potassium 4.3 D (3.5-5.1) mmol/L Chloride 114 H (98-107) mmol/L Carbon Dioxide 21 (21-32) mmol/L Anion Gap 4.0 (3-11) BUN 27 H (7-18) mg/dl Creatinine 1.29 1.29 (0.6-1.4) mg/dl Est Cr Clr Drug Dosing 56.7 56.7 ml/min Est GFR ( Amer) 62.9 62.9 Est GFR (Non-Af Amer) 54.3 54.3 BUN/Creatinine Ratio 20.9 H (10-20) Glucose 89 (70-99) mg/dl Calcium 9.8 (8.5-10.1) mg/dl Diagnostic Findings KUB image personally reviewed by me and agree with the following report: XR KUB/Abdomen 1 view CLINICAL HISTORY: check right nephrostomy tube placement COMPARISON STUDY: 11/18/2013, CT scan dated 11/25/2019 FINDINGS: There is a pigtail nephrostomy tube catheter projected over the lower pole the right kidney. There is a pigtail surgical drain projected over the right iliac fossa. There are postsurgical changes present within the pelvis. Degenerative changes are present within the cervical spine. Degenerative changes are present within the hips. There is no pathologic bowel dilatation. There is a punctate lower pole right renal calculus. IMPRESSION: 1. Right-sided nephrolithiasis 2. Nonobstructive bowel gas pattern 3. Right-sided pigtail nephrostomy tube catheter projected over the lower pole the right kidney 4. Pigtail catheter projected over the right iliac fossa PG Care Time/CCT Total # of Minutes Spent Total Time Spent with Patient: Total time spent is greater than 50% in coordination of care (as documented) at patient's floor/unit and/or counseling patient: Coding Level of Care Code 76267 Subseq Hosp Care Lvl 3 Diagnoses Abdominal pain R10.30 Abdominal location: lower abdomen, unspecified Sepsis A41.9 Sepsis acute organ dysfunction status: unspecified Sepsis type: sepsis due to unspecified organism Leukocytosis D72.829 Leukocytosis type: unspecified UTI (urinary tract infection) N39.0 Hematuria presence: without hematuria Urinary tract infection type: site unspecified Pulmonary emphysema J43.9 Depressive disorder F32.9 Multifocal atrial tachycardia I47.1 Chronic kidney disease (CKD), stage III (moderate) N18.3 Chronic diastolic CHF (congestive heart failure) I50.32 Severe protein-calorie malnutrition E43 Pulmonary embolism I26.99 Chronic respiratory failure with hypoxia J96.11 Primary bladder malignant neoplasm C67.9 Anemia D64.9 Anemia type: unspecified type Hyponatremia E87.1 Pelvic fluid collection R18.8 Neuropathy G62.9 GERD (gastroesophageal reflux disease) K21.9 Esophagitis presence: esophagitis presence not specified Hypertension I10 Hypertension type: essential hypertension Generalized weakness R53.1 Hypomagnesemia E83.42 Metabolic acidosis E87.2 DVT prophylaxis Z29.9 (1) UTI (urinary tract infection) Hematuria presence: without hematuria Urinary tract infection type: site unspecified Qualified Code(s): N39.0 - Urinary tract infection, site not specified (2) Anemia Anemia type: unspecified type Qualified Code(s): D64.9 - Anemia, unspecified (3) Leukocytosis Leukocytosis type: unspecified Qualified Code(s): D72.829 - Elevated white blood cell count, unspecified (4) Sepsis Sepsis acute organ dysfunction status: unspecified Sepsis type: sepsis due to unspecified organism Qualified Code(s): A41.9 - Sepsis, unspecified organism (5) GERD (gastroesophageal reflux disease) Esophagitis presence: esophagitis presence not specified Qualified Code(s): K21.9 - Gastro-esophageal reflux disease without esophagitis (6) Abdominal pain Abdominal location: lower abdomen, unspecified Qualified Code(s): R10.30 - Lower abdominal pain, unspecified (7) Hypertension Hypertension type: essential hypertension Qualified Code(s): I10 - Essential (primary) hypertension
--- NOTE | 2019-11-30 12:14 | XRay Report ---
XR KUB/Abdomen 1 view CLINICAL HISTORY: check right nephrostomy tube placement COMPARISON STUDY: 11/18/2013, CT scan dated 11/25/2019 FINDINGS: There is a pigtail nephrostomy tube catheter projected over the lower pole the right kidney . There is a pigtail surgical drain projected over the right iliac fossa. There are postsurgical rivero ges present within the pelvis. Degenerative changes are present within the cervical spine. Degenerati ve changes are present within the hips. There is no pathologic bowel dilatation. There is a punctate lower pole right renal calculus. IMPRESSION: 1. Right-sided nephrolithiasis 2. Nonobstructive bowel gas pattern 3. Right-sided pigtail nephrostomy tube catheter projected over the lower pole the right kidney 4. Pigtail catheter projected over the right iliac fossa ACT 112: Negative or not required by law. Electronically signed by: Clayton Khanna M.D. 11/30/2019 12:13 PM
[2019-11-30] MEDS: MIRTAZAPINE TAB 15 MG TAB PO SCH (20:44)
[2019-12-01] MEDS: PANTOprazole 40 MG TAB PO SCH (05:07)
[2019-12-01] MEDS: HEPARIN 100 UNIT/ML 5ML FLUSH FLUSH PRN (05:32)
[2019-12-01 05:51] LABS: Hematocrit (blood only) 27.1 % (42-52); Hemoglobin 8.2 g/dL (14.0-18.0); Mean Corpuscular Hemoglobin 24.9 pg (25-34); Mean Corpuscular Hgb Conc 30.3 g/dL (32-36); Mean Corpuscular Volume 82.4 fL (80-100); Mean Platelet Volume 8.9 fL (7.4-10.4); Platelet Count 427 K/uL (130-400); RDW Standard Deviation 53.3 fL (36.4-46.3); Red Blood Count 3.29 M/uL (4.7-6.1); White Blood Count 16.27 K/uL (4.8-10.8)
[2019-12-01 06:15] LABS: ANC (manual) 11.45 K/uL (1.4-6.5); Basophils # (manual) 0.15 K/uL (0-0.2); Basophils % (manual) 0.9 %; Eosinophils # (manual) 1.84 K/uL (0-0.5); Eosinophils % (manual) 11.3 %; Hypochromasia Present; Lymphocytes % (manual) 4.3 %; Metamyelocytes # (manual) 0.15 K/uL (0-0); Metamyelocytes % (manual) 0.9 %; Monocytes # (manual) 1.56 K/uL (0.11-0.59); Monocytes % (manual) 9.6 %; Myelocytes # (manual) 0.42 K/uL (0-0); Myelocytes % (manual) 2.6 %; Neutrophils # (manual) 11.45 K/uL (1.4-6.5); Neutrophils % (manual) 70.4 %
[2019-12-01 06:24] LABS: BUN Creatinine Ratio 21.8 (10-20); Calcium 9.8 mg/dl (8.5-10.1); Creatinine Clr Calc Pharmacy 62.8 ml/min; Est GFR (African American) 72.3; Est GFR (Non-African American) 62.3; Magnesium 1.6 mg/dl (1.8-2.4)
[2019-12-01] MEDS: FLUTICASONE/VILANTEROL 100/25MCG 14 PUFFS/INHALER INH SCH (07:52)
[2019-12-01] MEDS: GABAPENTIN 100 MG CAP PO SCH (07:52)
[2019-12-01] MEDS: DULOXETINE HCL 30 MG CAP PO SCH (07:52)
[2019-12-01] MEDS: APIXABAN 5 MG TABLET PO SCH (07:52)
[2019-12-01] MEDS: METOPROLOL SUCC 25MG EXT REL TAB PO SCH (07:53)
--- NOTE | 2019-12-01 08:19 | Urology Progress Note ---
Date of Service December 01, 2019 Assessment & Plan (1) Primary bladder malignant neoplasm: Mixed results - leukocytosis justifies some persistent concern - kidney function remains quite good despite a persistent anastomotic leak - maintain right nephrostomy - maintain abdominal drain for now - this seems to be effectively draining the urine from the leak - hope to have left nephrostomy re-inserted as an outpt this week - cont PT we will continue to follow from distance and avoid more direct patient contact than is absolutely necessary Subjective Chart review only KUB yesterday to confirm right nephrostomy remained in place - and it does appear to still be appropriately positioned in the right kidney - UoP overall is good - but it is divided between the R nephrostomy, the stoma, and the drain - presumed persistence of a left ureteral anastomotic leak - hoping to arrange for oupt replacement of left nephrostomy tube this week Kidney function as measured by Cr is the best it has been in some time (1 year+) Still with a persistent leukocytosis - C. diff checked yesterday - results pending Results & Data Vital Signs (Past 12 Hours) Vital Signs Temp Pulse Pulse Resp BP Pulse Ox 12/01/19 04:07 36.5 C 86 20 120/67 96 12/01/19 00:04 96 H 11/30/19 23:28 36.7 C 93 H 20 116/73 97 11/30/19 19:35 36.8 C 100 H 20 115/71 97 PG Care Time/CCT Total # of Minutes Spent Total Time Spent with Patient: Total time spent is greater than 50% in coordination of care (as documented) at patient's floor/unit and/or counseling patient: Coding Level of Care Code None Diagnoses Primary bladder malignant neoplasm C67.9
[2019-12-01] MEDS ORDERED: FOLIC ACID 1 MG TAB PO SCH (09:00)
[2019-12-01] MEDS: CEFEPIME 2,000 MG in SYRINGE 7.5 ML IV SCH (10:32)
[2019-12-01] MEDS: MAGNESIUM SULFATE / D5W 1 GM/100 ML BAG IV SCH ×2 (10:32→11:29)
--- NOTE | 2019-12-01 14:14 | Discharge Summary ---
Date of Service December 01, 2019 Admission HPI Per Admitting Provider John Lynch is a 74y/o M with PMH significant for pulmonary emphysema, CKD, Multifocal atrial tachycardia; who presented from a shelter due to several days of fevers and abdominal pain. Approximately 4 to 5 days of lower abdominal pain, with persistent fevers in the evening and overnight; with unknown max temp. Patient denies changes to his bowel movement, or increase in diarrhea. Patient does have known cancer that is not currently being treated. Patient had nephrostomy tubes placed by [facility] approximately three weeks ago, and since that time has had consistent drainage in the bag that is clear and yellow, without obvious signs of blood. Patient denies any other symptoms including nasal congestion or rhinorrhea, shortness of breath, chest pain. Patient states he has had a cough however this is been ongoing for several months, does not have any recent travel outside of the [facility], or exposure to a person with known or pending COVID. ED called nursing facility for determination of potential expos ures, and relayed that his facility does not have any suspected or known cases of COVID. Principal Diagnosis UTI, complicated Discharge Exam Constitutional WD/WN, vitals as above + frail appearing; no acute distress Eyes PERRL, conjunctivae normal, anicteric sclerae ENMT external ear and nose normal, oropharynx normal Neck trachea midline, no thyromegaly Respiratory normal respiratory effort, lungs clear to auscultation Cardiovascular Rate/Rhythm: regular rate and + irregularly irregular Heart Sounds: normal S1 and normal S2 Extremities: normal capillary refill; no edema Gastrointestinal (Abdomen) normal bowel sounds, soft, nontender, no hepatosplenomegaly Musculoskeletal no cyanosis or clubbing, extremities motor strength 5/5 Skin no rashes, warm and dry Neurologic patellar DTR's 2+ bilat, sensation intact and PERRL, EOMI, accommodation nl, no face palsy, no dysarthria Psychiatric A+Ox3, euthymic affect Lymphatic no cervical or axillary lymphadenopathy Discharge Data Allergies Allergy/AdvReac Type Severity Reaction Status Date / Time levofloxacin [From Levaquin] Allergy Intermediate Swelling Verified 11/25/19 15:52 of extremities citalopram Allergy Mild GI symptoms Verified 11/25/19 15:52 pravastatin AdvReac Mild leg Verified 11/25/19 15:52 soreness rosuvastatin AdvReac Mild leg Verified 11/25/19 15:52 soreness Consultations 11/25/19 19:56 ED Decision to Admit Stat 11/25/19 22:10 Consult Urology Routine Ordered Studies 11/25/19 16:51 CT abd pelvis wo con Stat Hospital Course (1) Abdominal pain: John Lynch is a 74y/o M with PMH significant for pulmonary emphysema, CKD stage 3, bladder CA s/p cystectomy with ileal conduit with leak and bilateral nephrostomy tubes, Multifocal atrial tachycardia; who presented from a shelter due to several days of fevers and LLQ abdominal pain, found to have complicated UTI. CT abd/pel actually improved from previous with resolution of previous right sided pelvic fluid collection. With left moderate hydronephrosis and L nephrostomy tube dislodged. UA with positive nitrites, leuk esterase, >30 WBC, >30 RBC, and bacteria--> in setting of ileal conduit, however had fever and leukocytosis along with pain and tachycardia--> treating for UTI Pyridium was given by Urology here and then ANTONIA drain put out orange liquid so therefore his anastomotic leak persists at ureter connection to ileal conduit Pain now improved with treatment of UTI so was likely from that. -continue to treat UTI as below - Urology consulted-appreciate consult urine culture grew out E coli and Pseudomonas, both sensitive to Cefepime (would use Levofloxacin but he has allergy) plan for Cefepime 2gm IV q12 for two weeks total treatment WBC is up at 16k but down compared to time of admission, no fever, vitals stable Dr. Harvey (urology) is having his office arrange follow up THIS WEEK with IR at [facility] to have left nephrostomy tube re-insterted/adjusted since it is out of place (2) Sepsis: from UTI as above, resolved quickley with antibiotics (3) Leukocytosis: Secondary to infection Improved significantly since admission from 23k-->down to 12k with tx of UTI, however de back up again to 16 K on 11/29 and 11/30 Remains afebrile and actually looks much improved from upon admission C diff was sent -- negative at this time, since he is doing much better clinically, no fever, vitals stable, more energy, would recommend following the WBC routinely but would not hold up discharge continue Cefepime (4) UTI (urinary tract infection): -UA positive in setting of ileal conduit, however seems like a true infection given sepsis (fever, tachycardia, leukocytosis, UTI) Ur cx now growing Pseudomonas (pansensitive) and E. coli (resitant to Amp and Unasyn) Pt with FQ allergy -continue treatment with IV Cefepime--> plan to treat for at least 14 days with IV abx-end date 12/10/19 -follow BCxs-NGTD (5) Pulmonary emphysema: no acute issues, lungs clear, no distress - continue home Breo Ellipta (6) Depressive disorder: stable - continue home duloxetine, Remeron (7) Multifocal atrial tachycardia: Seen by Cardiology in past, not overly concerning Tele with NSR now, ST has resolved - continue home metoprolol 25mg daily (8) Chronic kidney disease (CKD), stage III (moderate): -Cr 2.05 on admission, with baseline over last several months close to 1.9 [employer] Review[employer] now lower than baseline with IVFs, 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 now at 1.1 on the day of discharge resume home Lasix -Avoid nephrotoxins -renally dose meds when appropriate -follow BMP (9) Chronic diastolic CHF (congestive heart failure): no volume overload, in fact was hypovolemic on admission resume home Lasix dosing -BP control I/Os, daily weights (10) Severe protein-calorie malnutrition: -meets criteria for severe malnutrition in the setting of chronic disease with 45# wt loss in 4 mos (18.3%) and mild-moderate loss of muscle mass seen in the temples, clavicles & shoulders -consult Nutrition appreciated (11) Pulmonary embolism: HISTORY of Pulmonary emboli: -occurred 02/2019 -continue ELiquis (12) Chronic respiratory failure with hypoxia: wears 2LNC qhs (13) Primary bladder malignant neoplasm: now s/p cystectomy with complications afterwards to include uroma requiring drain and anastomosis leak, nephrostomy tubes -with urostomy, ileal conduit with leak where ureter on the right inserts -needs LEFT nephrostomy tube placed again in near future as anastomosis leak still present here as evidence by orange urine from pyridium draining through ANTONIA Follows with Urology (14) Anemia: Hgb chronically low since 2019, baseline 8-9, then dropped to 7.8 after IVF hydration - Hb is stable on discharge, > 8 No gross bleeding Hemoccult stool negative Microcytic--> combo of Fe deficiency and anemia of chronic disease -Fe studies with low transferrin sat 6%--> replaced with IV Venofer 300mg daily x 3 days - B12, folate normal -follow CBC (15) Hyponatremia: Na+ 131 on admission and now improved to 139 after receiving IV fluids Likely from dehydration -follow BMP no further IVFs needed (16) Pelvic fluid collection: Now resolved, with drain still in place in right pelvis with orange urine drainage after pyridium given consistent with persistent leak -continue f/u with Urology at [facility] Thought to be secondary to anastomosis leak from ileal conduit -Needs follow up with his Urologist at [facility] eventually for repair of leak (17) Neuropathy: continue gabapentin (18) GERD (gastroesophageal reflux disease): continue PPI (19) Hypertension: BPs controlled -continue Toprol XL -holding home lasix (20) Generalized weakness: Debilitated due to prolonged hospitalizations and rehab stays for complications following cystectomy -needs aggressive rehab (21) Hypomagnesemia: Improved with replacement, may be from loose stools -follow level in AM (22) Metabolic acidosis: HCO3 down to 19 and now improved up to 21, may be from GI losses? Non anion gap -follow BMP in AM Encouraged po intake (23) DVT prophylaxis: Eliquis Code Status: Full code [facility] Total Time Total Time Spent Total Time Spent (In Minutes): 38 minutes Total Time Includes: Examination of the Patient, Discharge Planning, Medication Reconciliation, Communication With Other Providers (discussion with Dr Harvey) and Other (discussion with patient's over the phone) Discharge Plan Discharge Items Patient Disposition: Transfer Inpatient Rehab Fac Reason For Visit: COMPLICATED UTI Discharge Diagnosis: UTI with E coli and Pseudomonas bilateral nephrostomy tubes bladder cancer Condition on Discharge: Fair Goals: complete course of IV antibiotics, 2 weeks total follow up with [facility] this week for adjustment of left nephrostomy tube Activity: Resume your previous activity Weightbearing: Full weightbearing Non-emergency contact: Primary Care Provider and Urologist Call non-emergency contact if: you have any medication questions, your symptoms worsen and you have a fever Follow-up/Referrals: Ramon Serrato [Primary Care Provider] - Diet: Regular Addtl Attending Provider Instructions: Medications: - CEFEPIME: 2gm twice a day until 12/10/19 for complicated UTI, growing E coli and Pseudomonas Bladder cancer, s/p cystectomy and ileal conduit creation, developed anastomotic leak, required bilateral nephrostomy tubes presented here with fever, flank pain, leukocytosis > 20k and acute kidney injury has a ANTONIA drain to drain fluid from the anastomotic leak urine culture grew out E coli and Pseudomonas, sensitive to Cefepime (of note he has Levofloxacin allergy) responded well to treatment of the UTI, WBC down to 16k, no fever, has some tachycardia but has MAT, well established his renal function showed Cr > 2 on admission, down to 1.15 today Hb low at 8.2 but it has been stable, was 7.8 earlier in the admission urology has been following him for the complicated UIT recommend continuing Cefepime, will complete 2 week course, last day would be 12/09 recommend following up with [facility] for re-insertion or adjustment to the left sided nephrostomy tube that is dislodged urology office is calling the clinic scheduler at [facility] to arrange for this week, will need transported there will need rehab to work on strength, mobility, and nutrition follow up with PCP and urologist after discharge from rehab Pending Studies at Discharge: No Stand-Alone Forms: My [facility] Skilled Items Patient informed of condition?: Yes DNR: No Discharge Level of Care: Acute rehab Communicable Disease: No Discharge Prognosis: Improving Lines: Subcutaneous Infusion Urinary Catheter: No Medications and DC Order Prescriptions: New cefepime 2 gram recon soln 2 gm IV Q12H 9 Days Qty: 10 RF: 0 Continued ondansetron HCl 4 mg tablet 4 mg PO Q4H PRN (Reason: Nausea And Vomiting) RF: 0 pantoprazole 40 mg tablet,delayed release (DR/EC) 40 mg PO DAILY@0500 RF: 0 duloxetine [Cymbalta] 30 mg Capsule,Delayed Release(Dr/Ec) 30 mg PO BID RF: 0 Breo Ellipta 100-25 mcg/dose Blister With Device 1 inh INHALATION DAILY@0900 RF: 0 acetaminophen [Tylenol] 325 mg Tablet 650 mg PO Q6H PRN (Reason: Pain (Scale Score 1-10)) RF: 0 melatonin 3 mg Tablet 6 mg PO DAILY@2000 RF: 0 hydrocortisone 1 % Cream 1 applic TOPICAL QS RF: 0 ferrous sulfate 325 mg (65 mg iron) Tablet 325 mg PO DAILY@0800 RF: 0 folic acid 1 mg Tablet 1 mg PO DAILY@0900 RF: 0 furosemide 20 mg tablet 20 mg PO DAILY@0800 RF: 0 mirtazapine 15 mg Tablet 15 mg PO DAILY@2000 RF: 0 gabapentin 100 mg Capsule 200 mg PO BID RF: 0 diclofenac sodium 1 % Gel 2 g TOPICAL TID RF: 0 potassium chloride 20 mEq Tablet Extended Release 20 meq PO DAILY@0800 RF: 0 metoprolol succinate [Toprol XL] 25 mg tablet extended release 24 hr 25 mg PO DAILY@0900 RF: 0 apixaban 5 mg tablet 5 mg PO BID Qty: 0 RF: 0 Discharge Orders: Discharge Order (Routine); Ordered 12/01/19 Ordered By: Jose Antonio Blue Admission Data Admit Date/Time: 11/25/19 20:29 Attending Provider: Jose Antonio Blue Admit Provider: Saturnino Lewis Primary Care Provider: Ramon Serrato Other Providers: Elias Spence ; Israel Brooks ; [facility] Other Interventions: Discharge Summary Assessment (RN) Last Done: 12/01/19 14:11 DC Date/Time DO NOT enter until pt leaves facility: 12/01/19 16:05 Coding Level of Care Code D/C Day Management >30 mins Diagnoses Abdominal pain R10.30 Abdominal location: lower abdomen, unspecified Sepsis A41.9 Sepsis acute organ dysfunction status: unspecified Sepsis type: sepsis due to unspecified organism Leukocytosis D72.829 Leukocytosis type: unspecified UTI (urinary tract infection) N39.0 Hematuria presence: without hematuria Urinary tract infection type: site unspecified Pulmonary emphysema J43.9 Depressive disorder F32.9 Multifocal atrial tachycardia I47.1 Chronic kidney disease (CKD), stage III (moderate) N18.3 Chronic diastolic CHF (congestive heart failure) I50.32 Severe protein-calorie malnutrition E43 Pulmonary embolism I26.99 Chronic respiratory failure with hypoxia J96.11 Primary bladder malignant neoplasm C67.9 Anemia D64.9 Anemia type: unspecified type Hyponatremia E87.1 Pelvic fluid collection R18.8 Neuropathy G62.9 GERD (gastroesophageal reflux disease) K21.9 Esophagitis presence: esophagitis presence not specified Hypertension I10 Hypertension type: essential hypertension Generalized weakness R53.1 Hypomagnesemia E83.42 Metabolic acidosis E87.2 DVT prophylaxis Z29.9
[2019-12-01] MEDS ORDERED: CEFEPIME 2,000 MG in SYRINGE 7.5 ML IV SCH (23:00)
== END 2019-12-01 16:05 | DRG 698 ==
LOC: ED 14:08 → 2N 20:29 → SUATTDRO 20:29 → 2N 21:26

== ENCOUNTER 2019-12-30 18:31 | Inpatient (IN) ==
--- NOTE | 2019-12-30 19:29 | XRay Report ---
XR chest 1V portable CLINICAL HISTORY: weakness COMPARISON STUDY: Chest CT October 28, 2019. Chest radiograph November 25, 2019. FINDINGS: Right subclavian Nglwpa-i-Mehr is in place. Cardiomegaly is unchanged. There is no evidence for pulmonary edema. Interstitial thickening is chronic. Postoperative findings within the right hem ithorax are noted. No consolidation is identified. The appearance of the chest is unchanged. No pneum othorax or pleural effusion is noted. IMPRESSION: No acute cardiopulmonary findings. No change in appearance of the chest. ACT 112: Negative or not required by law. Electronically signed by: Bryce Bentley M.D. 12/30/2019 7:27 PM
[2019-12-30 19:30] LABS: Basophils # (auto) 0.05 K/uL (0-0.2); Basophils % (auto) 0.4 %; Eosinophils # (auto) 0.87 K/uL (0-0.5); Eosinophils % (auto) 6.9 %; Hematocrit (blood only) 31.4 % (42-52); Hemoglobin 9.7 g/dL (14.0-18.0); Immature Granulocytes % (auto) 1.6 %; Lymphocytes # (auto) 0.63 K/uL (1.2-3.4); Mean Corpuscular Hemoglobin 26.9 pg (25-34); Mean Corpuscular Hgb Conc 30.9 g/dL (32-36); Mean Corpuscular Volume 87.2 fL (80-100); Mean Platelet Volume 9.6 fL (7.4-10.4); Monocytes # (auto) 1.17 K/uL (0.11-0.59); Monocytes % (auto) 9.3 %; Neutrophils % (auto) 76.8 %; Platelet Count 358 K/uL (130-400); RDW Coefficient of Variation 20.8 % (11.5-14.5); RDW Standard Deviation 67.2 fL (36.4-46.3); White Blood Count 12.62 K/uL (4.8-10.8)
--- NOTE | 2019-12-30 19:30 | XRay Report ---
XR hip LT 2V w pelvis CLINICAL HISTORY: fall COMPARISON: CT of the abdomen and pelvis November 25, 2019. FINDINGS: Sacroiliac joints and symphysis pubis are intact. A right nephrostomy and right lower quad rant drain are noted. Severe osteoarthritis of the hips is noted. There is no acute fracture within t he pelvis or hips. Surgical clips from prostatectomy are noted. IMPRESSION: 1. No acute fracture within the pelvis or hips. 2. Severe left and moderate to severe right hip osteoarthritis. ACT 112: Negative or not required by law. Electronically signed by: Bryce Bentley M.D. 12/30/2019 7:29 PM
--- NOTE | 2019-12-30 19:32 | XRay Report ---
XR femur LT 2V routine CLINICAL HISTORY: fall COMPARISON: CT of the abdomen and pelvis November 25, 2019. FINDINGS: Alignment of the left hip is anatomic. There is severe left hip joint space narrowing. The re is no acute fracture or osseous lesion within the left femur. Alignment of the left knee arthropla sty is anatomic. There is no left knee joint effusion. IMPRESSION: 1. No acute fracture of the left femur. 2. Status post total left knee arthroplasty. No periprosthetic fracture. ACT 112: Negative or not required by law. Electronically signed by: Bryce Bentley M.D. 12/30/2019 7:30 PM
[2019-12-30 19:36] LABS: Appearance Urine Turbid (Clear); Bacteria Urine Automated 4+ (Negative); Bilirubin Urine Negative (Negative); Blood Urine 3+ (Negative); Color Urine Yellow; Glucose Urine UA Negative (Negative); Ketones Urine Negative (Negative); Leukocyte Esterase Urine 3+ (Negative); Nitrite Urine Positive (Negative); Protein Urine 2+ (Negative); RBC Urine Automated >30 /hpf (0-4); Urobilinogen Urine Negative (Negative); WBC Urine Automated >30 /hpf (0-5)
[2019-12-30 19:41] LABS: INR 1.3 (0.9-1.1); Partial Thromboplastin Time 28.2 Seconds (21.0-31.0); Prothrombin Time 13.1 Seconds (9.0-12.0)
[2019-12-30 19:48] LABS: Alanine Aminotransferase 28 U/L (12-78); Albumin Level 2.5 gm/dl (3.4-5.0); Aspartate Aminotransferase 30 U/L (15-37); BUN Creatinine Ratio 21.1 (10-20); Blood Urea Nitrogen 69 mg/dl (7-18); Calcium 8.6 mg/dl (8.5-10.1); Carbon Dioxide 18 mmol/L (21-32); Chloride 110 mmol/L (98-107); Creatinine Clr Calc Pharmacy 22.4 ml/min; Est GFR (African American) 20.5; Est GFR (Non-African American) 17.7; Glucose 111 mg/dl (70-99); Magnesium 1.1 mg/dl (1.8-2.4); Potassium 4.5 mmol/L (3.5-5.1); Sodium 138 mmol/L (136-145)
[2019-12-30 19:53] LABS: Anisocytosis Present
[2019-12-30 19:54] LABS: Mucus Urine Present (None Prsent)
[2019-12-30 19:59] LABS: Albumin Globulin Ratio 0.5 (0.9-2); Alkaline Phosphatase 107 U/L (45-117); Bilirubin,Total 0.2 mg/dl (0.2-1); Creatine Kinase 55 U/L (39-308); Thyroid Stimulating Hormone 0.142 uIu/ml (0.300-4.500); Total Protein 7.5 gm/dl (6.4-8.2); Troponin I < 0.015 ng/ml (0-0.045)
[2019-12-30] MEDS ORDERED: CEFEPIME 2,000 MG/20 ML VIAL IV STA (20:04)
[2019-12-30] MEDS ORDERED: SODIUM CHLORIDE 0.9% 1000ML 1,000 ML IV ONE (20:04)
--- NOTE | 2019-12-30 20:04 | Emergency Department Note ---
Impression & Plan Acute renal failure, Fall, Urinary tract infection, Weakness, Left thigh pain, Contusion of hip, left ED Provider Note NAME: TAMEKA HICKS AGE: 74 SEX: M : 1945 ARRIVES VIA: Ambulance INFORMANT: Patient, ED PROVIDER(S): Tacos Corbett DO CHIEF COMPLAINT: Fall HPI: The patient is a 74-year-old male who presented to the emergency department after a fall. The patient was recently transferred from inpatient rehab to a [facility]. The patient was walking when he tripped and fell striking his left thigh. The patient complains of significant left thigh pain. He received fentanyl prior to arrival. The patient states that this pain is significantly improved after the fentanyl. He denies having any abdominal pain. He denies striking his head. He denies having any chest pain or trouble breathing. The patient has a history of bilateral urostomy tubes. The patient denies having any lower extremity swelling that is new. He does complain of some lower extremity swelling which is not new. He states his pain was significant prior to arrival and is improved somewhat now. At this time the patient has no reported fever or cough. He has no reported COVID-19 exposures. ROS: See above HPI for pertinent positives & negatives. A total of 10 systems reviewed and were otherwise negative. PAST MEDICAL HISTORY: See Below PAST SURGICAL HISTORY: See Below FAMILY HISTORY: See Below SOCIAL HISTORY: See Below HOME MEDICATIONS: See Below ALLERGIES: See Below VITALS: See Below PHYSICAL EXAMINATION: GENERAL: The patient is awake and alert. He is somewhat anxious appearing and uncomfortable. EYES: The conjunctivae are clear. The pupils are round and reactive. EARS, NOSE, MOUTH AND THROAT: The nose is without any evidence of any deformity. Mucous membranes are moist. Tongue is midline. NECK: The neck is nontender and supple. RESPIRATORY: Shallow respirations were noted. There were rales at both bases. CARDIOVASCULAR: Tachycardic rate with regular rhythm was noted. There was no definite murmur. GASTROINTESTINAL: Abdomen was mildly distended but soft. Urostomy tubes were noted bilaterally. BACK: No midline tenderness or or step-off noted range of motion in flexion extension as well as rotation no signs of muscle spasm noted MUSCULOSKELETAL/EXTREMITIES: There was pain with range of motion testing of the left hip. There is no shortening or crepitus. SKIN: There is no obvious evidence of any rash. Pedal edema was noted bilaterally. Pulses were symmetric in both feet. NEUROLOGIC: Patient is awake and oriented to person place and situation. MEDICAL DECISION MAKING: The patient is a 74-year-old male who presented to the emergency department for an evaluation of lower extremity pain. The patient was walking when he had a fall in a standing position. He landed on his left side and struck his left hi p. The patient was having severe difficulty ambulating. 911 was called and the patient arrived at the emergency department via ambulance. He received fentanyl prior to arrival. On physical exam there is no obvious deformity. Radiographic studies did not reveal definite fracture. Further laboratory and radiographic studies were obtained. There appears to be an elevation in the patient's crea tinine from baseline. He was also found to have urinary tract infection. The patient's previous urinalysis does reveal Pseudomonas as well as E. coli in the urine. He was treated with cefepime which both bacteria were susceptible to. I discussed the patient's laboratory and radiographic studies with him. I discussed his case with the on-call [facility] hospitalist group. They have agreed to evaluate the patient in the emergency department for further management and disposition. Triage Nursing notes reviewed. Prior medical records reviewed Vital Signs: reviewed and remarkable for no significant abnormalities Differential diagnosis: Infection, dehydration, metabolic abnormality, hypo/hyperglycemia, electrolyte disturbance, anemia, hypoxia, cardiac sources, intracerebral event, toxicologic, neurologic, as well as other pathologies. ER treatment provided: See below Diagnostics interpreted by me: ECG: EKG was obtained in the emergency department. My interpretation is sinus tachycardia at 106 bpm. LVH was noted by voltage criteria. Poor R wave progression was noted. This was compared to a tracing from November 25, 2019. No significant change was noted. Cardiac Monitoring: An order was placed for continuous cardiac monitoring. The monitor shows a rate of 105 with sinus tachycardia rhythm. Laboratory studies: As stated above and show below. Imaging studies: See below Consultation(s): 1814: I discussed this case with Dr. Hameed. He is agreed to evaluate the patient in the emergency department for further management and disposition. Past Med/Surg History Medical History Anxiety and depression Bladder cancer recent diagnosis (mass noted on CTS) BPH (benign prostatic hyperplasia) Chronic diastolic CHF (congestive heart failure) Chronic kidney disease, stage 3a Chronic respiratory failure with hypoxia COPD (chronic obstructive pulmonary disease) + O2 HS Degenerative disc disease Diverticulitis (11/22/13) hx (noted per 2014 records) Dyslipidemia GERD (gastroesophageal reflux disease) controlled Hearing deficit Hypertension Kidney stones Lung cancer (~12/2012) s/p lung resection/chemo Obesity Osteoarthritis Peripheral neuropathy b/l feet Pulmonary embolism 02/2019- on Xarelto Sinus tachycardia hx Skin cancer Surgical History History of colonoscopy History of discectomy LUMBAR History of esophagogastroduodenoscopy (EGD) History of hernia repair INGUINAL History of knee joint replacement RT/LEFT History of shoulder surgery RT History of tooth extraction History of vascular access device POWER PORT RIGHT CHEST (INTACT CURRENLTY) S/P partial lobectomy of lung RLL Family History Aunt Breast cancer Brother Cerebral arterial aneurysm Mother Cerebral arterial aneurysm Family/Other Cataracts, both eyes Myocardial infarction Diabetes Other No significant family history Social History Preferred Language: Chinese Communication Ability: Effective Parts Salvager Required: No Beliefs That Will Affect Care: None marital status: Current Living Situation: Spouse Feels Safe at Home: Yes Smoking Status: Never smoker Tobacco Type: cigarettes ; Second Hand Exposure: No ; Hx Alcohol Use: No Hx Substance Use: No Allergies Allergies Allergy/AdvReac Type Severity Reaction Status Date / Time levofloxacin [From Levaquin] Allergy Intermediate Swelling Verified 11/25/19 15:52 of extremities citalopram Allergy Mild GI symptoms Verified 11/25/19 15:52 pravastatin AdvReac Mild leg Verified 11/25/19 15:52 soreness rosuvastatin AdvReac Mild leg Verified 11/25/19 15:52 soreness Home Meds Home Medications Medication Instructions Recorded Confirmed metoprolol succinate [Toprol XL] 25 mg PO DAILY@0900 06/05/19 11/25/19 Breo Ellipta 1 inh INHALATION DAILY@0900 08/11/19 11/25/19 duloxetine [Cymbalta] 30 mg PO BID 08/11/19 11/25/19 ondansetron HCl 4 mg tablet 4 mg PO Q4H PRN 10/08/19 11/25/19 pantoprazole 40 mg tablet,delayed 40 mg PO DAILY@49910/08/19 11/25/19 release acetaminophen [Tylenol] 650 mg PO Q6H PRN 11/25/19 11/25/19 diclofenac sodium 2 g TOPICAL TID 11/25/19 11/25/19 ferrous sulfate 325 mg PO DAILY@79911/25/19 11/25/19 folic acid 1 mg PO DAILY@89911/25/19 11/25/19 furosemide 20 mg PO DAILY@79911/25/19 11/25/19 gabapentin 200 mg PO BID 11/25/19 11/25/19 hydrocortisone 1 applic TOPICAL QS 11/25/19 11/25/19 melatonin 6 mg PO DAILY@199911/25/19 11/25/19 mirtazapine 15 mg PO DAILY@199911/25/19 11/25/19 potassium chloride 20 meq PO DAILY@79911/25/19 11/25/19 Previous Rx's Medication Instructions Recorded apixaban 5 mg PO BID #0 tab 10/30/19 fluconazole 100 mg tablet 100 mg PO DAILY #3 tab 12/11/19 Results & Data (ED) Vital Signs Vital Signs - 24 hr 12/30/19 18:31 12/30/19 19:16 12/30/19 19:18 Temperature 36.8 C Temperature Source Oral Pulse Rate 99 H 113 H Pulse Rate from SpO2 Sensor 93 H Pulse Rhythm Regular Respiratory Rate 18 24 Respiratory Effort / Characteristics Non-Labored Spontaneous Respiratory Depth Normal Respiratory Pattern Regular Blood Pressure 114/53 L 107/65 Blood Pressure Mean 73 72 Pulse Oximetry 94 94 92 Oxygen Delivery Method Room Air Room Air Room Air Sepsis Recent Fever Within 48 Hours No Sepsis New/Unexplained Change in Mental Status No Sepsis Action Taken by Nursing No Action Required 12/30/19 19:30 12/30/19 20:00 12/30/19 20:30 Temperature Temperature Source Pulse Rate 106 H 108 H 108 H Pulse Rate from SpO2 Sensor 106 H 101 H 111 H Pulse Rhythm Respiratory Rate 21 24 15 Respiratory Effort / Characteristics Respiratory Depth Respiratory Pattern Blood Pressure 122/69 102/67 128/97 Blood Pressure Mean 81 71 103 Pulse Oximetry 96 95 95 Oxygen Delivery Method Room Air Room Air Room Air Sepsis Recent Fever Within 48 Hours Sepsis New/Unexplained Change in Mental Status Sepsis Action Taken by Nursing 12/30/19 21:13 Temperature Temperature Source Pulse Rate 104 H Pulse Rate from SpO2 Sensor 105 H Pulse Rhythm Respiratory Rate 20 Respiratory Effort / Characteristics Respiratory Depth Respiratory Pattern Blood Pressure 131/74 Blood Pressure Mean 78 Pulse Oximetry 96 Oxygen Delivery Method Room Air Sepsis Recent Fever Within 48 Hours Sepsis New/Unexplained Change in Mental Status Sepsis Action Taken by [facility] Medications Current Medication List: was personally reviewed by me Laboratory Data Attestation: I reviewed the patient's lab results. Result diagrams: 12/30/19 19:16 12/30/19 19:16 Lab Results 12/30/19 12/30/19 12/30/19 Range/Units 19:16 19:16 19:16 WBC 12.62 H (4.8-10.8) K/uL RBC 3.60 L (4.7-6.1) M/uL Hgb 9.7 L (14.0-18.0) g/dL Hct 31.4 L (42-52) % MCV 87.2 (80-100) fL MCH 26.9 (25-34) pg MCHC 30.9 L (32-36) g/dL RDW Std Deviation 67.2 H (36.4-46.3) fL RDW Coeff of Effie 20.8 H (11.5-14.5) % Plt Count 358 (130-400) K/uL MPV 9.6 (7.4-10.4) fL Immature Gran % (Auto) 1.6 % Neut % (Auto) 76.8 % Lymph % (Auto) 5.0 % [place] % (Auto) 9.3 % Eos % (Auto) 6.9 % Baso % (Auto) 0.4 % Immature Gran # (Auto) 0.20 H (0.00-0.02) K/uL Neut # (Auto) 9.70 H (1.4-6.5) K/uL Lymph # (Auto) 0.63 L (1.2-3.4) K/uL [place] # (Auto) 1.17 H (0.11-0.59) K/uL Eos # (Auto) 0.87 H (0-0.5) K/uL Baso # (Auto) 0.05 (0-0.2) K/uL Anisocytosis Present PT 13.1 H (9.0-12.0) Seconds INR 1.3 H (0.9-1.1) APTT 28.2 (21.0-31.0) Seconds PTT Ratio 1.0 Sodium 138 (136-145) mmol/L Potassium 4.5 (3.5-5.1) mmol/L Chloride 110 H (98-107) mmol/L Carbon Dioxide 18 L (21-32) mmol/L Anion Gap 10.0 (3-11) BUN 69 H (7-18) mg/dl Creatinine 3.26 H (0.6-1.4) mg/dl Est Cr Clr Drug Dosing 22.4 ml/min Est GFR ( Amer) 20.5 Est GFR (Non-Af Amer) 17.7 BUN/Creatinine Ratio 21.1 H (10-20) Glucose 111 H (70-99) mg/dl Calcium 8.6 (8.5-10.1) mg/dl Magnesium 1.1 L (1.8-2.4) mg/dl Total Bilirubin 0.2 (0.2-1) mg/dl AST 30 (15-37) U/L ALT 28 (12-78) U/L Alkaline Phosphatase 107 (45-117) U/L Total Creatine Kinase 55 (39-308) U/L Troponin I < 0.015 (0-0.045) ng/ml Total Protein 7.5 (6.4-8.2) gm/dl Albumin 2.5 L (3.4-5.0) gm/dl Globulin 5.0 H (2.5-4.0) gm/dl Albumin/Globulin Ratio 0.5 L (0.9-2) TSH 0.142 L (0.300-4.500) uIu/ml Free T4 0.73 L (0.8-1.6) ng/dl Urine Color Urine Appearance (Clear) Urine pH (4.5-7.5) Ur Specific [place] (1.000-1.030) Urine Protein (Negative) Urine Glucose (UA) (Negative) Urine Ketones (Negative) Urine Blood (Negative) Urine Nitrite (Negative) Urine Bilirubin (Negative) Urine Urobilinogen (Negative) Ur Leukocyte Esterase (Negative) Urine WBC (Auto) (0-5) /hpf Urine RBC (Auto) (0-4) /hpf U Hyaline Cast (Auto) (0-5) /lpf U Epithel Cells (Auto) (0-5) /lpf Urine Bacteria (Auto) (Negative) Granular Casts (0) /lpf Urine Mucus (None Prsent) 12/30/19 Range/Units 19:20 WBC (4.8-10.8) K/uL RBC (4.7-6.1) M/uL Hgb (14.0-18.0) g/dL Hct (42-52) % MCV (80-100) fL MCH (25-34) pg MCHC (32-36) g/dL RDW Std Deviation (36.4-46.3) fL RDW Coeff of Effie (11.5-14.5) % Plt Count (130-400) K/uL MPV (7.4-10.4) fL Immature Gran % (Auto) % Neut % (Auto) % Lymph % (Auto) % [place] % (Auto) % Eos % (Auto) % Baso % (Auto) % Immature Gran # (Auto) (0.00-0.02) K/uL Neut # (Auto) (1.4-6.5) K/uL Lymph # (Auto) (1.2-3.4) K/uL [place] # (Auto) (0.11-0.59) K/uL Eos # (Auto) (0-0.5) K/uL Baso # (Auto) (0-0.2) K/uL Anisocytosis PT (9.0-12.0) Seconds INR (0.9-1.1) APTT (21.0-31.0) Seconds PTT Ratio Sodium (136-145) mmol/L Potassium (3.5-5.1) mmol/L Chloride (98-107) mmol/L Carbon Dioxide (21-32) mmol/L Anion Gap (3-11) BUN (7-18) mg/dl Creatinine (0.6-1.4) mg/dl Est Cr Clr Drug Dosing ml/min Est GFR ( Amer) Est GFR (Non-Af Amer) BUN/Creatinine Ratio (10-20) Glucose (70-99) mg/dl Calcium (8.5-10.1) mg/dl Magnesium (1.8-2.4) mg/dl Total Bilirubin (0.2-1) mg/dl AST (15-37) U/L ALT (12-78) U/L Alkaline Phosphatase (45-117) U/L Total Creatine Kinase (39-308) U/L Troponin I (0-0.045) ng/ml Total Protein (6.4-8.2) gm/dl Albumin (3.4-5.0) gm/dl Globulin (2.5-4.0) gm/dl Albumin/Globulin Ratio (0.9-2) TSH (0.300-4.500) uIu/ml Free T4 (0.8-1.6) ng/dl Urine Color Yellow Urine Appearance Turbid A (Clear) Urine pH 7.0 (4.5-7.5) Ur Specific [place] 1.010 (1.000-1.030) Urine Protein 2+ H (Negative) Urine Glucose (UA) Negative (Negative) Urine Ketones Negative (Negative) Urine Blood 3+ H (Negative) Urine Nitrite Positive A (Negative) Urine Bilirubin Negative (Negative) Urine Urobilinogen Negative (Negative) Ur Leukocyte Esterase 3+ H (Negative) Urine WBC (Auto) >30 H (0-5) /hpf Urine RBC (Auto) >30 H (0-4) /hpf U Hyaline Cast (Auto) 1-5 (0-5) /lpf U Epithel Cells (Auto) 10-20 H (0-5) /lpf Urine Bacteria (Auto) 4+ H (Negative) Granular Casts 1-5 H (0) /lpf Urine Mucus Present A (None Prsent) Administered Medications Discontinued Medications Sodium Chloride (Nss 1000ml) 1,000 mls @ 999 mls/hr IV .Q1H1M ONE Stop: 12/30/19 21:04 Last Infusion: 12/30/19 21:20 Dose: 0 mls/hr Documented by: [id number] Admin: 12/30/19 20:19 Dose: 999 mls/hr Documented by: [id number] Cefepime HCl (Maxipime) 2,000 mg in 20 mls @ 5 mls/min IV NOW STA; Protocol Stop: 12/30/19 20:07 Last Admin: 12/30/19 20:19 Dose: 5 mls/min Documented by: [id number] Imaging Data Radiologist's Impression: XR femur LT 2V routine CLINICAL HISTORY: fall COMPARISON: CT of the abdomen and pelvis November 25, 2019. FINDINGS: Alignment of the left hip is anatomic. There is severe left hip joint space narrowing. There is no acute fracture or osseous lesion within the left femur. Alignment of the left knee arthroplasty is anatomic. There is no left knee joint effusion. IMPRESSION: 1. No acute fracture of the left femur. 2. Status post total left knee arthroplasty. No periprosthetic fracture. ACT 112: Negative or not required by law. Electronically signed by: Bryce Bentley M.D. 12/30/2019 7:30 PM Dictated: 12/30/191928 Transcribed: 12/30/191928 XR chest 1V portable CLINICAL HISTORY: weakness COMPARISON STUDY: Chest CT October 28, 2019. Chest radiograph November 25, 2019. FINDINGS: Right subclavian [id number] is in place. Cardiomegaly is unchanged. There is no evidence for pulmonary edema. Interstitial thickening is chronic. Postoperative findings within the right hemithorax are noted. No consolidation is identified. The appearance of the chest is unchanged. No pneumothorax or pleural effusion is noted. IMPRESSION: No acute cardiopulmonary findings. No change in appearance of the chest. ACT 112: Negative or not required by law. Electronically signed by: Bryce Bentley M.D. 12/30/2019 7:27 PM Dictated: 12/30/191925 Transcribed: 12/30/191925 XR hip LT 2V w pelvis CLINICAL HISTORY: fall COMPARISON: CT of the abdomen and pelvis November 25, 2019. FINDINGS: Sacroiliac joints and symphysis pubis are intact. A right nephrostomy and right lower quadrant drain are noted. Severe osteoarthritis of the hips is noted. There is no acute fracture within the pelvis or hips. Surgical clips from prostatectomy are noted. IMPRESSION: 1. No acute fracture within the pelvis or hips. 2. Severe left and moderate to severe right hip osteoarthritis. ACT 112: Negative or not required by law. Electronically signed by: Bryce Bentley M.D. 12/30/2019 7:29 PM Dictated: 12/30/191927 Transcribed: 12/30/191927 CT OF THE HEAD WITHOUT CONTRAST CLINICAL HISTORY: fall COMPARISON STUDY: Head CT December 11, 2019. CT DOSE: 638.56 mGycm TECHNIQUE: Helical axial images of the head were obtained without IV contrast. Automated exposure control was utilized for the study. A dose lowering technique was utilized adhering to the principles of ALARA. FINDINGS: No acute intracranial hemorrhage, midline shift or mass effect is present. The ventricular system is unremarkable. The basilar cisterns are patent. No extra-axial collections are present. There are no findings to suggest acute dural sinus thrombosis or acute territorial infarct. No significant calvarial abnormalities are present. Visualized portions of the sinuses and mastoid air cells are clear. IMPRESSION: 1. No acute intracranial findings. 2. No calvarial fracture. ACT 112: Negative or not required by law. Electronically signed by: Bryce Bentley M.D. 12/30/2019 9:11 PM Dictated: 12/30/192107 Transcribed: 12/30/192107 CT OF THE CERVICAL SPINE WITHOUT CONTRAST CLINICAL HISTORY: fall COMPARISON STUDY: Cervical spine CT October 28, 2019. TECHNIQUE: Helical axial images of the cervical spine were obtained without IV contrast. Sagittal and coronal reconstructions were viewed. Automated exposure control was utilized for the study. A dose lowering technique was utilized adhering to the principles of ALARA. FINDINGS: Alignment of the cervical spine is anatomic. Vertebral body heights are maintained. No acute cervical spine fracture or subluxation is present. There is no prevertebral edema. Facet joints are intact. Severe degenerative changes at the C1-C2 articulation are again noted. There is severe multilevel facet arthrosis and moderate multilevel degenerative disc disease. IMPRESSION: No acute cervical spine fracture or subluxation. ACT 112: Negative or not required by law. Electronically signed by: Bryce Bentley M.D. 12/30/2019 9:15 PM Dictated: 12/30/192110 Transcribed: 12/30/192110 CT OF THE ABDOMEN AND PELVIS WITHOUT CONTRAST CLINICAL HISTORY: UTI COMPARISON STUDY: CT of the abdomen and pelvis November 25, 2019. TECHNIQUE: Axial images of the abdomen and pelvis were obtained without IV contrast. Images were reviewed in the axial, sagittal, and coronal planes. Automated exposure control was utilized for the study. A dose lowering technique was utilized adhering to the principles of ALARA. FINDINGS: Imaged portions of the lower chest demonstrate minimal right lower lung airspace opacity. Evaluation of the abdomen and pelvis is suboptimal on this unenhanced examination. No pneumatosis, free air or portal venous gas is present. Unenhanced images of the liver, spleen, adrenal glands and pancreas are unremarkable. There is no biliary or pancreatic ductal dilatation. No peripancreatic or pericholecystic infiltration is present. A few water attenuation right renal lesions were shown to reflect cysts on prior contrast enhanced exam. Patient is status post cystectomy with ileal conduit formation and right lower quadrant ostomy. A right nephrostomy tube is in place. There is no right hydronephrosis. Left nephrostomy has been repositioned. The tip now projects over the inferior aspect of the left renal sinus. Positioning within the collecting system cannot be confirmed on this examination. There is moderate left hydroureteronephrosis. No urinary calculi are identified. There is no evidence for a bowel obstruction. No lymphadenopathy is present. A 1 right anterior pelvic fluid collection has slightly increased in size since prior exam. This collection measures 2.5 x 1 cm. A drain is located within this collection. There are no additional fluid collections. No suspicious osseous lesions are noted. No acute fracture within the pelvis or lumbar spine is identified. IMPRESSION: 1. Moderate left hydroureteronephrosis. Interval repositioning of the left nephrostomy tube with tip projecting over the inferior left renal sinus. Positioning within the collecting system cannot be confirmed on this exam. No right hydronephrosis. Right nephrostomy tube in place. 2. Status post cystectomy with ileal conduit formation. Slight increase in size of a small right anterior pelvic fluid collection which contains a drain. Collection measures 3.5 x 1 cm. 3. No bowel obstruction. No lymphadenopathy. ACT 112: Negative or not required by law. Electronically signed by: Bryce Bentley M.D. 12/30/2019 9:32 PM Dictated: 12/30/192115 Transcribed: 12/30/192115 Blood Pressure Blood Pressure Findings: Low blood pressure Head Trauma GCS Score: 14 Discharge Plan Visit Data Chief Complaint: Fall Stated Complaint: FALL, LEG PAIN ED Provider: Tacos Corbett Discharge Problem: Acute renal failure, Fall, Urinary tract infection, Weakness, Left thigh pain, Contusion of hip, left Patient Disposition: Being Evaluated by Hospitalist Condition: Good Forms Stand Alone Forms: [facility] Prescriptions: No Action fluconazole 100 mg tablet 100 mg PO DAILY Qty: 3 RF: 0 ondansetron HCl 4 mg tablet 4 mg PO Q4H PRN (Reason: Nausea And Vomiting) RF: 0 pantoprazole 40 mg tablet,delayed release (DR/EC) 40 mg PO DAILY@0500 RF: 0 duloxetine [Cymbalta] 30 mg Capsule,Delayed Release(Dr/Ec) 30 mg PO BID RF: 0 Breo Ellipta 100-25 mcg/dose Blister With Device 1 inh INHALATION DAILY@0900 RF: 0 acetaminophen [Tylenol] 325 mg Tablet 650 mg PO Q6H PRN (Reason: Pain (Scale Score 1-10)) RF: 0 melatonin 3 mg Tablet 6 mg PO DAILY@1999 RF: 0 hydrocortisone 1 % Cream 1 applic TOPICAL QS RF: 0 ferrous sulfate 325 mg (65 mg iron) Tablet 325 mg PO DAILY@0800 RF: 0 folic acid 1 mg Tablet 1 mg PO DAILY@0900 RF: 0 furosemide 20 mg tablet 20 mg PO DAILY@0800 RF: 0 mirtazapine 15 mg Tablet 15 mg PO DAILY@1999 RF: 0 gabapentin 100 mg Capsule 200 mg PO BID RF: 0 diclofenac sodium 1 % Gel 2 g TOPICAL TID RF: 0 potassium chloride 20 mEq Tablet Extended Release 20 meq PO DAILY@0800 RF: 0 metoprolol succinate [Toprol XL] 25 mg tablet extended release 24 hr 25 mg PO DAILY@0900 RF: 0 apixaban 5 mg tablet 5 mg PO BID Qty: 0 RF: 0 Referrals Referrals: Ramon Serrato [Primary Care Provider] - Discharge Problem: Acute renal failure Qualifiers: Acute renal failure type: unspecified Qualified Code(s): N17.9 - Acute kidney failure, unspecified Fall Qualifiers: Encounter type: initial encounter Qualified Code(s): W19.XXXA - Unspecified fall, initial encounter Urinary tract infection Qualifiers: Urinary tract infection type: site unspecified Hematuria presence: with hematuria Qualified Code(s): N39.0 - Urinary tract infection, site not specified Contusion of hip, left Qualifiers: Encounter type: initial encounter Qualified Code(s): S70.02XA - Contusion of left hip, initial encounter
[2019-12-30 20:12] LABS: T4 Free Thyroxine 0.73 ng/dl (0.8-1.6)
--- NOTE | 2019-12-30 21:08 | History & Physical Report ---
Date of Service December 30, 2019 Assessment & Plan (1) Acute renal failure: 74 yo M with extensive medical and urologic history including CKD stage 3, primary malignant bladder neoplasm, bilateral nephrostomy tubes, percutaneous abdominal drain, brought to the ED by ambulance after fall at personal long-term. 1) Sepsis secondary to UTI - consistently tachycardic in low 100s, WBC 12.62. No temp elevation or hypotension at this time. - UA collected from ostomy bag showed 2+ protein, 3+ blood, + nitrites, 3+ LE, >30 WBC and RBC, 4+ bacteria, 1-5 granular casts, + mucus - UCx last admission grew Pseudomonas and Ecoli sensitive to Cefepime - Cefepime 2g Q12, with pharmacy consult for renal dosing adjustment - awaiting urine culture and sensitivities - Urology consult given extensive hx and possible infection and dislodging of drains 2) Fall - left Femur XR shows no acute fracture - CT head and neck negative for fractures, intracranial bleeding or acute abnormalities - no complaints of pain currently, tylenol 650 mg PRN for pain 3) Hx of PE on Xarelto in 2019 - med rec from [facility] does not show patient taking blood thinners, but discharge paperwork from [facility] on 11/30 shows continuing Eliquis 5 mg daily - PT elevated at 13.1, INR elevated at 1.3; indirectly indicating anticoagulation onboard - Pt restarted on 5 mg Eliquis BID 4) Chronic Diastolic CHF - continued home metoprolol succinate ER 25 mg QAM 5) Emphysema - continued home Breo Ellipta 6) Chronic Neuropathy - 200 mg Gabapentin BID continued from home med list DVT ppx: therapeutic anticoagulation on Eliquis FEN/GI: NPO after midnight Code Status: Full Code Dispo: Med/Surg with Tele (2) Fall: (3) Urinary tract infection: (4) Left thigh pain: (5) Hypomagnesemia: (6) Chronic diastolic CHF (congestive heart failure): (7) Primary bladder malignant neoplasm: (8) Sepsis secondary to UTI: History of Present Illness Patient is a 74 yo M with extensive medical and urologic history including CKD stage 3, primary malignant bladder neoplasm, bilateral nephrostomy tubes, percutaneous abdominal drain, brought to the ED by ambulance after fall at personal long-term. He says he hit his head with the fall but doesn't remember if he blacked out prior to falling. He attests to having lower abdominal pain that is persistent. He denies any fatigue, nausea, weakness, chills, fevers, though he appears disoriented and seems to be a poor historian. Of note he was recently at acute rehab after a hospital admission for similar complaints and was only recently transferred to the personal long-term. Recent notes from Urology reviewed in conjunction with chart review. Primary Care Provider: Ramon Serrato Allergies Allergy/AdvReac Type Severity Reaction Status Date / Time levofloxacin [From Levaquin] Allergy Intermediate Swelling Verified 11/25/19 15:52 of extremities citalopram Allergy Mild GI symptoms Verified 11/25/19 15:52 pravastatin AdvReac Mild leg Verified 11/25/19 15:52 soreness rosuvastatin AdvReac Mild leg Verified 11/25/19 15:52 soreness Home Medications Home Medications Medication Instructions Recorded Confirmed Type metoprolol succinate [Toprol XL] 25 mg PO DAILY@0806/05/19 12/30/19 History Breo Ellipta 1 inh INHALATION DAILY@79908/11/19 12/30/19 History ondansetron HCl 4 mg tablet 4 mg PO Q4H PRN 10/08/19 12/30/19 History pantoprazole 40 mg tablet,delayed 40 mg PO DAILY@79910/08/19 12/30/19 History release acetaminophen [Tylenol] 650 mg PO Q4H PRN MDD 3 GMS 11/25/19 12/30/19 History APAP/24 HOURS diclofenac sodium 2 g TOPICAL TID PRN 11/25/19 12/30/19 History gabapentin 200 mg PO BID 11/25/19 12/30/19 History hydrocortisone 1 applic TOPICAL TID PRN 11/25/19 12/30/19 History melatonin 6 mg PO DAILY@199911/25/19 12/30/19 History mirtazapine 15 mg PO DAILY@199911/25/19 12/30/19 History docusate sodium 100 mg PO BID 12/30/19 12/30/19 History polyethylene glycol 3350 17 g PO DAILY PRN 12/30/19 12/30/19 History sennosides-docusate sodium [Senna 1 tab-cap PO DAILY@119912/30/19 12/30/19 History Plus] morphine concentrate 5 mg PO Q3H PRN #30 ml 01/01/20 Rx Past Med/Surg History Medical History Anxiety and depression Bladder cancer recent diagnosis (mass noted on CTS) BPH (benign prostatic hyperplasia) Chronic diastolic CHF (congestive heart failure) Chronic kidney disease, stage 3a Chronic respiratory failure with hypoxia COPD (chronic obstructive pulmonary disease) + O2 HS Degenerative disc disease Diverticulitis (11/22/13) hx (noted per 2014 records) Dyslipidemia GERD (gastroesophageal reflux disease) controlled Hearing deficit Hypertension Kidney stones Lung cancer (~12/2012) s/p lung resection/chemo Obesity Osteoarthritis Peripheral neuropathy b/l feet Pulmonary embolism 02/2019- on Xarelto Sinus tachycardia hx Skin cancer Surgical History History of colonoscopy History of discectomy LUMBAR History of esophagogastroduodenoscopy (EGD) History of hernia repair INGUINAL History of knee joint replacement RT/LEFT History of shoulder surgery RT History of tooth extraction History of vascular access device POWER PORT RIGHT CHEST (INTACT CURRENLTY) S/P partial lobectomy of lung RLL Family History Aunt Breast cancer Brother Cerebral arterial aneurysm Mother Cerebral arterial aneurysm Family/Other Cataracts, both eyes Myocardial infarction Diabetes Other No significant family history Social History Preferred Language: Thai Communication Ability: Effective Corporate Relations Director Required: No Beliefs That Will Affect Care: None marital status: Current Living Situation: Rehab Current Living Situation Comment: rehab at [facility] Feels Safe at Home: Yes Smoking Status: Former smoker Tobacco Type: cigarettes ; Second Hand Exposure: No ; Hx Alcohol Use: No Hx Substance Use: No Review of Systems Constitutional: no fever, no chills, no body aches and no fatigue Respiratory: no cough and no dyspnea Cardiovascular: no chest pain, no dyspnea and no edema Gastrointestinal: + abdominal pain; no nausea, no vomiting, no constipation and no diarrhea/loose stools Genitourinary: no dysuria, no hematuria and no flank pain Physical Exam Constitutional: + obese; no acute distress generally appears disheveled, [place] unkempt, ENMT: external ear and nose normal, oropharynx normal Mouth: no oral mucosal abnormality Respiratory: normal respiratory effort, lungs clear to auscultation no cough Auscultation: no rales, no rhonchi and no wheezes Cardiovascular: Rate/Rhythm: + tachycardic Heart Sounds: no gallop and no murmur Vessels: posterior tibial pulses present Extremities: normal capillary refill; no edema Gastrointestinal (Abdomen): nondistended, nontender, urostomy tubes in place without seepage, no gross hematuria in bag, percutaneous abdominal drain in place Skin: no rashes, warm and dry Neurologic: Alert, oriented to person and situation. Not oriented to city, month or year. Results & Data Results & Data ([facility]) Vital Signs (Past 12 Hours) Vital Signs Temp Pulse Resp BP Pulse Ox 12/30/19 20:00 108 H 24 102/67 95 12/30/19 19:30 106 H 21 122/69 96 12/30/19 19:18 92 12/30/19 19:16 113 H 24 107/65 94 12/30/19 18:31 36.8 C 99 H 18 114/53 L 94 Laboratory Results WBC 12.62 K/uL (4.8-10.8) H 12/30/19 19:16 RBC 3.60 M/uL (4.7-6.1) L 12/30/19 19:16 Hgb 9.7 g/dL (14.0-18.0) L 12/30/19 19:16 Hct 31.4 % (42-52) L 12/30/19 19:16 MCV 87.2 fL (80-100) 12/30/19 19:16 MCH 26.9 pg (25-34) 12/30/19 19:16 MCHC 30.9 g/dL (32-36) L 12/30/19 19:16 RDW Std Deviation 67.2 fL (36.4-46.3) H 12/30/19 19:16 RDW Coeff of Effie 20.8 % (11.5-14.5) H 12/30/19 19:16 Plt Count 358 K/uL (130-400) 12/30/19 19:16 MPV 9.6 fL (7.4-10.4) 12/30/19 19:16 Immature Gran % (Auto) 1.6 % 12/30/19 19:16 Neut % (Auto) 76.8 % 12/30/19 19:16 Lymph % (Auto) 5.0 % 12/30/19 19:16 Cottle % (Auto) 9.3 % 12/30/19 19:16 Eos % (Auto) 6.9 % 12/30/19 19:16 Baso % (Auto) 0.4 % 12/30/19 19:16 Immature Gran # (Auto) 0.20 K/uL (0.00-0.02) H 12/30/19 19:16 Neut # (Auto) 9.70 K/uL (1.4-6.5) H 12/30/19 19:16 Lymph # (Auto) 0.63 K/uL (1.2-3.4) L 12/30/19 19:16 Cottle # (Auto) 1.17 K/uL (0.11-0.59) H 12/30/19 19:16 Eos # (Auto) 0.87 K/uL (0-0.5) H 12/30/19 19:16 Baso # (Auto) 0.05 K/uL (0-0.2) 12/30/19 19:16 Anisocytosis Present 12/30/19 19:16 PT 13.1 Seconds (9.0-12.0) H 12/30/19 19:16 INR 1.3 (0.9-1.1) H 12/30/19 19:16 APTT 28.2 Seconds (21.0-31.0) 12/30/19 19:16 PTT Ratio 1.0 12/30/19 19:16 Sodium 138 mmol/L (136-145) 12/30/19 19:16 Potassium 4.5 mmol/L (3.5-5.1) 12/30/19 19:16 Chloride 110 mmol/L (98-107) H 12/30/19 19:16 Carbon Dioxide 18 mmol/L (21-32) L 12/30/19 19:16 Anion Gap 10.0 (3-11) 12/30/19 19:16 BUN 69 mg/dl (7-18) H 12/30/19 19:16 Creatinine 3.26 mg/dl (0.6-1.4) H 12/30/19 19:16 Est Cr Clr Drug Dosing 22.4 ml/min 12/30/19 19:16 Est GFR ( Amer) 20.5 12/30/19 19:16 Est GFR (Non-Af Amer) 17.7 12/30/19 19:16 BUN/Creatinine Ratio 21.1 (10-20) H 12/30/19 19:16 Glucose 111 mg/dl (70-99) H 12/30/19 19:16 Calcium 8.6 mg/dl (8.5-10.1) 12/30/19 19:16 Magnesium 1.1 mg/dl (1.8-2.4) L 12/30/19 19:16 Total Bilirubin 0.2 mg/dl (0.2-1) 12/30/19 19:16 AST 30 U/L (15-37) 12/30/19 19:16 ALT 28 U/L (12-78) 12/30/19 19:16 Alkaline Phosphatase 107 U/L (45-117) 12/30/19 19:16 Total Creatine Kinase 55 U/L (39-308) 12/30/19 19:16 Troponin I < 0.015 ng/ml (0-0.045) 12/30/19 19:16 Total Protein 7.5 gm/dl (6.4-8.2) 12/30/19 19:16 Albumin 2.5 gm/dl (3.4-5.0) L 12/30/19 19:16 Globulin 5.0 gm/dl (2.5-4.0) H 12/30/19 19:16 Albumin/Globulin Ratio 0.5 (0.9-2) L 12/30/19 19:16 TSH 0.142 uIu/ml (0.300-4.500) L 12/30/19 19:16 Free T4 0.73 ng/dl (0.8-1.6) L 12/30/19 19:16 Urine Color Yellow 12/30/19 19:20 Urine Appearance Turbid (Clear) A 12/30/19 19:20 Urine pH 7.0 (4.5-7.5) 12/30/19 19:20 Ur Specific [place] 1.010 (1.000-1.030) 12/30/19 19:20 Urine Protein 2+ (Negative) H 12/30/19 19:20 Urine Glucose (UA) Negative (Negative) 12/30/19 19:20 Urine Ketones Negative (Negative) 12/30/19 19:20 Urine Blood 3+ (Negative) H 12/30/19 19:20 Urine Nitrite Positive (Negative) A 12/30/19 19:20 Urine Bilirubin Negative (Negative) 12/30/19 19:20 Urine Urobilinogen Negative (Negative) 12/30/19 19:20 Ur Leukocyte Esterase 3+ (Negative) H 12/30/19 19:20 Urine WBC (Auto) >30 /hpf (0-5) H 12/30/19 19:20 Urine RBC (Auto) >30 /hpf (0-4) H 12/30/19 19:20 U Hyaline Cast (Auto) 1-5 /lpf (0-5) 12/30/19 19:20 U Epithel Cells (Auto) 10-20 /lpf (0-5) H 12/30/19 19:20 Urine Bacteria (Auto) 4+ (Negative) H 12/30/19 19:20 Granular Casts 1-5 /lpf (0) H 12/30/19 19:20 Urine Mucus Present (None Prsent) A 12/30/19 19:20 CT Head and Neck: Negative for acute fractures, bleeding or abnormalities CT abdomen/pelvis without contrast: 1. Moderate left hydroureteronephrosis. Interval repositioning of the left nephrostomy tube with tip projecting over the inferior left renal sinus. Positioning within the collecting system cannot be confirmed on this exam. No right hydronephrosis. Right nephrostomy tube in place. 2. Status post cystectomy with ileal conduit formation. Slight increase in size of a small right anterior pelvic fluid collection which contains a drain. Marquise ection measures 3.5 x 1 cm. 3. No bowel obstruction. No lymphadenopathy. Supervising Physician Co-Signing Physician Notes Attending addendum: I have physically seen this patient, have supervised the medical residents activities, and agree with the H&P unless as otherwise noted. Assessment and Plan: Acute kidney injury on chronic kidney disease stage III/sepsis secondary to UTI- Creatinine 3.26 upon admission, with baseline 1.2. Continue IV fluid rehydration with normal saline at 80 mL's per hour. Follow urine culture and sensitivities. Empiric treatment with cefepime IV. History of Pseudomonas and E. coli bacteria sensitive to cefepime. Serial CBC with differential, chemistry profile and magnesium levels. Zofran 4 mg IV every 6 hours PRN. Remainder of orders and notations as noted. Resident Activity Tracking Resident Involvement: Resident Care Provided Care Provided: Adult Hospital Medicine (1) Urinary tract infection Hematuria presence: with hematuria Urinary tract infection type: site unspecified Qualified Code(s): N39.0 - Urinary tract infection, site not specified; R31.9 - Hematuria, unspecified (2) Acute renal failure Acute renal failure type: unspecified Qualified Code(s): N17.9 - Acute kidney failure, unspecified (3) Fall Encounter type: initial encounter Qualified Code(s): W19.XXXA - Unspecified fall, initial encounter
--- NOTE | 2019-12-30 21:12 | CT Scan Report ---
CT OF THE HEAD WITHOUT CONTRAST CLINICAL HISTORY: fall COMPARISON STUDY: Head CT December 11, 2019. CT DOSE: 638.56 mGycm TECHNIQUE: Helical axial images of the head were obtained without IV contrast. Automated exposure con trol was utilized for the study. A dose lowering technique was utilized adhering to the principles o f ALARA. FINDINGS: No acute intracranial hemorrhage, midline shift or mass effect is present. The ventricular system is unremarkable. The basilar cisterns are patent. No extra-axial collections are present. Ther e are no findings to suggest acute dural sinus thrombosis or acute territorial infarct. No significan t calvarial abnormalities are present. Visualized portions of the sinuses and mastoid air cells are c lear. IMPRESSION: 1. No acute intracranial findings. 2. No calvarial fracture. ACT 112: Negative or not required by law. Electronically signed by: Bryce Bentley M.D. 12/30/2019 9:11 PM
--- NOTE | 2019-12-30 21:17 | CT Scan Report ---
CT OF THE CERVICAL SPINE WITHOUT CONTRAST CLINICAL HISTORY: fall COMPARISON STUDY: Cervical spine CT October 28, 2019. TECHNIQUE: Helical axial images of the cervical spine were obtained without IV contrast. Sagittal a nd coronal reconstructions were viewed. Automated exposure control was utilized for the study. A do se lowering technique was utilized adhering to the principles of ALARA. FINDINGS: Alignment of the cervical spine is anatomic. Vertebral body heights are maintained. No acut e cervical spine fracture or subluxation is present. There is no prevertebral edema. Facet joints are intact. Severe degenerative changes at the C1-C2 articulation are again noted. There is severe mult ilevel facet arthrosis and moderate multilevel degenerative disc disease. IMPRESSION: No acute cervical spine fracture or subluxation. ACT 112: Negative or not required by law. Electronically signed by: Bryce Bentley M.D. 12/30/2019 9:15 PM
--- NOTE | 2019-12-30 21:33 | CT Scan Report ---
CT OF THE ABDOMEN AND PELVIS WITHOUT CONTRAST CLINICAL HISTORY: UTI COMPARISON STUDY: CT of the abdomen and pelvis November 25, 2019. TECHNIQUE: Axial images of the abdomen and pelvis were obtained without IV contrast. Images were revi ewed in the axial, sagittal, and coronal planes. Automated exposure control was utilized for the kira dy. A dose lowering technique was utilized adhering to the principles of ALARA. FINDINGS: Imaged portions of the lower chest demonstrate minimal right lower lung airspace opacity. E valuation of the abdomen and pelvis is suboptimal on this unenhanced examination. No pneumatosis, bhavesh e air or portal venous gas is present. Unenhanced images of the liver, spleen, adrenal glands and reynoso creas are unremarkable. There is no biliary or pancreatic ductal dilatation. No peripancreatic or per icholecystic infiltration is present. A few water attenuation right renal lesions were shown to refle ct cysts on prior contrast enhanced exam. Patient is status post cystectomy with ileal conduit format ion and right lower quadrant ostomy. A right nephrostomy tube is in place. There is no right hydronep hrosis. Left nephrostomy has been repositioned. The tip now projects over the inferior aspect of the left renal sinus. Positioning within the collecting system cannot be confirmed on this examination. T here is moderate left hydroureteronephrosis. No urinary calculi are identified. There is no evidence for a bowel obstruction. No lymphadenopathy is present. A 1 right anterior pelvic fluid collection parada s slightly increased in size since prior exam. This collection measures 2.5 x 1 cm. A drain is locate d within this collection. There are no additional fluid collections. No suspicious osseous lesions ar e noted. No acute fracture within the pelvis or lumbar spine is identified. IMPRESSION: 1. Moderate left hydroureteronephrosis. Interval repositioning of the left nephrostomy tube with tip projecting over the inferior left renal sinus. Positioning within the collecting system cannot be con firmed on this exam. No right hydronephrosis. Right nephrostomy tube in place. 2. Status post cystectomy with ileal conduit formation. Slight increase in size of a small right ante rior pelvic fluid collection which contains a drain. Collection measures 3.5 x 1 cm. 3. No bowel obstruction. No lymphadenopathy. ACT 112: Negative or not required by law. Electronically signed by: Bryce Bentley M.D. 12/30/2019 9:32 PM
[2019-12-30] MEDS ORDERED: ENOXAPARIN INJ 30 MG/0.3 ML SYR SQ SCH (22:15)
[2019-12-30] MEDS ORDERED: ENOXAPARIN INJ 30 MG/0.3 ML SYR ONE (22:41)
[2019-12-31] MEDS: ACETAMINOPHEN 325 MG TAB PO PRN ×2 (00:03→18:58)
[2019-12-31] MEDS: SODIUM CHLORIDE 0.9% 1000ML 1,000 ML IV SCH ×2 (00:03→15:08)
[2019-12-31] MEDS: APIXABAN 5 MG TABLET PO SCH ×3 (00:05→20:34)
[2019-12-31] MEDS ORDERED: MAGNESIUM SULFATE / D5W 1 GM/100 ML BAG IV ONE ×2 (02:04→04:00)
[2019-12-31 05:02] LABS: Hemoglobin 9.2 g/dL (14.0-18.0); Mean Corpuscular Hemoglobin 27.5 pg (25-34); Mean Corpuscular Hgb Conc 31.7 g/dL (32-36); Mean Corpuscular Volume 86.8 fL (80-100); Mean Platelet Volume 9.7 fL (7.4-10.4); Platelet Count 338 K/uL (130-400); RDW Standard Deviation 66.7 fL (36.4-46.3); Red Blood Count 3.34 M/uL (4.7-6.1); White Blood Count 12.64 K/uL (4.8-10.8)
[2019-12-31 05:20] LABS: Albumin Level 2.3 gm/dl (3.4-5.0); BUN Creatinine Ratio 21.8 (10-20); Calcium 8.6 mg/dl (8.5-10.1); Creatinine Clr Calc Pharmacy 24.2 ml/min; Est GFR (Non-African American) 18.9; Magnesium 1.4 mg/dl (1.8-2.4); Potassium 4.6 mmol/L (3.5-5.1)
[2019-12-31 05:23] LABS: Albumin Globulin Ratio 0.5 (0.9-2); Bilirubin,Total 0.3 mg/dl (0.2-1); Globulin 4.6 gm/dl (2.5-4.0); Phosphorus 4.2 mg/dl (2.5-4.9); Total Protein 6.9 gm/dl (6.4-8.2)
[2019-12-31 05:35] LABS: Anisocytosis Present; Basophils # (auto) 0.05 K/uL (0-0.2); Basophils % (auto) 0.4 %; Eosinophils % (auto) 6.3 %; Immature Granulocytes # (auto) 0.28 K/uL (0.00-0.02); Immature Granulocytes % (auto) 2.2 %; Lymphocytes % (auto) 4.7 %; Monocytes # (auto) 1.14 K/uL (0.11-0.59); Neutrophils # (auto) 9.77 K/uL (1.4-6.5); Neutrophils % (auto) 77.4 %
--- NOTE | 2019-12-31 08:10 | Urology Consultation ---
Date of Consultation December 31, 2019 Assessment & Plan (1) Acute renal failure: Muscle invasive bladder ca s/p rad cystectomy ([facility]) - very complicated recovery course - DVT/PE, infections, failure to thrive, b/l ureteral obstruction + anastomotic leaks - maintained with b/l nephrostomy tubes and pelvic drain - unfortunately, he continues to bounce between nursing facilities and the hospital with very little progress between admissions - more problematic is the limited ability for our facility to address problems with his tubes as we do not have interventional radiology - his surgeons in [place] will not entertain corrective surgery given his poor condition overall - currently admitted with MOUNIKA - I suspect the left nephrostomy tube is in an ok position - but an antegrade nephrostogram is likely the only way to definitively confirm this (uncertain our radiology department will entertain this) - previously responded very well to IV hydration, and I hope that will occur again during this admission - beyond that - we have very few options to try to further optimize him - no reasonable or safe interventions exist from our team History of Present Illness Attending Physician: Jose Antonio Blue, DO History of Present Illness well known to our service secondary to an extremely complicated past 1 year (since radical cystectomy in [place]) continues to fail to progress/thrive continues to require b/l nephrostomy tubes and a pelvic drain limited ambulation/mobility had a fall at [facility] yesterday prompting current admission cr elevated again CT eval (essentially head to toe) - right nephrostomy appears appropriately positioned, left nephrostomy in the lower pole? difficult to see if it is partially pulled out? pelvic drain ok, urostomy ok) Allergies Allergy/AdvReac Type Severity Reaction Status Date / Time levofloxacin [From Levaquin] Allergy Intermediate Swelling Verified 11/25/19 15:52 of extremities citalopram Allergy Mild GI symptoms Verified 11/25/19 15:52 pravastatin AdvReac Mild leg Verified 11/25/19 15:52 soreness rosuvastatin AdvReac Mild leg Verified 11/25/19 15:52 soreness Home Medications Home Medications Medication Instructions Recorded Confirmed Type metoprolol succinate [Toprol XL] 25 mg PO DAILY@0800 06/05/19 12/30/19 History Breo Ellipta 1 inh INHALATION DAILY@0800 08/11/19 12/30/19 History ondansetron HCl 4 mg tablet 4 mg PO Q4H PRN 10/08/19 12/30/19 History pantoprazole 40 mg tablet,delayed 40 mg PO DAILY@0800 10/08/19 12/30/19 History release acetaminophen [Tylenol] 650 mg PO Q4H PRN MDD 3 GMS 11/25/19 12/30/19 History APAP/24 HOURS diclofenac sodium 2 g TOPICAL TID PRN 11/25/19 12/30/19 History gabapentin 200 mg PO BID 11/25/19 12/30/19 History hydrocortisone 1 applic TOPICAL TID PRN 11/25/19 12/30/19 History melatonin 6 mg PO DAILY@199911/25/19 12/30/19 History mirtazapine 15 mg PO DAILY@199911/25/19 12/30/19 History docusate sodium 100 mg PO BID 12/30/19 12/30/19 History polyethylene glycol 3350 17 g PO DAILY PRN 12/30/19 12/30/19 History sennosides-docusate sodium [Senna 1 tab-cap PO DAILY@119912/30/19 12/30/19 History Plus] Patient History Medical History Anxiety and depression Bladder cancer recent diagnosis (mass noted on CTS) BPH (benign prostatic hyperplasia) Chronic diastolic CHF (congestive heart failure) Chronic kidney disease, stage 3a Chronic respiratory failure with hypoxia COPD (chronic obstructive pulmonary disease) + O2 HS Degenerative disc disease Diverticulitis (11/22/13) hx (noted per 2014 records) Dyslipidemia GERD (gastroesophageal reflux disease) controlled Hearing deficit Hypertension Kidney stones Lung cancer (~12/2012) s/p lung resection/chemo Obesity Osteoarthritis Peripheral neuropathy b/l feet Pulmonary embolism 02/2019- on Xarelto Sinus tachycardia hx Skin cancer Surgical History History of colonoscopy History of discectomy LUMBAR History of esophagogastroduodenoscopy (EGD) History of hernia repair INGUINAL History of knee joint replacement RT/LEFT History of shoulder surgery RT History of tooth extraction History of vascular access device POWER PORT RIGHT CHEST (INTACT CURRENLTY) S/P partial lobectomy of lung RLL Family History Aunt Breast cancer Brother Cerebral arterial aneurysm Mother Cerebral arterial aneurysm Family/Other Cataracts, both eyes Myocardial infarction Diabetes Other No significant family history Social History Preferred Language: Maltese Communication Ability: Effective Blanket Folder Required: No Beliefs That Will Affect Care: None marital status: Current Living Situation: Rehab Current Living Situation Comment: rehab at [facility] Feels Safe at Home: Yes Safety Concerns: Feels Safe At This Time Smoking Status: Former smoker Tobacco Type: cigarettes ; Do You Dip or Chew Tobacco: No ; Second Hand Exposure: No ; Tobacco Cessation Education Requested by Patient: No Hx Alcohol Use: No Hx Substance Use: No Review of Systems Constitutional: + weakness; no chills Respiratory: no cough and no dyspnea Cardiovascular: no chest pain Gastrointestinal: + abdominal pain; no vomiting and no constipation Genitourinary: + problem reported Musculoskeletal: + back pain Integumentary: no rash Neurologic: + unsteadiness, + falls, + generalized weakness and + confusion Psychiatric: + confusion Endocrine: + fatigue Physical Exam Constitutional: average body habitus and + frail appearing limited interactivity with me this am ENMT: Ears: no hearing impairment Neck: normal visual inspection and trachea midline Respiratory: normal respiratory effort and + respiratory distress Cardiovascular: Rate/Rhythm: + tachycardic Chest (Breasts): Chest: normal inspection of chest Gastrointestinal (Abdomen): Percussion/Palpation: + abdomen tender and abdomen soft; no guarding and abdomen not rigid clear urine from right nephrostomy; clear urine (low volume) from left nephrostomy; clear output from ANTONIA; stoma healthy Musculoskeletal: Head/Neck/Chest: + head abnormal to inspection, normocephalic and head atraumatic Skin: normal turgor; no rashes Neurologic: Speech / Cognition: normal speech Psychiatric: Orientation: alert Genitourinary: + CVA tenderness Lymphatic: no lymphadenopathy Results & Data Vital Signs (Past 12 Hours) Vital Signs Temp Pulse Pulse Resp BP BP BP 12/31/19 06:58 37.7 C H 140 H 20 142/70 H 12/31/19 03:57 37.0 C 107 H 20 103/64 12/31/19 00:10 128 H 12/30/19 23:15 37.5 C 126 H 20 144/82 H 12/30/19 23:00 115 H 23 134/72 12/30/19 22:31 125 H 23 151/100 H 12/30/19 22:21 37.1 C 12/30/19 22:01 108 H 17 109/64 12/30/19 21:30 103 H 16 146/100 H 12/30/19 21:13 104 H 20 131/74 12/30/19 20:30 108 H 15 128/97 Pulse Ox 12/31/19 06:58 92 12/31/19 03:57 94 12/31/19 00:10 12/30/19 23:15 95 12/30/19 23:00 96 12/30/19 22:31 95 12/30/19 22:21 12/30/19 22:01 93 12/30/19 21:30 95 12/30/19 21:13 96 12/30/19 20:30 95 PG Care Time/CCT Total # of Minutes Spent Total Time Spent with Patient: Total time spent is greater than 50% in coordination of care (as documented) at patient's floor/unit and/or counseling patient: Coding Level of Care Code 60788 Inpt Consult Level 4 Diagnoses Acute renal failure N17.9 Acute renal failure type: unspecified (1) Acute renal failure Acute renal failure type: unspecified Qualified Code(s): N17.9 - Acute kidney failure, unspecified
[2019-12-31] MEDS ORDERED: SODIUM CHLORIDE 0.9% 1000ML 500 ML IV ONE (08:28)
[2019-12-31] MEDS ORDERED: HYDROmorphone INJ 0.5 MG/0.5 ML SYR IV STA (08:59)
[2019-12-31] MEDS ORDERED: CEFEPIME 2,000 MG in SYRINGE 7.5 ML IV SCH (09:00)
[2019-12-31] MEDS: FAMOTIDINE 40 MG TABLET PO SCH (09:01)
[2019-12-31] MEDS: METOPROLOL SUCC 25MG EXT REL TAB PO SCH (09:01)
[2019-12-31] MEDS: FLUTICASONE/VILANTEROL 100/25MCG 14 PUFFS/INHALER INH SCH (09:01)
[2019-12-31] MEDS: GABAPENTIN 100 MG CAP PO SCH ×2 (09:02→16:51)
[2019-12-31] MEDS: MAGNESIUM SULFATE / D5W 1 GM/100 ML BAG IV SCH ×2 (09:36→09:37)
--- NOTE | 2019-12-31 11:49 | Hospitalist Progress Note ---
Date of Service December 31, 2019 Assessment & Plan (1) Primary bladder malignant neoplasm: metastatic bladder CA he is s/p bilateral nephrostomy tubes, ileal conduit there is nothing further that can be done surgically for the patient both Dr. Harvey and his urologic surgeon in [place] have suggested goals of care discussion, consider hospice I discussed with his Lia today, she agrees I attempted to talk with the patient but he is slightly confused, does not grasp how ill he is, just wants to talk about eating and drinking formal palliative care consult for tomorrow I will call the again this afternoon to ask again about code status as he is full code (2) Sepsis secondary to UTI: severe sepsis, present on arrival, with renal failure no evidence of shock at this time, BP preserved continue IV fluids, continue Cefepime, follow up results of urine culture no blood cultures were drawn, too late at this time with IV antibiotics in place doing better since admission, HR down to 100's, making urine COVID test negative, he was from [facility] (3) Acute renal failure: due to sepsis, dehydration, possible malfunction of left nephrostomy tube Cr improved a little to 3.0 from 3.2 repeat BMP this afternoon electrolytes stable hoping that failure all due to dehydration and infection, thus it should improve if it is due to obstruction there is nothing really that can be done per urology (4) Fall: several falls at [facility] no fractures on imaging has some general pain using Tylenol, use Dilaudid if pain is severe (5) Weakness: consult PT/OT he is from [facility] (6) Metabolic acidosis: likely due to renal failure and sepsis, although anion gap normal if HCO3 goes down further this afternoon, will add sodium bicarb to fluids (7) Hypomagnesemia: replace 2gm IV for Mg level of 1.4 (8) Severe protein-calorie malnutrition: encourage PO intake per his , he has been eating well but she has not been able to see him in some time (9) Pulmonary embolism: h/o such, continue on Xarelto (10) Chronic respiratory failure with hypoxia: no distress, breathing well on room air at this time (11) Chronic kidney disease (CKD), stage III (moderate): currently with MOUNIKA cr was as low as 1.0 in November (12) Multifocal atrial tachycardia: HR in the 140's this morning, likely driven by infection, pain, and delay in getting his Toprol 25mg HR now 100's after pain control, 500cc bolus and Toprol Admission and Anticipated Discharge Date Admission Date: December 30, 2019 Subjective patient with low grade temperature and tachycardia this AM, c/o pain in his head and neck discussed with infection control, because he came from [facility] we ran a rapid COVID test that was negative discussed with Dr. Harvey, unfortunately there is very little else that can be done for him, surgeons in [place] will not operate again I talked with the patient's Lia over the phone, she actually mentioned that urology in [place] had brought up idea of hospice I told her that I agreed that it was an appropriate time to have this discussion I asked her to think about the patient's code status as he is listed as full code I consulted palliative care, they will see him tomorrow as they are off today, talked with them about the case reviewed the chart reviewed labs, WBC 12k, Cr only down slightly at 3.08 from 3.2, has a metabolic acidosis with HCO3 15 urine cultures pending, no blood cultures were done at time of admission Review of Systems Review of Systems: All systems reviewed & are unremarkable except as noted in HPI & below Constitutional: + fever, + chills, + sweats, + fatigue and + weakness Respiratory: no cough and no dyspnea Cardiovascular: no chest pain and no edema Gastrointestinal: no abdominal pain, no nausea, no vomiting, no constipation and no diarrhea/loose stools Genitourinary: + problem reported (bilateral nephrostomy tubes) Musculoskeletal: + neck pain, + muscle weakness and + body aches Physical Exam Constitutional: well developed, + ill appearing and + frail appearing; no acute distress Eyes: PERRL, conjunctivae normal, anicteric sclerae ENMT: external ear and nose normal, oropharynx normal Mouth: + dry oral mucous membranes Neck: trachea midline, no thyromegaly Respiratory: normal respiratory effort, lungs clear to auscultation Cardiovascular: Rate/Rhythm: regular rhythm and + tachycardic Heart Sounds: normal S1 and normal S2; no murmur Vessels: no JVD Extremities: normal capillary refill; no edema Gastrointestinal (Abdomen): normal bowel sounds, soft, nontender, no hepatosplenomegaly Musculoskeletal: Head/Neck/Chest: normocephalic and head atraumatic Extremities: + abnormal strength (generalized weakness) Skin: no rashes, warm and dry Neurologic: patellar DTR's 2+ bilat, sensation intact and PERRL, EOMI, accommodation nl, no face palsy, no dysarthria Psychiatric: Orientation: alert, oriented to person, oriented to place and cooperative; + not oriented to time Lymphatic: no cervical or axillary lymphadenopathy Results & Data Results & Data ([facility]) Vital Signs (Past 12 Hours) Vital Signs Temp Pulse Pulse Resp BP BP Pulse Ox 12/31/19 11:19 37.5 C 109 H 20 124/84 94 12/31/19 06:58 37.7 C H 140 H 20 142/70 H 92 12/31/19 03:57 37.0 C 107 H 20 103/64 94 12/31/19 00:10 128 H Laboratory Results Laboratory Results - last 24 hr 12/30/19 12/30/19 12/30/19 19:16 19:16 19:16 WBC 12.62 H RBC 3.60 L Hgb 9.7 L Hct 31.4 L MCV 87.2 MCH 26.9 MCHC 30.9 L RDW Std Deviation 67.2 H RDW Coeff of Effie 20.8 H Plt Count 358 MPV 9.6 Immature Gran % (Auto) 1.6 Neut % (Auto) 76.8 Lymph % (Auto) 5.0 Johnson % (Auto) 9.3 Eos % (Auto) 6.9 Baso % (Auto) 0.4 Immature Gran # (Auto) 0.20 H Neut # (Auto) 9.70 H Lymph # (Auto) 0.63 L Johnson # (Auto) 1.17 H Eos # (Auto) 0.87 H Baso # (Auto) 0.05 Anisocytosis Present PT 13.1 H INR 1.3 H APTT 28.2 PTT Ratio 1.0 Sodium 138 Potassium 4.5 Chloride 110 H Carbon Dioxide 18 L Anion Gap 10.0 BUN 69 H Creatinine 3.26 H Est Cr Clr Drug Dosing 22.4 Est GFR ( Amer) 20.5 Est GFR (Non-Af Amer) 17.7 BUN/Creatinine Ratio 21.1 H Glucose 111 H Calcium 8.6 Phosphorus Magnesium 1.1 L Total Bilirubin 0.2 AST 30 ALT 28 Alkaline Phosphatase 107 Total Creatine Kinase 55 Troponin I < 0.015 Total Protein 7.5 Albumin 2.5 L Globulin 5.0 H Albumin/Globulin Ratio 0.5 L TSH 0.142 L Free T4 0.73 L Urine Color Urine Appearance Urine pH Ur Specific [place] Urine Protein Urine Glucose (UA) Urine Ketones Urine Blood Urine Nitrite Urine Bilirubin Urine Urobilinogen Ur Leukocyte Esterase Urine WBC (Auto) Urine RBC (Auto) U Hyaline Cast (Auto) U Epithel Cells (Auto) Urine Bacteria (Auto) Granular Casts Urine Mucus Nasal Screen MRSA (PCR) COVID-19 PCR SARS-CoV-2 RNA (RT-PCR) 12/30/19 12/31/19 12/31/19 19:20 02:15 04:44 WBC 12.64 H RBC 3.34 L Hgb 9.2 L Hct 29.0 L MCV 86.8 MCH 27.5 MCHC 31.7 L RDW Std Deviation 66.7 H RDW Coeff of Effie 21.0 H Plt Count 338 MPV 9.7 Immature Gran % (Auto) 2.2 Neut % (Auto) 77.4 Lymph % (Auto) 4.7 Johnson % (Auto) 9.0 Eos % (Auto) 6.3 Baso % (Auto) 0.4 Immature Gran # (Auto) 0.28 H Neut # (Auto) 9.77 H Lymph # (Auto) 0.60 L Johnson # (Auto) 1.14 H Eos # (Auto) 0.80 H Baso # (Auto) 0.05 Anisocytosis Present PT INR APTT PTT Ratio Sodium Potassium Chloride Carbon Dioxide Anion Gap BUN Creatinine Est Cr Clr Drug Dosing Est GFR ( Amer) Est GFR (Non-Af Amer) BUN/Creatinine Ratio Glucose Calcium Phosphorus Magnesium Total Bilirubin AST ALT Alkaline Phosphatase Total Creatine Kinase Troponin I Total Protein Albumin Globulin Albumin/Globulin Ratio TSH Free T4 Urine Color Yellow Urine Appearance Turbid A Urine pH 7.0 Ur Specific [place] 1.010 Urine Protein 2+ H Urine Glucose (UA) Negative Urine Ketones Negative Urine Blood 3+ H Urine Nitrite Positive A Urine Bilirubin Negative Urine Urobilinogen Negative Ur Leukocyte Esterase 3+ H Urine WBC (Auto) >30 H Urine RBC (Auto) >30 H U Hyaline Cast (Auto) 1-5 U Epithel Cells (Auto) 10-20 H Urine Bacteria (Auto) 4+ H Granular Casts 1-5 H Urine Mucus Present A Nasal Screen MRSA (PCR) Negative COVID-19 PCR SARS-CoV-2 RNA (RT-PCR) 12/31/19 12/31/19 12/31/19 04:44 09:30 09:30 WBC RBC Hgb Hct MCV MCH MCHC RDW Std Deviation RDW Coeff of Effie Plt Count MPV Immature Gran % (Auto) Neut % (Auto) Lymph % (Auto) Johnson % (Auto) Eos % (Auto) Baso % (Auto) Immature Gran # (Auto) Neut # (Auto) Lymph # (Auto) Johnson # (Auto) Eos # (Auto) Baso # (Auto) Anisocytosis PT INR APTT PTT Ratio Sodium 141 Potassium 4.6 Chloride 116 H Carbon Dioxide 15 L Anion Gap 10.0 BUN 67 H Creatinine 3.08 H Est Cr Clr Drug Dosing 24.2 Est GFR ( Amer) 22.0 Est GFR (Non-Af Amer) 18.9 BUN/Creatinine Ratio 21.8 H Glucose 99 Calcium 8.6 Phosphorus 4.2 Magnesium 1.4 L Total Bilirubin 0.3 AST 24 ALT 26 Alkaline Phosphatase 97 Total Creatine Kinase Troponin I Total Protein 6.9 Albumin 2.3 L Globulin 4.6 H Albumin/Globulin Ratio 0.5 L TSH Free T4 Urine Color Urine Appearance Urine pH Ur Specific [place] Urine Protein Urine Glucose (UA) Urine Ketones Urine Blood Urine Nitrite Urine Bilirubin Urine Urobilinogen Ur Leukocyte Esterase Urine WBC (Auto) Urine RBC (Auto) U Hyaline Cast (Auto) U Epithel Cells (Auto) Urine Bacteria (Auto) Granular Casts Urine Mucus Nasal Screen MRSA (PCR) COVID-19 PCR NEGATIVE SARS-CoV-2 RNA (RT-PCR) Cancelled Medications Administered Current Inpatient Medications Acetaminophen (Tylenol) 650 mg PO Q4H PRN PRN Reason: Pain Stop: 01/29/20 23:40 Last Admin: 12/31/19 00:03 Dose: 650 mg Documented by: Apixaban (Eliquis) 5 mg PO BID [facility] Stop: 01/29/20 23:40 Last Admin: 12/31/19 09:02 Dose: 5 mg Documented by: Famotidine (Pepcid) 40 mg PO QAM JINNY Stop: 01/30/20 08:59 Last Admin: 12/31/19 09:01 Dose: 40 mg Documented by: Fluticasone/Vilanterol (Breo Ellipta 100/25 Mcg Inh) 1 puffs INH DAILY@0800 [facility] Stop: 01/30/20 07:59 Last Admin: 12/31/19 09:01 Dose: 1 puffs Documented by: Gabapentin (Neurontin) 200 mg PO BID@0800,1700 [facility] Stop: 01/30/20 07:59 Last Admin: 12/31/19 09:02 Dose: 200 mg Documented by: Sodium Chloride (Nss 1000ml) 1,000 mls @ 80 mls/hr IV .[id number] [facility] Stop: 01/29/20 23:40 Last Infusion: 12/31/19 09:47 Dose: 80 mls/hr Documented by: Cefepime HCl 1,000 mg/ Syringe 11.3 mls @ 5.5 mls/min IV Q24H [facility]; Protocol Stop: 01/08/20 20:03 Metoprolol Succinate (Toprol Xl) 25 mg PO DAILY@0800 [facility] Stop: 01/30/20 07:59 Last Admin: 12/31/19 09:01 Dose: 25 mg Documented by: Mirtazapine (Remeron) 15 mg PO DAILY@2000 [facility] Stop: 01/30/20 19:59 Miscellaneous Information (Cefepime Consult Active) 1 ea N/A UD PRN PRN Reason: Consult Stop: 01/30/20 23:40 PG Care Time/CCT Total # of Minutes Spent Total Time Spent: 60 Total Time Spent with Patient: Total time spent is greater than 50% in coordination of care (as documented) at patient's floor/unit and/or counseling patient: Coding Level of Care Code 70131 Subseq Hosp Care Lvl 3 Diagnoses Primary bladder malignant neoplasm C67.9 Sepsis secondary to UTI A41.9; N39.0 Acute renal failure N17.9 Acute renal failure type: unspecified Fall W19.XXXA Encounter type: initial encounter Weakness R53.1 Metabolic acidosis E87.2 Hypomagnesemia E83.42 Severe protein-calorie malnutrition E43 Pulmonary embolism I26.99 Chronic respiratory failure with hypoxia J96.11 Chronic kidney disease (CKD), stage III (moderate) N18.3 Multifocal atrial tachycardia I47.1 (1) Acute renal failure Acute renal failure type: unspecified Qualified Code(s): N17.9 - Acute kidney failure, unspecified (2) Fall Encounter type: initial encounter Qualified Code(s): W19.XXXA - Unspecified fall, initial encounter
[2019-12-31 14:11] LABS: BUN Creatinine Ratio 23.7 (10-20); Calcium 8.7 mg/dl (8.5-10.1); Creatinine Clr Calc Pharmacy 26.4 ml/min; Est GFR (African American) 24.4; Est GFR (Non-African American) 21.1; Potassium 4.6 mmol/L (3.5-5.1)
[2019-12-31] MEDS ORDERED: STAT IV STA (14:57)
[2019-12-31] MEDS: SODIUM BICARBONATE 8.4% 75 MEQ in SODIUM CHLORIDE 0.45 % 1,000 ML IV SCH (15:31)
--- NOTE | 2019-12-31 16:29 | Electrocardiogram Report ---
Test Reason : Blood Pressure : / mmHG Vent. Rate : 106 BPM Atrial Rate : 106 BPM P-R Int : 134 ms QRS Dur : 068 ms QT Int : 304 ms P-R-T Axes : 011 -14 039 degrees QTc Int : 403 ms Sinus tachycardia Inferior infarct (cited on or before 18-FEB-2019) Cannot rule out Anterior infarct (cited on or before 28-OCT-2019) Abnormal ECG When compared with ECG of 25-NOV-2019 15:07, No significant change was found Confirmed by Mc Ibarra ([id number]) on 12/31/2019 4:29:09 PM Referred By: REFERRED SELF Confirmed By:Mc Ibarra
[2019-12-31] MEDS ORDERED: MIRTAZAPINE TAB 15 MG TAB PO SCH (20:00)
[2019-12-31] MEDS ORDERED: CEFEPIME 1,000 MG in SYRINGE 0 ML IV SCH (20:00)
[2019-12-31] MEDS ORDERED: CEFEPIME CONSULT ACTIVE PRN (23:41)
[2020-01-01] MEDS: SODIUM BICARBONATE 8.4% 75 MEQ in SODIUM CHLORIDE 0.45 % 1,000 ML IV SCH ×2 (02:05→12:28)
[2020-01-01] MEDS: ACETAMINOPHEN 325 MG TAB PO PRN ×3 (03:26→15:37)
--- NOTE | 2020-01-01 08:10 | Urology Progress Note ---
Date of Service January 01, 2020 Assessment & Plan (1) Acute renal failure: Very complex patient status post cystectomy in [place] with numerous complications He continues to require bilateral nephrostomy tubes as well as a pelvic drain Upon arrival there is a question of whether or not his left nephrostomy tube is been withdrawn from the kidney, it appears that at least a portion of this tube is still inappropriately positioned as he continues to have decent urine output from the left kidney Creatinine yesterday was showing signs of improvement with gentle hydration, no labs yet this morning I suspect that this extremely fragile patient could continue to benefit from aggressive hydration and resuscitation and may not require tube replacement As reported in the consult yesterday and prior consults, we are very limited on her options for adjusting his tubes in our facility, if we can optimize him conservatively with hydration that would be best We will continue to follow but from a distance, please contact us if there are acute questions that arise Subjective Patient is quite somnolent this morning difficult to arouse, not answering many questions Denies significant pain Physical Exam Physical Exam: Sleepingcomfortable appearing Abdomen soft, stoma appropriate Drain outputs all are clearleft nephrostomy producing urine, right nephrostomy producing urine, ANTONIA drain producing clear fluid, still producing clear urine Results & Data Vital Signs (Past 12 Hours) Vital Signs Temp Pulse Pulse Resp BP BP Pulse Ox 01/01/20 07:00 36.8 C 102 H 18 100/69 01/01/20 03:25 38.0 C H 118 H 18 101/60 92 01/01/20 02:07 91 H 12/31/19 22:40 36.9 C 103 H 18 130/71 95 PG Care Time/CCT Total # of Minutes Spent Total Time Spent with Patient: Total time spent is greater than 50% in coordination of care (as documented) at patient's floor/unit and/or counseling patient: Coding Level of Care Code 74862 Subseq Hosp Care Lvl 2 Diagnoses Acute renal failure N17.9 Acute renal failure type: unspecified (1) Acute renal failure Acute renal failure type: unspecified Qualified Code(s): N17.9 - Acute kidney failure, unspecified
[2020-01-01 08:18] LABS: Hematocrit (blood only) 30.2 % (42-52); Hemoglobin 9.2 g/dL (14.0-18.0); Mean Corpuscular Hemoglobin 26.5 pg (25-34); Mean Corpuscular Hgb Conc 30.5 g/dL (32-36); Mean Platelet Volume 9.5 fL (7.4-10.4); Platelet Count 300 K/uL (130-400); RDW Coefficient of Variation 20.6 % (11.5-14.5); RDW Standard Deviation 65.6 fL (36.4-46.3); Red Blood Count 3.47 M/uL (4.7-6.1); White Blood Count 11.56 K/uL (4.8-10.8)
[2020-01-01] MEDS: FLUTICASONE/VILANTEROL 100/25MCG 14 PUFFS/INHALER INH SCH (08:19)
[2020-01-01] MEDS: FAMOTIDINE 40 MG TABLET PO SCH (08:20)
[2020-01-01] MEDS: METOPROLOL SUCC 25MG EXT REL TAB PO SCH (08:20)
[2020-01-01] MEDS: GABAPENTIN 100 MG CAP PO SCH (08:20)
[2020-01-01] MEDS: APIXABAN 5 MG TABLET PO SCH (08:20)
[2020-01-01 08:43] LABS: Anisocytosis Present; Basophils # (auto) 0.04 K/uL (0-0.2); Basophils % (auto) 0.3 %; Eosinophils # (auto) 0.65 K/uL (0-0.5); Eosinophils % (auto) 5.6 %; Immature Granulocytes # (auto) 0.18 K/uL (0.00-0.02); Immature Granulocytes % (auto) 1.6 %; Lymphocytes # (auto) 0.73 K/uL (1.2-3.4); Lymphocytes % (auto) 6.3 %; Monocytes # (auto) 0.64 K/uL (0.11-0.59); Monocytes % (auto) 5.5 %; Neutrophils # (auto) 9.32 K/uL (1.4-6.5); Neutrophils % (auto) 80.7 %
[2020-01-01 08:45] LABS: BUN Creatinine Ratio 21.4 (10-20); Creatinine Clr Calc Pharmacy 25.6 ml/min; Est GFR (African American) 23.7; Est GFR (Non-African American) 20.5
--- NOTE | 2020-01-01 09:29 | Palliative Care Consultation ---
Date of Consultation January 01, 2020 Assessment & Plan (1) Goals of care, counseling/discussion: -74 year old male patient with extensive medical and urologic history including CKD stage 3, primary malignant bladder neoplasm, bilateral nephrostomy tubes, percutaneous abdominal drain, brought to the ED by ambulance after fall at personal halfway two days ago. Patient is chronically ill. Was living with his up until July 2019-- since then, has been in/out of hospital, acute rehab at [facility], and [facility]. He has only been home for five days since July. His overall health, condition, and performance status are deteriorating. In ED, patient had no fractures from the fall. CT head negative. He was admitted and treated for UTI. Patient's creatinine was also >3 on admission-- concern for malfunctioning nephrostomy tube. Urology consulted who stated that MOUNIKA likely due to dehydration as it began to improve with IVF, but if nephro tube malfunctioning, there were really no options for surgical intervention due to not having interventional radiology and patinet's overall poor condition/prognosis. Given patient's poor prognosis, there has already been discussion with patient and about hospice. Palliative care is consulted. -Patient to be seen by palliative MD this afternoon. Spoke with attending physician-- patient is confused, unable to have conversation about goals of care. -I called and spoke with patient's , Lia, at length this morning. She is very reasonable and understanding of patient's medical condition. SHe states that she has been told several times that there is really nothing further to be offered for patient's bladder cancer and nephrostomy tubes. -Lia has been told about hospice by several providers. We discussed it at length. Lia agrees that she would like patient to return to [facility] with [facility]. We talked about patient's condition and that the dehydration will like recur again very quickly after discharge. She and the family can expect that his condition and functional status will continue to decline-- she understands. -Patient has one adult child and four grandchildren. has a great support system and is comfortable with this decision. -Case management and attending physician updated. Plan is for discharge back to [facility] on hospice-- possibly today. -We will continue to follow and be available for any other palliative care needs. (2) Sepsis secondary to UTI: (3) Fall: Encounter type: initial encounter Qualified Code(s): W19.XXXA - Unspecified fall, initial encounter (4) Bladder cancer: Supervising Physician Co-Signing Physician Notes Chart reviewed, patient seen and examined. Collaborated with SEE Valenzuela as well as attending physician Dr. Kuhn. Spoke to patient's by phone. Patient well-known to me from multiple visits at [facility] as well as prior inpatient. Patient complaining of lower extremity pain-patient has diabetic neuropathy which had been well controlled on gabapentin, but the dose has been reduced due to renal function. Patient is also more confused. Patient has been on IV antibiotics as well as antifungals nearly continuously since his original surgery on July 23. Patient did grow out Pseudomonas when his left nephrostomy tube was placed-this will be very difficult if not impossible to clear given his multiple drains. PE: Patient complaining of lower extremity pain, more confused HEENT: EOMI, mild [place] Respirations: Unlabored, no rhonchi appreciated CV: Tachycardic, no edema Abdomen: Soft, nontender to palpation : Left nephrostomy dressing loose, some blood staining on the dressing. Neuro: Increased confusion Agree with above note, assessment and plan as per SEE Valenzuela. Patient's would like patient to return to [place] when possible under hospice care. Goal is for comfort. History of Present Illness Attending Physician: Alexi Kuhn MD History of Present Illness This 74 year old male patient with extensive medical and urologic history including CKD stage 3, primary malignant bladder neoplasm, bilateral nephrostomy tubes, percutaneous abdominal drain, brought to the ED by ambulance after fall at personal halfway two days ago. Patient is chronically ill. Was living with his up until July 2019-- since then, has been in/out of hospital, acute rehab at [facility], and [facility]. He has only been home for five days since July. His overall health, condition, and performance status are deteriorating. In ED, patient had no fractures from the fall. CT head negative. He was admitted and treated for UTI. Patient's creatinine was also >3 on admission-- concern for malfunctioning nephrostomy tube. Urology consulted who stated that MOUNIKA likely due to dehydration as it began to improve with IVF, but if nephro tube malfunctioning, there were really no options for surgical intervention due to not having interventional radiology and patinet's overall poor condition/prognosis. Given patient's poor prognosis, there has already been discussion with patient and about hospice. Palliative care is consulted. Thank you kindly for this consult. Palliative care team will follow as needed. Allergies Allergy/AdvReac Type Severity Reaction Status Date / Time levofloxacin [From Levaquin] Allergy Intermediate Swelling Verified 11/25/19 15:52 of extremities citalopram Allergy Mild GI symptoms Verified 11/25/19 15:52 pravastatin AdvReac Mild leg Verified 11/25/19 15:52 soreness rosuvastatin AdvReac Mild leg Verified 11/25/19 15:52 soreness Home Medications Home Medications Medication Instructions Recorded Confirmed Type metoprolol succinate [Toprol XL] 25 mg PO DAILY@0800 06/05/19 12/30/19 History Breo Ellipta 1 inh INHALATION DAILY@0800 08/11/19 12/30/19 History ondansetron HCl 4 mg tablet 4 mg PO Q4H PRN 10/08/19 12/30/19 History pantoprazole 40 mg tablet,delayed 40 mg PO DAILY@0800 10/08/19 12/30/19 History release acetaminophen [Tylenol] 650 mg PO Q4H PRN MDD 3 GMS 11/25/19 12/30/19 History APAP/24 HOURS diclofenac sodium 2 g TOPICAL TID PRN 11/25/19 12/30/19 History gabapentin 200 mg PO BID 11/25/19 12/30/19 History hydrocortisone 1 applic TOPICAL TID PRN 11/25/19 12/30/19 History melatonin 6 mg PO DAILY@199911/25/19 12/30/19 History mirtazapine 15 mg PO DAILY@199911/25/19 12/30/19 History docusate sodium 100 mg PO BID 12/30/19 12/30/19 History polyethylene glycol 3350 17 g PO DAILY PRN 12/30/19 12/30/19 History sennosides-docusate sodium [Senna 1 tab-cap PO DAILY@1200 12/30/19 12/30/19 History Plus] morphine concentrate 5 mg PO Q3H PRN #30 ml 01/01/20 Rx Patient History Medical History Anxiety and depression Bladder cancer recent diagnosis (mass noted on CTS) BPH (benign prostatic hyperplasia) Chronic diastolic CHF (congestive heart failure) Chronic kidney disease, stage 3a Chronic respiratory failure with hypoxia COPD (chronic obstructive pulmonary disease) + O2 HS Degenerative disc disease Diverticulitis (11/22/13) hx (noted per 2014 records) Dyslipidemia GERD (gastroesophageal reflux disease) controlled Hearing deficit Hypertension Kidney stones Lung cancer (~12/2012) s/p lung resection/chemo Obesity Osteoarthritis Peripheral neuropathy b/l feet Pulmonary embolism 02/2019- on Xarelto Sinus tachycardia hx Skin cancer Surgical History History of colonoscopy History of discectomy LUMBAR History of esophagogastroduodenoscopy (EGD) History of hernia repair INGUINAL History of knee joint replacement RT/LEFT History of shoulder surgery RT History of tooth extraction History of vascular access device POWER PORT RIGHT CHEST (INTACT CURRENLTY) S/P partial lobectomy of lung RLL Family History Aunt Breast cancer Brother Cerebral arterial aneurysm Mother Cerebral arterial aneurysm Family/Other Cataracts, both eyes Myocardial infarction Diabetes Other No significant family history Social History Preferred Language: Finnish Communication Ability: Effective 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 Beliefs That Will Affect Care: None marital status: Current Living Situation: Rehab Current Living Situation Comment: rehab at [facility] Feels Safe at Home: Yes Safety Concerns: Feels Safe At This Time Smoking Status: Former smoker Tobacco Type: cigarettes ; Do You Dip or Chew Tobacco: No ; Second Hand Exposure: No ; Tobacco Cessation Education Requested by Patient: No Hx Alcohol Use: No Hx Substance Use: No Results & Data Vital Signs (Past 12 Hours) Vital Signs Temp Pulse Pulse Resp BP BP Pulse Ox 01/01/20 09:12 114 H 01/01/20 07:00 36.8 C 102 H 18 100/69 01/01/20 03:25 38.0 C H 118 H 18 101/60 92 01/01/20 02:07 91 H 12/31/19 22:40 36.9 C 103 H 18 130/71 95 Coding Level of Care Code 37242 Inpt Consult Level 3 Diagnoses Goals of care, counseling/discussion Z71.89 Sepsis secondary to UTI A41.9; N39.0 Fall W19.XXXA Encounter type: initial encounter Bladder cancer C67.9 Time Spent (min) 70 Time Spent Midlevel A total of 70 minutes 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
[2020-01-01] MEDS ORDERED: MoRPHine SULFATE 5 MG/0.25 ML UDP PO PRN (13:41)
[2020-01-01] MEDS ORDERED: MoRPHine SULFATE 5 MG/0.25 ML UDP ONE (14:04)
[2020-01-01] MEDS ORDERED: MoRPHine SULFATE 2 MG/ML CARP IV PRN (14:32)
[2020-01-01] MEDS ORDERED: CEFEPIME 1,000 MG in SYRINGE 0 ML IV SCH (16:00)
--- NOTE | 2020-01-01 17:54 | Discharge Summary ---
Date of Service January 01, 2020 Principal Diagnosis Bladder cancer Discharge Exam Constitutional + acute distress and + frail appearing Psychiatric Orientation: oriented to person and cooperative; + not oriented to place and + not oriented to time Eye Contact: + fair eye contact Discharge Data Allergies Allergy/AdvReac Type Severity Reaction Status Date / Time levofloxacin [From Levaquin] Allergy Intermediate Swelling Verified 11/25/19 15:52 of extremities citalopram Allergy Mild GI symptoms Verified 11/25/19 15:52 pravastatin AdvReac Mild leg Verified 11/25/19 15:52 soreness rosuvastatin AdvReac Mild leg Verified 11/25/19 15:52 soreness Consultations 12/30/19 20:10 ED Decision to Admit Stat 12/30/19 23:41 Consult Urology Routine 12/31/19 09:36 Consult Palliative Care Routine Ordered Studies 12/30/19 20:04 CT abd pelvis wo con Stat 12/30/19 20:09 CT cervical spine wo con Stat CT head/brain wo con Stat Hospital Course (1) Primary bladder malignant neoplasm: metastatic bladder CA - Discharged to hospice on 12/31. Needing some small amount of morphine for comfort. (2) Sepsis secondary to UTI: severe sepsis, present on arrival, with renal failure no evidence of shock at this time, BP preserved continue IV fluids, continue Cefepime, follow up results of urine culture no blood cultures were drawn, too late at this time with IV antibiotics in place doing better since admission, HR down to 100's, making urine COVID test negative, he was from [facility] (3) Acute renal failure: due to sepsis, dehydration, possible malfunction of left nephrostomy tube Cr improved a little to 3.0 from 3.2 repeat BMP this afternoon electrolytes stable hoping that failure all due to dehydration and infection, thus it should improve if it is due to obstruction there is nothing really that can be done per urology (4) Fall: several falls at personal halfway no fractures on imaging has some general pain using Tylenol, use Dilaudid if pain is severe (5) Weakness: consult PT/OT he is from personal halfway (6) Metabolic acidosis: likely due to renal failure and sepsis, although anion gap normal if HCO3 goes down further this afternoon, will add sodium bicarb to fluids (7) Hypomagnesemia: replace 2gm IV for Mg level of 1.4 (8) Severe protein-calorie malnutrition: encourage PO intake per his , he has been eating well but she has not been able to see him in some time (9) Pulmonary embolism: h/o such, continue on Xarelto (10) Chronic respiratory failure with hypoxia: no distress, breathing well on room air at this time (11) Chronic kidney disease (CKD), stage III (moderate): currently with MOUNIKA cr was as low as 1.0 in November (12) Multifocal atrial tachycardia: HR in the 140's this morning, likely driven by infection, pain, and delay in getting his Toprol 25mg HR now 100's after pain control, 500cc bolus and Toprol Total Time Total Time Spent Total Time Spent (In Minutes): 35 Discharge Plan Discharge Items Patient Disposition: Hospice - Medical Facility Reason For Visit: FALL,UTI,SEPSIS SECONDARY TO UTI Discharge Diagnosis: Bladder cancer Condition on Discharge: Fair Activity: Resume your previous activity Non-emergency contact: Primary Care Provider Call non-emergency contact if: your symptoms worsen and your pain is not controlled Follow-up/Referrals: Ramon Serrato [Primary Care Provider] - Diet: Regular Addtl Attending Provider Instructions: Mr. Lynch was admitted for a fall and concern for infection. Unfortunately, his bladder cancer is progressing and there are no surgical options available to him at [facility] or [facility]. Given the incurable nature of his cancer, his opted for hospice. Pending Studies at Discharge: No Stand-Alone Forms: My [facility] Skilled Items Patient informed of condition?: Yes DNR: Yes Discharge Level of Care: Skilled Communicable Disease: No Discharge Prognosis: Deteriorating Lines: None Urinary Catheter: Yes Medications and DC Order Prescriptions: New morphine concentrate 100 mg/5 mL (20 mg/mL) solution 5 mg PO Q3H PRN (Reason: pain) Qty: 30 RF: 0 Continued ondansetron HCl 4 mg tablet 4 mg PO Q4H PRN (Reason: Nausea And Vomiting) RF: 0 pantoprazole 40 mg tablet,delayed release (DR/EC) 40 mg PO DAILY@0800 RF: 0 Breo Ellipta 100-25 mcg/dose Blister With Device 1 inh INHALATION DAILY@0800 RF: 0 acetaminophen [Tylenol] 325 mg Tablet 650 mg PO Q4H MDD 3 GMS APAP/24 HOURS PRN (Reason: Pain) RF: 0 melatonin 3 mg Tablet 6 mg PO DAILY@1999 RF: 0 hydrocortisone 1 % Cream 1 applic TOPICAL TID PRN (Reason: Itching) RF: 0 mirtazapine 15 mg Tablet 15 mg PO DAILY@1999 RF: 0 gabapentin 100 mg Capsule 200 mg PO BID RF: 0 diclofenac sodium 1 % Gel 2 g TOPICAL TID PRN (Reason: Arthritis Pain) RF: 0 sennosides-docusate sodium [Senna Plus] 8.6-50 mg Tablet 1 tab-cap PO DAILY@1200 RF: 0 docusate sodium 100 mg Capsule 100 mg PO BID RF: 0 polyethylene glycol 3350 17 gram/dose Powder 17 g PO DAILY PRN (Reason: Constipation) RF: 0 metoprolol succinate [Toprol XL] 25 mg tablet extended release 24 hr 25 mg PO DAILY@0800 RF: 0 Discharge Orders: Discharge Order (Routine); Ordered 01/01/20 Ordered By: Alexi Kuhn Admission Data Admit Date/Time: 12/30/19 22:07 Attending Provider: Alexi Kuhn Admit Provider: Leidy Yee Primary Care Provider: Ramon Serrato Other Providers: Brooks Harvey ; Archana Zazueta ; Alexi Kuhn Other Interventions: Discharge Summary Assessment (RN) Last Done: 01/01/20 15:17 DC Date/Time DO NOT enter until pt leaves facility: 01/01/20 16:14 Coding Level of Care Code D/C Day Management >30 mins Diagnoses Primary bladder malignant neoplasm C67.9 Sepsis secondary to UTI A41.9; N39.0 Acute renal failure N17.9 Acute renal failure type: unspecified Fall W19.XXXA Encounter type: initial encounter Weakness R53.1 Metabolic acidosis E87.2 Hypomagnesemia E83.42 Severe protein-calorie malnutrition E43 Pulmonary embolism I26.99 Chronic respiratory failure with hypoxia J96.11 Chronic kidney disease (CKD), stage III (moderate) N18.3 Multifocal atrial tachycardia I47.1
--- NOTE | 2020-01-02 06:23 | Billing Data ---
Date of Service January 02, 2020 Coding Level of Care Code 62842 Initial Inpt Care Lvl 3
== END 2020-01-01 16:14 | disposition hospice, inpatient (51) | DRG 871 ==
LOC: ED 18:31 → 2W 22:07 → SUATTDRO 22:07 → 2W 23:08